=== PATIENT | male | born 1955 | race Two or more races ===

== ENCOUNTER → 2020-07-02 10:48 | Outpatient (BNVA) | payer MEDICARE, SELFPAY | PROVIDERS: PCP Internal Medicine; Referring Provider Internal Medicine; Visit Provider Internal Medicine | DX: E66.9 Obesity, unspecified (principal); G47.33 Obstructive sleep apnea (adult) (pediatric); J44.9 Chronic obstructive pulmonary disease, unspecified; J30.9 Allergic rhinitis, unspecified; F17.200 Nicotine dependence, unspecified, uncomplicated; Z99.89 Dependence on other enabling machines and devices | CPT/HCPCS: 99212 ==

== ENCOUNTER 2020-08-04 07:12 | Outpatient (REF) | payer MEDICARE, SELFPAY ==
[2020-08-04 07:36] LABS: MANUAL DIFF FLAG NO
[2020-08-04 07:42] LABS: Basophils Percent Auto 0.2 % (0-2); Eosinophils Absolute Auto 0.3 X10*3/uL (0.0-0.4); Eosinophils Percent Auto 3.3 % (0-4); Hematocrit 36.9 % (42-52); Hemoglobin 12.2 g/dl (14.0-18.0); Imm Gran Abs Auto 0.03 X10*3/uL (0.00-0.03); Imm Gran Pct Auto 0.3 % (0.0-0.4); Lymphocytes Absolute Auto 2.7 X10*3/uL (1.2-4.9); Lymphocytes Percent Auto 28.8 % (20-40); Mean Corpuscular HGB Conc 33.1 g/dl (31.0-36.0); Mean Corpuscular Hemoglobin 28.7 pg (27.0-33.0); Mean Corpuscular Volume 86.8 fL (80-98); Mean Platelet Volume 10.9 fL (9.4-12.4); Monocytes Absolute Auto 0.9 X10*3/uL (0.1-1.2); Monocytes Percent Auto 9.2 % (2-11); Neutrophils Absolute Auto 5.5 X10*3/uL (2.0-8.3); Neutrophils Percent Auto 58.2 % (45-73); Platelet Count 236 X10*3/uL (160-400); Red Blood Count 4.25 X10*6/uL (4.60-5.80); Red Cell Distribution Width 14.4 % (11.0-16.0); White Blood Count 9.5 X10*3/uL (4.8-10.8)
[2020-08-04 07:54] LABS: Estimated Average Glucose 114 mg/dL; Hemoglobin A1c % 5.6 %
[2020-08-04 08:23] LABS: Anion Gap 13 (12-20); Blood Urea Nitrogen 15 mg/dL (9-16); Calcium 8.9 mg/dL (8.4-10.2); Carbon Dioxide 25 mmol/L (22-29); Chloride 109 mmol/L (96-108); Cholesterol 157 mg/dL; Estimated Glomerular Filt Rate > 60; Glucose Fasting 128 mg/dL (60-99); HDL Cholesterol 28 mg/dL; LDL Cholesterol Calculated 105 mg/dl; Potassium 4.1 mmol/l (3.3-5.1); Sodium 143 mmol/L (135-145); Triglycerides 124 mg/dL
--- NOTE | 2020-10-20 14:40 | PFT_ITS ---
LUNG VOLUMES: Slow vital capacity 69% of predicted at 2.81 L. Expiratory reserve volume 21% of predicted at 0.23 L. The patient completed FVC maneuvers and then stated that he would not want to proceed further. Pulmonary test has been aborted. IMPRESSION: Aborted pulmonary function test. MD LU Carrington/MODL / [id number] MTDEmory
== END 2020-08-04 07:13 | disposition home or self-care (01) ==
LOC: HO.RESP 07:12
PROVIDERS: Absent Provider Internal Medicine; PCP Internal Medicine; Visit Provider Internal Medicine
DX: J44.9 Chronic obstructive pulmonary disease, unspecified (principal); I10 Essential (primary) hypertension; F17.210 Nicotine dependence, cigarettes, uncomplicated; Z71.6 Tobacco abuse counseling
CPT/HCPCS: 36415; 80048; 80061; 83036; 85025

== ENCOUNTER 2020-08-14 07:27 | Outpatient (REF) | payer MEDICARE, SELFPAY ==
--- NOTE | 2020-08-14 07:29 | CT_ITS ---
EXAMINATION: CT CHEST WITHOUT CONTRAST CLINICAL INFORMATION: Pulmonary nodule COMPARISON: 02/13/2019 TECHNIQUE: Multidetector volumetric CT imaging of the chest was done. Axial MIP volume rendering provided. Sagittal and coronal reformatted images were obtained. This CT examination was performed using dose optimization techniques as appropriate, variously including the following: *Automated exposure control *Adjustment of mA and/or kV according to patient size (this includes techniques or standardized protocols for targeted exams where dose is matched to indication/reason for exam; i.e. extremities or head) *Use of iterative reconstruction technique DLP: 244 mGy-cm FINDINGS: LUNGS: The central airways are patent with minimal secretions internally within the trachea. Mild bronchial wall thickening noted. Mild paraseptal and centrilobular emphysema. The previously seen right lower lobe pulmonary nodule is no longer visualized. There is a fissural lymph node along the right minor fissure. No suspicious pulmonary nodules. MEDIASTINUM: Normal heart size. No pericardial effusion. No mediastinal lymphadenopathy. Coronary artery calcifications are noted. PLEURA: There is no pleural effusion. No pleural mass or thickening. No pneumothorax. AXILLA: No lymphadenopathy. UPPER ABDOMEN: Unremarkable. OSSEOUS STRUCTURES: No acute or suspicious osseous abnormality. Degenerative changes are seen in the spine. CT/CT chest wo con IMPRESSION: Mild emphysema. Previously seen 0.3 cm right lower lobe nodule is no longer visualized. There are no suspicious pulmonary nodules.
== END 2020-08-14 07:28 | disposition home or self-care (01) ==
LOC: HO.CT 07:27
PROVIDERS: PCP Internal Medicine; Visit Provider Internal Medicine
DX: R91.1 Solitary pulmonary nodule (principal)
CPT/HCPCS: 71250

== ENCOUNTER 2020-12-25 08:50 | Outpatient (REF) | payer MEDICARE, SELFPAY ==
[2020-12-25 10:00] LABS: MANUAL DIFF FLAG NO
[2020-12-25 10:04] LABS: Basophils Percent Auto 0.2 % (0-2); Eosinophils Absolute Auto 0.2 X10*3/uL (0.0-0.4); Eosinophils Percent Auto 2.9 % (0-4); Hemoglobin 11.4 g/dl (14.0-18.0); Imm Gran Abs Auto 0.04 X10*3/uL (0.00-0.03); Imm Gran Pct Auto 0.5 % (0.0-0.4); Lymphocytes Absolute Auto 2.6 X10*3/uL (1.2-4.9); Lymphocytes Percent Auto 31.3 % (20-40); Mean Corpuscular HGB Conc 33.5 g/dl (31.0-36.0); Mean Corpuscular Hemoglobin 29.1 pg (27.0-33.0); Mean Corpuscular Volume 86.7 fL (80-98); Mean Platelet Volume 10.6 fL (9.4-12.4); Monocytes Absolute Auto 0.7 X10*3/uL (0.1-1.2); Monocytes Percent Auto 8.7 % (2-11); Neutrophils Absolute Auto 4.7 X10*3/uL (2.0-8.3); Neutrophils Percent Auto 56.4 % (45-73); Platelet Count 251 X10*3/uL (160-400); Red Blood Count 3.92 X10*6/uL (4.60-5.80); Red Cell Distribution Width 14.8 % (11.0-16.0); White Blood Count 8.3 X10*3/uL (4.8-10.8)
[2020-12-25 10:29] LABS: Alanine Aminotransferase 13 U/L (0-40); Albumin Level 3.3 g/dL (3.5-5.0); Alkaline Phosphatase 117 U/L (39-117); Anion Gap 11 (12-20); Aspartate Amino Transferase 11 U/L (5-37); Bilirubin Total < 0.2 mg/dL (0.0-1.0); Blood Urea Nitrogen 18 mg/dL (9-16); Calcium 8.6 mg/dL (8.4-10.2); Carbon Dioxide 23 mmol/L (22-29); Chloride 112 mmol/L (96-108); Estimated Glomerular Filt Rate 57; Magnesium 1.9 mg/dL (1.6-2.6); Phosphorus 2.5 mg/dL (2.7-4.5); Potassium 4.2 mmol/L (3.3-5.1); Sodium 142 mmol/L (135-145); Uric Acid 7.8 mg/dL (3.4-7.0)
[2020-12-25 10:42] LABS: Creatinine Urine 69.15 mg/dL; Total Protein Urine Random < 7 mg/dL (<12)
[2020-12-25 10:47] LABS: Vitamin D 25-OH Total 34.3 ng/mL (>30)
[2020-12-25 11:30] LABS: Renal w Reflex Lab Use Only Order verified
[2020-12-26 14:11] LABS: Calcium (PTHI) 8.8 mg/dL (8.6-10.3); PTHI 53 pg/mL (14-64)
== END 2020-12-25 08:51 | disposition home or self-care (01) ==
LOC: HO.LAB 08:50
PROVIDERS: PCP Internal Medicine; Visit Provider Internal Medicine Nephrology
DX: J44.9 Chronic obstructive pulmonary disease, unspecified (principal); J30.9 Allergic rhinitis, unspecified; G47.33 Obstructive sleep apnea (adult) (pediatric); E66.9 Obesity, unspecified; Z99.89 Dependence on other enabling machines and devices; Z71.6 Tobacco abuse counseling; F17.210 Nicotine dependence, cigarettes, uncomplicated
CPT/HCPCS: 36415; 80051; 82040; 82247; 82306; 82310; 82565; 83735; 83970; 84075; 84100; 84156; 84450; 84460; 84520; 84550; 85025; 99212

== ENCOUNTER 2021-03-14 07:20 | Emergency (ER) | payer MEDICARE, SELFPAY ==
[2021-03-14 07:26] VITALS: BP 132/54; PULSE 96; RESP 20; TEMP 36.5; O2SAT 99; BMI 44.6
--- NOTE | 2021-03-14 09:00 | ED.EXTPRO ---
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 He also had labs at that time and was told that there were no acute abnormalities. Patient states he has been able to ambulate without difficulty and denies any knee pain and has full range of motion of both the hip and the knee and denies any falls. In addition, he denies any back pain or urinary symptoms. Related Data Home Medications Medication Instructions Recorded Confirmed blood sugar diagnostic #10 ea 07/02/20 varenicline 1 mg tablet 1 mg PO BID 07/02/20 Previous Rx's Medication Instructions Recorded albuterol sulfate 2.5 mg INHALATION QID #75 ml 05/12/20 alendronate 70 mg tablet (Fosamax) 70 mg PO QWEEK #7 tab 05/12/20 alprazolam 1 mg tablet 1 mg PO BID #60 tab 05/12/20 buspirone 10 mg tablet 10 mg PO BID #60 tab 05/12/20 cholecalciferol (vitamin D3) 50 50 mcg PO DAILY #30 cap 05/12/20 mcg (2,000 unit) capsule docusate sodium 100 mg capsule 100 mg PO DAILY #30 cap 05/12/20 (Colace) fluticasone 500 mcg-salmeterol 50 1 inh INHALATION BID #60 ea 05/12/20 mcg/dose blistr powdr for inhalation (Advair Diskus) hydrochlorothiazide 12.5 mg tablet 12.5 mg PO DAILY #30 tab 05/12/20 hydrocortisone 2.5 % topical cream 1 applic [place] BID-QID PRN #30 g 05/12/20 with perineal applicator (Procto-Med HC) ipratropium 0.5 mg-albuterol 3 mg 3 ml INHALATION Q6H PRN #90 ml 05/12/20 (2.5 mg base)/3 mL nebulization soln loratadine 10 mg tablet (Claritin) 10 mg PO DAILY #30 tab 11/02/20 lorazepam 1 mg tablet (Ativan) 1 mg PO BID PRN #60 tab 05/12/20 metformin 500 mg tablet,extended 500 mg PO DAILY #30 tab 05/12/20 release 24 hr omeprazole magnesium 20 mg 20 mg PO DAILY #30 tab 05/12/20 tablet,delayed release (Prilosec OTC) oxymetazoline 0.05 % nasal spray 2 spray INTRANASAL Q12H PRN 3 Days 05/12/20 (Afrin (oxymetazoline)) #30 ml paroxetine HCl 20 mg tablet 20 mg PO DAILY #30 tab 05/12/20 quetiapine 300 mg tablet (Seroquel) 300 mg PO BEDTIME #30 tab 05/12/20 quetiapine 400 mg tablet 400 mg PO BID #30 tab 05/12/20 tamsulosin 0.4 mg capsule 0.4 mg PO BEDTIME #30 cap 05/12/20 verapamil 300 mg capsule 24hr 300 mg PO BEDTIME #30 cap 05/12/[address],ext.release (Verelan PM) albuterol sulfate 90 mcg/actuation 2 puff INHALATION Q4-6H PRN 30 12/15/20 aerosol inhaler (ProAir HFA) Days #8.5 g montelukast 10 mg tablet 10 mg PO BEDTIME #90 tab 12/17/20 Allergies Allergy/AdvReac Type Severity Reaction Status Date / Time No Known Allergies Allergy Verified 12/25/20 09:28 [No Known Allergies*] Review of Systems Review of Systems: Pertinent positives and negatives as stated in HPI 10 point review of systems is otherwise negative. [facility] Past Medical History Source: nursing notes reviewed Medical History Allergic rhinitis COPD (chronic obstructive pulmonary disease) Obesity (BMI 35.0-39.9 without comorbidity) NAM on CPAP Smoker Social History Social History Alcohol intake: unknown Patient Tobacco Use Status: Tobacco use Unknown Use of substances other than those prescribed or required for medical reasons: Unknown Advance Directives: Yes Advance Directives Information Provided: No Advance Directives on File: No Physical Exam Vital Signs: Vital Signs: Last Vital Signs Temp 97.7 F 03/14/21 07:26 Pulse 96 03/14/21 07:26 Resp 20 03/14/21 07:26 BP 132/54 L 03/14/21 07:26 Pulse Ox 99 09/04/21 07:26 Body Mass Index 44.6 VITAL SIGNS: Reviewed. GENERAL: Well developed, well nourished, in no acute distress. HEAD: Normocephalic/atraumatic EYES: PERRLA, EOMI OROPHARYNX: no oral lesions noted, posterior pharynx clear LUNGS: Normal breath sounds. No adventitious sounds or accessory muscle use. SpO2<99> CARDIOVASCULAR: Regular rate and rhythm without noted murmurs, no JVD or lower extremity edema. ABDOMEN: Soft, non-tender, non-distended with bowel sounds. LEFT LOWER EXTREMITY: No deformities, there is noted evidence of sun exposure to the left lower extremity, there is no erythema or swelling around the knee and the knee has full range of motion, hip area is without tenderness on palpation and no evidence of erythema or induration. He palpation along the left lateral extremity is without erythema or induration and no fluctuance is noted. SKIN: Inspection of the skin reveals no rashes NEUROLOGIC: Alert and oriented x 4. Strength and sensation to light touch were grossly intact x 4. Course Course Course Narrative: This is a 65-year-old male with history and clinical presentation most consistent with neuropathic pain. There is no evidence of trauma, infection, and patient has had recent lab work by his primary care provider. In addition patient has not experienced any falls to suggest gait instability. Patient is otherwise requesting to be discharged so that he can follow up with his primary care provider on Tuesday morning and he is hemodynamically stable for this discharge. Discharge Plan Discharge Clinical Impression: Left leg pain, Neuropathic pain Patient Disposition: Home, Self-Care Instructions: Diabetic Peripheral Neuropathy (ED) Additional Instructions: 1. Reanude todos los medicamentos caseros seg?n lo prescrito. 2. Sospecho que se trata de un dolor neurop?parmjit. 3. Reece un seguimiento con saenz proveedor de atenci?n primaria el por la ma?abhishek para ernst reevaluaci?n. Regrese a la kizzy de emergencias por un empeoramiento kuldeep de los s?ntomas. Prescriptions: No Action albuterol sulfate [ProAir HFA] 90 mcg/actuation HFA aerosol inhaler 2 puff inhalation Q4-6H PRN (Reason: shortness of breath or wheezing) 30 Days Qty: 8.5 RF: 1 montelukast 10 mg tablet 10 mg PO BEDTIME Qty: 90 RF: 0 Chantix 1 mg tablet 1 mg PO BID RF: 0 (DME) FreeStyle Lite Strips Strip See Rx Instructions strip Not Applicable DAILY Qty: 10 RF: 0 Referrals: Lake Allen MD [Primary Care Provider] - 2 days (Re-evaluation for suspected neuropathic pain in the left lower extremity.) Print Language: Latvian
== END 2021-03-14 09:22 | disposition home or self-care (01) ==
PROVIDERS: Emergency Provider Student in an Organized Health Care Education/Training Program; PCP Internal Medicine
DX: G62.9 Polyneuropathy, unspecified (principal); M79.662 Pain in left lower leg; F17.210 Nicotine dependence, cigarettes, uncomplicated
CPT/HCPCS: 99282; 99284

== ENCOUNTER → 2021-04-02 06:58 | Outpatient (REF) | payer MEDICARE, SELFPAY ==
--- NOTE | 2021-04-02 07:01 | CA_ITS ---
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 Consider ADELA Findings Atria There is no evidence of interatrial shunt by agitated saline. Prior Study Comparison No previous study in the last 5 years for comparison Recommendations, Care & Conclusions Consider a ADELA if clinically appropriate. Updated in Other Vendor System with Status of Final Stanley Urena MD electronically signed on 04/03/2021 8:58:56 AM with status of Final
== END ==
LOC: HO.CARD 06:58
PROVIDERS: Visit Provider Internal Medicine Cardiovascular Disease
DX: Q21.1 Atrial septal defect (principal)
CPT/HCPCS: 93308

== ENCOUNTER → 2021-05-12 09:02 | Outpatient (BNVA) | payer MEDICARE, SELFPAY | PROVIDERS: PCP Internal Medicine; Visit Provider Internal Medicine | DX: G47.33 Obstructive sleep apnea (adult) (pediatric) (principal); J30.9 Allergic rhinitis, unspecified; J44.9 Chronic obstructive pulmonary disease, unspecified; E66.2 Morbid (severe) obesity with alveolar hypoventilation; F17.200 Nicotine dependence, unspecified, uncomplicated; Z99.89 Dependence on other enabling machines and devices | CPT/HCPCS: 99212 ==

== ENCOUNTER → 2021-09-10 10:18 | Outpatient (BNVA) | payer MEDICARE, SELFPAY | PROVIDERS: PCP Internal Medicine; Visit Provider Internal Medicine | DX: J44.9 Chronic obstructive pulmonary disease, unspecified (principal); J30.9 Allergic rhinitis, unspecified; G47.33 Obstructive sleep apnea (adult) (pediatric); E66.2 Morbid (severe) obesity with alveolar hypoventilation; F17.200 Nicotine dependence, unspecified, uncomplicated; Z99.89 Dependence on other enabling machines and devices; Z68.42 Body mass index [BMI] 45.0-49.9, adult | CPT/HCPCS: 99212 ==

== ENCOUNTER → 2022-01-25 08:19 | Outpatient (BNVA) | payer MEDICARE, SELFPAY | PROVIDERS: PCP Internal Medicine; Visit Provider Internal Medicine | DX: G47.33 Obstructive sleep apnea (adult) (pediatric) (principal); E66.2 Morbid (severe) obesity with alveolar hypoventilation; J44.9 Chronic obstructive pulmonary disease, unspecified; J30.9 Allergic rhinitis, unspecified; F17.210 Nicotine dependence, cigarettes, uncomplicated; Z71.6 Tobacco abuse counseling; Z68.42 Body mass index [BMI] 45.0-49.9, adult; Z99.89 Dependence on other enabling machines and devices | CPT/HCPCS: 99212 ==

== ENCOUNTER 2022-03-24 12:21 | Outpatient (REF) | payer MEDICARE, SELFPAY ==
--- NOTE | ~2022-03-24 | CT_ITS ---
EXAMINATION: CT HEAD WITHOUT CONTRAST CLINICAL INFORMATION: Headache COMPARISON: None TECHNIQUE: Contiguous axial imaging was performed from the skull base to vertex without intravenous administration of contrast. This CT examination was performed using dose optimization techniques as appropriate, variously including the following: *Automated exposure control *Adjustment of mA and/or kV according to patient size (this includes techniques or standardized protocols for targeted exams where dose is matched to indication/reason for exam; i.e. extremities or head) *Use of iterative reconstruction technique DLP: 984 mGy-cm FINDINGS: There is no acute intra-axial, extra-axial bleed, masses or midline shift. Both lateral ventricles are symmetrical in size and configuration without enlargement. There is no acute infarction evolution. The lateral ventricles are symmetrical in size and configuration without enlargement. Bone windows reveal no calvarial abnormality. There is no scalp soft tissue abnormality. Bilateral paranasal sinuses and mastoid air cells are well-aerated. CT/CT head/brain wo IV con IMPRESSION: No acute intracranial process seen.
== END 2022-03-24 12:22 | disposition home or self-care (01) ==
LOC: HO.CT 12:21
PROVIDERS: PCP Internal Medicine; Visit Provider Emergency Medicine
DX: R51.9 Headache, unspecified (principal)
CPT/HCPCS: 70450

== ENCOUNTER 2022-06-27 09:15 | Emergency (ER) | payer MEDICARE, SELFPAY ==
--- NOTE | ~2022-06-27 | XR_ITS ---
EXAMINATION: XR LEFT RIBS AND CHEST CLINICAL INFORMATION: Pain after fall. Left rib injury. COMPARISON: 11/16/2019 TECHNIQUE: PA and lateral views of the chest and AP and both oblique views of the left ribs were obtained. FINDINGS: Lungs are clear. Chronic pleural thickening is again seen in the posterior aspects of the bases bilaterally. No consolidation, pneumothorax, or pleural effusion. The cardiomediastinal silhouette and pulmonary vasculature are normal. No acute fractures are identified. No left-sided rib fractures. Chronic deformity of the left proximal humerus, likely related to an old healed fracture. XR/XR chest 2V IMPRESSION: No acute cardiopulmonary findings. No acute rib fractures are identified.
--- NOTE | ~2022-06-27 | XR_ITS ---
EXAMINATION: XR LEFT RIBS AND CHEST CLINICAL INFORMATION: Pain after fall. Left rib injury. COMPARISON: 11/16/2019 TECHNIQUE: PA and lateral views of the chest and AP and both oblique views of the left ribs were obtained. FINDINGS: Lungs are clear. Chronic pleural thickening is again seen in the posterior aspects of the bases bilaterally. No consolidation, pneumothorax, or pleural effusion. The cardiomediastinal silhouette and pulmonary vasculature are normal. No acute fractures are identified. No left-sided rib fractures. Chronic deformity of the left proximal humerus, likely related to an old healed fracture. XR/XR ribs LT 2V IMPRESSION: No acute cardiopulmonary findings. No acute rib fractures are identified.
[2022-06-27 09:25] VITALS: BP 160/100; O2SAT 98; BMI 45.1
[2022-06-27 09:38] VITALS: BP 121/61; PULSE 78; TEMP 36.3; O2SAT 99
--- NOTE | 2022-06-27 09:48 | ED_ITS ---
HPI - Fall General Chief Complaint: Fall Stated Complaint: Side pain post fall(2 days ago), per EMS Time Seen by Provider: 06/27/22 09:46 Source: patient Mode of arrival: EMS Limitations: no limitations History of Present Illness HPI Narrative: patient was walking Tuesday and he fell outside his home. now with continued left chest pain MD complaint: fall Onset (ago): day(s) Fall from: standing Place fall occurred: home Loss of consciousness: none Context: tripped/slipped Location of injury: chest Quality: sharp Related Data Home Medications Medication Instructions Recorded Confirmed blood sugar diagnostic #10 ea 07/02/20 01/25/22 Previous Rx's Medication Instructions Recorded alprazolam 1 mg tablet 1 mg PO BID #60 tabs 05/12/20 buspirone 10 mg tablet 10 mg PO BID #60 tabs 05/12/20 cholecalciferol (vitamin D3) 50 50 mcg PO DAILY #30 caps 05/12/20 mcg (2,000 unit) capsule docusate sodium 100 mg capsule 100 mg PO DAILY #30 caps 05/12/20 (Colace) hydrochlorothiazide 12.5 mg tablet 12.5 mg PO DAILY #30 tabs 05/12/20 hydrocortisone 2.5 % topical cream 1 applic [place] BID-QID PRN 05/12/20 with perineal applicator hemorrhoids #30 grams (Procto-Med HC) loratadine 10 mg tablet (Claritin) 10 mg PO DAILY #30 tabs 05/12/20 lorazepam 1 mg tablet (Ativan) 1 mg PO BID PRN anxiety #60 tabs 05/12/20 metformin 500 mg tablet,extended 500 mg PO DAILY #30 tabs 05/12/20 release 24 hr omeprazole magnesium 20 mg 20 mg PO DAILY #30 tabs 05/12/20 tablet,delayed release (Prilosec OTC) paroxetine HCl 20 mg tablet 20 mg PO DAILY #30 tabs 05/12/20 quetiapine 300 mg tablet (Seroquel) 300 mg PO BEDTIME #30 tabs 05/12/20 quetiapine 400 mg tablet 400 mg PO BID #30 tabs 05/12/20 tamsulosin 0.4 mg capsule 0.4 mg PO BEDTIME #30 caps 05/12/20 verapamil 300 mg capsule 24hr 300 mg PO BEDTIME #30 caps 05/12/[address],ext.release (Verelan PM) albuterol sulfate 90 mcg/actuation 2 puff inhalation Q4-6H PRN 09/10/21 aerosol inhaler (ProAir HFA) shortness of breath or wheezing 30 days #8.5 grams fluticasone 500 mcg-salmeterol 50 1 inh inhalation BID copd #60 ea 09/10/21 mcg/dose blistr powdr for inhalation (Advair Diskus) fluticasone propionate 50 2 spray intranasal DAILY Allergic 09/10/21 mcg/actuation nasal Rhinitis 30 days #16 grams spray,suspension (Children's Flonase Allergy Relief) montelukast 10 mg tablet 10 mg PO BEDTIME #90 tabs 05/31/22 naproxen 500 mg tablet (Naprosyn) 500 mg PO BID #20 tabs 06/27/22 Allergies Allergy/AdvReac Type Severity Reaction Status Date / Time No Known Allergies Allergy Verified 01/25/22 08:52 [No Known Allergies*] Review of Systems Neurologic: Denies Sensory deficit (Neuro) COUNTS INCLUDE 234 BEDS AT THE [facility] Past Medical History Medical History Allergic rhinitis COPD (chronic obstructive pulmonary disease) Morbid (severe) obesity with alveolar hypoventilation Obesity (BMI 35.0-39.9 without comorbidity) NAM on CPAP Smoker Social History Social History Alcohol intake: unknown Patient Tobacco Use Status: Tobacco use Unknown Advance Directives: No Advance Directives Information Provided: No Physical Exam Vital Signs: Vital Signs: Last Vital Signs Temp 98.8 F 06/27/22 10:59 Pulse 67 06/27/22 10:59 Resp 18 06/27/22 10:59 BP 112/76 06/27/22 10:59 Pulse Ox 98 06/27/22 10:59 O2 Del Method 06/27/22 10:59 BMI result Body Mass Index 45.1 Const: Other: unkept Nutritional Appearance: obese Orientation/consciousness: oriented to person and patient oriented x3 Limitations: no limitations HEENT: Head: Yes normal to inspection Ears: external ears normal General nose exam: Normal external nose present Mouth: Normal oral and palatal mucosa present and oropharynx normal Throat: Yes posterior oropharynx normal Eyes: General: appearance normal, both eyes and all related structures Neck: Other: supple Neck: Yes normal visual inspection Chest: Other: left anterior rib tenderness Resp: Auscultation: clear to auscultation bilaterally Cardio: Jugular venous distension: no JVD Rate: regular rate Rhythm: regular rhythm Heart sounds: S1 normal heart sound present and S2 normal heart sound present GI: Inspection: Yes normal to inspection Palpation (GI): Soft to palpation, nontender and No hepatosplenomegaly present Auscultation: normal bowel sounds : General: Yes no CVA tenderness Back/Spine/Pelvis: Back: no CVA tenderness Skin: General skin exam: no rashes or lesions noted Neuro: General: oriented to person and patient oriented x3 Cranial nerves: Yes CN's II-XII intact bilaterally Motor exam (neuro): 5/5 motor strength present throughout Sensory Exam: No Sensory deficit (Neuro) Extrem: General: Yes normal to inspection Psych: Appearance: grossly normal Course Reevaluation(s) Reevaluation #1: Patient with rib contusion will dc on NSAIDS Time: 11:05 Medical Decision Making Radiology Impression Discussion of test interpretation with radiology: I have reviewed the radiologist's reading. Radiologist Impression: FINDINGS: Lungs are clear. Chronic pleural thickening is again seen in the posterior aspects of the bases bilaterally. No consolidation, pneumothorax, or pleural effusion. The cardiomediastinal silhouette and pulmonary vasculature are normal. No acute fractures are identified. No left-sided rib fractures. Chronic deformity of the left proximal humerus, likely related to an old healed fracture. XR/XR chest 2V IMPRESSION: No acute cardiopulmonary findings. No acute rib fractures are identified. Dictated By: n Signed By: <Electronically signed by n in OV> 06/27/22 1024 Discharge Plan Discharge Clinical Impression: Chest wall contusion Patient Disposition: Home, Self-Care Instructions: Contusion in Adults (ED), Rib Contusion (ED) Prescriptions: New naproxen [Naprosyn] 500 mg tablet 500 mg PO BID Qty: 20 0RF No Action lorazepam [Ativan] 1 mg tablet 1 mg PO BID PRN (Reason: anxiety) Qty: 60 0RF loratadine [Claritin] 10 mg tablet 10 mg PO DAILY Qty: 30 0RF buspirone 10 mg tablet 10 mg PO BID Qty: 60 0RF quetiapine 400 mg tablet 400 mg PO BID Qty: 30 0RF paroxetine HCl 20 mg tablet 20 mg PO DAILY Qty: 30 0RF alprazolam 1 mg tablet 1 mg PO BID Qty: 60 0RF tamsulosin 0.4 mg capsule 0.4 mg PO BEDTIME Qty: 30 0RF docusate sodium [Colace] 100 mg capsule 100 mg PO DAILY Qty: 30 0RF omeprazole magnesium [Prilosec OTC] 20 mg tablet,delayed release (DR/EC) 20 mg PO DAILY Qty: 30 0RF hydrocortisone [Procto-Med HC] 2.5 % cream with perineal applicator 1 applic NV BID-QID PRN (Reason: hemorrhoids) Qty: 30 0RF verapamil [Verelan PM] 300 mg capsule, [address] 300 mg PO BEDTIME Qty: 30 0RF hydrochlorothiazide 12.5 mg tablet 12.5 mg PO DAILY Qty: 30 0RF quetiapine [Seroquel] 300 mg tablet 300 mg PO BEDTIME Qty: 30 0RF metformin 500 mg tablet extended release 24 hr 500 mg PO DAILY Qty: 30 0RF cholecalciferol (vitamin D3) 50 mcg (2,000 unit) capsule 50 mcg PO DAILY Qty: 30 0RF montelukast 10 mg tablet 10 mg PO BEDTIME Qty: 90 0RF (DME) FreeStyle Lite Strips Strip See Rx Instructions Not Applicable DAILY Qty: 10 Rx Instructions: As directed fluticasone propion-salmeterol [Advair Diskus] 500-50 mcg/dose blister with device 1 inh inhalation BID Qty: 60 5RF albuterol sulfate [ProAir HFA] 90 mcg/actuation HFA aerosol inhaler 2 puff inhalation Q4-6H PRN (Reason: shortness of breath or wheezing) 30 Days Qty: 8.5 1RF fluticasone propionate [Children's Flonase Allergy Rlf] 50 mcg/actuation spray,suspension 2 spray intranasal DAILY 30 Days Qty: 16 5RF Rx Instructions: administer into each nostril
[2022-06-27 10:59] VITALS: BP 112/76; PULSE 67; RESP 18; TEMP 37.1; O2SAT 98
[2022-06-27] MEDS: Ketorolac Tromethamine 60 MG/2 ML VIAL IM (11:15)
== END 2022-06-27 11:31 | disposition home or self-care (01) ==
PROVIDERS: Emergency Provider Emergency Medicine; PCP Internal Medicine
DX: S20.213A Contusion of bilateral front wall of thorax, initial encounter (principal); W01.0XXA Fall on same level from slipping, tripping and stumbling without subsequent striking against object, initial encounter; Y93.9 Activity, unspecified; Y92.9 Unspecified place or not applicable; Y99.9 Unspecified external cause status; Z79.899 Other long term (current) drug therapy
CPT/HCPCS: 71046; 71100; 99283; J1885

== ENCOUNTER → 2022-08-12 08:25 | Outpatient (BNVA) | payer OTHER, SELFPAY | PROVIDERS: PCP Internal Medicine; Visit Provider Internal Medicine | DX: G47.33 Obstructive sleep apnea (adult) (pediatric) (principal); J44.9 Chronic obstructive pulmonary disease, unspecified; E66.2 Morbid (severe) obesity with alveolar hypoventilation; J30.9 Allergic rhinitis, unspecified; F17.200 Nicotine dependence, unspecified, uncomplicated; Z99.89 Dependence on other enabling machines and devices; Z68.42 Body mass index [BMI] 45.0-49.9, adult | CPT/HCPCS: 99212 ==

== ENCOUNTER 2022-10-01 13:30 | Outpatient (REF) | payer OTHER, SELFPAY ==
--- NOTE | ~2022-10-01 | CT_ITS ---
EXAMINATION: LUNG CANCER SCREENING CT CHEST WITHOUT CONTRAST CLINICAL INFORMATION: Current smoker with 55 pack year history COMPARISON: 08/14/2020 TECHNIQUE: Multidetector volumetric CT imaging of the chest was obtained noncontrast using low dose screening CT technique. Axial thin section 0.625 mm reformations in soft tissue and lung windows were obtained. Sagittal and coronal reformations were obtained. Axial MIP images were also created and reviewed. This CT examination was performed using dose optimization techniques as appropriate, variously including the following: *Automated exposure control *Adjustment of mA and/or kV according to patient size (this includes techniques or standardized protocols for targeted exams where dose is matched to indication/reason for exam; i.e. extremities or head) *Use of iterative reconstruction technique TOTAL EXAM DLP: 110 mGy-cm. FINDINGS: PULMONARY NODULES: No suspicious pulmonary nodules. There are couple punctate nodules in the right lower lobe. LUNGS / PLEURA: Mild emphysema. Diffuse mild bronchial wall thickening without bronchiectasis. No pleural effusion or pneumothorax. MEDIASTINUM / TRANG: Heart normal in size without pericardial effusion. Great vessels normal caliber. No lymphadenopathy. Coronary calcifications present. Imaged thyroid gland unremarkable. CHEST WALL / AXILLA: Unremarkable. UPPER ABDOMEN: Fatty atrophy of the pancreas. OSSEOUS STRUCTURES: No acute or suspicious osseous abnormalities. CT/CT lung screening IMPRESSION: * No evidence of pulmonary malignancy. * Mild emphysema. ASSESSMENT: Lung RADS category: 2. Benign appearance or behavior. Nodules with a very low likelihood of becoming a clinically active cancer due to size or lack of growth. Continue annual screening with low-dose CT in 12 months. Probability of malignancy less than 1%. INCIDENTAL FINDINGS (S CATEGORY): None. RECOMMENDATION: Follow up low dose CT chest in 1 year.
== END 2022-10-01 13:31 | disposition home or self-care (01) ==
LOC: HO.CT 13:30
PROVIDERS: PCP Internal Medicine; Visit Provider Physician Assistant Medical
DX: Z12.2 Encounter for screening for malignant neoplasm of respiratory organs (principal); F17.210 Nicotine dependence, cigarettes, uncomplicated
CPT/HCPCS: 71271; G0296

== ENCOUNTER → 2022-11-24 08:31 | Outpatient (BNVA) | payer OTHER, SELFPAY | PROVIDERS: PCP Internal Medicine; Visit Provider Internal Medicine | DX: G47.33 Obstructive sleep apnea (adult) (pediatric) (principal); J44.9 Chronic obstructive pulmonary disease, unspecified; E66.2 Morbid (severe) obesity with alveolar hypoventilation; J30.2 Other seasonal allergic rhinitis; F17.210 Nicotine dependence, cigarettes, uncomplicated; Z99.89 Dependence on other enabling machines and devices | CPT/HCPCS: 99212 ==

== ENCOUNTER 2022-12-11 15:11 | Emergency (ER) | payer OTHER, SELFPAY ==
--- NOTE | ~2022-12-11 | XR_ITS ---
EXAMINATION: XR KNEE, RIGHT CLINICAL INFORMATION: Pain post fall COMPARISON: 08/02/2016 plain films TECHNIQUE: 5 views of the right knee. FINDINGS: Partially visualized plate screw fixation through the medial aspect of the distal femur is again noted and not significant a changed the prior study. No evidence for periprosthetic fracture or hardware failure. Tiny osteochondroma from the lateral femoral metaphysis. There is a larger probable osteochondroma possibly arising from the lateral proximal tibia although there is also associated bony cortical irregularity along the proximal aspect of the fibula at this level with resulting widening of the interosseous space and in the proximal tibia and fibula however this is chronic appearing abnormality when compared to prior studies. I do not appreciate any acute fracture or dislocation. No bony destructive lesions otherwise. XR/XR knee RT 3V IMPRESSION: Chronic appearing and postoperative changes as described. I do not appreciate any acute superimposed fracture or dislocation. There is a large osteochondroma possibly arising from the lateral proximal tibia with associated cortical irregularity along the proximal fibula.
[2022-12-11 15:24] VITALS: BP 138/90; PULSE 85; O2SAT 99
[2022-12-11 15:31] VITALS: BP 148/74; PULSE 91; RESP 16; TEMP 36.8; O2SAT 100; BMI 45.2
--- NOTE | 2022-12-11 15:31 | ED.GENADULT ---
HPI - General Adult General Chief complaint: Fall Stated complaint: R KNEE SKIN TEAR S/P FALL,-LOC,-HEADSTRIKE PER EMS Time Seen by Provider: 12/11/22 16:29 Source: patient and EMS Mode of arrival: EMS Limitations: no limitations History of Present Illness HPI narrative: 67 yo male with history of obesity, COPD, diabetes, NAM on CPAP, anemia presents to the ER for evaluation of right knee pain status post mechanical fall this morning. Patient reports he tripped on the cement and fell onto his knees, right worse than left. He sustained a significant skin tear to the right knee. He is able to extend and flex both knees normally. No active bleeding on arrival. Patient denies hitting his head or losing consciousness. He denies being on any anticoagulation. No other injuries. MD complaint: Right knee pain status post fall Onset (ago): hour(s) Location: right and lower extremity Radiation: non-radiation Severity: severe Severity scale (1-10): 9 Quality: aching Pain Consistency: intermittent Relieving factors: immobilization Exacerbating factors: movement Associated symptoms: denies other symptoms Treatments prior to arrival: none Related Data Home Medications Medication Instructions Recorded Confirmed blood sugar diagnostic #10 ea 07/02/20 08/12/22 irbesartan 150 mg tablet 150 mg PO DAILY 08/12/22 08/12/22 tolterodine 4 mg capsule,extended 4 mg PO BEDTIME 08/12/22 08/12/22 release 24 hr Previous Rx's Medication Instructions Recorded alprazolam 1 mg tablet 1 mg PO BID #60 tabs 05/12/20 buspirone 10 mg tablet 10 mg PO BID #60 tabs 05/12/20 cholecalciferol (vitamin D3) 50 50 mcg PO DAILY #30 caps 05/12/20 mcg (2,000 unit) capsule docusate sodium 100 mg capsule 100 mg PO DAILY #30 caps 05/12/20 (Colace) hydrochlorothiazide 12.5 mg tablet 12.5 mg PO DAILY #30 tabs 05/12/20 hydrocortisone 2.5 % topical cream 1 applic [place] BID-QID PRN 05/12/20 with perineal applicator hemorrhoids #30 grams (Procto-Med HC) loratadine 10 mg tablet (Claritin) 10 mg PO DAILY #30 tabs 05/12/20 lorazepam 1 mg tablet (Ativan) 1 mg PO BID PRN anxiety #60 tabs 05/12/20 metformin 500 mg tablet,extended 500 mg PO DAILY #30 tabs 05/12/20 release 24 hr omeprazole magnesium 20 mg 20 mg PO DAILY #30 tabs 05/12/20 tablet,delayed release (Prilosec OTC) paroxetine HCl 20 mg tablet 20 mg PO DAILY #30 tabs 05/12/20 quetiapine 300 mg tablet (Seroquel) 300 mg PO BEDTIME #30 tabs 05/12/20 quetiapine 400 mg tablet 400 mg PO BID #30 tabs 05/12/20 tamsulosin 0.4 mg capsule 0.4 mg PO BEDTIME #30 caps 05/12/20 verapamil 300 mg capsule 24hr 300 mg PO BEDTIME #30 caps 05/12/[address],ext.release (Verelan PM) albuterol sulfate 90 mcg/actuation 2 puff inhalation Q4-6H PRN 09/10/21 aerosol inhaler (ProAir HFA) shortness of breath or wheezing 30 days #8.5 grams fluticasone 500 mcg-salmeterol 50 1 inh inhalation BID copd #60 ea 09/10/21 mcg/dose blistr powdr for inhalation (Advair Diskus) fluticasone propionate 50 2 spray intranasal DAILY Allergic 09/10/21 mcg/actuation nasal Rhinitis 30 days #16 grams spray,suspension (Children's Flonase Allergy Relief) naproxen 500 mg tablet (Naprosyn) 500 mg PO BID #20 tabs 06/27/22 nicotine 21 mg/24 hr daily 1 patch transdermal Q24H 08/12/22 transdermal patch COPD/SMOKING 28 days #28 ea montelukast 10 mg tablet 10 mg PO BEDTIME #90 tabs 11/15/22 amoxicillin 875 mg-potassium 1 tab PO BID #20 tabs 12/11/22 clavulanate 125 mg tablet Allergies Allergy/AdvReac Type Severity Reaction Status Date / Time No Known Allergies Allergy Verified 12/11/22 15:31 [No Known Allergies*] Review of Systems Review of Systems: Yes all other systems are reviewed and are negative PMFSH Past Medical History Medical History Allergic rhinitis Anemia, normocytic normochromic COPD (chronic obstructive pulmonary disease) History of pneumothorax Morbid (severe) obesity with alveolar hypoventilation Nicotine dependence, cigarettes, uncomplicated NAM on CPAP (~2008) Osteoporosis (~2013) Sickle cell trait Surgical History History of cardiac cath History of colonoscopy History of surgery on lower extremity Social History Social History Alcohol intake: unknown Patient Tobacco Use Status: Current everyday Tobacco user Tobacco use type: Cigarette Cigarettes Per Day: 10 Years Smoked: onset 13yo, x 54yrs, mainly 1ppd, now 1/2ppd, 50pyh Advance Directives: No Advance Directives Information Provided: No Physical Exam ED Vital Signs: Vital Signs - 24 hr 12/11/22 15:31 Temperature 98.2 F Pulse Rate 91 Respiratory Rate 16 Blood Pressure 148/74 H Pulse Oximetry 100 Oxygen Delivery Method Room Air BMI result Body Mass Index 45.2 Appearance: Alert. Oriented X3. No acute distress. Head: normocephalic, atraumatic. Eyes: Pupils equal, round and reactive to light. ENT: Pharynx normal. No tonsillar swelling or exudate. Neck: Normal inspection. Neck supple. CVS: Normal heart rate and rhythm. Pulses normal. Respiratory: No respiratory distress. Breath sounds normal. Abdomen: [place], obese, Soft and nontender. +BS x4 Skin: Skin warm and dry. Normal skin color. Normal skin turgor. No rashes. Extremities: left knee with a superficial abrasion over the patella. Normal flexion and extension of the knee. Right lower extremity with a large, approximately 10-12 cm laceration over the right tibial tuberosity, normal extension and flexion of he right knee. No patellar tenderness. no active bleeding on arrival. Right ankle with normal inspection, range of motion and palpation. Neuro/psych: Oriented X 3. No motor deficit. No sensory deficit. CN II-XII intact. Normal speech and cognition. Course Course Course Narrative: RME performed by Jennifer Haddad PA-C. Patient is a 67 year old assigned male at presenting to the emergency department with a right knee skin tear. Patient placed back in the waiting room pending room availability. Medications Administered Discontinued Medications Generic Name Dose Route Start Last Admin Trade Name Freq PRN Reason Stop Dose Admin Diphtheria/Tetanus/Acell Pertussis 0.5 ml 12/11/22 16:47 12/11/22 16:54 Diphth,Pertus(Acell),Tet Adult 0.5 Ml Syringe IM 12/11/22 16:48 0.5 ml .ONCE ONE Administration Lidocaine HCl 2 ml 12/11/22 16:47 12/11/22 16:54 Lidocaine Hcl 2 % Mpf 5 Ml Vial INFILTRATI 12/11/22 16:48 2 ml ONCE ONE Administration Lidocaine HCl 2 ml 12/11/22 16:47 12/11/22 16:54 Lidocaine Hcl 2 % Mpf 5 Ml Vial INFILTRATI 12/11/22 16:48 2 ml ONCE ONE Administration Lidocaine HCl 2 ml 12/11/22 16:47 12/11/22 16:55 Lidocaine Hcl 2 % Mpf 5 Ml Vial INFILTRATI 12/11/22 16:48 2 ml ONCE ONE Administration Oxycodone HCl 5 mg 12/11/22 16:47 12/11/22 16:54 Oxycodone Hcl Immed Release 5 Mg Tablet PO 12/11/22 16:48 5 mg ONCE ONE Administration Procedures Laceration Laceration 1: Site: lower extremity Side (If applicable): right Size (cm): 12 Description: flap and irregular Depth: involves muscle layer ( adipose tissue exposed) Local Anesthetic: lidocaine 1% Amount of anesthesia used (mL): 10 Pre-repair: wound explored, irrigated extensively and deep structures intact Skin layer closed with: nylon and other ( multiple Steri-Strips) Size (cm): 4-0 Number of sutures: 3 Technique: simple, interrupted Subcutaneous layer closed with: vicryl Size: 5-0 Number of sutures: 2 Technique: simple, interrupted Medical Decision Making Medical Decision Making MDM Narrative: 67-year-old diabetic, morbidly obese male presents the ER for evaluation of a complex wound to the right lower extremity. Wound is gaping and when probed, irrigated and explored it seems to be deeper than initially anticipated. Palpable bone. Area was extensively irrigated with saline. Nonabsorbable and absorbable sutures along with Steri-Strips were used to best approximate the wound. Wound was then dressed with Xeroform, nonstick dressing and a Kerlix wrap. X-rays were performed to rule out tibial plateau fracture although he does not have any significant point tenderness and has normal range of motion of the right knee. Case was discussed with orthopedics who is recommending wound follow-up. This was discussed at length with the patient. He was given a Tdap and started on Augmentin. It was encouraged for him to monitor and change his dressing once a day and follow-up with wound care early next week. Differential Diagnosis Differential Diagnoses: The differential diagnosis associated with the presentation includes open fracture of the tibial tuberosity, skin tear, contaminated wound, patellar fracture, simple skin tear Consult Healthcare Provider Management of the patient was discussed with: Outboard Motor Inspector sourav d/w sam [facility] ortho recommending wound care follow-up and ortho follow-up p.r.n.. Independent Historian Clinical information obtained from an independent historian. History obtained from or confirmed by: EMS External Record Review External record reviewed: Office record, Outpatient record, Prior outpatient labs and Prior outpatient radiology Prescription Management I considered prescription management with: Pain Medication and Antibiotic Chronic Conditions Patient?s care impacted by: Diabetes, Hypertension and Other ( Morbid obesity) Critical Care Time Critical Care Time Critical Care Time: No Discharge Plan Discharge Clinical Impression: Laceration of leg, right Patient Disposition: Home, Self-Care Instructions: Laceration (DC) Additional Instructions: You sustained a significant wound to the right lower leg. It is important that you monitor the wound daily, change the dressing daily and follow up with wound care next week. Call the Wound Center on Tuesday for an appointment. Name and number below. Take the prescribed antibiotic as directed. Complete the entire course and do not miss any doses. Your wound care regimen should include daily changing of xeroform (yellow gauze) over the open areas, followed by nonstick pad, followed by a wrap around the entire knee. Have your DRILLING FLUIDS SPECIALIST do this for you once per day. If you develop new or worsening symptoms call 911 or come back to the ER for further evaluation. Sufri? ernst herida importante en la parte inferior de la pierna derebrayan. Es importante que controle la herida todos los d?as, cambie el vendaje todos los d?as y ashlyn un seguimiento con el cuidado de la herida la pr?xima semana. Llame al [facility] el lunes para programar ernst guillermo. Nombre y n?zulema a continuaci?n. [place] el antibi?parmjit recetado seg?n las indicaciones. Complete todo el curso y no se pierda ninguna dosis. [place] r?gimen de cuidado de heridas debe incluir el cambio diario de xeroform (gasa amarilla) sobre las ?reas abiertas, seguido de ernst almohadilla antiadherente y ernst envoltura alrededor de toda la rodilla. P?tammi a gilmore DRILLING FLUIDS SPECIALIST que ashlyn esto por usted ernst vez al d?a. Si desarrolla s?ntomas nuevos o que empeoran, llame al 911 o regrese a la kizzy de emergencias para ernst evaluaci?n adicional. Prescriptions: New amoxicillin-pot clavulanate 875-125 mg tablet 1 tab PO BID Qty: 20 0RF No Action lorazepam [Ativan] 1 mg tablet 1 mg PO BID PRN (Reason: anxiety) Qty: 60 0RF loratadine [Claritin] 10 mg tablet 10 mg PO DAILY Qty: 30 0RF buspirone 10 mg tablet 10 mg PO BID Qty: 60 0RF quetiapine 400 mg tablet 400 mg PO BID Qty: 30 0RF paroxetine HCl 20 mg tablet 20 mg PO DAILY Qty: 30 0RF alprazolam 1 mg tablet 1 mg PO BID Qty: 60 0RF tamsulosin 0.4 mg capsule 0.4 mg PO BEDTIME Qty: 30 0RF docusate sodium [Colace] 100 mg capsule 100 mg PO DAILY Qty: 30 0RF omeprazole magnesium [Prilosec OTC] 20 mg tablet,delayed release (DR/EC) 20 mg PO DAILY Qty: 30 0RF hydrocortisone [Procto-Med HC] 2.5 % cream with perineal applicator 1 applic [place] BID-QID PRN (Reason: hemorrhoids) Qty: 30 0RF verapamil [Verelan PM] 300 mg capsule, [address] 300 mg PO BEDTIME Qty: 30 0RF hydrochlorothiazide 12.5 mg tablet 12.5 mg PO DAILY Qty: 30 0RF quetiapine [Seroquel] 300 mg tablet 300 mg PO BEDTIME Qty: 30 0RF metformin 500 mg tablet extended release 24 hr 500 mg PO DAILY Qty: 30 0RF cholecalciferol (vitamin D3) 50 mcg (2,000 unit) capsule 50 mcg PO DAILY Qty: 30 0RF montelukast 10 mg tablet 10 mg PO BEDTIME Qty: 90 0RF naproxen [Naprosyn] 500 mg tablet 500 mg PO BID Qty: 20 0RF (DME) FreeStyle Lite Strips Strip See Rx Instructions Not Applicable DAILY Qty: 10 Rx Instructions: As directed fluticasone propion-salmeterol [Advair Diskus] 500-50 mcg/dose blister with device 1 inh inhalation BID Qty: 60 5RF albuterol sulfate [ProAir HFA] 90 mcg/actuation HFA aerosol inhaler 2 puff inhalation Q4-6H PRN (Reason: shortness of breath or wheezing) 30 Days Qty: 8.5 1RF fluticasone propionate [Children's Flonase Allergy Rlf] 50 mcg/actuation spray,suspension 2 spray intranasal DAILY 30 Days Qty: 16 5RF Rx Instructions: administer into each nostril irbesartan 150 mg tablet 150 mg PO DAILY tolterodine 4 mg capsule,extended release 24hr 4 mg PO BEDTIME nicotine 21 mg/24 hr patch 24 hour 1 patch transdermal Q24H 28 Days Qty: 28 2RF Referrals: [facility] [place]] ( complex laceration of the right lower extremity requiring wound care follow-up) Print Language: Maltese
[2022-12-11] MEDS: Diphth,Pertus(ACell),Tet Adult 0.5 ML SYRINGE IM (16:54)
[2022-12-11] MEDS: Lidocaine HCl 2 % MPF 5 ML VIAL 2 ML INFILTRATI ×3 (16:54→16:55)
[2022-12-11] MEDS: oxyCODONE HCl Immed Release 5 MG TABLET PO (16:54)
--- NOTE | 2022-12-11 16:58 | PC.NURSE ---
pt medicated per SEP - tetanus updated awaiting provider
[2022-12-11] MEDS: Amoxicillin/Potassium Clav 875 MG TABLET PO (18:57)
== END 2022-12-11 19:16 | disposition home or self-care (01) ==
PROVIDERS: Emergency Provider Emergency Medicine; PCP Internal Medicine
DX: S81.811A Laceration without foreign body, right lower leg, initial encounter (principal); S80.811A Abrasion, right lower leg, initial encounter; M25.561 Pain in right knee; W01.0XXA Fall on same level from slipping, tripping and stumbling without subsequent striking against object, initial encounter; Y93.9 Activity, unspecified; Y92.9 Unspecified place or not applicable; Y99.9 Unspecified external cause status; Z23 Encounter for immunization; Z79.899 Other long term (current) drug therapy
CPT/HCPCS: 12034; 73562; 90471; 90715; 99283; 99284

== ENCOUNTER 2022-12-21 14:08 | Outpatient (RCR) | payer OTHER, SELFPAY | END 2023-02-04 09:50 | disposition home or self-care (01) | LOC: HO.WCC 14:08 | PROVIDERS: PCP Internal Medicine; Visit Provider Physician Assistant | DX: E11.622 Type 2 diabetes mellitus with other skin ulcer (principal); L97.812 Non-pressure chronic ulcer of other part of right lower leg with fat layer exposed; E11.40 Type 2 diabetes mellitus with diabetic neuropathy, unspecified; F17.210 Nicotine dependence, cigarettes, uncomplicated; J44.9 Chronic obstructive pulmonary disease, unspecified; I10 Essential (primary) hypertension | CPT/HCPCS: 11042; 97597; 99212; 99214 ==

== ENCOUNTER 2023-01-07 08:32 | Outpatient (REF) | payer OTHER, SELFPAY ==
--- NOTE | ~2023-01-07 | XR_ITS ---
EXAMINATION: XR lumbar spine 4V min, XR hip LT min 2V CLINICAL INFORMATION: Reason for Exam PAIN COMPARISON: Lumbar spine radiographs 12/02/2011 lumbar spine radiographs TECHNIQUE: 5 views of the lumbar spine. 2 views of the left hip. FINDINGS: 5 nonrib-bearing lumbar-type vertebral bodies. Schmorl's node in the inferior endplate of T11. Vertebral body heights are otherwise maintained. Alignment is maintained. No pars defects. Mild multilevel degenerative disc disease with borderline loss of disc space height at the thoracolumbar lumbar junction and lower lumbosacral facet arthropathy minimally progressed from prior. Atherosclerotic calcifications of the abdominal aorta. Mild degenerative changes of the left hip with marginal osteophytes. No hip fracture or dislocation. Calcified phleboliths in the pelvis. XR/XR hip LT min 2V IMPRESSION: 1. Mild degenerative changes of the lumbar spine, as above detailed, minimally progressed from prior. 2. Mild degenerative changes of the left hip, as above detailed.
--- NOTE | ~2023-01-07 | XR_ITS ---
EXAMINATION: XR lumbar spine 4V min, XR hip LT min 2V CLINICAL INFORMATION: Reason for Exam PAIN COMPARISON: Lumbar spine radiographs 12/02/2011 lumbar spine radiographs TECHNIQUE: 5 views of the lumbar spine. 2 views of the left hip. FINDINGS: 5 nonrib-bearing lumbar-type vertebral bodies. Schmorl's node in the inferior endplate of T11. Vertebral body heights are otherwise maintained. Alignment is maintained. No pars defects. Mild multilevel degenerative disc disease with borderline loss of disc space height at the thoracolumbar lumbar junction and lower lumbosacral facet arthropathy minimally progressed from prior. Atherosclerotic calcifications of the abdominal aorta. Mild degenerative changes of the left hip with marginal osteophytes. No hip fracture or dislocation. Calcified phleboliths in the pelvis. XR/XR lumbar spine 4V min IMPRESSION: 1. Mild degenerative changes of the lumbar spine, as above detailed, minimally progressed from prior. 2. Mild degenerative changes of the left hip, as above detailed.
== END 2023-01-07 08:33 | disposition home or self-care (01) ==
LOC: HO.HHCX 08:32
PROVIDERS: Visit Provider Internal Medicine
DX: M54.42 Lumbago with sciatica, left side (principal); G89.29 Other chronic pain
CPT/HCPCS: 72110; 73502

== ENCOUNTER 2023-03-08 10:35 | Outpatient (AMB) | payer OTHER, SELFPAY ==
--- NOTE | 2023-03-08 10:38 | A.OFFVIS_ITS ---
Intake Vital Signs 03/08/23 10:46 Height 5 ft 6 in Weight 280 lb BMI 45.2 Intake Visit Reasons: New pt - B/L knee pain Intake Note: Imer is a 67 year old male who presents today as a new patient for a evaluation for his bilateral knee pain, DOI 12/11/22. Hx of right knee surgery. Patient reports he tripped on cement and fell onto both of his knees. No hx of injections and would not like an injection. Hx of knee brace with relief. He states that his left knee is worse than the right. Patient states that his left knee is causing more pain on the lateral aspect of the knee. Allergies No Known Allergies [No Known Allergies*] Allergy (Verified 12/11/22 15:31) HPI New pt - B/L knee pain HPI Details 67-year-old male who presents in the office today for an evaluation of bilateral knee pain. The patient reports injuring his knees on 12/11/2022 status post tripping on cement, causing him to fall on his bilateral knees. He confirms the use of knee braces in the past with relief. He states the left knee is worse then the right knee. He claims his pain is on the lateral aspect of the knees. Patient has a history of right knee surgery. Patient has no history of cortisone injections, and is not interested in injections. [facility] Medical History Allergic rhinitis Anemia, normocytic normochromic COPD (chronic obstructive pulmonary disease) History of pneumothorax Morbid (severe) obesity with alveolar hypoventilation Nicotine dependence, cigarettes, uncomplicated NAM on CPAP (~2008) Osteoporosis (~2013) Sickle cell trait Surgical History History of cardiac cath History of colonoscopy History of surgery on lower extremity Social History Alcohol intake: unknown Patient Tobacco Use Status: Current everyday Tobacco user Tobacco use type: Cigarette Cigarettes Per Day: 10 Years Smoked: onset 13yo, x 54yrs, mainly 1ppd, now 1/2ppd, 50pyh Review of Systems Const All systems reviewed & are unremarkable except as noted in HPI and below Physical Exam Vital Signs: BMI result Body Mass Index 45.2 Const General: cooperative, healthy appearing and no acute distress Resp Effort & Inspection: normal respiratory effort and able to speak in complete sentences Cardio Rate: regular rate Peripheral pulses: Peripheral pulses 2+ throughout GI Palpation (GI): Soft to palpation Skin Lesions: no lesions Rashes: no rashes Extrem Other: Right knee: Prior surgical scar noted distal femur ORIF. Palpable hard mass on the lateral aspect just distal to the fibular head. Nontender to palpation. No ecchymosis, erythema, or joint effusion. No tenderness to palpation to the medial or lateral joint lines. Full knee extension and flexion. Negative Leslie's. Negative anterior draw. NVI. Assessment & Plan Assessment & Plan (1) Osteochondroma of right lower leg: Code(s): D16.21 - Benign neoplasm of long bones of right lower limb (2) Osteoarthritis of right knee: Code(s): M17.11 - Unilateral primary osteoarthritis, right knee (3) Retained orthopedic hardware: Comment: Right knee ORIF Code(s): Z96.9 - Presence of functional implant, unspecified Plan Mr. Parrish is a 67-year-old male who presents in the office today for an evaluation of bilateral knee pain. The patient reports injuring his knees on 12/11/2022 status post tripping on cement, causing him to fall on his bilateral knees. He confirms the use of knee braces in the past with relief. He states the left knee is worse then the right knee. He claims his pain is on the lateral aspect of the knees. Patient has a history of right knee surgery. Patient has no history of cortisone injections, and is not interested in injections. The patient will be referred for a CT scan to further evaluate the large osteochondroma. Follow up will be after the CT scan is obtained, or sooner if needed. X-rays of the right knee, obtained on 12/11/2022, revealed: Chronic appearing and postoperative changes as described. I do not appreciate any acute superimposed fracture or dislocation. There is a large osteochondroma possibly arising from the lateral proximal tibia with associated cortical irregularity along the proximal fibula. Orders: Orders CT knee RT wo IV con Today D16.21 - Benign neoplasm of long bones of right lower limb Patient Instructions: Scribed for Cheryl Regalado PA-C by yeni Newton scribe, on 03/08/2023 at 10:47 am, EST. Coding Level of Care Code New Pt Level 4 (22279) Diagnoses Osteochondroma of right lower leg D16.21 Osteoarthritis of right knee M17.11 Retained orthopedic hardware Z96.9
[2023-03-08 10:46] VITALS: BMI 45.2
== END 2023-03-08 11:08 | disposition home or self-care (01) ==
PROVIDERS: PCP Internal Medicine; Visit Provider Physician Assistant
DX: D16.21 Benign neoplasm of long bones of right lower limb (principal); M17.11 Unilateral primary osteoarthritis, right knee; Z96.9 Presence of functional implant, unspecified
CPT/HCPCS: 99203

== ENCOUNTER → 2023-03-08 10:35 | Outpatient (BNVA) | payer OTHER, SELFPAY | PROVIDERS: PCP Internal Medicine; Visit Provider Physician Assistant ==

== ENCOUNTER 2023-03-21 09:14 | Outpatient (AMB) | payer OTHER, SELFPAY ==
[2023-03-21 09:19] VITALS: BP 132/70; PULSE 77; O2SAT 99; BMI 45.2
--- NOTE | 2023-03-21 09:19 | MHC.OFFVIS ---
Intake Vital Signs 03/21/23 09:19 Height 5 ft 6 in Weight 280 lb BMI 45.2 BP 132/70 Blood Pressure Location Lt brachial Position Sitting Pulse 77 Pulse Source Pulse Oximeter Pulse Oximetry (%) 99 Oxygen Delivery Method Room Air Intake Visit Reasons: Obstructive sleep apnea Intake Note: pt is here for follow up of NAM but states he has a lot of phlegm that is all day long. 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: No Allergies No Known Allergies [No Known Allergies*] Allergy (Verified 03/21/23 09:34) Medication List - Last Reconciled 03/21/23 by Shweta Hussein MD albuterol sulfate 90 mcg/actuation (ProAir HFA) 2 puffs inhalation Q4-6H PRN 30 days alprazolam 1 mg PO BID blood sugar diagnostic As directed buspirone 10 mg PO BID cholecalciferol (vitamin D3) 50 mcg PO DAILY docusate sodium (Colace) 100 mg PO DAILY fluticasone propion-salmeterol 500-50 mcg/dose (Advair Diskus) 1 inh inhalation BID fluticasone propionate 50 mcg/actuation (Children's Flonase Allergy Relief) 2 sprays intranasal DAILY 30 days hydrochlorothiazide 12.5 mg PO DAILY hydrocortisone 2.5% (Procto-Med HC) 1 appl [place] BID-QID PRN irbesartan 150 mg PO DAILY loratadine (Claritin) 10 mg PO DAILY lorazepam (Ativan) 1 mg PO BID PRN metformin ER 500 mg PO DAILY montelukast 10 mg PO BEDTIME naproxen (Naprosyn) 500 mg PO BID omeprazole magnesium (Prilosec OTC) 20 mg PO DAILY paroxetine HCl 20 mg PO DAILY quetiapine 400 mg PO BID quetiapine (Seroquel) 300 mg PO BEDTIME tamsulosin 0.4 mg PO BEDTIME tolterodine ER 4 mg PO BEDTIME verapamil ER (Verelan PM) 300 mg PO BEDTIME Do you need a note to return to daycare/school/sports/work: No HPI Obstructive sleep apnea HPI Details This 67 years old gentleman who is morbidly obese and suffers from COPD as well as the obstructive sleep apnea, . Comes for follow-up after 6 months His condition has basically remained the same. He uses his CPAP very regularly every night and even during the daytime and sleeps well. He has no issues with his CPAP device are the mask. Breathing is stable except for the fact that he complains of frequent bouts of expectoration of phlegm. At the same time he admits that he is smoking during the whole day, up to 10 cigarettes a day. Is expectoration and cough is definitely related to his smoking. He does use his inhalers regularly. He has had no acute exacerbation in the last 6 months . [facility] Medical History Anemia, normocytic normochromic History of pneumothorax Sickle cell trait Nicotine dependence, cigarettes, uncomplicated Osteoporosis (~2013) Morbid (severe) obesity with alveolar hypoventilation Allergic rhinitis COPD (chronic obstructive pulmonary disease) NAM on CPAP (~2008) Surgical History History of colonoscopy History of surgery on lower extremity History of cardiac cath Social History Alcohol intake: unknown Patient Tobacco Use Status: Current everyday Tobacco user Tobacco use type: Cigarette Cigarettes Per Day: 10 Years Smoked: onset 13yo, x 54yrs, mainly 1ppd, now 1/2ppd, 50pyh Review of Systems Const All systems reviewed & are unremarkable except as noted in HPI and below Eyes Reports no additional complaints ENT Reports nasal congestion and Reports nasal discharge Card Denies chest pain, Denies irregular heart rhythm and Denies leg edema Resp Reports as per HPI GI Reports no additional complaints Reports urinary hesitancy (Controlled with med) Musc Reports back pain and Reports myalgias Skin/Breast Reports dry skin Neuro Reports no additional complaints Psych Reports no additional complaints Physical Exam Vital Signs: Last Vital Signs Pulse 77 03/21/23 09:19 BP 132/70 03/21/23 09:19 Pulse Ox 99 03/21/23 09:19 Oxygen Delivery Method Room Air 03/21/23 09:19 BMI result Body Mass Index 45.2 He is grossly obese with a round face Const General: comfortable, no acute distress, alert and awake Orientation/consciousness: patient oriented x3 HEENT Head: Yes normal to inspection General nose exam: No nasal polyps present, No nasal discharge present and Abnormal mucous membranes and turbinates present (Chronic nasal congestion and hypertrophy of the nasal turbinates) Face and sinus: Yes sinuses nontender Mouth: oropharynx normal Throat: Yes posterior oropharynx normal Eyes General: appearance normal, both eyes and all related structures Neck Neck: Yes normal visual inspection, Yes no lymphadenopathy, Yes trachea midline and Yes no JVD Thyroid: Thyroid normal Chest Chest palpation & inspection: normal inspection of the chest, normal palpation of entire chest wall and no tenderness Resp Other: Percussion note not perceptible because of his the thick chest wall. Breath sounds are distant with prolonged expiratory phase. No expiratory wheezes rhonchi or crepitations are heard. Cardio Palpation: normal PMI Rate: regular rate Rhythm: regular rhythm Heart sounds: no gallops and no murmurs GI Palpation (GI): Soft to palpation, Tenderness to palpation present (GI), No hepatosplenomegaly present, Palpable mass present and Other GI palpation findings present (Abdomen is markedly obese and protuberant) Auscultation: normal bowel sounds Back/Spine/Pelvis Thoracic/Lumbar Spine: thoracic and lumbar spine normal to inspection and thoraco-lumbar ROM limited Skin General skin exam: no rashes or lesions noted and dry skin Neuro General: patient oriented x3, No gait normal (Slightly impaired, needs to use cane) and no focal motor deficits Cranial nerves: Yes CN's II-XII intact bilaterally Extrem General: Yes normal to inspection, Yes no clubbing, cyanosis or edema and Yes no calf tenderness Psych Appearance: grossly normal Speech and movement: Normal speech and movement present Results Reviewed Results Reviewed: Reviewed his compliance report for the last 30 nights. He has used 30/30 nights, 100% His average use per night and day is 16 hours 50 minutes in 24 hours. He has no significant leak And his residual AHI is only 0.4 Assessment & Plan Assessment & Plan (1) COPD (chronic obstructive pulmonary disease): Comment: (moderately severe COPD, related to continued smoking) [place] Advair 500-50 1 inhalation b.i.d. ProAir 2 puffs q.4-6 hours p.r.n.. Code(s): J44.9 - Chronic obstructive pulmonary disease, unspecified (2) NAM on CPAP: Onset Date: ~2008 Comment: (100 % compliant with CPAP, good sleep. [Pressure=16 CMs] also using during daytime) Code(s): G47.33 - Obstructive sleep apnea (adult) (pediatric); Z99.89 - Dependence on other enabling machines and devices (3) Allergic rhinitis: Comment: Chronic allergic or vasomotor rhinitis. Continue Flonase 2 spray each nostril daily.script renewed . Singulair 10 mg daily and loratadine 10 mg once a day p.r.n. Code(s): J30.9 - Allergic rhinitis, unspecified (4) Morbid (severe) obesity with alveolar hypoventilation: Comment: (Chronic problem -DIETARY INSTRUCTIONS GIVEN - AGAIN STRESSED THAT HE HAS TO CONTAIN HIS WEIGHT) He is not good candidate for weight reduction, and is not going to be very careful about his diet anyway. Code(s): E66.2 - Morbid (severe) obesity with alveolar hypoventilation (5) Nicotine dependence, cigarettes, uncomplicated: Comment: (current smoker, onset 13yo, x 54yrs, mainly 1ppd, now 1/2ppd, 50pyh) Again counseled to try to quit completely, as much as possible CT scan of the chest in September 2022 benign class 2 Code(s): F17.210 - Nicotine dependence, cigarettes, uncomplicated Coding Level of Care Code Est Pt Level 4 (40604) Diagnoses COPD (chronic obstructive pulmonary disease) J44.9 NAM on CPAP G47.33; Z99.89 Allergic rhinitis J30.9 Morbid (severe) obesity with alveolar hypoventilation E66.2 Nicotine dependence, cigarettes, uncomplicated F17.210
== END 2023-03-21 09:34 | disposition home or self-care (01) ==
PROVIDERS: PCP Internal Medicine; Visit Provider Internal Medicine
DX: J44.9 Chronic obstructive pulmonary disease, unspecified (principal); G47.33 Obstructive sleep apnea (adult) (pediatric); Z99.89 Dependence on other enabling machines and devices; F17.210 Nicotine dependence, cigarettes, uncomplicated
CPT/HCPCS: 99214

== ENCOUNTER → 2023-03-21 09:14 | Outpatient (BNVA) | payer OTHER, SELFPAY | PROVIDERS: Visit Provider Internal Medicine | DX: J44.9 Chronic obstructive pulmonary disease, unspecified (principal); J30.9 Allergic rhinitis, unspecified; G47.33 Obstructive sleep apnea (adult) (pediatric); F17.210 Nicotine dependence, cigarettes, uncomplicated; Z99.89 Dependence on other enabling machines and devices | CPT/HCPCS: 99212 ==

== ENCOUNTER 2023-04-08 07:19 | Outpatient (REF) | payer OTHER, SELFPAY ==
--- NOTE | ~2023-04-08 | CT_ITS ---
EXAMINATION: CT KNEE WITHOUT CONTRAST, RIGHT CLINICAL INFORMATION: Right lower leg benign neoplasm. COMPARISON: Most recent right knee radiographs dated 12/11/2022. TECHNIQUE: Contiguous axial CT images of the right knee were obtained without contrast. Multiplanar reformats were provided and reviewed. This CT examination was performed using dose optimization techniques as appropriate, variously including the following: *Automated exposure control *Adjustment of mA and/or kV according to patient size (this includes techniques or standardized protocols for targeted exams where dose is matched to indication/reason for exam; i.e. extremities or head) *Use of iterative reconstruction technique DLP: 183 mGy-cm FINDINGS: Lateral stabilization plate with fixation screws in the distal femur. Associated cerclage wires. Findings are similar in alignment when compared to the prior radiographs. No new hardware fracture. No perihardware lucency to suggest loosening or infection. There appears to be a healed distal femoral fracture. No acute fracture or dislocation. Redemonstration of an expansile osseous lesion extending between the posterolateral aspect of the proximal tibia as well as the posteromedial aspect of the proximal fibula. This appears corticated with ground-glass density and mixed lytic/sclerotic components. This appears similar when compared to remote radiographs and likely represents an osteochondroma. No concerning lytic or blastic osseous lesion. Additional small probable osteochondroma at the anteromedial aspect of the tibial metaphysis measuring up to 1.0 cm, not significantly changed. Moderate medial compartment joint space narrowing with subchondral sclerosis. Tricompartmental marginal osteophytes. No evidence of avascular necrosis. No significant joint effusion. No abnormal soft tissue mass or fluid collection. Diffuse muscle atrophy. CT/CT knee RT wo IV con IMPRESSION: 1. Distal femoral ORIF without evidence of hardware complication. Healed distal femoral fracture. 2. Tricompartmental osteoarthritis, most prominent within the medial compartment. 3. Probable osteochondromas at the proximal tibia and fibula, similar when compared to remote radiographs. 4. Diffuse muscle atrophy.
== END 2023-04-08 07:20 | disposition home or self-care (01) ==
LOC: HO.CT 07:19
PROVIDERS: PCP Internal Medicine; Visit Provider Physician Assistant
DX: D16.21 Benign neoplasm of long bones of right lower limb (principal)
CPT/HCPCS: 73700

== ENCOUNTER 2023-05-11 08:08 | Outpatient (REF) | payer OTHER, SELFPAY ==
[2023-05-11 12:07] LABS: Alanine Aminotransferase 9 U/L (0-40); Albumin Level 3.2 g/dL (3.5-5.0); Alkaline Phosphatase 128 U/L (39-117); Anion Gap 9 (12-20); Aspartate Amino Transferase 15 U/L (5-37); Bilirubin Direct < 0.2 mg/dL (0.0-0.5); Bilirubin Total 0.2 mg/dL (0.0-1.0); Blood Urea Nitrogen 18 mg/dL (9-16); Calcium 9.2 mg/dL (8.4-10.2); Carbon Dioxide 25 mmol/L (22-29); Chloride 111 mmol/L (96-108); Estimated Glomerular Filt Rate 52; Glucose Random 137 mg/dL (60-115); Potassium 3.9 mmol/L (3.3-5.1); Sodium 141 mmol/L (135-145); Total Protein 7.2 g/dL (6.5-8.0)
[2023-05-11 12:09] LABS: Cholesterol 159 mg/dL (<200); HDL Cholesterol 28 mg/dL (>40); LDL Cholesterol Calculated 107 mg/dL (<100); Triglycerides 121 mg/dL (<150)
[2023-05-11 12:30] LABS: Reflex LDLD? No
== END 2023-05-11 08:09 | disposition home or self-care (01) ==
LOC: HO.HHCL 08:08
PROVIDERS: Visit Provider Internal Medicine
DX: I10 Essential (primary) hypertension (principal)
CPT/HCPCS: 36415; 80048; 80061; 80076

== ENCOUNTER 2023-07-10 11:59 | Emergency (ER) | payer OTHER, SELFPAY ==
--- NOTE | ~2023-07-10 | XR_ITS ---
EXAMINATION: XR KNEE, RIGHT CLINICAL INFORMATION: Fall, large laceration COMPARISON: X-ray 12/11/2022. CT 04/08/2023 TECHNIQUE: Four views of the right knee. FINDINGS: Lateral plate with fixation screws in the distal femur. Cerclage wires present. No new hardware fracture. No alis-hardware lucency to suggest loosening or infection. Healed distal femoral fracture. Anatomic alignment of the knee joint. No acute fracture or dislocation is seen. Redemonstrated is a stable small osteochondroma from the lateral femoral metaphysis. Redemonstrated is a small osteochondroma in the medial aspect proximal tibial metaphysis. Redemonstrated is a large, probable osteochondroma extending between the posterolateral aspect of the proximal tibia and the medial aspect of the proximal fibula, unchanged from previous. This has a nonaggressive appearance. No significant joint effusion. Lucency projected over the anterior soft tissues of the proximal tibia, could be related to the laceration, clinically correlate. On the frontal projection, this appears to be medially. No radiopaque foreign bodies identified. XR/XR knee RT 3V IMPRESSION: Postoperative changes and chronic appearing the findings as detailed above. No significant interval changes compared to prior. No radiographic evidence of acute fracture or dislocation. No significant joint effusion. Suspected soft tissue lucency correlating with clinical history of laceration along the anterior and probable the medial aspect of the proximal tibia. Clinically correlate. No soft tissue foreign body is identified.
--- NOTE | ~2023-07-10 | XR_ITS ---
EXAMINATION: XR ELBOW, LEFT CLINICAL INFORMATION: Fall, abrasion COMPARISON: None available. TECHNIQUE: AP, lateral, and oblique views of the left elbow. FINDINGS: Alignment is anatomic. No evidence of acute fracture or dislocation. Joint spaces are maintained. No significant joint effusion is appreciated. There appears be edema/soft tissue swelling along the medial aspect of the distal humerus/elbow. No radiopaque foreign bodies are identified. XR/XR elbow LT 2V IMPRESSION: No radiographic evidence of acute fracture or dislocation. Apparent medial soft tissue swelling and subcutaneous edema.
[2023-07-10 13:07] VITALS: BP 140/86; PULSE 82; RESP 18; TEMP 36.7; O2SAT 97; BMI 45.9
--- NOTE | 2023-07-10 13:07 | ED_ITS ---
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 Denies head trauma or LOC. Last tetanus December heart our system. Denies pain or injury to other area, numbness/tingling, weakness Related Data Home Medications Medication Instructions Recorded Confirmed blood sugar diagnostic #10 ea 07/02/20 08/12/22 irbesartan 150 mg tablet 150 mg PO DAILY 08/12/22 08/12/22 tolterodine 4 mg capsule,extended 4 mg PO BEDTIME 08/12/22 08/12/22 release 24 hr Previous Rx's Medication Instructions Recorded alprazolam 1 mg tablet 1 mg PO BID #60 tabs 05/12/20 buspirone 10 mg tablet 10 mg PO BID #60 tabs 05/12/20 cholecalciferol (vitamin D3) 50 50 mcg PO DAILY #30 caps 05/12/20 mcg (2,000 unit) capsule docusate sodium 100 mg capsule 100 mg PO DAILY #30 caps 05/12/20 (Colace) hydrochlorothiazide 12.5 mg tablet 12.5 mg PO DAILY #30 tabs 05/12/20 hydrocortisone 2.5 % topical cream 1 applic MD BID-QID PRN 05/12/20 with perineal applicator hemorrhoids #30 grams (Procto-Med HC) loratadine 10 mg tablet (Claritin) 10 mg PO DAILY #30 tabs 05/12/20 lorazepam 1 mg tablet (Ativan) 1 mg PO BID PRN anxiety #60 tabs 05/12/20 metformin 500 mg tablet,extended 500 mg PO DAILY #30 tabs 05/12/20 release 24 hr omeprazole magnesium 20 mg 20 mg PO DAILY #30 tabs 05/12/20 tablet,delayed release (Prilosec OTC) paroxetine HCl 20 mg tablet 20 mg PO DAILY #30 tabs 05/12/20 quetiapine 300 mg tablet (Seroquel) 300 mg PO BEDTIME #30 tabs 05/12/20 quetiapine 400 mg tablet 400 mg PO BID #30 tabs 05/12/20 tamsulosin 0.4 mg capsule 0.4 mg PO BEDTIME #30 caps 05/12/20 verapamil 300 mg capsule 24hr 300 mg PO BEDTIME #30 caps 05/12/[address],ext.release (Verelan PM) albuterol sulfate 90 mcg/actuation 2 puff inhalation Q4-6H PRN 09/10/21 aerosol inhaler (ProAir HFA) shortness of breath or wheezing 30 days #8.5 grams fluticasone 500 mcg-salmeterol 50 1 inh inhalation BID copd #60 ea 09/10/21 mcg/dose blistr powdr for inhalation (Advair Diskus) fluticasone propionate 50 2 spray intranasal DAILY Allergic 09/10/21 mcg/actuation nasal Rhinitis 30 days #16 grams spray,suspension (Children's Flonase Allergy Relief) naproxen 500 mg tablet (Naprosyn) 500 mg PO BID #20 tabs 06/27/22 montelukast 10 mg tablet 10 mg PO BEDTIME #90 tabs 05/02/23 bacitracin 500 unit/gram topical 1 appl topical BID #30 grams 07/10/23 ointment Allergies Allergy/AdvReac Type Severity Reaction Status Date / Time No Known Allergies Allergy Verified 07/10/23 13:06 [No Known Allergies*] Review of Systems Review of Systems: Constitutional: No Fever, No Chills ENT/Mouth: No Ear Pain, No Nasal Congestion, No Sinus Pain, No Hoarseness, No sore throat, No Rhinorrhea, No Swallowing Difficulty Cardiovascular: No Chest Pain, No SOB Respiratory: No Cough, No Sputum, No Wheezing Gastrointestinal: No Nausea, No Vomiting, No Diarrhea, No Constipation, No Abdominal pain Genitourinary: No Dysuria, No Urinary Frequency, No Hematuria, No Urinary Incontinence/retention, No Urgency, No Flank Pain Musculoskeletal: + joint pain, No Myalgias, +joint Swelling Skin: + Skin Lesions, No rash Neuro: No Weakness, No Numbness, No Paresthesias Yes all other systems are reviewed and are negative Constitutional: Constitutional: Reports as per [facility] Past Medical History Attestation statement: The following information was validated with the patient. Source: old records reviewed Medical History Anemia, normocytic normochromic History of pneumothorax Sickle cell trait Nicotine dependence, cigarettes, uncomplicated Osteoporosis (~2013) Morbid (severe) obesity with alveolar hypoventilation Allergic rhinitis COPD (chronic obstructive pulmonary disease) NAM on CPAP (~2008) Surgical History History of colonoscopy History of surgery on lower extremity History of cardiac cath Social History Social History Alcohol intake: unknown Patient Tobacco Use Status: Current everyday Tobacco user Tobacco use type: Cigarette Cigarettes Per Day: 10 Years Smoked: onset 13yo, x 54yrs, mainly 1ppd, now 1/2ppd, 50pyh Advance Directives: No Advance Directives Information Provided: Yes Physical Exam ED Vital Signs: Vital Signs - 24 hr 07/10/23 13:07 Temperature 98.0 F Pulse Rate 82 Respiratory Rate 18 Blood Pressure 140/86 H Pulse Oximetry 97 Oxygen Delivery Method Room Air BMI result Body Mass Index 45.9 Const General: cooperative, healthy appearing and no acute distress Orientation/consciousness: patient oriented x3 Limitations: no limitations HENMT Head: Yes normal to inspection and Yes atraumatic Ears: hearing grossly normal bilaterally General nose exam: Normal external nose present Face and sinus: Yes normal facial exam Eyes General: appearance normal, both eyes and all related structures EOM: EOMs intact bilaterally Neck Neck: Yes normal visual inspection and Yes no meningeal signs Resp Effort & Inspection: normal respiratory effort and no respiratory distress Cardio Rate: regular rate GI Inspection: Yes normal to inspection Palpation (GI): Soft to palpation, nontender, no guarding and not rigid Skin Other: + abrasion to left elbow with mild tenderness. Full active motion intact. Neurovascular intact distally large 8 cm linear laceration to right anterior knee. Subcutaneous tissue present, no active bleeding. Deeper structures appear intact. Mildly limited flexion secondary to pain. Neurovascular intact distally Rashes: no rashes Neuro General: patient oriented x3, tone normal and no meningeal signs Cranial nerves: Yes CN's II-XII intact bilaterally Gait exam (Neuro): Normal gait present Extrem General: Yes normal to inspection Course Course Course Narrative: This is a rapid medical exam: Additional HPI, ROS, PE not included below will be deferred to primary provider. Patient is a 68-year-old male with history of DM presenting to the ED with right knee injury. States he was walking outside and his knees gave out which is not abnormal for him as he has osteoarthritis, and he fell to the ground. Denies head strike or loss of consciousness. Not anticoagulated. Unknown last tetanus. Large laceration to right anterior knee with visible subcutaneous tissue, no active bleeding. Also abrasion to left elbow. Plan: Tdap, x-ray, will require sutures XR elbow LT 2V IMPRESSION: No radiographic evidence of acute fracture or dislocation. Apparent medial soft tissue swelling and subcutaneous edema. XR knee RT 3V IMPRESSION: Postoperative changes and chronic appearing the findings as detailed above. No significant interval changes compared to prior. No radiographic evidence of acute fracture or dislocation. No significant joint effusion. Suspected soft tissue lucency correlating with clinical history of laceration along the anterior and probable the medial aspect of the proximal tibia. Clinically correlate. No soft tissue foreign body is identified. Results discussed with patient including worrisome signs and symptoms and strict return precautions, and when to return to the emergency department. They v erbalized understanding and feel safe for discharge at this time. Medications Administered Discontinued Medications Generic Name Dose Route Start Last Admin Trade Name Donny PRN Reason Stop Dose Admin Bacitracin 1 appl 07/10/23 15:02 07/10/23 15:16 Bacitracin Oint 0.9 Gm Packet TOPICAL 07/10/23 15:03 1 appl ONCE ONE Administration Protocol Lidocaine/Epinephrine 20 ml 07/10/23 13:24 07/10/23 13:33 Lidocaine Hcl 1%/Epi 1:100,000 20 Ml Vial INFILTRATI 07/10/23 13:25 20 ml ONCE ONE Administration Procedures Laceration Laceration 1: Site: lower extremity Side (If applicable): right Size (cm): 8 Description: linear Depth: simple, single layer Local Anesthetic: lidocaine 1% and with epi Amount of anesthesia used (mL): 7 Pre-repair: wound explored, irrigated extensively and deep structures intact Skin layer closed with: nylon Size (cm): 3-0 Number of sutures: 11 Technique: simple, interrupted Medical Decision Making Medical Decision Making [facility] Narrative: 68-year-old male with a past medical history of anemia, morbid obesity, osteopo rosis, COPD, NAM on CPAP, presenting to the ED complaining of left elbow pain/abrasion and right knee 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 On exam vital signs stable, NAD, nontoxic appearing my physical exam as noted above. Concern for fracture vs laceration vs strain. Wound will need repair. Tetanus is up to date Plan: X-rays, suture repair Please refer to course for remaining clinical decision making, interpretation of labs/imaging results, and discussions with consultants and/or family members. Differential Diagnosis Differential Diagnoses: The differential diagnosis associated with the presentation includes As above Independent Interpretation I performed an independent interpretation of an: Plain X-Ray Radiology Impression Discussion of test interpretation with radiology: I have reviewed the radiologist's reading. External Record Review External record reviewed: Inpatient record, Office record, Outpatient record, Prior outpatient labs, Prior outpatient radiology, Primary care record and Outside ED record Tests considered The following testing was considered but not selected: As above Prescription Management I considered prescription management with: Pain Medication and Antibiotic Chronic Conditions Patient?s care impacted by: Other (ANM, obesity, osteoporosis) Discharge Plan Discharge Clinical Impression: Laceration Patient Disposition: Home, Self-Care Instructions: Laceration (DC) Additional Instructions: Your wounds were repaired today in the emergency department. Keep dry and clean. You need to return to any emergency department, urgent care, or your PCPs office in 10 days for suture removal Apply bacitracin and or Neosporin daily Once sutures are removed apply anti scar cream like Mederma If area begins look infected, is red, there is drainage, streaking, or you have fever please return to the emergency department Prescriptions: New bacitracin 500 unit/gram ointment 1 appl topical BID Qty: 30 0RF No Action lorazepam [Ativan] 1 mg tablet 1 mg PO BID PRN (Reason: anxiety) Qty: 60 0RF loratadine [Claritin] 10 mg tablet 10 mg PO DAILY Qty: 30 0RF buspirone 10 mg tablet 10 mg PO BID Qty: 60 0RF quetiapine 400 mg tablet 400 mg PO BID Qty: 30 0RF paroxetine HCl 20 mg tablet 20 mg PO DAILY Qty: 30 0RF alprazolam 1 mg tablet 1 mg PO BID Qty: 60 0RF tamsulosin 0.4 mg capsule 0.4 mg PO BEDTIME Qty: 30 0RF docusate sodium [Colace] 100 mg capsule 100 mg PO DAILY Qty: 30 0RF omeprazole magnesium [Prilosec OTC] 20 mg tablet,delayed release (DR/EC) 20 mg PO DAILY Qty: 30 0RF hydrocortisone [Procto-Med HC] 2.5 % cream with perineal applicator 1 applic MD BID-QID PRN (Reason: hemorrhoids) Qty: 30 0RF verapamil [Verelan PM] 300 mg capsule, [address] 300 mg PO BEDTIME Qty: 30 0RF hydrochlorothiazide 12.5 mg tablet 12.5 mg PO DAILY Qty: 30 0RF quetiapine [Seroquel] 300 mg tablet 300 mg PO BEDTIME Qty: 30 0RF metformin 500 mg tablet extended release 24 hr 500 mg PO DAILY Qty: 30 0RF cholecalciferol (vitamin D3) 50 mcg (2,000 unit) capsule 50 mcg PO DAILY Qty: 30 0RF montelukast 10 mg tablet 10 mg PO BEDTIME Qty: 90 0RF naproxen [Naprosyn] 500 mg tablet 500 mg PO BID Qty: 20 0RF (DME) FreeStyle Lite Strips Strip See Rx Instructions Not Applicable DAILY Qty: 10 Rx Instructions: As directed fluticasone propion-salmeterol [Advair Diskus] 500-50 mcg/dose blister with device 1 inh inhalation BID Qty: 60 5RF albuterol sulfate [ProAir HFA] 90 mcg/actuation HFA aerosol inhaler 2 puff inhalation Q4-6H PRN (Reason: shortness of breath or wheezing) 30 Days Qty: 8.5 1RF fluticasone propionate [Children's Flonase Allergy Rlf] 50 mcg/actuation spray,suspension 2 spray intranasal DAILY 30 Days Qty: 16 5RF Rx Instructions: administer into each nostril irbesartan 150 mg tablet 150 mg PO DAILY tolterodine 4 mg capsule,extended release 24hr 4 mg PO BEDTIME
[2023-07-10] MEDS: Lidocaine HCl 1%/Epi 1:100,000 20 ML VIAL INFILTRATI (13:33)
[2023-07-10] MEDS: Bacitracin Oint 0.9 GM PACKET 1 APPL TOPICAL (15:16)
== END 2023-07-10 15:28 | disposition home or self-care (01) ==
PROVIDERS: Emergency Provider Emergency Medicine; PCP Internal Medicine
DX: S81.011A Laceration without foreign body, right knee, initial encounter (principal); S50.312A Abrasion of left elbow, initial encounter; W01.0XXA Fall on same level from slipping, tripping and stumbling without subsequent striking against object, initial encounter; Y93.9 Activity, unspecified; Y92.9 Unspecified place or not applicable; Y99.9 Unspecified external cause status
CPT/HCPCS: 12004; 73070; 73562; 99283; 99284

== ENCOUNTER 2023-08-03 07:57 | Outpatient (RCR) | payer OTHER, SELFPAY | END 2023-09-01 17:00 | disposition home or self-care (01) | LOC: HO.WCC 07:57 | PROVIDERS: PCP Internal Medicine; Visit Provider Surgery | DX: E11.622 Type 2 diabetes mellitus with other skin ulcer (principal); L97.812 Non-pressure chronic ulcer of other part of right lower leg with fat layer exposed; E11.40 Type 2 diabetes mellitus with diabetic neuropathy, unspecified; E11.22 Type 2 diabetes mellitus with diabetic chronic kidney disease; I13.0 Hypertensive heart and chronic kidney disease with heart failure and stage 1 through stage 4 chronic kidney disease, or unspecified chronic kidney disease; N18.30 Chronic kidney disease, stage 3 unspecified; I50.30 Unspecified diastolic (congestive) heart failure; F17.210 Nicotine dependence, cigarettes, uncomplicated; Z79.84 Long term (current) use of oral hypoglycemic drugs | CPT/HCPCS: 11042 ==

== ENCOUNTER 2023-09-14 08:01 | Outpatient (REF) | payer OTHER, SELFPAY ==
[2023-09-14 12:14] LABS: Estimated Average Glucose 114 mg/dL; Hemoglobin A1c % 5.6 % (<6.0)
== END 2023-09-14 08:02 | disposition home or self-care (01) ==
LOC: HO.HHCL 08:01
PROVIDERS: Visit Provider Internal Medicine
DX: R73.02 Impaired glucose tolerance (oral) (principal)
CPT/HCPCS: 36415; 83036

== ENCOUNTER 2023-09-27 07:59 | Outpatient (REF) | payer OTHER, SELFPAY ==
--- NOTE | ~2023-09-27 | CT_ITS ---
EXAMINATION: CT CHEST SCREENING CLINICAL INFORMATION: Nicotine dependence. COMPARISON: CT lung screening 10/01/2022. TECHNIQUE: Multidetector volumetric CT imaging of the chest is performed without contrast using low dose technique. Additional 2D coronal and sagittal reformatted images and axial 3D maximum intensity projection (MIP) images are generated on the CT workstation. This CT examination was performed using dose optimization techniques as appropriate, variously including the following: *Automated exposure control *Adjustment of mA and/or kV according to patient size (this includes techniques or standardized protocols for targeted exams where dose is matched to indication/reason for exam; i.e. extremities or head) *Use of iterative reconstruction technique DLP: 102 mGy-cm FINDINGS: LUNGS: There is some tiny 2 to 3 mm subpleural nodules at the lung bases, unchanged (see cook images). The lungs are otherwise clear with no evidence of inflammation or new or concerning nodules. Mild emphysematous changes are seen. Mild bronchial wall thickening is present. MEDIASTINUM: The mediastinum is normal. CORONARY ARTERY CALCIFICATION: None visualized on this study. PLEURA: There is no pleural effusion. No pleural mass or thickening. AXILLA: No lymphadenopathy. UPPER ABDOMEN: There is fatty infiltration of the pancreas. OSSEOUS STRUCTURES: Unremarkable. CT/CT lung screening IMPRESSION: Benign unchanged tiny lung nodules with no findings suggestive of malignancy. Mild emphysematous changes. ASSESSMENT: Lung-RADS category 2: Benign RECOMMENDATION: Routine annual low-dose CT screening in 12 months.
== END 2023-09-27 08:00 | disposition home or self-care (01) ==
LOC: HO.CT 07:59
PROVIDERS: PCP Internal Medicine; Visit Provider Nurse Practitioner Family
DX: Z12.2 Encounter for screening for malignant neoplasm of respiratory organs (principal); F17.210 Nicotine dependence, cigarettes, uncomplicated
CPT/HCPCS: 71271

== ENCOUNTER 2023-10-17 08:09 | Outpatient (AMB) | payer OTHER, SELFPAY ==
[2023-10-17 08:53] VITALS: BP 140/60; PULSE 96; O2SAT 99; BMI 45.9
--- NOTE | 2023-10-17 08:53 | MHC.OFFVIS ---
Intake Vital Signs 10/17/23 08:53 Height 5 ft 6 in Weight 284 lb 6.341 oz BMI 45.9 BP 140/60 H Blood Pressure Location Lt brachial Position Sitting Pulse 96 Pulse Source Pulse Oximeter Pulse Oximetry (%) 99 Oxygen Delivery Method Room Air Intake Visit Reasons: Obstructive sleep apnea Intake Note: pt is here for f/u of NAM and also results of low dose ct scan, pt needs refills on Albuterol hfa Press Set Up Person Required: No Allergies No Known Allergies [No Known Allergies*] Allergy (Verified 10/17/23 09:15) Medication List - Last Reconciled 10/17/23 by Shweta Hussein MD albuterol sulfate 90 mcg/actuation (ProAir HFA) 2 puffs inhalation Q4-6H PRN 30 days alprazolam 1 mg PO BID bacitracin 1 appl topical BID blood sugar diagnostic As directed buspirone 10 mg PO BID cholecalciferol (vitamin D3) 50 mcg PO DAILY docusate sodium (Colace) 100 mg PO DAILY fluticasone propion-salmeterol 500-50 mcg/dose (Advair Diskus) 1 inh inhalation BID fluticasone propionate 50 mcg/actuation (Children's Flonase Allergy Relief) 2 sprays intranasal DAILY 30 days hydrochlorothiazide 12.5 mg PO DAILY hydrocortisone 2.5% (Procto-Med HC) 1 appl ND BID-QID PRN irbesartan 150 mg PO DAILY loratadine (Claritin) 10 mg PO DAILY lorazepam (Ativan) 1 mg PO BID PRN metformin ER 500 mg PO DAILY montelukast 10 mg PO BEDTIME naproxen (Naprosyn) 500 mg PO BID omeprazole magnesium (Prilosec OTC) 20 mg PO DAILY paroxetine HCl 20 mg PO DAILY quetiapine 400 mg PO BID quetiapine (Seroquel) 300 mg PO BEDTIME tamsulosin 0.4 mg PO BEDTIME tolterodine ER 4 mg PO BEDTIME verapamil ER (Verelan PM) 300 mg PO BEDTIME Do you need a note to return to daycare/school/sports/work: No HPI Obstructive sleep apnea HPI Details 68 years old very pleasant gentleman is here for 6 months follow-up. He is a case of morbid obesity with obstructive sleep apnea and also has chronic obstructive pulmonary disease due to his past smoking. Has been doing very well without any acute issues. He uses CPAP not only at night but during the daytime as well. Breathing moses remains stable and there has been no acute exacerbation. Weight remains unchanged. [facility], [facility] Medical History Anemia, normocytic normochromic History of pneumothorax Sickle cell trait Nicotine dependence, cigarettes, uncomplicated Osteoporosis (~2013) Morbid (severe) obesity with alveolar hypoventilation Allergic rhinitis COPD (chronic obstructive pulmonary disease) NAM on CPAP (~2008) Surgical History History of colonoscopy History of surgery on lower extremity History of cardiac cath Social History Alcohol intake: unknown Patient Tobacco Use Status: Current everyday Tobacco user Tobacco use type: Cigarette Cigarettes Per Day: 10 Years Smoked: onset 13yo, x 54yrs, mainly 1ppd, now 1/2ppd, 50pyh Review of Systems Const All systems reviewed & are unremarkable except as noted in HPI and below Eyes Reports no additional complaints ENT Reports nasal congestion and Reports nasal discharge Card Denies chest pain, Denies irregular heart rhythm and Denies leg edema Resp Reports as per HPI GI Reports no additional complaints Reports urinary hesitancy (Controlled with med) Musc Reports back pain and Reports myalgias Skin/Breast Reports dry skin Neuro Reports no additional complaints Psych Reports no additional complaints Physical Exam Vital Signs: Last Vital Signs Pulse 96 10/17/23 08:53 BP 140/60 H 10/17/23 08:53 Pulse Ox 99 10/17/23 08:53 Oxygen Delivery Method Room Air 10/17/23 08:53 BMI result Body Mass Index 45.9 He is grossly obese with a round face Const General: comfortable, no acute distress, alert and awake Orientation/consciousness: patient oriented x3 HEENT Head: Yes normal to inspection General nose exam: No nasal polyps present, No nasal discharge present and Abnormal mucous membranes and turbinates present (Chronic nasal congestion and hypertrophy of the nasal turbinates) Face and sinus: Yes sinuses nontender Mouth: oropharynx normal Throat: Yes posterior oropharynx normal Eyes General: appearance normal, both eyes and all related structures Neck Neck: Yes normal visual inspection, Yes no lymphadenopathy, Yes trachea midline and Yes no JVD Thyroid: Thyroid normal Chest Chest palpation & inspection: normal inspection of the chest, normal palpation of entire chest wall and no tenderness Resp Other: Percussion note not perceptible because of his the thick chest wall. Breath sounds are distant with prolonged expiratory phase. No expiratory wheezes rhonchi or crepitations are heard. Cardio Palpation: normal PMI Rate: regular rate Rhythm: regular rhythm Heart sounds: no gallops and no murmurs GI Palpation (GI): Soft to palpation, Tenderness to palpation present (GI), No hepatosplenomegaly present, Palpable mass present and Other GI palpation findings present (Abdomen is markedly obese and protuberant) Auscultation: normal bowel sounds Back/Spine/Pelvis Thoracic/Lumbar Spine: thoracic and lumbar spine normal to inspection and thoraco-lumbar ROM limited Skin General skin exam: no rashes or lesions noted and dry skin Neuro General: patient oriented x3, No gait normal (Slightly impaired, needs to use cane) and no focal motor deficits Cranial nerves: Yes CN's II-XII intact bilaterally Extrem General: Yes normal to inspection, Yes no clubbing, cyanosis or edema and Yes no calf tenderness Psych Appearance: grossly normal Speech and movement: Normal speech and movement present Results Reviewed Results Reviewed: Low-dose CT scan on 09/27/2023 2-3 mm sub pleural nodules at the lung bases, without any recent change. Benign category 2 COMPLIANCE: : EXCELLENT COMPLIANCE WITH AVERAGE USE PER NIGHT 15 HOURS 42 MINUTES, WHICH INCLUDES SOME USAGE DURING. THE DAYTIME WELL RESIDUAL AHI ONLY 0.4 Assessment & Plan Assessment & Plan (1) COPD (chronic obstructive pulmonary disease): Comment: (moderately severe COPD, related to continued smoking) , stable and well controlled. Code(s): J44.9 - Chronic obstructive pulmonary disease, unspecified Plan: TX continue: Advair 500-50 1 inhalation b.i.d. ProAir 2 puffs q.4-6 hours p.r.n.. (2) NAM on CPAP: Onset Date: ~2008 Comment: (100 % compliant with CPAP, good sleep. [Pressure=16 CMs] also using during daytime) Code(s): G47.33 - Obstructive sleep apnea (adult) (pediatric); Z99.89 - Dependence on other enabling machines and devices Plan: Commended for excellent compliance and advised to continue using it, regularly (3) Allergic rhinitis: Comment: Chronic allergic or vasomotor rhinitis. Controlled . Code(s): J30.9 - Allergic rhinitis, unspecified Plan: Continue Flonase 2 spray each nostril daily.script renewed . Singulair 10 mg daily and loratadine 10 mg once a day p.r.n. (4) Morbid (severe) obesity with alveolar hypoventilation: Comment: (Chronic problem , unchanged , with very little potential to change- Code(s): E66.2 - Morbid (severe) obesity with alveolar hypoventilation Plan: Repeated dietary instructions and encouraged to walk more and lose some weight (5) Nicotine dependence, cigarettes, uncomplicated: Comment: (current smoker, onset 13yo, x 54yrs, mainly 1ppd, now 1/2ppd, 50pyh) CT scan of the chest in September 2023 benign class 2, unchanged from before Code(s): F17.210 - Nicotine dependence, cigarettes, uncomplicated Plan: Again counseled to try to quit completely, as much as possible Coding Level of Care Code Est Pt Level 4 (98158) Diagnoses COPD (chronic obstructive pulmonary disease) J44.9 NAM on CPAP G47.33; Z99.89 Allergic rhinitis J30.9 Morbid (severe) obesity with alveolar hypoventilation E66.2 Nicotine dependence, cigarettes, uncomplicated F17.210
== END 2023-10-17 09:14 | disposition home or self-care (01) ==
PROVIDERS: PCP Internal Medicine; Visit Provider Internal Medicine
DX: G47.33 Obstructive sleep apnea (adult) (pediatric) (principal); Z99.89 Dependence on other enabling machines and devices; J44.9 Chronic obstructive pulmonary disease, unspecified; F17.210 Nicotine dependence, cigarettes, uncomplicated
CPT/HCPCS: 99214

== ENCOUNTER → 2023-10-17 08:09 | Outpatient (BNVA) | payer OTHER, SELFPAY | PROVIDERS: PCP Internal Medicine; Visit Provider Internal Medicine | DX: J44.9 Chronic obstructive pulmonary disease, unspecified (principal); J30.9 Allergic rhinitis, unspecified; E66.2 Morbid (severe) obesity with alveolar hypoventilation; F17.210 Nicotine dependence, cigarettes, uncomplicated; Z68.42 Body mass index [BMI] 45.0-49.9, adult; Z99.89 Dependence on other enabling machines and devices | CPT/HCPCS: 99212 ==

== ENCOUNTER 2023-12-01 08:19 | Outpatient (REF) | payer OTHER, SELFPAY ==
[2023-12-01 12:00] LABS: Anion Gap 10 (12-20); Blood Urea Nitrogen 24 mg/dL (9-16); Calcium 9.4 mg/dL (8.4-10.2); Carbon Dioxide 25 mmol/L (22-29); Chloride 111 mmol/L (96-108); Estimated Glomerular Filt Rate 51; Glucose Random 100 mg/dL (60-115); Potassium 4.7 mmol/L (3.3-5.1); Sodium 141 mmol/L (135-145)
[2023-12-01 13:43] LABS: Vitamin B12 246 pg/mL (200-900)
== END 2023-12-01 08:20 | disposition home or self-care (01) ==
LOC: HO.MANLDS 08:19
PROVIDERS: Visit Provider Nurse Practitioner Primary Care
DX: I10 Essential (primary) hypertension (principal); R73.02 Impaired glucose tolerance (oral)
CPT/HCPCS: 36415; 80048; 82607

== ENCOUNTER 2024-02-29 08:03 | Outpatient (REF) | payer OTHER, SELFPAY ==
[2024-02-29 12:55] LABS: Anion Gap 9 (12-20); Blood Urea Nitrogen 23 mg/dL (9-16); Calcium 9.5 mg/dL (8.4-10.2); Carbon Dioxide 27 mmol/L (22-29); Chloride 112 mmol/L (96-108); Estimated Glomerular Filt Rate 53; Glucose Random 110 mg/dL (60-115); Potassium 4.5 mmol/L (3.3-5.1); Sodium 143 mmol/L (135-145)
== END 2024-02-29 08:04 | disposition home or self-care (01) ==
LOC: HO.HHCL 08:03
PROVIDERS: Visit Provider Internal Medicine Cardiovascular Disease
DX: Z13.89 Encounter for screening for other disorder (principal)
CPT/HCPCS: 36415; 80048

== ENCOUNTER 2024-04-17 08:09 | Outpatient (AMB) | payer OTHER, SELFPAY ==
[2024-04-17 08:43] VITALS: BP 148/60; PULSE 81; O2SAT 99; BMI 46.3
--- NOTE | 2024-04-17 08:43 | MHC.OFFVIS ---
Vital Signs 04/17/24 08:43 Height 5 ft 6 in Weight 286 lb 9.615 oz BMI 46.3 BP 148/60 H Blood Pressure Location Lt brachial Position Sitting Pulse 81 Pulse Source Pulse Oximeter Pulse Oximetry (%) 99 Oxygen Delivery Method Room Air Intake Visit Reasons: Obstructive sleep apnea Intake Note: ptis here for follow up and states cpap is good, but he has a lot of phelgm for over a week, coughing,wheezing Mine Technician Required: No Allergies No Known Allergies [No Known Allergies*] Allergy (Verified 04/17/24 08:53) Medication List - Last Reconciled 04/17/24 by Shweta Hussein MD albuterol sulfate 90 mcg/actuation (ProAir HFA) 2 puffs inhalation Q4-6H PRN 30 days alprazolam 1 mg PO BID bacitracin 1 appl topical BID blood sugar diagnostic As directed buspirone 10 mg PO BID cholecalciferol (vitamin D3) 50 mcg PO DAILY docusate sodium (Colace) 100 mg PO DAILY fluticasone propion-salmeterol 500-50 mcg/dose (Advair Diskus) 1 inh inhalation BID fluticasone propionate 50 mcg/actuation (Children's Flonase Allergy Relief) 2 sprays intranasal DAILY 30 days hydrochlorothiazide 12.5 mg PO DAILY hydrocortisone 2.5% (Procto-Med HC) 1 appl SD BID-QID PRN irbesartan 150 mg PO DAILY loratadine (Claritin) 10 mg PO DAILY lorazepam (Ativan) 1 mg PO BID PRN metformin ER 500 mg PO DAILY montelukast 10 mg PO BEDTIME naproxen (Naprosyn) 500 mg PO BID omeprazole magnesium (Prilosec OTC) 20 mg PO DAILY paroxetine HCl 20 mg PO DAILY quetiapine 400 mg PO BID quetiapine (Seroquel) 300 mg PO BEDTIME tamsulosin 0.4 mg PO BEDTIME tolterodine ER 4 mg PO BEDTIME verapamil ER (Verelan PM) 300 mg PO BEDTIME HPI HPI Obstructive sleep apnea: Details: 68 years old gentleman, morbidly obese, with history of obstructive sleep apnea/hypoventilation syndrome being treated with CPAP, 16 cm, for the past many years and has been very stable. He has chronic obstructive pulmonary disease , moderately advanced, has remained very stable and controlled with Advair 500-50 b.i.d.. He is 100% compliant to using the CPAP. Almost 12-15 hours per day. Breathing has been stable except that he is complaining of increased congested feeling and cough. I think. That due to change in the weather Unfortunately continues to smoke 10 cigarettes a day, that contributes to his cough. He is quite heavy stays mostly in the house not much active, and has difficulty in losing weight. [facility] Medical History Anemia, normocytic normochromic History of pneumothorax Sickle cell trait Nicotine dependence, cigarettes, uncomplicated Osteoporosis (~2013) Morbid (severe) obesity with alveolar hypoventilation Allergic rhinitis COPD (chronic obstructive pulmonary disease) NAM on CPAP (~2008) Surgical History History of colonoscopy History of surgery on lower extremity History of cardiac cath Social History Alcohol intake: unknown Patient Tobacco Use Status: Current everyday Tobacco user Tobacco use type: Cigarette Cigarettes Per Day: 10 Years Smoked: onset 13yo, x 54yrs, mainly 1ppd, now 1/2ppd, 50pyh Review of Systems Const All systems reviewed & are unremarkable except as noted in HPI and below Eyes Reports no additional complaints ENT Reports nasal congestion and Reports nasal discharge Card Denies chest pain, Denies irregular heart rhythm and Denies leg edema Resp Reports as per HPI GI Reports no additional complaints Reports urinary hesitancy (Controlled with med) Musc Reports back pain and Reports myalgias Skin/Breast Reports dry skin Neuro Reports no additional complaints Psych Reports no additional complaints Physical Exam Vital Signs: Last Vital Signs Pulse 81 04/17/24 08:43 BP 148/60 H 04/17/24 08:43 Pulse Ox 99 04/17/24 08:43 Oxygen Delivery Method Room Air 04/17/24 08:43 BMI result Body Mass Index 46.3 He is grossly obese with a round face Const General: comfortable, no acute distress, alert and awake Orientation/consciousness: patient oriented x3 HEENT Head: Yes normal to inspection General nose exam: No nasal polyps present, No nasal discharge present and Abnormal mucous membranes and turbinates present (Chronic nasal congestion and hypertrophy of the nasal turbinates) Face and sinus: Yes sinuses nontender Mouth: oropharynx normal Throat: Yes posterior oropharynx normal Eyes General: appearance normal, both eyes and all related structures Neck Neck: Yes normal visual inspection, Yes no lymphadenopathy, Yes trachea midline and Yes no JVD Thyroid: Thyroid normal Chest Chest palpation & inspection: normal inspection of the chest, normal palpation of entire chest wall and no tenderness Resp Other: Percussion note not perceptible because of his the thick chest wall. Breath sounds are distant with prolonged expiratory phase. No expiratory wheezes rhonchi or crepitations are heard. Cardio Palpation: normal PMI Rate: regular rate Rhythm: regular rhythm Heart sounds: no gallops and no murmurs GI Palpation (GI): Soft to palpation, Tenderness to palpation present (GI), No hepatosplenomegaly present, Palpable mass present and Other GI palpation findings present (Abdomen is markedly obese and protuberant) Auscultation: normal bowel sounds Back/Spine/Pelvis Thoracic/Lumbar Spine: thoracic and lumbar spine normal to inspection and thoraco-lumbar ROM limited Skin General skin exam: no rashes or lesions noted and dry skin Neuro General: patient oriented x3, No gait normal (Slightly impaired, needs to use cane) and no focal motor deficits Cranial nerves: Yes CN's II-XII intact bilaterally Extrem General: Yes normal to inspection, Yes no clubbing, cyanosis or edema and Yes no calf tenderness Psych Appearance: grossly normal Speech and movement: Normal speech and movement present Results Reviewed Results Reviewed: COMPLIANCE REPORT FOR THE LAST 30 NIGHTS REVIEWED. USAGE IS 100% OF THE NIGHTS AND AVERAGE USE IT PER DAY IS 15 HOURS 15 MINUTES, HE DOES USE FOR SOME. DURING THE DAYTIME ALSO. THERE IS MODERATE AMOUNT OF AIR LEAK, IS DUE TO THE NEW MASK AND HE IS TRYING TO FIT IT BETTER. RESIDUAL AHI ONLY. 1.1 Assessment & Plan Assessment & Plan (1) Morbid (severe) obesity with alveolar hypoventilation: Comment: (Chronic problem , unchanged , with very little potential to change- Code(s): E66.2 - Morbid (severe) obesity with alveolar hypoventilation Category: Medical Plan: TALKED TO HIM ABOUT DIET AND DOING MORE WALKING DURING THE DAYTIME. HOWEVER I DO NOT THINK THIS GOING TO BE MUCH CHANGE IN HIS CONDITION (2) NAM on CPAP: Onset Date: ~2008 Comment: (100 % compliant with CPAP, good sleep. [Pressure=16 CMs] also using during daytime) Code(s): G47.33 - Obstructive sleep apnea (adult) (pediatric); Z99.89 - Dependence on other enabling machines and devices Category: Medical Plan: COMMENDED FOR GOOD COMPLIANCE AND ADVISED TO CONTINUE USING THE CPAP REGULARLY. TIGHTEN THE MASK, GET THE CPAP DEVICE CHECKED BY THE [facility] CPAP APPLICATION SUPPORT INTERN (3) COPD (chronic obstructive pulmonary disease): Comment: (moderately severe COPD, related to continued smoking) , stable and well controlled. Code(s): J44.9 - Chronic obstructive pulmonary disease, unspecified Category: Medical Plan: CONTINUE ADVAIR 500-51 INHALATION B.I.D. PROAIR 2 PUFFS Q 4-6 HOURS ONLY P.R.N. (4) Nicotine dependence, cigarettes, uncomplicated: Comment: (current smoker, onset 13yo, x 54yrs, mainly 1ppd, now 1/2ppd, 50pyh) CT scan of the chest in September 2023 benign class 2, unchanged from before Code(s): F17.210 - Nicotine dependence, cigarettes, uncomplicated Category: Medical Plan: HAD A LONG TALK WITH HIM. HE WOULD NOT STOP SMOKING. I HAVE TOLD HIM TO AT LEAST CUT DOWN THE NUMBER OF CIGARETTES TO 4 OR 5 PER DAY NO MORE THAN THAT. Coding Level of Care Code Est Pt Level 3 (26004) Diagnoses Morbid (severe) obesity with alveolar hypoventilation E66.2 NAM on CPAP G47.33; Z99.89 COPD (chronic obstructive pulmonary disease) J44.9 Nicotine dependence, cigarettes, uncomplicated F17.210
== END 2024-04-17 08:53 | disposition home or self-care (01) ==
PROVIDERS: PCP Internal Medicine; Visit Provider Internal Medicine
DX: E66.2 Morbid (severe) obesity with alveolar hypoventilation (principal); G47.33 Obstructive sleep apnea (adult) (pediatric); Z99.89 Dependence on other enabling machines and devices; J44.9 Chronic obstructive pulmonary disease, unspecified; F17.210 Nicotine dependence, cigarettes, uncomplicated
CPT/HCPCS: 99213

== ENCOUNTER → 2024-04-17 08:09 | Outpatient (BNVA) | payer OTHER, SELFPAY | PROVIDERS: PCP Internal Medicine; Visit Provider Internal Medicine | DX: G47.33 Obstructive sleep apnea (adult) (pediatric) (principal); E66.2 Morbid (severe) obesity with alveolar hypoventilation; J44.9 Chronic obstructive pulmonary disease, unspecified; F17.210 Nicotine dependence, cigarettes, uncomplicated; Z99.89 Dependence on other enabling machines and devices | CPT/HCPCS: 99212 ==

== ENCOUNTER 2024-05-09 08:03 | Outpatient (REF) | payer OTHER, SELFPAY ==
[2024-05-09 11:47] LABS: Eosinophils Absolute Auto 0.3 X10*3/uL (0.0-0.4); Mean Corpuscular Hemoglobin 28.7 pg (27.0-33.0); Monocytes Absolute Auto 0.9 X10*3/uL (0.1-1.2)
[2024-05-09 11:49] LABS: White Blood Count 9.5 X10*3/uL (4.8-10.8)
[2024-05-09 12:11] LABS: Alanine Aminotransferase 13 U/L (0-40); Albumin Level 3.3 g/dL (3.5-5.0); Alkaline Phosphatase 121 U/L (39-117); Anion Gap 11 (12-20); Aspartate Amino Transferase 22 U/L (5-37); Bilirubin Total 0.2 mg/dL (0.0-1.0); Blood Urea Nitrogen 28 mg/dL (9-16); Calcium 9.1 mg/dL (8.4-10.2); Carbon Dioxide 25 mmol/L (22-29); Chloride 110 mmol/L (96-108); Cholesterol 175 mg/dL (<200); Estimated Glomerular Filt Rate 37; Glucose Random 129 mg/dL (60-115); HDL Cholesterol 31 mg/dL (>40); LDL Cholesterol Calculated 119 mg/dL (<100); Potassium 4.4 mmol/L (3.3-5.1); Sodium 142 mmol/L (135-145); Triglycerides 127 mg/dL (<150)
[2024-05-09 12:25] LABS: Basophils Absolute Auto 0.1 X10*3/uL (0.0-0.2); Basophils Percent Auto 0.5 % (0-2); Eosinophils Percent Auto 3.4 % (0-4); Hematocrit 35.7 % (42.0-52.0); Hemoglobin 11.8 g/dl (14.0-18.0); Imm Gran Abs Auto 0.04 X10*3/uL (0.00-0.03); Imm Gran Pct Auto 0.4 % (0.0-0.4); Lymphocytes Absolute Auto 3.2 X10*3/uL (1.2-4.9); Lymphocytes Percent Auto 33.8 % (20-40); Mean Corpuscular HGB Conc 33.1 g/dl (31.0-36.0); Mean Corpuscular Volume 86.9 fL (80.0-98.0); Mean Platelet Volume 10.7 fL (9.4-12.4); Monocytes Percent Auto 8.9 % (2-11); Neutrophils Absolute Auto 5.1 x10*3/uL (2.0-8.3); Platelet Count 254 X10*3/uL (160-400); Red Blood Count 4.11 X10*6/uL (4.60-5.80); Red Cell Distribution Width 15.2 % (11.0-16.0)
[2024-05-09 12:28] LABS: MANUAL DIFF FLAG NO
[2024-05-10 08:39] LABS: HIV AB/AG Nonreactive (Nonreactive); HIV Num 1 0.05 S/CO (0.00-0.99)
[2024-05-10 08:45] LABS: Syphilis Screen Nonreactive (Nonreactive)
== END 2024-05-09 08:04 | disposition home or self-care (01) ==
LOC: HO.HHCL 08:03
PROVIDERS: Visit Provider Internal Medicine
DX: L98.491 Non-pressure chronic ulcer of skin of other sites limited to breakdown of skin (principal); I10 Essential (primary) hypertension
CPT/HCPCS: 36415; 80053; 80061; 85025; 86780; 87389

== ENCOUNTER 2024-05-17 08:05 | Outpatient (REF) | payer OTHER, SELFPAY ==
[2024-05-17 11:21] LABS: MANUAL DIFF FLAG NO
[2024-05-17 11:39] LABS: Basophils Percent Auto 0.4 % (0-2); Eosinophils Absolute Auto 0.3 X10*3/uL (0.0-0.4); Eosinophils Percent Auto 2.5 % (0-4); Hematocrit 32.1 % (42.0-52.0); Hemoglobin 10.8 g/dl (14.0-18.0); Imm Gran Abs Auto 0.07 X10*3/uL (0.00-0.03); Imm Gran Pct Auto 0.7 % (0.0-0.4); Lymphocytes Absolute Auto 3.6 X10*3/uL (1.2-4.9); Lymphocytes Percent Auto 35.2 % (20-40); Mean Corpuscular HGB Conc 33.6 g/dl (31.0-36.0); Mean Corpuscular Hemoglobin 28.9 pg (27.0-33.0); Mean Corpuscular Volume 85.8 fL (80.0-98.0); Mean Platelet Volume 11.9 fL (9.4-12.4); Monocytes Absolute Auto 0.8 X10*3/uL (0.1-1.2); Monocytes Percent Auto 7.8 % (2-11); Neutrophils Absolute Auto 5.4 x10*3/uL (2.0-8.3); Neutrophils Percent Auto 53.4 % (45-73); Platelet Count 200 X10*3/uL (160-400); Red Blood Count 3.74 X10*6/uL (4.60-5.80); Red Cell Distribution Width 15.2 % (11.0-16.0); White Blood Count 10.1 X10*3/uL (4.8-10.8)
[2024-05-17 12:09] LABS: TSH reflex Free T4 1.02 uIU/mL (0.32-4.0)
[2024-05-17 14:09] LABS: Alanine Aminotransferase 26 U/L (0-40); Albumin Level 3.1 g/dL (3.5-5.0); Alkaline Phosphatase 111 U/L (39-117); Anion Gap 12 (12-20); Aspartate Amino Transferase 30 U/L (5-37); Bilirubin Total 0.3 mg/dL (0.0-1.0); Blood Urea Nitrogen 25 mg/dL (9-16); Calcium 9.2 mg/dL (8.4-10.2); Carbon Dioxide 23 mmol/L (22-29); Chloride 110 mmol/L (96-108); Estimated Glomerular Filt Rate 41; Glucose Random 111 mg/dL (60-115); Potassium 4.3 mmol/L (3.3-5.1); Sodium 141 mmol/L (135-145); Total Protein 6.5 g/dL (6.5-8.0)
== END 2024-05-17 08:06 | disposition home or self-care (01) ==
LOC: HO.HHCL 08:05
PROVIDERS: Internal Medicine; Visit Provider Family Medicine
DX: N18.31 Chronic kidney disease, stage 3a (principal); R42 Dizziness and giddiness
CPT/HCPCS: 36415; 80053; 84443; 85025

== ENCOUNTER 2024-05-28 13:25 | Outpatient (AMB) | payer OTHER, SELFPAY ==
--- NOTE | 2024-05-28 13:28 | A.OFFVIS_ITS ---
Vital Signs 05/28/24 13:35 Height 5 ft 6 in Weight 290 lb BMI 46.8 Comment Weight stated by patient Intake Visit Reasons: Hemorrhoids Intake Note: This patient presents for Hemorrhoids. Pt c/o; reports pain/discomfort, reports rectal bleeding. Steel Floor Pan Placing Supervisor Required: Yes Steel Floor Pan Placing Supervisor Language: Vice President Of Finance Services: Steel Floor Pan Placing Supervisor Present Steel Floor Pan Placing Supervisor Name: Theresa Information Interpreted: non-clinical & clinical Accompanied by: Self / Same As Patient Allergies No Known Allergies [No Known Allergies*] Allergy (Verified 05/28/24 13:37) Medication List - Last Reconciled 05/28/24 by Tyrell Louis MD albuterol sulfate 90 mcg/actuation (ProAir HFA) 2 puffs inhalation Q4-6H PRN 30 days alprazolam 1 mg PO BID bacitracin 1 appl topical BID blood sugar diagnostic As directed buspirone 10 mg PO BID cholecalciferol (vitamin D3) 50 mcg PO DAILY docusate sodium (Colace) 100 mg PO DAILY fluticasone propion-salmeterol 500-50 mcg/dose (Advair Diskus) 1 inh inhalation BID fluticasone propionate 50 mcg/actuation (Children's Flonase Allergy Relief) 2 sprays intranasal DAILY 30 days hydrochlorothiazide 12.5 mg PO DAILY hydrocortisone 2.5% (Procto-Med HC) 1 appl GA BID-QID PRN irbesartan 150 mg PO DAILY loratadine (Claritin) 10 mg PO DAILY lorazepam (Ativan) 1 mg PO BID PRN metformin ER 500 mg PO DAILY montelukast 10 mg PO BEDTIME naproxen (Naprosyn) 500 mg PO BID omeprazole magnesium (Prilosec OTC) 20 mg PO DAILY paroxetine HCl 20 mg PO DAILY quetiapine 400 mg PO BID quetiapine (Seroquel) 300 mg PO BEDTIME tamsulosin 0.4 mg PO BEDTIME tolterodine ER 4 mg PO BEDTIME verapamil ER (Verelan PM) 300 mg PO BEDTIME HPI HPI Hemorrhoids: Details: 68-year-old male referred for hemorrhoid issues. He describes having swollen hemorrhoids over a week ago. He describes pain with that. He would notice some bleeding as well He has noted some improvement but he says he still feels this swollen hemorrhoid. He admits to having had constipation prior to that as well . [facility] Medical History (Updated 05/28/24 @ 14:19 by Tyrell Louis MD) Thrombosed external hemorrhoid Anemia, normocytic normochromic History of pneumothorax Sickle cell trait Nicotine dependence, cigarettes, uncomplicated Osteoporosis (~2013) Morbid (severe) obesity with alveolar hypoventilation Allergic rhinitis COPD (chronic obstructive pulmonary disease) NAM on CPAP (~2008) Surgical History History of colonoscopy History of surgery on lower extremity History of cardiac cath Social History Alcohol intake: unknown Patient Tobacco Use Status: Current everyday Tobacco user Tobacco use type: Cigarette Cigarettes Per Day: 10 Years Smoked: onset 13yo, x 54yrs, mainly 1ppd, now 1/2ppd, 50pyh Review of Systems Const Denies chills and Denies fever(s) Card Denies chest pain, Denies dyspnea and Reports dyspnea on exertion Resp Denies cough, Denies dyspnea and Reports dyspnea on exertion GI Reports hematochezia and Denies change in bowel habits Denies hematuria and Denies difficulty urinating Musc Reports abnormal gait, Reports back pain, Reports arthralgias and Reports limited range of motion Neuro Reports abnormal gait, Denies focal weakness and Denies convulsions Psych Denies depression and Denies mood swings Physical Exam Vital Signs: BMI result Body Mass Index 46.8 Const Other: Appears morbidly obese, using a cane to ambulate General: comfortable and no acute distress Resp Effort & Inspection: normal respiratory effort Cardio Rate: regular rate GI Other: Rectal exam shows a thrombosed external hemorrhoid about 1.5 cm on the right side that is now open and draining some clots, no significant inflammation, Palpation (GI): Soft to palpation Office Procedures Anoscopy He was in ryder-knife position. The anoscope was gently inserted. A full examination of the anal canal was done. He did have internal external hemorrhoids which were non bulky. However, there were no lesions, ulceration or any fissure. There was no induration on digital exam. He did have some tenderness on the thrombosed hemorrhoid in the right [id number] Assessment & Plan Assessment & Plan (1) Thrombosed external hemorrhoid: Code(s): K64.5 - Perianal venous thrombosis Category: Medical Plan: This is past the acute stage. I told him that he would not require surgical intervention at this time. I had advised him to do hot Sitz baths or warm soaks to the area as this will hasten resorption of the thrombus. I advised good perianal hygiene. I will send him a prescription for Colace for his constipation He can otherwise follow up on a p.r.n. basis Coding Level of Care Code New Pt Level 3 (31625) Diagnoses Thrombosed external hemorrhoid K64.5 CPT Codes Details - CPT: 36508-[id number] ([id number])
[2024-05-28 13:35] VITALS: BMI 46.8
== END 2024-05-28 13:55 | disposition home or self-care (01) ==
PROVIDERS: PCP Internal Medicine; Visit Provider Surgery
DX: K64.5 Perianal venous thrombosis (principal); K64.8 Other hemorrhoids
CPT/HCPCS: 46600; 99203

== ENCOUNTER → 2024-05-28 13:25 | Outpatient (BNVA) | payer OTHER, SELFPAY | PROVIDERS: PCP Internal Medicine; Visit Provider Surgery | DX: K64.5 Perianal venous thrombosis (principal) | CPT/HCPCS: 46600; 99202 ==

== ENCOUNTER 2024-06-02 12:02 | Emergency (ER) | payer OTHER, SELFPAY ==
--- NOTE | ~2024-06-02 | CT_ITS ---
EXAMINATION: CT HEAD WITHOUT CONTRAST CLINICAL INFORMATION: Dizziness COMPARISON: Head CT March 24, 2022 TECHNIQUE: Contiguous axial imaging was performed from the skull base to vertex without intravenous administration of contrast. This CT examination was performed using dose optimization techniques as appropriate, variously including the following: *Automated exposure control *Adjustment of mA and/or kV according to patient size (this includes techniques or standardized protocols for targeted exams where dose is matched to indication/reason for exam; i.e. extremities or head) *Use of iterative reconstruction technique DLP: 796 mGy-cm FINDINGS: There is no evidence of acute intracranial hemorrhage or territorial infarction. No abnormal mass effect or midline shift is appreciated. Carpenter-white differentiation is well preserved. No extra-axial fluid collections. The ventricular system and cortical sulci are prominent, consistent with age-appropriate volume loss. There are areas of low density in the periventricular and subcortical white matter, most consistent with sequelae of microvascular ischemic change. Soft tissues and osseous structures are unremarkable. There are calcifications of the cavernous internal carotid arteries. The visualized paranasal sinuses and mastoid air cells are well aerated. CT/CT head/brain wo IV con IMPRESSION: Chronic microvascular ischemic changes with no CT evidence of acute intracranial abnormality. Electronically signed by: Zach Orellana MD 06/02/2024 01:58 PM EST
--- NOTE | ~2024-06-02 | MR_ITS ---
EXAMINATION: MR BRAIN WITHOUT CONTRAST CLINICAL INFORMATION: Dizziness. Question stroke. COMPARISON: CT head dated June 02, 2024. TECHNIQUE: MRI of the brain was obtained using routine sequences without contrast. FINDINGS: There is no area of abnormal restricted diffusion to indicate an acute/subacute cerebral or cerebellar infarction. There is no acute intracranial hemorrhage. There is mild microvascular ischemic change. There is no midline shift or mass effect. No extra-axial fluid collection. The ventricles are normal in size. The flow voids at the base of the brain are intact. Midline structures are normal in appearance. The cerebellar tonsils are normally positioned. The orbits are symmetric and within normal limits. Paranasal sinuses are clear. Mastoid air cells are clear. MR/MR head/brain wo con IMPRESSION: No area of abnormal restricted diffusion to indicate an acute/subacute cerebral or cerebellar infarction. Mild vascular ischemic change. Electronically signed by: Bo Roland DO 06/02/2024 04:49 PM [facility]
--- NOTE | 2024-06-02 12:09 | ECG_ITS ---
Test Reason : DIZZINESS Blood Pressure : / mmHG Vent. Rate : 077 BPM Atrial Rate : 077 BPM P-R Int : 184 ms QRS Dur : 088 ms QT Int : 392 ms P-R-T Axes : 058 021 041 degrees QTc Int : 443 ms Normal sinus rhythm Normal ECG When compared with ECG of 16-NOV-2019 19:35, No significant change was found Referred By: Generic ED Physician Electronically Signed By:JAZMYN TAPIA MD
[2024-06-02 12:10] VITALS: BP 154/62; BP 158/88; PULSE 79; PULSE 92; RESP 14; TEMP 36.8; O2SAT 97; O2SAT 98; BMI 49.1
[2024-06-02 12:15] LABS: Glucose, Whole Blood 120 mg/dL (60-115)
--- NOTE | 2024-06-02 12:24 | ED_ITS ---
HPI - Dizziness General Chief Complaint: Dizziness Stated Complaint: DIZZINESS Time Seen by Provider: 06/02/24 12:16 Source: patient, EMS, old records reviewed and reproductive endocrinologist Mode of arrival: EMS Limitations: no limitations History of Present Illness ED Provider: DR. Morales HPI Narrative: 68-year-old gentleman dull morbidly obese, history of NAM /hypoventilation syndrome on CPAP, COPD, CKD, tobacco smoking. Presented by EMS for 1 isolated episode of dizziness / vertigo lasted for about 5 minutes then completely resolved, patient declined any speech problem, no headache, no weakness, no numbness , no nausea, no vomiting. Related Data Home Medications ?Medication ?Instructions ?Recorded ?Confirmed blood sugar diagnostic #10 ea 07/02/20 05/28/24 irbesartan 150 mg tablet 150 mg PO DAILY 08/12/22 05/28/24 tolterodine 4 mg capsule,extended 4 mg PO BEDTIME 08/12/22 05/28/24 release 24 hr Previous Rx's ?Medication ?Instructions ?Recorded alprazolam 1 mg tablet 1 mg PO BID #60 tabs 05/12/20 buspirone 10 mg tablet 10 mg PO BID #60 tabs 05/12/20 cholecalciferol (vitamin D3) 50 50 mcg PO DAILY #30 caps 05/12/20 mcg (2,000 unit) capsule docusate sodium 100 mg capsule 100 mg PO DAILY #30 caps 05/12/20 (Colace) hydrochlorothiazide 12.5 mg tablet 12.5 mg PO DAILY #30 tabs 05/12/20 hydrocortisone 2.5 % topical cream 1 applic NE BID-QID PRN 05/12/20 with perineal applicator hemorrhoids #30 grams (Procto-Med HC) loratadine 10 mg tablet (Claritin) 10 mg PO DAILY #30 tabs 05/12/20 lorazepam 1 mg tablet (Ativan) 1 mg PO BID PRN anxiety #60 tabs 05/12/20 metformin 500 mg tablet,extended 500 mg PO DAILY #30 tabs 05/12/20 release 24 hr omeprazole magnesium 20 mg 20 mg PO DAILY #30 tabs 05/12/20 tablet,delayed release (Prilosec OTC) paroxetine HCl 20 mg tablet 20 mg PO DAILY #30 tabs 05/12/20 quetiapine 300 mg tablet (Seroquel) 300 mg PO BEDTIME #30 tabs 05/12/20 quetiapine 400 mg tablet 400 mg PO BID #30 tabs 05/12/20 tamsulosin 0.4 mg capsule 0.4 mg PO BEDTIME #30 caps 05/12/20 verapamil 300 mg capsule 24hr 300 mg PO BEDTIME #30 caps 05/12/[address],ext.release (Verelan PM) fluticasone 500 mcg-salmeterol 50 1 inh inhalation BID copd #60 ea 09/10/21 mcg/dose blistr powdr for inhalation (Advair Diskus) fluticasone propionate 50 2 spray intranasal DAILY Allergic 09/10/21 mcg/actuation nasal Rhinitis 30 days #16 grams spray,suspension (Children's Flonase Allergy Relief) naproxen 500 mg tablet (Naprosyn) 500 mg PO BID #20 tabs 06/27/22 bacitracin 500 unit/gram topical 1 appl topical BID #30 grams 07/10/23 ointment albuterol sulfate 90 mcg/actuation 2 puff inhalation Q4-6H PRN 10/17/23 aerosol inhaler (ProAir HFA) shortness of breath or wheezing 30 days #8.5 grams montelukast 10 mg tablet 10 mg PO BEDTIME #90 tabs 04/02/24 docusate sodium 100 mg capsule 100 mg PO BID #60 caps 05/28/24 (Colace) Allergies Allergy/AdvReac Type Severity Reaction Status Date / Time No Known Allergies Allergy Verified 06/02/24 12:14 [No Known Allergies*] Review of Systems 2 Review of Systems: All other systems are reviewed and are negative Constitutional: Reports as per HPI and Reports no additional constitutional complaints Eyes: Reports as per HPI and Reports no additional eye complaints Reports system reviewed and no additional complaints, except as documented Cardiovascular: Reports as per HPI and Reports no additional cardiovascular complaints Respiratory: Reports as per HPI and Reports no additional respiratory complaints Gastrointestinal: Reports as per HPI and Reports no additional gastrointestinal complaints Genitourinary: Reports no additional female genitourinary complaints Musculoskeletal: Reports no additional musculoskeletal complaints Skin/Breast: Reports system reviewed and no additional complaints, except as docu Psychiatric: Reports no additional psychiatric complaints Endocrine: Reports no additional endocrine complaints Hematologic/Lymphatic: Reports no additional hematologic/lymphatic complaints Allergic/Immunologic: Reports no additional allergic/immunologic complaints Reports system reviewed and no additional complaints, except as documented and Reports Abnormal speech present [facility] Past Medical History Medical History Thrombosed external hemorrhoid Anemia, normocytic normochromic History of pneumothorax Sickle cell trait Nicotine dependence, cigarettes, uncomplicated Osteoporosis (~2013) Morbid (severe) obesity with alveolar hypoventilation Allergic rhinitis COPD (chronic obstructive pulmonary disease) NAM on CPAP (~2008) Surgical History History of colonoscopy History of surgery on lower extremity History of cardiac cath Social History Social History Alcohol intake: unknown Patient Tobacco Use Status: Current everyday Tobacco user Tobacco use type: Cigarette Cigarettes Per Day: 10 Years Smoked: onset 13yo, x 54yrs, mainly 1ppd, now 1/2ppd, 50pyh Smoked in Last 30 Days: Yes Use of substances other than those prescribed or required for medical reasons: No Advance Directives: No Advance Directives Information Provided: Yes Do you have a plan to hurt others: No Plan Physical Exam 2 Vital Signs: Vital Signs: Last Vital Signs Temp 98.2 F 06/02/24 12:10 Pulse 75 06/02/24 14:02 Resp 18 06/02/24 14:02 BP 150/67 H 06/02/24 14:02 Pulse Ox 98 06/02/24 14:02 O2 Del Method Room Air 06/02/24 14:02 BMI result Body Mass Index 49.1 Vital signs have been reviewed and appear to be correct. Blood pressure elevated. Heart rate normal. Respiratory rate normal. Temperature normal. Oxygen saturation normal. Appearance: Alert. Oriented X3. No acute distress. Head: Normal external exam. Normocephalic. Atraumatic. No Heart signs noted. No raccoon eyes noted Eyes: PERRLA. EOMI. Conjunctiva and sclera normal. Eyelids normal. ENT: TM's Normal. Pharynx normal. Uvula midline. Moist mucous membranes. No trismus noted. No drooling noted. No muffled voice noted. Neck: Normal inspection. Neck supple. FROM. No adenopathy. Thyroid Normal. No meningeal signs. No neck mass noted. CVS: Normal heart rate and rhythm. Heart sound normal. No murmurs noted. Pulses normal throughout. Respiratory: No respiratory distress. Painless inspiration. Breath sounds normal. No wheezes/rales/rhonchi noted. Chest nontender. No accessory muscle usage noted or decreased air movement noted. Abdomen: Soft and nontender. Bowel sounds normal in all 4 quadrants. No distention noted. No organomegaly noted. No visible injury noted. Back: No CVA tenderness. Full range of motion noted. Skin: Skin warm and dry. Normal skin color. Normal skin turgor. No rashes/lesions/lacerations noted. Extremities: No lower extremity edema. Extremities exhibit normal range of motion. Extremities nontender. Neuro: Mental status: Normal attention, orientation, memory, and affect. Cranial nerves: Pupils are equal, round and reactive to light, EOMI, visual mello are fall, face is symmetric, facial sensations are normal. Motor examination normal muscle tone, strength to 4 extremities. DTR are +2, planter's are flexor. Sensory exam; normal coordination, no ataxia, gait stable. Cerebellar exam: Shaxgk-ly-wyba and beqp-[id number]-alvb is normal. Extrapyramidal system: No tremors, no rigidity with normal facial expressions. Pronator drift not present. NIH Stroke Scale Time: 12:27 Level of Consciousness: Alert Level of Consciousness Questions: Answers both questions correctly Level of Consciousness Commands: Performs both tasks correctly Best Gaze: Normal Visual: No visual loss Facial Palsy: Normal Motor Arm (Right): No drift Motor Arm (Left): No drift Motor Leg (Right): No drift Motor Leg (Left): No drift Limb Ataxia: Absent Sensory: Normal Best Language: No aphasia Dysarthia: Normal Extinction and Inattention: No abnormality Score: 0 Course Reevaluation(s) Reevaluation #1: Patient has no symptoms now, normal neuro in particular cerebellar exam, head CT is unremarkable, MRI of the brain reading still pending patient is insisting to be discharged before the reading of the MRI and full evaluation of the patient, risk of sudden , neurological deficit was discussed with the patient if he leaves against medical advice patient is willing to take the risk and signed AMA, in hospital reproductive endocrinologist service was used to ensure full understanding of the patient. Time: 16:00 Medical Decision Making Differential Diagnosis Differential Diagnoses: The differential diagnosis associated with the presentation includes ( Certainly vertigo, CVA, peripheral vertigo, electrolyte derangement, severe anemia.) Admission/Observation Consideration of admission/observation: Escalation of care including admission/observation considered Lab Data MDM Lab Attestation statement: I reviewed the patient's lab results. 06/02/24 12:40 06/02/24 12:40 Labs: Lab Results 06/02/24 06/02/24 Range/Units 12:09 12:40 WBC 9.0 (4.8-10.8) X10*3/uL RBC 3.65 L (4.60-5.80) X10*6/uL Hgb 10.5 L (14.0-18.0) g/dl Hct 31.6 L (42.0-52.0) % MCV 86.6 (80.0-98.0) fL MCH 28.8 (27.0-33.0) pg MCHC 33.2 (31.0-36.0) g/dl RDW 15.0 (11.0-16.0) % Plt Count 238 (160-400) X10*3/uL MPV 11.1 (9.4-12.4) fL Immature Gran % (Auto) 0.7 H (0.0-0.4) % Neut % (Auto) 53.2 (45-73) % Lymph % (Auto) 32.9 (20-40) % Chester % (Auto) 10.0 (2-11) % Eos % (Auto) 2.8 (0-4) % Baso % (Auto) 0.4 (0-2) % Lymph # (Auto) 3.0 (1.2-4.9) X10*3/uL Chester # (Auto) 0.9 (0.1-1.2) X10*3/uL Eos # (Auto) 0.3 (0.0-0.4) X10*3/uL Baso # (Auto) 0.0 (0.0-0.2) X10*3/uL Abs Immat Gran (auto) 0.06 H (0.00-0.03) X10*3/uL Absolute Neuts (auto) 4.8 (2.0-8.3) x10*3/uL Absolute Nucleated RBC 0.000 (0.0-0.012) X10*3/uL Nucleated RBC % (auto) 0.0 (0.0-0.2) /100WBC Sodium 141 (135-145) mmol/L Potassium 4.2 (3.3-5.1) mmol/L Chloride 110 H (96-108) mmol/L Carbon Dioxide 25 (22-29) mmol/L Anion Gap 10 L (12-20) BUN 21 H (9-16) mg/dL Creatinine 1.73 H (0.5-1.4) mg/dL Estim Creat Clear Calc 50.8 Estimated GFR 39 POC Glucose 120 H (60-115) mg/dL Random Glucose 113 (60-115) mg/dL Calcium 9.3 (8.4-10.2) mg/dL Magnesium 2.2 (1.6-2.6) mg/dL Total Bilirubin 0.2 (0.0-1.0) mg/dL AST 26 (5-37) U/L ALT 24 (0-40) U/L Alkaline Phosphatase 128 H (39-117) U/L Troponin I High Sens < 2.7 (<3.5-35.0) ng/L Total Protein 6.7 (6.5-8.0) g/dL Albumin 3.3 L (3.5-5.0) g/dL Independent Interpretation I performed an independent interpretation of an: CT Scan ( head:Chronic microvascular ischemic changes with no CT evidence of acute intracranial abnormality. ) Radiology Impression Discussion of test interpretation with radiology: I have reviewed the radiologist's reading. Discharge Plan Discharge Clinical Impression: Dizziness Patient Disposition: Left Against Medical Advice Instructions: Vertigo (ED) Prescriptions: No Action lorazepam [Ativan] 1 mg tablet 1 mg PO BID PRN (Reason: anxiety) Qty: 60 0RF loratadine [Claritin] 10 mg tablet 10 mg PO DAILY Qty: 30 0RF buspirone 10 mg tablet 10 mg PO BID Qty: 60 0RF quetiapine 400 mg tablet 400 mg PO BID Qty: 30 0RF paroxetine HCl 20 mg tablet 20 mg PO DAILY Qty: 30 0RF alprazolam 1 mg tablet 1 mg PO BID Qty: 60 0RF tamsulosin 0.4 mg capsule 0.4 mg PO BEDTIME Qty: 30 0RF docusate sodium [Colace] 100 mg capsule 100 mg PO DAILY Qty: 30 0RF omeprazole magnesium [Prilosec OTC] 20 mg tablet,delayed release (DR/EC) 20 mg PO DAILY Qty: 30 0RF hydrocortisone [Procto-Med HC] 2.5 % cream with perineal applicator 1 applic NE BID-QID PRN (Reason: hemorrhoids) Qty: 30 0RF verapamil [Verelan PM] 300 mg capsule, [address] 300 mg PO BEDTIME Qty: 30 0RF hydrochlorothiazide 12.5 mg tablet 12.5 mg PO DAILY Qty: 30 0RF quetiapine [Seroquel] 300 mg tablet 300 mg PO BEDTIME Qty: 30 0RF metformin 500 mg tablet extended release 24 hr 500 mg PO DAILY Qty: 30 0RF cholecalciferol (vitamin D3) 50 mcg (2,000 unit) capsule 50 mcg PO DAILY Qty: 30 0RF montelukast 10 mg tablet 10 mg PO BEDTIME Qty: 90 0RF naproxen [Naprosyn] 500 mg tablet 500 mg PO BID Qty: 20 0RF bacitracin 500 unit/gram ointment 1 appl topical BID Qty: 30 0RF (DME) FreeStyle Lite Strips Strip See Rx Instructions Not Applicable DAILY Qty: 10 Rx Instructions: As directed fluticasone propion-salmeterol [Advair Diskus] 500-50 mcg/dose blister with device 1 inh inhalation BID Qty: 60 5RF fluticasone propionate [Children's Flonase Allergy Rlf] 50 mcg/actuation spray,suspension 2 spray intranasal DAILY 30 Days Qty: 16 5RF Rx Instructions: administer into each nostril irbesartan 150 mg tablet 150 mg PO DAILY tolterodine 4 mg capsule,extended release 24hr 4 mg PO BEDTIME albuterol sulfate [ProAir HFA] 90 mcg/actuation HFA aerosol inhaler 2 puff inhalation Q4-6H PRN (Reason: shortness of breath or wheezing) 30 Days Qty: 8.5 1RF docusate sodium [Colace] 100 mg capsule 100 mg PO BID Qty: 60 0RF Referrals: Lake Allen MD [Primary Care Provider] - Stand Alone Forms: Against Medical Advice Print Language: Bulgarian
[2024-06-02 12:43] LABS: MANUAL DIFF FLAG NO
[2024-06-02 12:53] LABS: Basophils Percent Auto 0.4 % (0-2); Eosinophils Absolute Auto 0.3 X10*3/uL (0.0-0.4); Eosinophils Percent Auto 2.8 % (0-4); Hematocrit 31.6 % (42.0-52.0); Hemoglobin 10.5 g/dl (14.0-18.0); Imm Gran Abs Auto 0.06 X10*3/uL (0.00-0.03); Imm Gran Pct Auto 0.7 % (0.0-0.4); Lymphocytes Percent Auto 32.9 % (20-40); Mean Corpuscular HGB Conc 33.2 g/dl (31.0-36.0); Mean Corpuscular Hemoglobin 28.8 pg (27.0-33.0); Mean Corpuscular Volume 86.6 fL (80.0-98.0); Mean Platelet Volume 11.1 fL (9.4-12.4); Monocytes Absolute Auto 0.9 X10*3/uL (0.1-1.2); Neutrophils Absolute Auto 4.8 x10*3/uL (2.0-8.3); Neutrophils Percent Auto 53.2 % (45-73); Platelet Count 238 X10*3/uL (160-400); Red Blood Count 3.65 X10*6/uL (4.60-5.80)
[2024-06-02 13:06] LABS: Alanine Aminotransferase 24 U/L (0-40); Albumin Level 3.3 g/dL (3.5-5.0); Alkaline Phosphatase 128 U/L (39-117); Anion Gap 10 (12-20); Aspartate Amino Transferase 26 U/L (5-37); Bilirubin Total 0.2 mg/dL (0.0-1.0); Blood Urea Nitrogen 21 mg/dL (9-16); Calcium 9.3 mg/dL (8.4-10.2); Carbon Dioxide 25 mmol/L (22-29); Chloride 110 mmol/L (96-108); Creatinine Clr Calc Pharmacy 50.8; Estimated Glomerular Filt Rate 39; Glucose Random 113 mg/dL (60-115); Magnesium 2.2 mg/dL (1.6-2.6); Potassium 4.2 mmol/L (3.3-5.1); Sodium 141 mmol/L (135-145); Total Protein 6.7 g/dL (6.5-8.0)
[2024-06-02 13:16] LABS: Troponin-I High Sensitivity < 2.7 ng/L (<3.5-35.0)
[2024-06-02 14:02] VITALS: BP 150/67; PULSE 75; RESP 18; O2SAT 98
--- NOTE | 2024-06-02 15:01 | PC.NURSE ---
pt off unit to MRI at this time
--- NOTE | 2024-06-02 15:41 | PC.NURSE ---
pt returned from MRI and reported that he wanted to leave. this RN explained to pt with automotive parts interpreter and MD Morales risk for leaving prior to results of testing being back and not completing his work-up for his dizziness. pt stated that he has been here long enough and he wants to leave.
[2024-06-02 16:03] VITALS: BP 150/67; PULSE 75; RESP 18; TEMP 36.8; O2SAT 98
== END 2024-06-02 16:04 | disposition left against medical advice (07) ==
PROVIDERS: Emergency Provider Emergency Medicine; PCP Internal Medicine
DX: R42 Dizziness and giddiness (principal); R29.700 NIHSS score 0; F17.210 Nicotine dependence, cigarettes, uncomplicated; Z53.29 Procedure and treatment not carried out because of patient's decision for other reasons
CPT/HCPCS: 36415; 70450; 70551; 80053; 82947; 83735; 84484; 85025; 93005; 99285

== ENCOUNTER → 2024-06-02 12:09 | Outpatient (BNV) | payer OTHER, SELFPAY | PROVIDERS: Emergency Provider Emergency Medicine; PCP Internal Medicine; Visit Provider Internal Medicine Cardiovascular Disease | DX: R42 Dizziness and giddiness (principal) | CPT/HCPCS: 93010 ==

== ENCOUNTER 2024-10-01 07:48 | Outpatient (REF) | payer OTHER, SELFPAY | END 2024-10-01 07:49 | disposition home or self-care (01) | LOC: HO.CT 07:48 | PROVIDERS: PCP Internal Medicine; Visit Provider Physician Assistant Medical | DX: Z12.2 Encounter for screening for malignant neoplasm of respiratory organs (principal); F17.210 Nicotine dependence, cigarettes, uncomplicated | CPT/HCPCS: 71271 ==

== ENCOUNTER → 2024-10-01 07:50 | Outpatient (BNV) | payer OTHER, SELFPAY | PROVIDERS: PCP Internal Medicine; Visit Provider Radiology Diagnostic Radiology | DX: Z12.2 Encounter for screening for malignant neoplasm of respiratory organs (principal); F17.210 Nicotine dependence, cigarettes, uncomplicated | CPT/HCPCS: 71271 ==

== ENCOUNTER 2024-10-18 08:05 | Outpatient (AMB) | payer OTHER, SELFPAY ==
--- OUTSIDE RECORDS SUMMARY | 2024-10-18 08:10 | XMS_ITS | Clinical Summary ---
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 RN Severe pain 09/17/2024 Telephone [facility] [address] [facility] [place] [address] Lake Sullivan MD Med Refill 08/28/2024 Refill [facility] [address] [facility] [place] [address] Lake Sullivan MD [facility] 08/20/2024 Refill [facility] [address] [facility] [place] [address] Lake Sullivan MD Severe pain 07/23/2024 Refill [facility] [address] [facility] [place] [address] Lake Sullivan MD Severe pain from Last 3 Months Immunizations Name Administration Dates Next Due Influenza High-dose Quadriva lent Preservative Free 02/26/2022,04/08/2021 Influenza injectable quadriv alent IIV4 with preservative 04/24/2019,04/05/2018,06/09/2017,06/17,04/03/2015 Influenza, High Dose Seasona l, Preservative Free 04/02/2024,04/15/2015 Influenza, IIV3, injectable 04/10/2019, 4 Influenza, Split (incl. jefry fied surface antigen) 03/23/2013,03/20/2012 Pneumococcal Conjugate PCV 13 04/08/2021 Pneumococcal Polysaccharide PPSV23 04/10/2019,,09/07/2002 RSV Adjuvant 04/13/2023 TD (adult), 2 Lf tetanus tox oid, preservative free, adsorbed 07/11/2001 Td (adult), 5 Lf tetanus tox oid, preservative free, adsorbed 03/23/2013 Tdap 12/11/2022,08/10/2013 Zoster, Recombinant 04/28/2022,02/26/2022 Zoster, live 08/10/2013 Social History Tobacco Use Types Packs/Day Years Used Date Smoking Tobacco: Every Day Cigarettes 0.5 0.5 Passive Smoke Exposure: Current Smokeless Tobacco: Former Tobacco Cessation:Ready to Q uit: Not Asked; Counseling Given: Not Answered Alcohol Use Standard Drinks/Week Comments Never 0 (1 standard drink = 0.6 oz pur e alcohol) Alcohol Answer Date Recorded Frequency of Alcohol Consumption Not on file 05/08/2024 Average Number of Drinks Not on file 024 Frequency of Binge Drinking Not on file 04/11 Score 0 05/08/2024 Depression Answer Date Recorded Patient Health Questionnaire-9 Score 3 08/18/2023 Patient Health Questionnaire-9 Score 3 08/18/2023 Last PHQ-9: Questionnaire Data Not on file 0 08/18/2023 Housing Stability Answer Date Recorded What is your housing situation today? I have reddy antonio 08/18/[address] you li ve. Do you have problems with any of the following? None of the above 08/18/2023 Food Insecurity Answer Date Recorded Within the past 12 months, y ou worried that your food would run out before you got money to buy more: Never True 08/18/2023 Within the past 12 months,th e food you bought just didn't last and you didn't have enough money to get more: Never True 02/2024 Transportation Answer Date Recorded In the past 12 months, has l ack of transportation kept you from medical appts, meetings, work or from getting things needed for daily living? No 08/18/2023 Utilities Answer Date Recorded In the past 12 months, has t he electric, gas, oil or water company threatened to shut off services in your home? No 08/18/2023 Depression Answer Date Recorded Patient Health Questionnaire-2 Score 0 08/18/2023 Sex and Gender Information Value Date Recorded Sex Assigned at Male 05/10/2022 10:15 AM EDT Legal Sex Male 10:15 AM EDT Gender Identity Male 05/10/2022 10:15 AM EDT Sexual Orientation Straight 05/10/2022 10 :15 AM EDT Last Filed Vital Signs Vital Sign Reading Time Taken Comments Blood Pressure 137/74 05/16/2024 9:06 AM EST Pulse 79 05/16/2024 9:06 AM EST Temperature 36.7 ??C (98.1 ??F) 05/16/2024 9:06 AM ES T Respiratory Rate 18 05/16/2024 9:06 AM EST Oxygen Saturation 95% 05/16/2024 9:06 AM EST Inhaled Oxygen Concentration - - Weight 127 kg (280 lb) 05/16/2024 9:06 AM EST Height 167.6 cm (5' 6 ) 05/08/2024 9:00 AM EDT Body Mass Index 45.19 05/08/2024 9:00 AM EDT Plan of Treatment Upcoming Encounters Date Type Department Care Team (Late st Contact Info) Description 11/13/2024 9:00 AM EDT Office Visit [facility] [address] [place] [address] Lake Sullivan MD [address] [place] [address] 11/16/2024 9:00 AM EDT Office Visit [facility] [address] [place] [address] David Baird MD [address] [place] [address] 12/17/2024 9:30 AM EDT Telemedicine [facility] 505 [place] [address] 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, RN 505 [place] [address] Health Maintenance Due Date Last Done Comments CT Colonography 1955 Dental Prophylaxis 1955 Dental X-Ray: Bitewings 1955 FIT DNA/Cologuard 1955 FIT 1955 FOBT 1955 Sigmoidoscopy 1955 Dental Oral Exam 02/01/2023 08/03/2022 Colonoscopy 12/26/2023 12/25/2018 Colorectal Cancer Screening 12/26/2023 Depression Screening 08/18/2024 08/18/2023, 08/18/19 SDOH Screening 08/18/2024 08/18/2023 Diabetes: Hemoglobin A1C 11/28/2024 024, 09/14/2023, 11/18/2021, Additional history exists Alcohol/Substance Use Screening 05/08/2025 05/08/2024 Tobacco Screening 05/16/2025 05/16/2024 Dental X-Ray: Full Mouth 08/04/2025 08/03/2022 Lipid Panel 05/09/2029 05/09/2024, 1107/2022, 08/02/2022, Additional history exists DTaP/Tdap/Td Vaccines (3 - Td or Tdap) 12/11/2032 12/11/2022, 08/10/2013, 03/23/2013, Additional history exists Pneumococcal Vaccine: 50+ Years Completed 04/08/2021, 04/10/2019, 03/28/2014, Additional history exists Zoster Vaccines Completed 04/28/2022, 02/08, 08/10/2013 Hepatitis C Screening Completed 10/11/2022, 022 RSV Patients and Patients Aged 60 years or older Completed 04/13/2023 COVID-19 Vaccine Completed 04/02/2024, 10/2022, 11/09/2021, Additional history exists Influenza Vaccine Completed 04/02/2024, , 04/08/2021, Additional history exists HIB Vaccines Aged Out No longer eligi ble based on patient's age to complete this topic HPV Vaccines Aged Out No longer eligi ble based on patient's age to complete this topic Hepatitis A Vaccines Aged Out No long er eligible based on patient's age to complete this topic Hepatitis B Vaccines Aged Out No long er eligible based on patient's age to complete this topic IPV Vaccines Aged Out No longer eligi ble based on patient's age to complete this topic Meningococcal Vaccine Aged Out No frank hao eligible based on patient's age to complete this topic RSV under 20 months Aged Out No longe r eligible based on patient's age to complete this topic Rotavirus Vaccines Aged Out No longer eligible based on patient's age to complete this topic Procedures Procedure Name Priority Date/Time Associated Diagnosis Comments LDCT LUNG SCREENING Routine 10/05/2024 1 1:12 AM EDT POCT KALPESH-14 URINE DRUG SCREEN Routine 09/27/2024 9:10 AM EDT Long-term current use of opiate analgesic Long-term current use of benzodiazepine Chronic midline low back pain with left-sided sciatica LIPID PANEL, STANDARD Routine 05/09/2024 8:05 AM EDT Essential hypertension POCT GLYCATED HEMOGLOBIN, TOTAL Routine 11/29/2023 2:57 PM EDT Impaired glucose tolerance HEPATITIS C AB W/REFL TO HCV RNA, QN, PCR Routine 10/11/2022 8:03 AM EDT Essential hypertension PANORAMIC RADIOGRAPHIC IMAGE Routine 08/03/2022 8:00 AM EST COMPREHENSIVE ORAL EVALUATION - NEW OR ESTABLISHED PATIENT Routine 08/03/2022 8:00 AM EST HM COLONOSCOPY Routine 12/25/2018 from Last 3 Months or Most Recently Relevant to Health Maintenance Results * CT Lung Screening Low dose (10/05/2024 11:12 AM EDT) Anatomical Region Laterality Modality Lung Computed Tomogra phy 10/05/2024 11:1 2 AM EDT Narrative 10/05/2024 11:13 AM EDT ? [facility] ?[address] ?[place] [address] ? CT Scan Report ? Signed ? Patient: Francois,Imer ?MR#: [id number] ?? [id number] ? : 1955 ?Acct:[id number] ? Age/Sex: 69 / M ?ADM Date: 03/24/25 ? Loc: HO.CT ? Attending Dr: Ashlyn Davis PA-C ? Ordering Physician: Ashlyn Davis PA-C ?? Date of Service: 10/01/24 ?? Procedure(s): CT lung screening ?? Accession Number(s): [id number] ? cc: Lake Allen MD; Ashlyn Davis PA-C ? Report Number: ?? [id number]: Total DLP = ?? 89.00 mGy-cm ? CLINICAL HISTORY: F17.210 - Nicotine dependence, cigarettes, uncomplicated ? CT lung cancer screening (LDCT) ? Comparison: CT/MT/SR - CT LUNG SCREENING - 09/27/23 08:22 EDT ? Technique: ?? Axial CT images of the chest using low-dose technique. ?? Effective radiation dose total: DLP 76.8 mGycm, CTDIvol 2.4 mGy. ? Findings: ?? No suspicious pulmonary nodules. Pulmonary nodule seen on prior study are ?? either unchanged or less conspicuous on the current exam. ?? No focal areas of consolidation. ?? No pleural effusion or pneumothorax. ?? Trace pericardial effusion. ?? Small hiatal hernia. ?? Extensive fatty replacement of the pancreas within the upper abdomen. ?? No acute bony lesions. Multilevel degenerative change throughout the ?? thoracic spine. ? Impression: ?? No suspicious pulmonary nodules. ? Category 2: Benign appearance or behavior. Continued annual lung cancer ?? screening chest CT suggested. ? Category 1: Normal; continue annual screening ?? Category 2: Benign appearance or behavior, continue annual screening ?? Category 3: Probably benign, [address] recommended ?? Category 4A: Suspicious, [address] recommended; may consider PET/CT ?? Category 4B: Suspicious, Additional diagnostics and/or tissue sampling ?? recommended ?? Category 4X: Suspicious, Additional diagnostics and/or tissue sampling ?? recommended ?? Category 0: Recalls (incomplete screen due to Incomplete coverage, Noise, ?? Respiratory motion, Expiration, Obscured by acute abnormality) ? This document has been electronically signed by: Stewart Murrell MD on ?? 10/05/2024 11:12:00 ? Dictated By: ?Stewart Murrell MD ? Signed By: ?<Electronically signed by Stewart Murrell MD in OV> ? 10/05/24 1112 ? DD/ 111 ? TD/TT: 10/05/24 111 ? Screen Printing Press Operator: ? Procedure Note Donotuseinterpreter, Image - 10/05/[address] [address] [address] Scan Report Signed Patient: Rayshawn Parrish#: [id number] : 3Acct:[id number] Age/Sex: 69 / MADM Date: 10/01/24 Loc: HO.CT Attending Dr: Ashlyn Davis PA-C Ordering Physician: Ashlyn Davis PA-C Date of Service: 10/01/24 Procedure(s): CT lung screening Accession Number(s): [id number] cc: Lake Allen MD; Ashlyn Davis PA-C Report Number: [id number]: Total DLP = 89.00 mGy-cm CLINICAL HISTORY: F17.210 - Nicotine dependence, cigarettes, uncomplicated CT lung cancer screening (LDCT) Comparison: CT/MT/SR - CT LUNG SCREENING - 09/27/23 08:22 EDT Technique: Axial CT images of the chest using low-dose technique. Effective radiation dose total: DLP 76.8 mGycm, CTDIvol 2.4 mGy. Findings: No suspicious pulmonary nodules. Pulmonary nodule seen on prior study are either unchanged or less conspicuous on the current exam. No focal areas of consolidation. No pleural effusion or pneumothorax. Trace pericardial effusion. Small hiatal hernia. Extensive fatty replacement of the pancreas within the upper abdomen. No acute bony lesions. Multilevel degenerative change throughout the thoracic spine. Impression: No suspicious pulmonary nodules. Category 2: Benign appearance or behavior. Continued annual lung cancer screening chest CT suggested. Category 1: Normal; continue annual screening Category 2: Benign appearance or behavior, continue annual screening Category 3: Probably benign, [address] recommended Category 4A: Suspicious, [address] recommended; may consider PET/CT Category 4B: Suspicious, Additional diagnostics and/or tissue sampling recommended Category 4X: Suspicious, Additional diagnostics and/or tissue sampling recommended Category 0: Recalls (incomplete screen due to Incomplete coverage, Noise, Respiratory motion, Expiration, Obscured by acute abnormality) This document has been electronically signed by: Stewart Murrell MD on 10/05/2024 11:12:00 Dictated By: Stewart Murrell MD Signed By: <Electronically signed by Stewart Murrell MD in OV> 10/05/24 1112 DD/ 1112 TD/TT: 10/05/24 111 Screen Printing Press Operator: [facility] External Provider IMG CT PROCEDURES Final Result * POCT KALPESH-14 Urine Drug Screen (09/27/2024 9:10 AM EDT) Opiate Screen, Urine Positive Oxycodone Screen, Urine Positive Urine Urine specimen obtained by clean catch procedure / Unknown 09/27/2024 9:10 AM EDT Narrative 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 RN - 09/27/2024 9:10 AM EDT Lot# [id number] Exp: 02-27-26 Lake Bennett MD POINT OF CARE TEST EN TER/EDIT ORDERABLES Final Result * (ABNORMAL) Lipid Panel, Standard (05/09/2024 8:05 AM EDT) Triglycerides 127 <150 mg/dL [facility] Comment:Desirable Triglyceri de: less than 150 mg/dLBorderline High Triglyceride 150-199 mg/dLHigh Triglyceride: 200-499 mg/dLVery High Triglyceride: greater than or equal to 5OO mg/dL Cholesterol 175 <200 mg/dL [facility] Comment:Desirable Cholestero l: less than 200 mg/dLBorderline High Cholesterol: 200-239 mg/dLHigh Cholesterol: greater than 239 mg/dL LDL Cholesterol Calculated 119(H) <100 mg/dL [facility] Comment:Desirable LDL: less than 100 mg/dLNear Optimal/Above Optimal LDL: 110- 129 mg/dLBorderline High LDL: 130-159 mg/dLHigh LDL: 160-189 mg/dLVery High LDL: greater than or equal to 190 mg/dL HDL Cholesterol 31(L) >40 mg/dL [facility] Comment:Desirable HDL: great er than 40 mg/dL Note: This HDL assay may give artificially low results in patients with liver disease. Blood Venous blood specimen / Unknown 05/09/2024 8:05 AM EDT 05/09/2024 11:23 AM EDT Lake Bennett MD LAB BLOOD ORDERABLES Final Result [facility] [address] [place] [address] [phone] * POCT A1C (11/29/2023 2:57 PM EDT) Hemoglobin A1C 6.0 4.0 - 6.0 % QC Media Lot # [id number] Lot# Expiration Date Blood 11/29/2023 2:57 PM EDT Janet PRATT POINT OF CARE TEST ENTER/EDIT OR DERABLES Final Result * Hepatitis C Antibody with Reflex to HCV, RNA, Quantitative, Real-Time PCR (10/11/2022 8:03 AM EDT) Hepatitis C Antibody NON-REACT PIPPA NON-REACT PIPPA [facility] Index 0.02 <1.00 [facility] Comment: HCV antibody was non-reactive. There is no laboratory evidence of HCV infection. In most cases, no further action is required. However, if recent HCV exposure is suspected, a test for HCV RNA (test code 47515) is suggested. For additional information please refer to http://education.Mazoom/faq/BMB33h0 (This link is being provided for informational/ educational purposes only.) Blood Venous blood specimen / Unknown 10/11/2022 8:03 AM EDT 10/11/2022 8:04 AM EDT Chilango HANKS - 10/11/2022 9:54 PM EDT FASTING:UNKNOWN FASTING: UNKNOWN us Lake Bennett MD LAB BLOOD ORDERABLES Final Result [facility] [address], [place] [address] [facility] [address] [place] [address] * Hm Colonoscopy (12/25/2018) Colonoscopy Normal Normal 12/25/2018 Laurie Villa - 12/25/2018 2:08 PM EDT Recommended 5 year follow up us Historical Provider HEALTH MAINTENANCE Edited Result - Final from Last 3 Months or Most Recently Relevant to Health Maintenance Insurance [facility] * Guarantor: Imer Parrish Account Type Relation to Patient Date of Phone Billing Address Personal/Family Self [address] MIKEY Juarez Care Teams Program Schedule Clerk Relationship Specialty Start Date End Date Lake Sullivan MD [address] [place] [phone] PCP - General Internal Medicine 02/12/14
--- OUTSIDE RECORDS SUMMARY | 2024-10-18 08:10 | XMS_ITS | Encounter Summary ---
Author Organization [employer] Address [address] [place] [address] Care Team Providers Care Process Control Manager Name Role Phone Lake Sullivan MD Primary Care Provide r Encounter Details Date Type Department Care Team ([facility] st Contact Info) Description 12/23/2023 Telephone [facility] MED[facility] [address] [place], [place] [phone] Lake Sullivan MD [address] [place], [place] [phone] Social History Tobacco Use Types Packs/Day Years Used Date Smoking Tobacco: Every Day Cigarettes 0.5 0.5 Passive Smoke Exposure: Current Smokeless Tobacco: Former Alcohol Use Standard Drinks/Week Comments Never 0 (1 standard drink = 0.6 oz pur e alcohol) Depression Answer Date Recorded Patient Health Questionnaire-9 [...] Orientation Straight 05/10/2022 10 :15 AM EDT documented as of this encounter Plan of Treatment Upcoming Encounters Date Type Department Care Team (Late st Contact Info) Description 11/13/2024 9:00 AM EDT Office Visit [facility] [address] [place] [phone] Lake Sullivan MD [address] [place] [address] 11/16/2024 9:00 AM EDT Office Visit [facility] [address] [place] [phone] David Baird MD [address] [place] [phone] 12/17/2024 9:30 AM EDT Telemedicine [facility] [address] [place] [address] 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, LUCI [address] [place] [address] documented as of this encounter Visit Diagnoses Not on filedocumented in this encounter Additional Health Concerns Assessment Noted Time PHQ-9 Depression Total Score: 3 08/18/19 24 10:01 AM EST documented as of this encounter Care Teams Process Control Manager Relationship Specialty Start Date End Date Lake Sullivan MD [address] [place] [phone] PCP - General Internal Medicine 02/12/14 documented as of this encounter
--- OUTSIDE RECORDS SUMMARY | 2024-10-18 08:10 | XMS_ITS | Clinical Summary ---
Author Organization [facility] Address [address] [place] [address] Phone Care Team Providers Care Robotic Technician Name Role Phone Clarissa Vick MD Primary Care Provider + [phone] Allergies No known active allergies Medications montelukast (SINGULAIR) 10 mg tablet Take 1 tablet (10 mg total) by mouth. at bedtime. Active metFORMIN XR (GLUCOPHAGE-XR) 500 mg 24 hr tablet Take 1 tablet (500 mg total) by mouth 1 (one) time each day with dinner. Active loratadine (CLARITIN) 10 mg tablet TAKE 1 TABLET(10 MG) BY MOUTH EVERY DAY FOR ALLERGIES 025 Active FreeStyle Lancets 28 gauge lancets 2 (two) times a day. use to test blood sugar 025 Active hydrocortisone- pramoxine (PRAMOSONE) 2.5-1 % lotion See administration instructions. Active hydrocortisone (ANUSOL-HC) 2.5 % rectal cream INSERT RECTALLY TO THE AFFECTED AREA TWICE DAILY Active docusate sodium (COLACE) 100 mg capsule TAKE 1 CAPSULE TWICE DAILY NEEDED FOR CONSTIPATION Active doxycycline hyclate (VIBRA-TABS) 100 mg tablet 024 Active diclofenac (VOLTAREN) 50 mg EC tablet Take 1 tablet (50 mg total) by mouth 2 (two) times a day. Active cholecalciferol (VITAMIN D-3) 50 mcg (2,000 unit) capsule Take 1 capsule (2,000 Units total) by mouth 1 (one) time each day. Active FreeStyle Lite Meter monitoring kit See administration instructions. Active blood sugar diagnostic (FreeStyle Lite Strips) test strip USE TO TEST BLOOD SUGAR EVERY DAY UP TO THREE TIMES DAILY Active amLODIPine (NORVASC) 5 mg tablet Take 1 tablet (5 mg total) by mouth 1 (one) time each day. Active albuterol HFA (PROAIR HFA ; PROVENTIL HFA ; VENTOLIN HFA) 90 mcg/actuation inhaler INHALE 2 PUFFS BY MOUTH EVERY 4 TO 6 HOURS NEEDED FOR SHORTNESS OF BREATH OR WHEEZING Active Alcohol Prep Pads pads, medicated 2 (two) times a day. as directed Active allopurinoL (ZYLOPRIM) 100 mg tablet Take 1 tablet (100 mg total) by mouth 1 (one) time each day. Active ALPRAZolam (XANAX) 1 mg tablet TAKE 1 TABLET BY MOUTH TWICE DAILY NEEDED. MAY TAKE 1/2 TABLET DAILY NEEDED --THIS IS 30 DAY SUPPLY Active bisacodyL (Dulcolax, bisacodyl,) 5 mg EC tablet Take 1 tablet (5 mg total) by mouth 1 (one) time each day. Active busPIRone (BUSPAR) 15 mg tablet Take 1 tablet (15 mg total) by mouth 1 (one) time each day. Active clotrimazole-be tamethasone (LOTRISONE) 1-0.05 % cream APPLY TOPICALLY TO THE AFFECTED AREA EVERY 12 HOURS NEEDED Active irbesartan (AVAPRO) 300 mg tablet Take 1 tablet (300 mg total) by mouth 1 (one) time each day. Active Myrbetriq 50 mg tablet extended release 24 hr 24 hr tablet Take 1 tablet (50 mg total) by mouth 1 (one) time each day. Active diphenhydrAMINE (BENADRYL) 25 mg capsule Take 1 capsule (25 mg total) by mouth 1 (one) time each day. Active QUEtiapine (SEROquel) 400 mg tablet Take 1 tablet (400 mg total) by mouth. at bedtime. Active linaCLOtide (Linzess) 72 mcg capsuleIndicati ons:Chronic idiopathic constipation Take 1 capsule (72 mcg total) by mouth 1 (one) time each day before breakfast. 30 each 11 025 2025 Active polyethylene glycol (Golytely) 236-22.74-6.74 -5.86 gram solution Take 4L by mouth once for one dose. May substitue any PEG. Starting at 6PM the night before your procedure drink 1 8oz glasses at your own pace until you complete half of the gallon. Finish 2nd half of the gallon 5 hours before your procedure. 4000 mL 025 Active polyethylene glycol (Golytely) 236-22.74-6.74 -5.86 gram solutionIndicat ions:Chronic idiopathic constipation,Pe rsonal history of colon polyps, unspecified Take 4,000 mL by mouth 1 (one) time for 1 dose. 4000 mL 025 2024 polyethylene glycol (MIRALAX) 17 gram packet Empty 8 ounces of Miralax into 128 ounces (1 gallon) of Gatorade, mix well. Starting at 4pm the night before procedure drink as tolerated until half of the total amount is completed. Give 4 hours break, then finish the remainder 227 g 025 2024 Discontinued polyethylene glycol (Miralax) 17 gram/dose oral powderIndicatio ns:Colon cancer screening Take 238 g by mouth 1 (one) time for 1 dose. 238 g 025 2024 Active Problems Problem Noted Date Diagnosed Date Colon polyps 09/25/2024 Anxiety 09/25/2024 Depression 09/25/2024 Asthma 09/25/2024 Tobacco dependence 09/25/2024 Gout 09/25/2024 T2DM (type 2 diabetes mellitus) (CMS/HCC V24, CM S/HCC V28) 09/25/2024 Chronic idiopathic constipation 01/19/2018 Assessment & Plan (09/25/2024 11:54 AM EDT): Failing over the counter options. Recommend switch to Linzess 72mcg PO daily. Reviewed dosing option, can increase pending response. Orders: linaCLOtide (Linzess) 72 mcg capsule; Take 1 capsule (72 mcg total) by mouth 1 (one) time each day before breakfast. HTN (hypertension) 05/20/2015 Chronic obstructive pulmonar y disease ([facility] V24, [facility] V28) 12/23/2011 Overview (09/25/2024): Last Assessment & Plan: Patient here for a follow up Unfortunately he is still smoking , not interested in quitting He is currently on a regimen of Wixella And ProAir I He follows with [facility] Dr Hussein, last note on record 01/25/2022 Encounters Date Type Department Care Team Description 10/11/2024 Telephone Gastroenterology - [address] [facility] [address] [place] [phone] Toño Hannah MD 10/11/2024 Telephone Gastroenterology - [address] [place] [phone] Tika Bustos MA Colonoscopy 09/25/2024 8:40 AM EDT Office Visit Gastroenterology - [address] [place] [phone] Heidi Covarrubias PA Chronic idiopathic constipation (Primary Dx); Colon cancer screening 08/27/2024 Telephone Gastroenterology - [address] [phone] Toño Hannah MD from Last 3 Months Surgical History Surgery Date Site/Laterality Comments COLONOSCOPY 12/25/2018 adequate prep, TAx1 3-yr recall Medical History Medical History Date Comments HTN (hypertension) 03/15/2012 DX:HTN (hyper tension) Tobacco abuse 03/15/2012 DX:Tobacco abuse Observed sleep apnea 03/15/2012 DX:Observed sleep apnea Diastolic CHF, chronic (CMS/ HCC V24, CMS/HCC V28) 03/15/2012 DX:Diastolic CHF, chronic (H CC) Asthma 03/15/2012 DX:Asthma COPD (chronic obstructive pu lmonary disease) ([facility] V24, [facility] V28) 03/15/2012 DX:COPD (chronic o bstructive pulmonary disease) (HCC) Colon polyp Family History Medical History Relation Name Comments Other: hole in heart Mother Colon cancer Neg Hx Colon polyps Neg Hx Relation Name Status Comments Mother Social History Tobacco Use Types Packs/Day Years Used Date Smoking Tobacco: Every Day Cigarettes 0.5 48.3 Started: 1978 Tobacco Cessation:Ready to Q uit: Not Asked; Counseling Given: Not Answered Alcohol Use Standard Drinks/Week Comments Never 0 (1 standard drink = 0.6 oz pur e alcohol) Sex and Gender Information Value Date Recorded Sex Assigned at Male 10/10/2024 10:25 AM EDT Legal Sex Male 5:36 AM EST Gender Identity Male 10/10/2024 10:25 AM EDT Sexual Orientation Straight 10/10/2024 10 :25 AM EDT Obstetrics History Last Filed Vital Signs Vital Sign Reading Time Taken Comments Blood Pressure - - Pulse - - Temperature - - Respiratory Rate - - Oxygen Saturation - - Inhaled Oxygen Concentration - - Weight 131 kg (289 lb) 09/25/2024 8:21 AM EDT Height 165.1 cm (5' 5 ) 09/25/2024 8:21 AM EDT Body Mass Index 48.09 09/25/2024 8:21 AM EDT Plan of Treatment Upcoming Encounters Date Type Department Care Team (Late st Contact Info) Description 12/11/2024 9:30 AM EDT Appointment [facility] Endoscopy [address] [place] [phone] Toño Hannah MD [address] [facility] [address] [place] [phone] Health Maintenance Due Date Last Done Comments Diabetes: Annual GFR (Glomerular Filtration Rate) 1953 Diabetes: Annual Foot Exam 1963 Diabetes: Annual Retina Eye Exam 1965 Abdominal Aortic Aneurysm (AAA) Screen 04/25/2024 Falls Risk Assessment 04/25/2024 Lung Cancer Screening (Low Dose CT) 04/25/2024 Social Influencers of Health Screening 04/25/2024 Depression Screening 08/18/2024 08/18/2023 Hypertension/CHF/CAD Annual BMP Blood Test 09/21/2024 Diabetes: Annual Urine Albumin-Creatinine Ratio (uACR) 09/25/2024 Diabetes: Blood Sugar Control Test (HGBA1C) 09/25/2024 11/29/2023 Colorectal Cancer Screening: Colonoscopy 12/25/2028 12/25/2018 Cholesterol Screening (Lipid Panel) 05/09/2029 05/09/2024 DTaP,Tdap,and Td Vaccines (5 - Td or Tdap) 12/11/2032 12/11/2022, 08/10/2013, 03/23/2013, Additional history exists Pneumococcal Vaccine: 50+ Years Completed 04/08/2021, 04/10/2019, 03/28/2014, Additional history exists Zoster Vaccines Completed 04/28/2022, 02/08, 08/10/2013 Hepatitis C Screening Completed 10/11/2022 RSV Immunization Adult Patients Completed 04/13/2023 COVID-19 Vaccine Completed 04/02/2024, 10/2022, [...] on patient's age to complete this topic MMR Vaccines Aged Out No longer eligi ble based on patient's age to complete this topic Meningococcal ACWY Vaccine Aged Out N o longer eligible based on patient's age to complete this topic Meningococcal B Vaccine Aged Out No l onger eligible based on patient's age to complete this topic RSV Immunization Patients Under 20 months Aged Out No longer eligible based on patient's age to complete this topic Varicella Vaccines Aged Out No longer eligible based on patient's age to complete this topic Procedures Procedure Name Priority Date/Time Associated Diagnosis Comments EXTERNAL COLONOSCOPY REPORT Routine 12/25/2018 10:57 AM EDT from Last 3 Months or Most Recently Relevant to Health Maintenance Results * External Colonoscopy Report (12/25/2018 10:57 AM EDT) Anatomical Region Laterality Modality Endoscopy us Historical Provider GI~PROCEDURE ORDERABLES F inal Result from Last 3 Months or Most Recently Relevant to Health Maintenance Insurance [facility] MEDICAID [place] [id number] Care Teams Robotic Technician Relationship Specialty Start Date End Date Clarissa Vick MD [address] [place] [phone] PCP - General 06/08/13
--- OUTSIDE RECORDS SUMMARY | 2024-10-18 08:10 | XMS_ITS | Encounter Summary ---
Author Organization [employer] Address [address] [facility] 7t [place] [address] Care Team Providers Care Animal Trainer Supervisor Name Role Phone Lake Sullivan MD Primary Care Provide r Encounter Details Date Type Department Care Team (Late Contact Info) Description 11/15/2022 Orders Only [facility]S [address] [place] [address] Peggy Carey LPN Social History Tobacco Use Types Packs/Day Years Used Date Smoking Tobacco: Every Day Cigarettes 0.5 0.5 Passive Smoke Exposure: Past Smokeless Tobacco: Former Alcohol Use Standard Drinks/Week Comments Never 0 (1 standard drink = 0.6 oz pur e alcohol) Sex and Gender Information Value Date Recorded Sex Assigned at Male 05/10/2022 10:15 AM EDT Legal Sex Male 10:15 AM EDT Gender Identity Male 05/10/2022 10:15 AM EDT Sexual Orientation Straight 05/10/2022 10 :15 AM EDT COVID-19 Exposure Response Date Recorded In the last 10 days, have yo u been in contact with someone who was confirmed or suspected to have Coronavirus/COVID-19? No / Unsure 10/19/2022 8:31 AM EDT documented as of this encounter Plan of Treatment Upcoming Encounters Date Type Department Care Team (Late Contact Info) Description 11/13/2024 9:00 AM EDT Office Visit [facility] MEDICINE [address] [place], [place] [phone] Lake Sullivan MD [address] [place], [place] [phone] 11/16/2024 9:00 AM EDT Office Visit [facility] [address] [place] [address] David Baird MD [address] [place] [address] 12/17/2024 9:30 AM EDT Telemedicine [facility] [address] [place] [address] 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, LUCI [address] [place] [address] documented as of this encounter Visit Diagnoses Not on filedocumented in this encounter Care Teams Animal Trainer Supervisor Relationship Specialty Start Date End Date Lake Sullivan MD [address] [place] [phone] PCP - General Internal Medicine 02/12/14 documented as of this encounter
--- OUTSIDE RECORDS SUMMARY | 2024-10-18 08:10 | XMS_ITS | Encounter Summary ---
Author Organization [employer] Address [address] [facility] 7t [place] [address] Care Team Providers Care Stock Preparation Supervisor Name Role Phone Lake Sullivan MD Primary Care Provide r Reason for Visit * Reason Onset Date Comments Call Back Request 06/15/2023 Encounter Details Date Type Department Care Team ([facility] st Contact Info) Description 06/15/2023 Telephone [facility] [address] [place], [place] [phone] Lake Sullivan MD [address] [place], [place] [phone] Call Back Request Social History Tobacco Use Types Packs/Day Years [...] AM EDT documented as of this encounter Miscellaneous Notes * Telephone Encounter - Elder Bennett - 06/15/2023 3:03 PM EST Tc from patient requesting a call back in regards to the medication oxyCODONE- acetaminophen (Percocet) 5-325 MG tablet. documented in this encounter Plan of Treatment Upcoming Encounters Date Type Department Care Team (Late st Contact Info) Description 11/13/2024 9:00 AM EDT Office Visit [facility] [address] [place] [address] Lake Sullivan MD [address] [place] 11/16/2024 9:00 AM EDT Office Visit [facility] [address] [place] [address] David Baird MD [address] [place] [address] 12/17/2024 9:30 AM EDT Telemedicine [facility] [address] [place], [place] [phone] 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, RN [address] [place], [place] [phone] documented as of this encounter Visit Diagnoses Not on filedocumented in this encounter Care Teams Stock Preparation Supervisor Relationship Specialty Start Date End Date Lake Sullivan MD [address] [place] [address] PCP - General Internal Medicine 02/12/14 documented as of this encounter
--- OUTSIDE RECORDS SUMMARY | 2024-10-18 08:10 | XMS_ITS | Encounter Summary ---
Author Organization [employer] Address [address] [facility] 7t [place] [address] Care Team Providers Care Boilermaker Pipe Fitter Name Role Phone Lake Sullivan MD Primary Care Provide r Reason for Visit * Reason Onset Date Comments Med Refill 01/13/2024 Encounter Details Date Type Department Care Team ([facility] st Contact Info) Description 01/13/2024 Telephone [facility] [address] [place], [place] [phone] Lake Sullivan MD [address] [place], [place] [phone] Med Refill Social History Tobacco Use Types Packs/Day Years [...] encounter Miscellaneous Notes * Telephone Encounter - Drew Sexton - 01/13/2024 4:05 PM EDT TC from pt requesting medication refill. Medications needing refill: oxyCODONE-acetaminophen (Percocet) 5-325 MG tablet To be sent to: [id number] AT [facility] documented in this encounter Plan of Treatment Upcoming Encounters Date Type Department Care Team ([facility] Contact Info) Description 11/13/2024 9:00 AM EDT Office Visit [facility] [address] [place] [phone] Lake Sullivan MD [address] [place] [address] 11/16/2024 9:00 AM EDT Office Visit [facility] [address] [place] [address] [phone] David Baird MD [address] [place] [phone] 12/17/2024 9:30 AM EDT Telemedicine [facility] [address] [place] [phone] 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, LUCI [address] [place] [address] documented as of this encounter Visit Diagnoses Not on filedocumented in this encounter Additional Health Concerns Assessment Noted Time PHQ-9 Depression Total Score: 3 08/18/19 24 10:01 AM EST documented as of this encounter Care Teams Boilermaker Pipe Fitter Relationship Specialty Start Date End Date Lake Sullivan MD [address] [place] [address] PCP - General Internal Medicine 02/12/14 documented as of this encounter
--- OUTSIDE RECORDS SUMMARY | 2024-10-18 08:10 | XMS_ITS | Encounter Summary ---
Author Organization [employer] Address [address] [facility] 7t [place] [address] Care Team Providers Care Automotive Sales Professional Name Role Phone Lake Sullivan MD Primary Care Provide r Reason for Visit * Reason Comments Med Refill Encounter Details Date Type Department Care Team (Late Contact Info) Description 06/28/2023 Refill [facility] [address] [place] [address] [phone] Name, MD Cm [address] [place] [address] [phone] Dermatitis Social History Tobacco Use Types Packs/Day Years [...] Description 11/13/2024 9:00 AM EDT Office Visit [facility] [address] [place] [address] [phone] Lake Sullivan MD [address] [place] [address] [phone] 11/16/2024 9:00 AM EDT Office Visit [facility] MED[facility] [address] [place] [address] David Baird MD [address] [place] [address] 12/17/2024 9:30 AM EDT Telemedicine [facility] [address] [place], [place] [phone] 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, LUCI [address] [place] [address] documented as of this encounter Visit Diagnoses Diagnosis Dermatitis Contact dermatitis and other eczema, due to unspecified cause documented in this encounter Care Teams Automotive Sales Professional Relationship Specialty Start Date End Date Lake Sullivan MD [address] [place] [address] PCP - General Internal Medicine 02/12/14 documented as of this encounter
--- OUTSIDE RECORDS SUMMARY | 2024-10-18 08:10 | XMS_ITS | Encounter Summary ---
Author Organization [employer] Address [address] [facility] 7t [place] [address] Care Team Providers Care Industrial Waste Inspector Name Role Phone Lake Sullivan MD Primary Care Provide r Reason for Visit * Reason Comments Med Refill Encounter Details Date Type Department Care Team (Late st Contact Info) Description 07/16/[address] [facility] [address] [place], [place] [phone] Lake Sullivan MD [address] [place] [address] [phone] Chronic constipation Social History Tobacco Use Types Packs/Day Years [...] Description 11/13/2024 9:00 AM EDT Office Visit [facility] MED[facility] [address] [place], [place] [phone] Lake Sullivan MD [address] [place] [address] [phone] 11/16/2024 9:00 AM EDT Office Visit [facility] MED[facility] [address] [place] [address] David Baird MD [address] [place] [address] 12/17/2024 9:[address] [facility] [address] [place] [address] 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 RN [address] [place] [address] documented as of this encounter Visit Diagnoses Diagnosis Chronic constipation Unspecified constipation documented in this encounter Care Teams Industrial Waste Inspector Relationship Specialty Start Date End Date Lake Sullivan MD [address] [place] [address] PCP - General Internal Medicine 02/12/14 documented as of this encounter
--- OUTSIDE RECORDS SUMMARY | 2024-10-18 08:10 | XMS_ITS | Encounter Summary ---
Author Organization [employer] Address [address] [facility] 7t [place] [address] Care Team Providers Care Machinery Mechanic Name Role Phone Lake Sullivan MD Primary Care Provide r Reason for Visit * Reason Onset Date Comments Call Back Request 09/30/2023 Encounter Details Date Type Department Care Team ([facility] st Contact Info) Description 09/30/2023 Telephone [facility] MED[facility]INE [address] [place], [place] [phone] Lake Sullivan MD [address] [place], [place] [phone] Call Back Request Social History Tobacco Use [...] * Telephone Encounter - Elder Bennett - 09/30/2023 8:37 AM EDT Tc from patient calling to request a call back in regards to the medication oxyCODONE-acetaminophen(Percocet) 5-325 MG tablet and morphine CR (MS Contin) 15 MG 12 hr tablet states is due and would like clarification documented in this encounter Plan of Treatment Upcoming Encounters Date Type Department Care Team ([facility] st Contact Info) Description 11/13/2024 9:00 AM EDT Office Visit [facility] MED[facility]INE [address] [place] [phone] Lake Sullivan MD [address] [place] [address] 11/16/2024 9:00 AM EDT Office Visit [facility] MED[facility] [address] [place] [phone] David Baird MD [address] [place] [address] 12/17/2024 9:30 AM EDT Telemedicine [facility] PEDS [address] [place] [address] 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, RN [address] [place] [address] documented as of this encounter Visit Diagnoses Not on filedocumented in this encounter Additional Health Concerns Assessment Noted Time PHQ-9 Depression Total Score: 3 08/18/19 24 10:01 AM EST documented as of this encounter Care Teams Machinery Mechanic Relationship Specialty Start Date End Date Lake Sullivan MD [address] [place] [phone] PCP - General Internal Medicine 02/12/14 documented as of this encounter
--- OUTSIDE RECORDS SUMMARY | 2024-10-18 08:10 | XMS_ITS | Encounter Summary ---
Author Organization [employer] Address [address] [facility] 7t [place] [address] Care Team Providers Care Specimen Collector Name Role Phone Lake Sullivan MD Primary Care Provide r Reason for Visit * Reason Onset Date Comments Appointment Request 07/20/2023 Encounter Details Date Type Department Care Team (Late st Contact Info) Description 07/20/2023 Telephone [facility] MED[facility]INE [address] [place], [place] [phone] Lake Sullivan MD [address] [place], [place] [phone] Appointment Request Social History Tobacco Use Types Packs/Day [...] encounter Miscellaneous Notes * Telephone Encounter - Salena Campbell - 07/20/2023 12:54 PM EST Tc from pt requesting appt for stiches removal (11) pt was advise to contact PCP documented in this encounter Plan of Treatment Upcoming Encounters Date Type Department Care Team (Late st Contact Info) Description 11/13/2024 9:00 AM EDT Office Visit [facility] MED[facility]INE [address] [place] [address] Lake Sullivan MD [address] [place] [address] 11/16/2024 9:00 AM EDT Office Visit [facility] MED[facility] [address] [place] [address] David Baird MD [address] [place] [address] 12/17/2024 9:30 AM EDT Telemedicine [facility] PEDS [address] [place], [place] [phone] 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, RN [address] [place] [address] documented as of this encounter Visit Diagnoses Not on filedocumented in this encounter Care Teams Specimen Collector Relationship Specialty Start Date End Date Lake Sullivan MD [address] [place] [phone] PCP - General Internal Medicine 02/12/14 documented as of this encounter
--- OUTSIDE RECORDS SUMMARY | 2024-10-18 08:10 | XMS_ITS | Encounter Summary ---
Author Organization [employer] Address 75 [facility] 7t [place] [address] Care Team Providers Care Linseed Cake Trimmer Name Role Phone Lake Sullivan MD Primary Care Provide r Reason for Visit * Reason Onset Date Comments Med Refill 03/05/2024 Encounter Details Date Type Department Care Team ([facility] st Contact Info) Description 03/05/2024 Telephone [facility] MEDICINE 230 [place], [place] [phone] Lake Sullivan MD 230 [place], [place] [phone] Med Refill Social History Tobacco Use Types [...] encounter Miscellaneous Notes * Telephone Encounter - Shonda Ramsay - 03/05/2024 8:37 AM EDT TC from pt requesting medication refill. Medications needing refill : oxyCODONE-acetaminophen (Percocet) 5-325 MG tablet morphine CR (MS Contin) 15 MG 12 hr tablet To be sent to: [facility] #[id number] - [address] AT [facility] documented in this encounter Plan of Treatment Upcoming Encounters Date Type Department Care Team ([facility] st Contact Info) Description 11/13/2024 9:00 AM EDT Office Visit [facility] MEDICINE [address] [place] [address] Lake Sullivan MD [address] [place] [address] 11/16/2024 9:00 AM EDT Office Visit [facility] MEDICINE [address] [place] [address] [phone] David Baird MD [address] [place] [address] 12/17/2024 9:30 AM EDT Telemedicine [facility] MED & PEDS 505 [place] [address] 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, RN 505 [place] [address] documented as of this encounter Visit Diagnoses Not on filedocumented in this encounter Additional Health Concerns Assessment Noted Time PHQ-9 Depression Total Score: 3 08/18/19 24 10:01 AM EST documented as of this encounter Care Teams Linseed Cake Trimmer Relationship Specialty Start Date End Date Lake Sullivan MD 230 [place] [address] PCP - General Internal Medicine 02/12/14 documented as of this encounter
--- OUTSIDE RECORDS SUMMARY | 2024-10-18 08:10 | XMS_ITS | Encounter Summary ---
Author Organization [employer] Address 75 [facility] 7t [place] [address] Care Team Providers Care Executive Cyber Leader Name Role Phone Lake Sullivan MD Primary Care Provide r Encounter Details Date Type Department Care Team (Late st Contact Info) Description 12/14/2022 Orders Only [facility] MED & PEDS [address] [place] [address] Peggy Carey LPN Social History Tobacco Use [...] as of this encounter Miscellaneous Notes * Result Encounter Note - Tammy Guzmán MD - 12/14/2022 1:51 PM EDT Please call patient re Xrays L-spine on 01/07/23 showed DJD changes , known by patient, no fracturesor major changes from previous. Patient already seen by PCP f on 01/04, please continue same POC * Result Encounter Note - Tammy Guzmán MD - 12/14/2022 1:51 PM EDT Xrays hip on 01/07 with no new changes form previous, see POC by PCP on 12/31 if patient calls documented in this encounter Plan of Treatment Upcoming Encounters Date Type Department Care Team (Late st Contact Info) Description 11/13/2024 9:00 AM EDT Office Visit [facility] MEDICINE 230 [place] [address] Lake Sullivan MD [address] [place] [address] 11/16/2024 9:00 AM EDT Office Visit [facility] MEDICINE 230 [place] [address] David Baird MD [address] [place], [place] [phone] 12/17/2024 9:30 AM EDT Telemedicine [facility] MED & PEDS 505 [place], [place] [phone] 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, RN 505 [place], [place] [phone] documented as of this encounter Procedures Procedure Name Priority Date/Time Associated Diagnosis Comments XR HIP 2 OR 3 VIEWS LEFT Routine 01/07/2023 9:05 AM EDT XR LUMBAR SPINE COMPLETE 4+ VIEWS Routine 01/07/2023 9:05 AM EDT documented in this encounter Results * XR Lumbar Spine Complete 4+ Views (01/07/2023 9:05 AM EDT) Anatomical Region Laterality Modality Spine, L-spine Radiographic Mahnaz ging 01/07/2023 9:05 AM EDT Narrative 01/21/2023 3:07 PM EDT ?[facility] [facility] ?[address] ?[place] [address] ?XRay Report ? Signed ? Patient: Parrish,Imer ?MR#: [id number] ?? [id number] ? : 1955 ?Acct:[id number] ? Age/Sex: 67 / M ?ADM Date: 01/07/23 ? Loc: HO.HHCX ? Attending Dr: Lake Allen MD ? Ordering Physician: Lake Allen MD ?? Date of Service: 01/07/23 ?? Procedure(s): XR lumbar spine 4V min ?? Accession Number(s): [id number] ? cc: Lake Allen MD ? EXAMINATION: ?? XR lumbar spine 4V min, XR hip LT min 2V ? CLINICAL INFORMATION: ?? Reason for Exam PAIN ? COMPARISON: ?? Lumbar spine radiographs ??12/02/2011 lumbar spine radiographs ? TECHNIQUE: ?? 5 views of the lumbar spine. 2 views of the left hip. ? FINDINGS: ? 5 nonrib-bearing lumbar-type vertebral bodies. ? Schmorl's node in the inferior endplate of T11. Vertebral body heights ?? are otherwise maintained. Alignment is maintained. No pars defects. ? Mild multilevel degenerative disc disease with borderline loss of disc ?? space height at the thoracolumbar lumbar junction and lower lumbosacral ?? facet arthropathy minimally progressed from prior. ? Atherosclerotic calcifications of the abdominal aorta. ? Mild degenerative changes of the left hip with marginal osteophytes. No ?? hip fracture or dislocation. Calcified phleboliths in the pelvis. ? XR/XR lumbar spine 4V min ?? IMPRESSION: ?? 1. ??Mild degenerative changes of the lumbar spine, as above detailed, ?? minimally progressed from prior. ?? 2. ??Mild degenerative changes of the left hip, as above detailed. ? Dictated By: ?Ann Davison MD ? Signed By: ?<Electronically signed by Ann Davison MD in OV> ?01/21/23 1504 ? DD/ 09 ? TD/TT: ? Cataloging Assistant: ? Procedure Note Librado, Abena - 01/21/2023 [facility] [address] [place] [address] XRay Report Signed Patient: Imer ParrishMR#: [id number] : 3Acct:[id number] Age/Sex: 67 / MADM Date: 01/07/23 Loc: HO.HHCX Attending Dr: Lake Allen MD Ordering Physician: Lake Allen MD Date of Service: 01/07/23 Procedure(s): XR lumbar spine 4V min Accession Number(s): [id number] cc: Lake Allen MD EXAMINATION: XR lumbar spine 4V min, XR hip LT min 2V CLINICAL INFORMATION: Reason for Exam PAIN COMPARISON: Lumbar spine radiographs 12/02/2011 lumbar spine radiographs TECHNIQUE: 5 views of the lumbar spine. 2 views of the left hip. FINDINGS: 5 nonrib-bearing lumbar-type vertebral bodies. Schmorl's node in the inferior endplate of T11. Vertebral body heights are otherwise maintained. Alignment is maintained. No pars defects. Mild multilevel degenerative disc disease with borderline loss of disc space height at the thoracolumbar lumbar junction and lower lumbosacral facet arthropathy minimally progressed from prior. Atherosclerotic calcifications of the abdominal aorta. Mild degenerative changes of the left hip with marginal osteophytes. No hip fracture or dislocation. Calcified phleboliths in the pelvis. XR/XR lumbar spine 4V min IMPRESSION: 1. Mild degenerative changes of the lumbar spine, as above detailed, minimally progressed from prior. 2. Mild degenerative changes of the left hip, as above detailed. Dictated By: Ann Davison MD Signed By: <Electronically signed by Ann Davison MD in OV> 01/21/23 1504 DD/ 0905 TD/TT: Cataloging Assistant: [facility] External Provider IMG XR PROCEDURES Final Result * XR Hip 2 or 3 Views Left (01/07/2023 9:05 AM EDT) Anatomical Region Laterality Modality Lower Extremities, Hip Left Radiograp hic Imaging 01/07/2023 9:05 AM EDT Narrative 01/21/2023 3:07 PM EDT ?[facility] ?[address] ?[place] [address] ?XRay Report ? Signed ? Patient: Parrish,Imer ?MR#: [id number] ?? [id number] ? : 1955 ?Acct:[id number] ? Age/Sex: 67 / M ?ADM Date: 01/07/23 ? Loc: HO.HHCX ? Attending Dr: Lake Allen MD ? Ordering Physician: Lake Allen MD ?? Date of Service: 01/07/23 ?? Procedure(s): XR hip LT min 2V ?? Accession Number(s): [id number] ? cc: Lake Allen MD ? EXAMINATION: ?? XR lumbar spine 4V min, XR hip LT min 2V ? CLINICAL INFORMATION: ?? Reason for Exam PAIN ? COMPARISON: ?? Lumbar spine radiographs ??12/02/2011 lumbar spine radiographs ? TECHNIQUE: ?? 5 views of the lumbar spine. 2 views of the left hip. ? FINDINGS: ? 5 nonrib-bearing lumbar-type vertebral bodies. ? Schmorl's node in the inferior endplate of T11. Vertebral body heights ?? are otherwise maintained. Alignment is maintained. No pars defects. ? Mild multilevel degenerative disc disease with borderline loss of disc ?? space height at the thoracolumbar lumbar junction and lower lumbosacral ?? facet arthropathy minimally progressed from prior. ? Atherosclerotic calcifications of the abdominal aorta. ? Mild degenerative changes of the left hip with marginal osteophytes. No ?? hip fracture or dislocation. Calcified phleboliths in the pelvis. ? XR/XR hip LT min 2V ?? IMPRESSION: ?? 1. ??Mild degenerative changes of the lumbar spine, as above detailed, ?? minimally progressed from prior. ?? 2. ??Mild degenerative changes of the left hip, as above detailed. ? Dictated By: ?Ann Davison MD ? Signed By: ?<Electronically signed by Ann Davison MD in OV> ?07/14/23 1504 ? DD/DT: 01/07/ 0905 ? TD/TT: ? Cataloging Assistant: ? Procedure Note Donotuseinterpreter, Image - 01/21/2023 [facility] [address] [place] [address] XRay Report Signed Patient: Imer ParrishMR#: [id number] : 3Acct:[id number] Age/Sex: 67 / MADM Date: 01/07/23 Loc: HO.HHCX Attending Dr: Lake Allen MD Ordering Physician: Lake Allen MD Date of Service: 01/07/23 Procedure(s): XR hip LT min 2V Accession Number(s): [id number] cc: Lake Allen MD EXAMINATION: XR lumbar spine 4V min, XR hip LT min 2V CLINICAL INFORMATION: Reason for Exam PAIN COMPARISON: Lumbar spine radiographs 12/02/2011 lumbar spine radiographs TECHNIQUE: 5 views of the lumbar spine. 2 views of the left hip. FINDINGS: 5 nonrib-bearing lumbar-type vertebral bodies. Schmorl's node in the inferior endplate of T11. Vertebral body heights are otherwise maintained. Alignment is maintained. No pars defects. Mild multilevel degenerative disc disease with borderline loss of disc space height at the thoracolumbar lumbar junction and lower lumbosacral facet arthropathy minimally progressed from prior. Atherosclerotic calcifications of the abdominal aorta. Mild degenerative changes of the left hip with marginal osteophytes. No hip fracture or dislocation. Calcified phleboliths in the pelvis. XR/XR hip LT min 2V IMPRESSION: 1. Mild degenerative changes of the lumbar spine, as above detailed, minimally progressed from prior. 2. Mild degenerative changes of the left hip, as above detailed. Dictated By: Ann Davison MD Signed By: <Electronically signed by Ann Davison MD in OV> 01/21/23 1504 DD/ 0905 TD/TT: Cataloging Assistant: [facility] External Provider IMG XR PROCEDURES Final Result documented in this encounter Visit Diagnoses Not on filedocumented in this encounter Care Teams Executive Cyber Leader Relationship Specialty Start Date End Date Lake Sullivan MD [address] [place] [address] PCP - General Internal Medicine 02/12/14 documented as of this encounter
--- OUTSIDE RECORDS SUMMARY | 2024-10-18 08:10 | XMS_ITS | Encounter Summary ---
Author Organization [employer] Address 75 [facility] 7t [place] [address] Care Team Providers Care Apartment Leasing Specialist Name Role Phone Lake Sullivan MD Primary Care Provide r Encounter Details Date Type Department Care Team (Late st Contact Info) Description 11/17/2022 Abstract [facility] MEDICINE [address] [place], [place] [phone] Lake Sullivan MD 230 [place], [place] [phone] Social History Tobacco Use Types Packs/Day Years [...] 11/13/2024 9:00 AM EDT Office Visit [facility] MEDICINE 230 [place], [place] [phone] Lake Sullivan MD 230 [place], [place] [phone] 11/16/2024 9:00 AM EDT Office Visit [facility] MEDICINE 230 [facility] [place], [place] [phone] David Baird MD 230 [place], [place] [phone] 12/17/2024 9:30 AM EDT Telemedicine [facility] CHC MED & PEDS 505 [place], [place] [phone] 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, LUCI 505 [place], [place] [phone] documented as of this encounter Procedures Procedure Name Priority Date/Time Associated Diagnosis Comments COLONOSCOPY Routine 12/25/2018 documented in this encounter Results * Colonoscopy (12/25/2018) Colonoscopy Normal Normal 12/25/2018 Narrative Laurie Chacko - 12/25/2018 2:08 PM EDT Recommended 5 year follow up us Historical Provider [facility] Result - Final documented in this encounter Visit Diagnoses Not on filedocumented in this encounter Care Teams Apartment Leasing Specialist Relationship Specialty Start Date End Date Lake Sullivan MD 230 [place], [place] [phone] PCP - General Internal Medicine 02/12/14 documented as of this encounter
--- OUTSIDE RECORDS SUMMARY | 2024-10-18 08:10 | XMS_ITS | Encounter Summary ---
Author Organization [employer] Address 75 [facility] 7t [place] [address] Care Team Providers Care Senior Strategy Analyst Name Role Phone Lake Sullivan MD Primary Care Provide r Reason for Visit * Reason Onset Date Comments Med Refill 02/09/2024 Encounter Details Date Type Department Care Team ([facility] st Contact Info) Description 02/09/[address] [facility] MEDICINE 230 [place], [place] [phone] Lake Sullivan MD 230 [place], [place] [phone] Med Refill Social History Tobacco Use Types [...] * Telephone Encounter - Salena Campbell - 02/09/2024 8:32 AM EDT TC from pt requesting medication refill. Medications needing refill : morphine CR (MS Contin) 15 MG 12 hr tablet oxyCODONE-acetaminophen (Percocet) 5-325 MG tablet To be sent to: [facility] #[id number] - [address] AT [facility] documented in this encounter Plan of Treatment Upcoming Encounters Date Type Department Care Team ([facility] st Contact Info) Description 11/13/2024 9:00 AM EDT Office Visit [facility] MEDICINE [address] [place] [phone] Lake Sullivan MD [address] [place] [address] 11/16/2024 9:00 AM EDT Office Visit [facility] MEDICINE [address] [place] [address] [phone] David Baird MD [address] [place] [address] 12/17/2024 9:30 AM EDT Telemedicine [facility]C MED & PEDS 505 [place] [address] 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, RN 505 [place] [address] documented as of this encounter Visit Diagnoses Not on filedocumented in this encounter Additional Health Concerns Assessment Noted Time PHQ-9 Depression Total Score: 3 08/18/19 24 10:01 AM EST documented as of this encounter Care Teams Senior Strategy Analyst Relationship Specialty Start Date End Date Lake Sullivan MD [address] [place] [address] PCP - General Internal Medicine 02/12/14 documented as of this encounter
--- OUTSIDE RECORDS SUMMARY | 2024-10-18 08:10 | XMS_ITS | Encounter Summary ---
Author Organization [employer] Address 75 [facility] 7t [place] [address] Care Team Providers Care Oven Builder Name Role Phone Lake Sullivan MD Primary Care Provide r Reason for Visit * Reason Onset Date Comments Durable Medical Equipment 06/23/2023 Encounter Details Date Type Department Care Team ([facility] st Contact Info) Description 06/23/2023 Telephone [facility] MEDICINE 230 [place], [place] [phone] Lake Sullivan MD 230 [place], [place] [phone] Durable Medical Equipment Social History Tobacco Use Types Packs/Day Years [...] encounter Miscellaneous Notes * Telephone Encounter - Glendy Hinojosa - 06/23/2023 2:46 PM EST Good afternoon. Please see message below and advise if agree with DME. Thank you * Telephone Encounter - Zehra Mclean - 06/23/2023 2:32 PM EST Tc from [facility] requesting a script for bed pads (8x day) with 12 refills to be faxed to [phone] documented in this encounter Plan of Treatment Upcoming Encounters Date Type Department Care Team (Late st Contact Info) Description 11/13/2024 9:00 AM EDT Office Visit [facility] MEDICINE [address] [place] [address] Lake Sullivan MD 230 [place] [address] 11/16/2024 9:00 AM EDT Office Visit [facility] MEDICINE [address] [place] [address] David Baird MD 230 [place] [address] 12/17/2024 9:30 AM EDT Telemedicine [facility] MED & PEDS 505 [place] [address] 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, LUCI 505 [place] [address] documented as of this encounter Visit Diagnoses Not on filedocumented in this encounter Care Teams Oven Builder Relationship Specialty Start Date End Date Lake Sullivan MD [address] [place] [address] PCP - General Internal Medicine 02/12/14 documented as of this encounter
--- OUTSIDE RECORDS SUMMARY | 2024-10-18 08:11 | XMS_ITS | Encounter Summary ---
Author Organization [employer] Address 75 [facility] 7t [place] [address] Care Team Providers Care Optomechanical Engineer Name Role Phone Lake Sullivan MD Primary Care Provide r Reason for Visit * Reason Comments Med Refill Encounter Details Date Type Department Care Team ([facility] st Contact Info) Description 10/16/2024 Refill [facility] MEDICINE 230 [place], [place] [phone] Lake Sullivan MD [address] [place], [place] [phone] Chronic constipation Social History Tobacco Use Types [...] 11/13/2024 9:00 AM EDT Office Visit [facility] MEDICINE [address] [place] [address] Lake Sullivan MD 230 [place] [address] 11/16/2024 9:00 AM EDT Office Visit [facility] MEDICINE [address] [place] [address] David Baird MD 230 [place] [address] 12/17/2024 9:30 AM EDT Telemedicine [facility] CHC MED & PEDS 505 [place] [address] 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, LUCI 505 [place] [address] documented as of this encounter Visit Diagnoses Diagnosis Chronic constipation Unspecified constipation documented in this encounter Additional Health Concerns Assessment Noted Time PHQ-9 Depression Total Score: 3 08/18/19 24 10:01 AM EST documented as of this encounter Care Teams Optomechanical Engineer Relationship Specialty Start Date End Date Lake Sullivan MD [address] [place] [address] PCP - General Internal Medicine 02/12/14 documented as of this encounter
--- OUTSIDE RECORDS SUMMARY | 2024-10-18 08:11 | XMS_ITS | Encounter Summary ---
Author Organization [employer] Address 75 [facility] 7t [place] [address] Care Team Providers Care Tank Processor Name Role Phone Lake Sullivan MD Primary Care Provide r Encounter Details Date Type Department Care Team ([facility] st Contact Info) Description 07/20/2022 Telephone [facility] MEDICINE 230 [place], [place] [phone] Lake Sullivan MD 230 [place], [place] [phone] Social History Tobacco Use Types Packs/Day Years Used Date Smoking Tobacco: Never Assessed Sex and Gender Information Value Date Recorded [...] suspected to have Coronavirus/COVID-19? No / Unsure 07/01/2022 10:34 AM EST documented as of this encounter Miscellaneous Notes * Telephone Encounter - Otilia Lara - 07/21/2022 2:37 PM EST Called patient and told him he doesn't qualify for ensure any longer it was only till his gums healed after dental extractions patient understood * Telephone Encounter - Reva Mckeon - 07/20/2022 1:34 PM EST Tc from patient requesting an order for ensures. 2 boxes of strawberry and 12 bottles of vanilla please call to clarify . documented in this encounter Plan of Treatment Upcoming Encounters Date Type Department Care Team (Late st Contact Info) Description 11/13/2024 9:00 AM EDT Office Visit [facility] MEDICINE [address] [place] [address] Lake Sullivan MD 230 [place] [address] 11/16/2024 9:00 AM EDT Office Visit [facility] MEDICINE [address] [place] [phone] David Baird MD 230 [place] [address] 12/17/2024 9:30 AM EDT Telemedicine [facility] MED & PEDS 505 [place], [place] [phone] 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, RN 505 [place], [place] [phone] documented as of this encounter Visit Diagnoses Not on filedocumented in this encounter Care Teams Tank Processor Relationship Specialty Start Date End Date Lake Sullivan MD [address] [place] [phone] PCP - General Internal Medicine 02/12/14 documented as of this encounter
--- OUTSIDE RECORDS SUMMARY | 2024-10-18 08:11 | XMS_ITS | Encounter Summary ---
Author Organization [employer] Address 75 [facility] 7t [place] [address] Care Team Providers Care Monogram Machine Operator Name Role Phone Lake Sullivan MD Primary Care Provide r Reason for Visit * Reason Onset Date Comments Med Refill 2024 Encounter Details Date Type Department Care Team (Late st Contact Info) Description 2024 Refill [facility] MEDICINE 230 [place], [place] [phone] Lake Sullivan MD 230 [place], [place] [phone] Severe pain Social History Tobacco Use Types Packs/Day Years [...] the past 12 months, has t he [employer], gas, oil or water company threatened to [...] encounter Miscellaneous Notes * Telephone Encounter - John Coyne - 2024 1:01 PM EST TC from pt requesting medication refill. Medications needing refill : oxyCODONE-acetaminophen (Percocet) 5-325 MG tablet To be sent to: [facility][id number] documented in this encounter Plan of Treatment Upcoming Encounters Date Type Department Care Team (Late st Contact Info) Description 11/13/2024 9:00 AM EDT Office Visit [facility] MEDICINE [address] [place] [address] Lake Sullivan MD [address] [place] [address] 11/16/2024 9:00 AM EDT Office Visit [facility] MEDICINE [address] [place] [address] David Baird MD [address] [place] [address] 12/17/2024 9:30 AM EDT Telemedicine [facility] CHC MED & PEDS 505 [place] [address] 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, RN 505 [place] [address] documented as of this encounter Visit Diagnoses Diagnosis Severe pain documented in this encounter Additional Health Concerns Assessment Noted Time PHQ-9 Depression Total Score: 3 08/18/19 24 10:01 AM EST documented as of this encounter Care Teams Monogram Machine Operator Relationship Specialty Start Date End Date Lake Sullivan MD 230 [place] [address] PCP - General Internal Medicine 02/12/14 documented as of this encounter
--- OUTSIDE RECORDS SUMMARY | 2024-10-18 08:11 | XMS_ITS | Encounter Summary ---
Author Organization [employer] Address 75 [facility] 7t [place] [address] Care Team Providers Care Manpower Development Specialist Manager Name Role Phone Lake Sullivan MD Primary Care Provide r Reason for Visit * Reason Onset Date Comments Durable Medical Equipment 05/02/2024 Encounter Details Date Type Department Care Team ([facility] st Contact Info) Description 05/02/2024 Telephone [facility] 230 [place], [place] [phone] Lake Sullivan MD 230 [place], [place] [phone] Durable Medical Equipment Social History Tobacco Use [...] encounter Miscellaneous Notes * Telephone Encounter - rDew Darshan - 05/02/2024 2:46 PM EDT Tc from pt requesting DME: Bed pads Wipes Cream for foot Pt is requesting a year supply for DME. If any questions you can contact pt at [phone]. (Syrian Speaker) documented in this encounter Plan of Treatment Upcoming Encounters Date Type Department Care Team ([facility] st Contact Info) Description 11/13/2024 9:00 AM EDT Office Visit [facility] [address] [place] [phone] Lake Sullivan MD 230 [place] [address] 11/16/2024 9:00 AM EDT Office Visit [facility] [address] [place] [address] David Baird MD 230 [place] [address] 12/17/2024 9:30 AM EDT Telemedicine [facility] P[facility]S 505 [place], [place] [phone] 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, LUCI 505 [place] [address] documented as of this encounter Visit Diagnoses Not on filedocumented in this encounter Additional Health Concerns Assessment Noted Time PHQ-9 Depression Total Score: 3 08/18/19 24 10:01 AM EST documented as of this encounter Care Teams Manpower Development Specialist Manager Relationship Specialty Start Date End Date Lake Sullivan MD 230 [place] [address] PCP - General Internal Medicine 02/12/14 documented as of this encounter
--- OUTSIDE RECORDS SUMMARY | 2024-10-18 08:11 | XMS_ITS | Clinical Summary ---
Author Organization [facility] Address [address] [place] [address] Care Team Providers Care Pinmaker Name Role Phone Unavailable Primary Care Provider Unavailabl e Social History Tobacco Use Types Packs/Day Years Used Date Smoking Tobacco: Never Assessed Sex and Gender Information Value Date Recorded Sex Assigned at Not on file Gender Identity Not on file Sexual Orientation Not on file Plan of Treatment Not on file
--- OUTSIDE RECORDS SUMMARY | 2024-10-18 08:11 | XMS_ITS | Encounter Summary ---
Author Organization [employer] Address 75 [facility] 7t [place] [address] Care Team Providers Care Bonding Equipment Operator Name Role Phone Lake Sullivan MD Primary Care Provide r Reason for Visit * Reason Comments Med Refill Encounter Details Date Type Department Care Team ([facility] st Contact Info) Description 09/18/2024 Refill [facility] MED[facility]INE 230 [place], [place] [phone] Lake Sullivan MD 230 [place], [place] [phone] Social History Tobacco Use Types Packs/Day Years [...] Description 11/13/2024 9:00 AM EDT Office Visit [facility] MEDICINE [address] [place] [phone] Lake Sullivan MD 230 [place] [address] 11/16/2024 9:00 AM EDT Office Visit [facility] MEDICINE [address] [place] [phone] David Baird MD 230 [place] [address] 12/17/2024 9:30 AM EDT Telemedicine [facility] MED & PEDS 505 [place] [address] 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 RN 505 [place] [address] documented as of this encounter Visit Diagnoses Not on filedocumented in this encounter Additional Health Concerns Assessment Noted Time PHQ-9 Depression Total Score: 3 08/18/19 24 10:01 AM EST documented as of this encounter Care Teams Bonding Equipment Operator Relationship Specialty Start Date End Date Lake Sullivan MD 230 [place] [address] PCP - General Internal Medicine 02/12/14 documented as of this encounter
--- OUTSIDE RECORDS SUMMARY | 2024-10-18 08:11 | XMS_ITS | Encounter Summary ---
Author Organization [employer] Address 75 [facility] 7t [place] [address] Care Team Providers Care Grab Operator Name Role Phone Lake Sullivan MD Primary Care Provide r Reason for Visit * Reason Onset Date Comments Med Refill 05/01/2024 Encounter Details Date Type Department Care Team ([facility] st Contact Info) Description 05/01/2024 Telephone [facility]INE [address] [employer], [place] [phone] Lake Sullivan MD 230 [place], [place] [phone] Med Refill Social History Tobacco Use Types [...] Description 11/13/2024 9:00 AM EDT Office Visit [facility] [address] [place] [address] Lake Sullivan MD 230 [place] [address] 11/16/2024 9:00 AM EDT Office Visit [facility] [address] [place] [phone] David Baird MD 230 [place] [address] 12/17/2024 9:30 AM EDT Telemedicine [facility] MED [facility] PEDS 505 [place] [address] 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, LUCI 505 [place] [address] documented as of this encounter Visit Diagnoses Not on filedocumented in this encounter Additional Health Concerns Assessment Noted Time PHQ-9 Depression Total Score: 3 08/18/19 24 10:01 AM EST documented as of this encounter Care Teams Grab Operator Relationship Specialty Start Date End Date Lake Sullivan MD [address] [place] [address] PCP - General Internal Medicine 02/12/14 documented as of this encounter
--- OUTSIDE RECORDS SUMMARY | 2024-10-18 08:11 | XMS_ITS | Encounter Summary ---
Author Organization [employer] Address 75 [facility] 7t [place] [address] Care Team Providers Care Market Research Worker Name Role Phone Lake Sullivan MD Primary Care Provide r Reason for Visit * Reason Onset Date Comments Med Refill 09/17/2024 Encounter Details Date Type Department Care Team ([facility] st Contact Info) Description 09/17/2024 Telephone [facility] MEDICINE 230 [place], [place] [phone] Lake Sullivan MD 230 [place], [place] [phone] Med Refill Social History Tobacco Use Types [...] the past 12 months, has t he [employer], gas, oil or water company threatened to [...] encounter Miscellaneous Notes * Telephone Encounter - Marsha Cruz - 09/17/2024 8:52 AM EDT TC from pt requesting medication refill. Medications needing refill : morphine CR (MS Contin) 15 MG 12 hr tablet oxyCODONE-acetaminophen (Percocet) 5-325 MG tablet To be sent to: [id number] - [address] [facility] documented in this encounter Plan of Treatment Upcoming Encounters Date Type Department Care Team ([facility] st Contact Info) Description 11/13/2024 9:00 AM EDT Office Visit [facility] MED[facility]INE [address] [place] [address] [phone] Lake Sullivan MD 230 [place] [address] 11/16/2024 9:00 AM EDT Office Visit [facility] MED[facility]INE [address] [place] [address] [phone] David Baird MD 230 [place] [address] 12/17/2024 9:30 AM EDT Telemedicine [facility] MED & PEDS 505 [place] [address] 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, LUCI 505 [place] [address] documented as of this encounter Visit Diagnoses Not on filedocumented in this encounter Additional Health Concerns Assessment Noted Time PHQ-9 Depression Total Score: 3 08/18/19 24 10:01 AM EST documented as of this encounter Care Teams Market Research Worker Relationship Specialty Start Date End Date Lake Sullivan MD [address] [place] [address] PCP - General Internal Medicine 02/12/14 documented as of this encounter
--- OUTSIDE RECORDS SUMMARY | 2024-10-18 08:11 | XMS_ITS | Encounter Summary ---
Author Organization [email or web address] Address 75 [facility] 7t [place] [address] Care Team Providers Care Entry Manager Name Role Phone Lake Sullivan MD Primary Care Provide r Reason for Visit * Reason Onset Date Comments Call Back Request 12/20/2023 Encounter Details Date Type Department Care Team ([facility] st Contact Info) Description 12/20/2023 Telephone [facility] MED[facility]INE 230 [place], [place] [phone] Lake Sullivan MD 230 [place], [place] [phone] Call Back Request Social History Tobacco Use [...] * Telephone Encounter - Salena Campbell - 12/20/2023 11:34 AM EDT Tc from pt requesting a call back in order to r/s [facility] appt to before 12/26 due to traveling. documented in this encounter Plan of Treatment Upcoming Encounters Date Type Department Care Team (Late st Contact Info) Description 11/13/2024 9:00 AM EDT Office Visit [facility] MEDICINE [address] [place] [phone] Lake Sullivan MD 230 [place] [address] 11/16/2024 9:00 AM EDT Office Visit [facility] MEDICINE 230 [place] [address] David Baird MD 230 [place] [address] 12/17/2024 9:30 AM EDT Telemedicine [facility] MED & PEDS 505 [place] [address] 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, RN 505 [place] [address] documented as of this encounter Visit Diagnoses Not on filedocumented in this encounter Additional Health Concerns Assessment Noted Time PHQ-9 Depression Total Score: 3 08/18/19 24 10:01 AM EST documented as of this encounter Care Teams Entry Manager Relationship Specialty Start Date End Date Lake Sullivan MD 230 [place] [address] PCP - General Internal Medicine 02/12/14 documented as of this encounter
--- OUTSIDE RECORDS SUMMARY | 2024-10-18 08:11 | XMS_ITS | Encounter Summary ---
Author Organization [employer] Address 75 [facility] 7t [place] [address] Care Team Providers Care Psychologist Counseling Name Role Phone Lake Sullivan MD Primary Care Provide r Reason for Visit * Reason Onset Date Comments Med Refill 04/20/2023 Encounter Details Date Type Department Care Team ([facility] st Contact Info) Description 04/20/2023 Telephone [facility] MEDICINE 230 [place], [place] [phone] Lake Sullivan MD 230 [place], [place] [phone] Med Refill Social History Tobacco Use Types Packs/Day Years Used Date Smoking Tobacco: Former Cigarettes 0.5 0.5 Passive Smoke Exposure: Past [...] encounter Miscellaneous Notes * Telephone Encounter - Mamta Witt - 04/20/2023 8:45 AM EDT Tc from patient requesting a med refill for medication oxyCODONE-acetaminophen (Percocet) 5-325 MG tablet and morphine CR (MS Contin) 15 MG 12 hr tablet. Please send to [facility][id number] - [place] - [address] AT [facility] PCP Dr. Ramsey documented in this encounter Plan of Treatment Upcoming Encounters Date Type Department Care Team (Late st Contact Info) Description 11/13/2024 9:00 AM EDT Office Visit [facility] [address] [place] [phone] Lake Sullivan MD 230 [place] [address] 11/16/2024 9:00 AM EDT Office Visit [facility] [address] [place] [phone] David Baird MD 230 [place] [address] 12/17/2024 9:30 AM EDT Telemedicine [facility] 505 [place], [place] [phone] 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, RN 505 [place] [address] documented as of this encounter Visit Diagnoses Not on filedocumented in this encounter Care Teams Psychologist Counseling Relationship Specialty Start Date End Date Lake Sullivan MD [address] [place] [address] PCP - General Internal Medicine 02/12/14 documented as of this encounter
--- OUTSIDE RECORDS SUMMARY | 2024-10-18 08:11 | XMS_ITS | Encounter Summary ---
Author Organization [employer] Address 75 [facility] 7t [place] [address] Care Team Providers Care Semiconductor Processing Technician Name Role Phone Lake Sullivan MD Primary Care Provide r Reason for Visit * Reason Comments Med Refill Encounter Details Date Type Department Care Team (Late st Contact Info) Description 04/06/2023 Refill [facility] MEDICINE [address] [place] [address] [phone] Delaney Zavala MD 230 [place], [place] [phone] Dermatitis Social History Tobacco Use Types Packs/Day [...] Description 11/13/2024 9:00 AM EDT Office Visit [facility] MEDICINE [address] [place] [address] [phone] Lake Sullivan MD [address] [place] [address] [phone] 11/16/2024 9:00 AM EDT Office Visit [facility] MEDICINE 230 [place] [address] David Baird MD 230 [place] [address] 12/17/2024 9:30 AM EDT Telemedicine [facility]EDS 505 [place], [place] [phone] 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, LUCI 505 [place] [address] documented as of this encounter Visit Diagnoses Diagnosis Dermatitis Contact dermatitis and other eczema, due to unspecified cause documented in this encounter Care Teams Semiconductor Processing Technician Relationship Specialty Start Date End Date Lake Sullivan MD 230 [place] [address] PCP - General Internal Medicine 02/12/14 documented as of this encounter
--- OUTSIDE RECORDS SUMMARY | 2024-10-18 08:11 | XMS_ITS | Encounter Summary ---
Author Organization [employer] Address 75 [facility] 7t [place] [address] Care Team Providers Care Coverstitch Elastic Attacher Name Role Phone Lake Sullivan MD Primary Care Provide r Encounter Details Date Type Department Care Team (Late st Contact Info) Description 03/09/2023 Orders Only [facility] MED & PEDS [address] [place], [place] [phone] Peggy Carey LPN Social History Tobacco Use [...] Description 11/13/2024 9:00 AM EDT Office Visit [facility] MEDICINE [address] [place] [address] Lake Sullivan MD 230 [place] [address] 11/16/2024 9:00 AM EDT Office Visit [facility] MEDICINE [address] [place] [address] [phone] David Baird MD 230 [place] [address] 12/17/2024 9:30 AM EDT Telemedicine [facility] MED [facility] PEDS 505 [place] [address] 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, RN 505 [facility] [place] [address] documented as of this encounter Procedures Procedure Name Priority Date/Time Associated Diagnosis Comments MR KNEE WO CONTRAST RIGHT Routine 04/08/2023 8:14 AM EDT documented in this encounter Results * MR Knee w/o Contrast Right (04/08/2023 8:14 AM EDT) Anatomical Region Laterality Modality Magnetic Resonan ce 04/08/2023 8:14 AM EDT Narrative 04/08/2023 2:41 PM EDT ? [facility] ?[address] ?[place] [address] ? CT Scan Report ? Signed ? Patient: Imer Parrish ?MR#: [id number] ?? [id number] ? : 1955 ?Acct:[id number] ? Age/Sex: 67 / M ?ADM Date: 04/08/23 ? Loc: HO.CT ? Attending Dr: Cheryl Regalado PA-C ? Ordering Physician: Cheryl Regalado PA-C ?? Date of Service: 04/08/23 ?? Procedure(s): CT knee RT wo IV con ?? Accession Number(s): [id number] ? cc: Lake Allen MD; Cheryl Regalado PA-C ? EXAMINATION: ?? CT KNEE WITHOUT CONTRAST, RIGHT ? CLINICAL INFORMATION: ?? Right lower leg benign neoplasm. ? COMPARISON: ?? Most recent right knee radiographs dated 12/11/2022. ? TECHNIQUE: ?? Contiguous axial CT images of the right knee were obtained without ?? contrast. Multiplanar reformats were provided and reviewed. ? This CT examination was performed using dose optimization techniques as ?? appropriate, variously including the following: ?? *Automated exposure control ?? *Adjustment of mA and/or kV according to patient size (this includes ?? techniques or standardized protocols for targeted exams where dose is ?? matched to indication/reason for exam; i.e. extremities or head) ?? *Use of iterative reconstruction technique ? DLP: ?? 183 mGy-cm ? FINDINGS: ?? Lateral stabilization plate with fixation screws in the distal femur. ?? Associated cerclage wires. Findings are similar in alignment when ?? compared to the prior radiographs. No new hardware fracture. No ?? perihardware lucency to suggest loosening or infection. There appears ?? to be a healed distal femoral fracture. No acute fracture or ?? dislocation. ? Redemonstration of an expansile osseous lesion extending between the ?? posterolateral aspect of the proximal tibia as well as the ?? posteromedial aspect of the proximal fibula. This appears corticated ?? with ground-glass density and mixed lytic/sclerotic components. This ?? appears similar when compared to remote radiographs and likely ?? represents an osteochondroma. No concerning lytic or blastic osseous ?? lesion. Additional small probable osteochondroma at the anteromedial ?? aspect of the tibial metaphysis measuring up to 1.0 cm, not ?? significantly changed. ? Moderate medial compartment joint space narrowing with subchondral ?? sclerosis. Tricompartmental marginal osteophytes. No evidence of ?? avascular necrosis. ? No significant joint effusion. No abnormal soft tissue mass or fluid ?? collection. Diffuse muscle atrophy. ? CT/CT knee RT wo IV con ?? IMPRESSION: ?? 1. Distal femoral ORIF without evidence of hardware complication. ?? Healed distal femoral fracture. ? 2. 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 ? 3. Probable osteochondromas at the proximal tibia and fibula, similar ?? when compared to remote radiographs. ? 4. Diffuse muscle atrophy. ? Dictated By: ?Peter Ureña MD ? Signed By: ?<Electronically signed by Peter Ureña MD in OV> ?04/08/231436 ? DD/ 3 ? TD/TT: ? Manager Enterprise: SR ? Procedure Note Librado, Abena - 04/08/[address] [address] [address] Scan Report Signed Patient: Rayshawn Parrish#: [id number] : 1955cct:[id number] Age/Sex: 67 / MADM Date: 04/08/23 Loc: HO.CT Attending Dr: Cheryl Regalado PA-C Ordering Physician: Cheryl Regalado PA-C Date of Service: 04/08/23 Procedure(s): CT knee RT wo IV con Accession Number(s): [id number] cc: Lake Allen MD; Cheryl Regalado PA-C EXAMINATION: CT KNEE WITHOUT CONTRAST, RIGHT CLINICAL INFORMATION: Right lower leg benign neoplasm. COMPARISON: Most recent right knee radiographs dated 12/11/2022. TECHNIQUE: Contiguous axial CT images of the right knee were obtained without contrast. Multiplanar reformats were provided and reviewed. This CT examination was performed using dose optimization techniques as appropriate, variously including the following: *Automated exposure control *Adjustment of mA and/or kV according to patient size (this includes techniques or standardized protocols for targeted exams where dose is matched to indication/reason for exam; i.e. extremities or head) *Use of iterative reconstruction technique DLP: 183 mGy-cm FINDINGS: Lateral stabilization plate with fixation screws in the distal femur. Associated cerclage wires. Findings are similar in alignment when compared to the prior radiographs. No new hardware fracture. No perihardware lucency to suggest loosening or infection. There appears to be a healed distal femoral fracture. No acute fracture or dislocation. Redemonstration of an expansile osseous lesion extending between the posterolateral aspect of the proximal tibia as well as the posteromedial aspect of the proximal fibula. This appears corticated with ground-glass density and mixed lytic/sclerotic components. This appears similar when compared to remote radiographs and likely represents an osteochondroma. No concerning lytic or blastic osseous lesion. Additional small probable osteochondroma at the anteromedial aspect of the tibial metaphysis measuring up to 1.0 cm, not significantly changed. Moderate medial compartment joint space narrowing with subchondral sclerosis. Tricompartmental marginal osteophytes. No evidence of avascular necrosis. No significant joint effusion. No abnormal soft tissue mass or fluid collection. Diffuse muscle atrophy. CT/CT knee RT wo IV con IMPRESSION: 1. Distal femoral ORIF without evidence of hardware complication. Healed distal femoral fracture. 2. Tricompartmental osteoarthritis, most prominent within the medial compartment. 3. Probable osteochondromas at the proximal tibia and fibula, similar when compared to remote radiographs. 4. Diffuse muscle atrophy. Dictated By: Peter Ureña MD Signed By: <Electronically signed by Peter Ureña MD in OV> 04/08/23 1437 DD/ 0814 TD/TT: Manager Enterprise: [facility] External Provider IMG MRI PROCEDURES Final Result documented in this encounter Visit Diagnoses Not on filedocumented in this encounter Care Teams Coverstitch Elastic Attacher Relationship Specialty Start Date End Date Lake Sullivan MD [address] [place] [address] PCP - General Internal Medicine 02/12/14 documented as of this encounter
--- OUTSIDE RECORDS SUMMARY | 2024-10-18 08:11 | XMS_ITS | Data Portability ---
Author Organization [facility] [employer] in - [facility] Address [address] [place] [phone] Care Team Providers Care Machine Rough Rounder Name Role Phone [facility] Referring Provider [phone] Assessment No assessment recorded. Plan of Treatment Reminders Order Date Submit Date Provider Last Modified By Organization Details Last Modified Time Details Appointments None recorded. Lab rapid SARS CoV 2 Ag, QL IA, respiratory specimen [address], [phone] 4 18:24:42 rapid flu (A+B) [address], [phone] 4 18:24:43 Referral None recorded. Procedures None recorded. Surgeries None recorded. Imaging None recorded. Medication Orders None recorded. Patient TargetsNo targets recorded. Patient InstructionsNo instructions recorded. Reason for Referral None Reported. Results Created Date Observation Date Name Description Value Unit Range Abnormal Flag Note LastModifiedBy Organization Detail LastModifiedTime 08/27/19 24 08/27/2023 rapid flu (A+B) Flu negati ve Not Available [facility] [address] [place] [address], [id number] 08/27/2023 18:24:19 08/27/19 24 08/27/2023 rapid SARS CoV 2 Ag, QL IA, respi rator y speci men rapid SARS CoV 2 Ag, QL IA, respiratory specimen negati ve Not Available [facility] [address] [place] [address], [phone] 08/27/2023 18:24:15 Result Notes None recorded. Medical Equipment None Reported. Medications Name Sig Start Date Stop Date Status Note LastModified by Organization Details LastModified Time ipratropium 0.5 mg-albuterol 3 mg (2.5 mg base)/3 mL nebulization soln USE 3 ML VIA NEBULIZER EVERY 6 HOURS NEEDED FOR WHEEZING active Not Available Not Available No t Available alprazolam 1 mg tablet TAKE 1 TABLET BY MOUTH TWICE DAILY NEEDED. MAY TAKE 1/2 TABLET EVERY DAY NEEDED --THIS IS 30 DAY SUPPLY active Not Available Not Available No t Available tolterodine ER 4 mg capsule,exte nded release 24 hr TAKE 1 CAPSULE BY MOUTH AT BEDTIME active Not Available Not Available No t Available senna 8.6 mg tablet TAKE 1 TO 2 TABLETS BY MOUTH EVERY 12 HOURS NEEDED FOR CONSTIPATIO N active Not Available Not Available No t Available FreeStyle Lancets 28 gauge USE DIRECTED TO TEST BLOOD GLUCOSE ONCE DAILY active Not Available Not Available N ot Available bacitracin zinc 500 unit/gram topical ointment APPLY TOPICALLY 2 TIMES DAILY active Not Available Not Available Not Available quetiapine 100 mg tablet TAKE 1 TABLET BY MOUTH AT BEDTIME active Not Available Not Available No t Available cefadroxil 500 mg capsule active Not Available Not Available Not Available oxycodone-ac etaminophen 5 mg-325 mg tablet TAKE 1 TABLET BY MOUTH EVERY 8 HOURS NEEDED FOR SEVERE PAIN active Not Available Not Available Not Available cephalexin 500 mg capsule TAKE 1 CAPSULE BY MOUTH FOUR TIMES DAILY FOR 7 DAYS active Not Available Not Available N ot Available paroxetine 20 mg tablet TAKE 1 TABLET BY MOUTH EVERY DAY active Not Available Not Available No t Available verapamil ER (PM) 200 mg capsule 24hr pellet CT,ext.relea se TAKE 1 CAPSULE BY MOUTH EVERY DAY AT BEDTIME active Not Available Not Available No t Available clotrimazole -betamethaso ne 1 %-0.05 % topical cream APPLY TOPICALLY TO THE AFFECTED AREA EVERY 12 HOURS NEEDED active Not Available Not Available No t Available montelukast 10 mg tablet TAKE 1 TABLET BY MOUTH AT BEDTIME active Not Available Not Available No t Available morphine ER 15 mg tablet,exten ded release active Not Available Not Available Not Available irbesartan 150 mg tablet TAKE 1 TABLET BY MOUTH EVERY DAY active Not Available Not Available No t Available metformin ER 500 mg tablet,exten ded release 24 hr TAKE 1 TABLET BY MOUTH EVERY DAY WITH THE EVENING MEAL active Not Available Not Available No t Available loratadine 10 mg tablet active Not Available Not Available Not Available amoxicillin 875 mg-potassium clavulanate 125 mg tablet TAKE 1 TABLET BY MOUTH TWICE DAILY active Not Available Not Available No t Available quetiapine 400 mg tablet TAKE 1 TABLET BY MOUTH AT BEDTIME active Not Available Not Available No t Available cholecalcife rol (vitamin D3) 50 mcg (2,000 unit) capsule TAKE 1 CAPSULE BY MOUTH DAILY active Not Available Not Available Not Available blood pressure kit-extra large cuff USE TO CHECK BLOOD PRESSURE ONCE A WEEK DIRECTED active Not Available Not Available Not Available OneTouch Verio test strips CHECK BLOOD SUGAR TWICE DAILY DIRECTED active Not Available Not Available No t Available Myrbetriq 50 mg tablet,exten ded release TAKE 1 TABLET BY MOUTH EVERY DAY active Not Available Not Available No t Available naloxone 4 mg/actuation nasal spray FOLLOW PACKAGE DIRECTIONS active Not Available Not Available N ot Available OneTouch Delica Plus Lancet 33 gauge USE TO TEST BLOOD GLUCOSE TWICE DAILY active Not Available Not Available Not Available OneTouch Verio Reflect Meter TEST TWICE A DAY active Not Available Not Available No t Available Vitals Date Recorded Body weight Oxygen saturation Oxygen saturation in Arterial blood by Pulse oximetry Body temperature Respiratory rate Heart rate Body height Systolic blood pressure Diastolic blood pressure Provider Name and Address Organization Details Last Updated DateTime 4 868872. 536 g 97 % 97 % 100.9 [degF] 16 /min 87 /min 167.64 cm 173 mm[Hg] 93 mm[Hg] Not Available [facility] - production 4 18:06:07 Social History None recorded. Functional Status None recorded. Mental Status None recorded. Family History Nothing Reported. Medical History No medical history recorded. Past Encounters Encounter ID Performer Location Encounter Start Date Encounter Closed Date Diagnosis/Indication Diagnosis SNOMED-CT Code Diagnosis ICD10 Code Diagnosis Note [id number] Sarah Weir MD Main - [facility] [address] [place] [phone] 08/27/2023 18:01:50 08/28/2023 13:42:23 Urinary symptoms 949025531 R39.9 Evaluation in the field was performed by my field trainer colleague, as noted above, I provided real-time direction and supervisio n for this visit. 68yo M endorsing 2 days of urinary frequency and L flank pain. No hx UTIs. On VS T 100.9F no tachycardi a or hypotensio n. Exam notable for irritable pt w/ L low back pain not totally c/w CVA TTP. Unable to urinate as voided prior to field trainer arrival and not amenable to drinking fluids or having field trainer wait for sample, reports he prefers to go to ED. Reviewed our c/f possible pyelonephr itis given urinary sx and fever, pt acknowledg es but declined ED eval tonight. Pt educated on option of calling for repeat [facility] visit in AM if he changes his mind, he declines. We discussed the diagnostic uncertaint y of home visits and the risk associated with this. In this case, the patient and I felt this to be an acceptable and reasonable amount of risk given the benefit of avoiding an ED visit. We discussed the need to seek care urgently/e mergently in the setting of any new or worsening serious symptoms, shortness of breath, cough, chest pain, fever. Cough [id number] R05.9 Pt endorsing mild cough, VS notable for T 100.9. 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 COVID and flu negative. Suspect URI, symptomtic mgmt. Health Concerns Section Related Observation LastModified by Organization Detai ls LastModified Time None Recorded Concern Status LastModified by Organization Details LastModified Time None Recorded Advance Directives Directive None Recorded Payers Encounter Date Sequence Insurance Name Policy Number Policy Jordan Covered Member ID Jordan Member ID Guarantor Name 08/27/2023 1 [facility] - DOS ON OR AFTER 2022 - DUAL ELIGIBLE - JAIL OPTIONS AND ONE CARE (MEDICARE REPLACEMENT/ADV ANTAGE - HMO) Imer Perez [id number] Imer Perez Notes Date Note Type Note Provider Name and Address Organization Details Recorded Time 08/27/2023 text/html CRC Nurse Triage Notes (Don Soto): Chief Complaints: Fever/Chills, Pain Allergies: No Known Comments: Dressing Machine Operator verified the member's name//address and phone number Pt Venezuelan speaking primarily- space officer# [id number] used for triage assessment. Member c/o chills & headache since last night. Also c/o increased urination and lower back pain for the last two days. Denies medication allergies or taking blood thinners. Denies fevers. Education provided on the response time and the member was advised to monitor reported s/s and seek emergency treatment if needed -Pablo Soto RN ................. ................. ................. ................. ................. ................. ................. ................. ..... Inspector [employer] Note From Jens Law: Pt reports two days of left lower back pain, urinary frequency, CAO, sinus congestion and cough producing brown sputum. Pt denies dysuria, ABD pain, hematuria, f/n/v/d. Pt sts he took 1 g Tylenol 2 hr prior to my arrival. Pt is alert, NAD. Mildly hypertensive, VS otherwise stable. Temp 100.9. Non focal neuro exam. Normal gait. Lungs CTA. Benign ABD exam. No CVA tenderness. No LE edema. Rapid covid, flu and strep negative. Pt unable and unwilling to produce urine sample, sts ? I? m going to the hospital tomorrow morning anyway.? Pt advised that we cannot treat with out UA. Pt instructed to seek emergent medical care for new or worsening sx, which are reviewed with him. ................. ................. ................. ................. ................. ................. ................. ................. ..... Disposition: Fulfilled Sarah Weir MD [address] [facility],[address], [place], [phone], MIKEY - PAOLA VELEZ 08/27/2023 19:32:42
--- OUTSIDE RECORDS SUMMARY | 2024-10-18 08:11 | XMS_ITS | Encounter Summary ---
Author Organization [employer] Address [address] [facility] 7t [place] [address] Care Team Providers Care Air Compressor Mechanic Name Role Phone Lake [place] MD Primary Care Provide r Reason for Visit * Reason Onset Date Comments Med Refill 12/19/2023 Encounter Details Date Type Department Care Team ([facility] st Contact Info) Description 12/19/2023 Telephone [facility] [address] [place], [place] [phone] Lake [place] MD [address] [place], [place] [phone] Med Refill Social History Tobacco Use Types [...] encounter Miscellaneous Notes * Telephone Encounter - Zehra Mclean - 12/19/2023 8:37 AM EDT TC from pt requesting medication refill. Medications needing refill : morphine CR (MS Contin) 15 MG 12 hr tablet oxyCODONE-acetaminophen (Percocet) 5-325 MG tablet To be sent to: [facility][id number] - [address] AT [facility] documented in this encounter Plan of Treatment Upcoming Encounters Date Type Department Care Team ([facility] st Contact Info) Description 11/13/2024 9:00 AM EDT Office Visit [facility] [address] [place] [phone] Lake Sullivan MD [address] [place] [phone] 11/16/2024 9:00 AM EDT Office Visit [facility] [address] [place] [address] [phone] David Baird MD [address] [place] [phone] 12/17/2024 9:30 AM EDT [facility] [address] [place] [address] 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, RN [address] [place] [address] documented as of this encounter Visit Diagnoses Not on filedocumented in this encounter Additional Health Concerns Assessment Noted Time PHQ-9 Depression Total Score: 3 08/18/19 24 10:01 AM EST documented as of this encounter Care Teams Air Compressor Mechanic Relationship Specialty Start Date End Date Lake [place] MD [address] [place] [phone] PCP - General Internal Medicine 02/12/14 documented as of this encounter
--- OUTSIDE RECORDS SUMMARY | 2024-10-18 08:12 | XMS_ITS | Encounter Summary ---
Author Organization [employer] Address [address] [facility] 7t [place] [address] Care Team Providers Care Back End Architect Name Role Phone Lake [place] MD Primary Care Provide r Reason for Visit * Reason Onset Date Comments Med Refill 05/28/2024 Encounter Details Date Type Department Care Team ([facility] st Contact Info) Description 05/28/2024 Telephone [facility] [address] [place], [place] [phone] Lake [place] MD [address] [place], [place] [phone] Med Refill Social History Tobacco Use Types [...] the past 12 months, has t he [employer], gas, oil or water company threatened to [...] encounter Miscellaneous Notes * Telephone Encounter - Darrick Fitzgerald - 05/29/2024 2:17 PM EST TC from pt requesting medication refill. Medications needing refill : oxyCODONE-acetaminophen (Percocet) 5-325 MG tablet morphine CR (MS Contin) 15 MG 12 hr tablet To be sent to: [facility] #[id number] - [employer] AT [facility] Pt states has no medications * Telephone Encounter - Conor Ross - 05/28/2024 9:24 AM EST TC from pt requesting medication refill. Medications needing refill : oxyCODONE-acetaminophen (Percocet) 5-325 MG tablet morphine CR (MS Contin) 15 MG 12 hr tablet To be sent to: [facility] #[id number] - [facility] AT [facility] documented in this encounter Plan of Treatment Upcoming Encounters Date Type Department Care Team (Late st Contact Info) Description 11/13/2024 9:00 AM EDT Office Visit [facility] [address] [place] [address] Lake [place] MD [address] [place] [address] 11/16/2024 9:00 AM EDT Office Visit [facility] [address] [place] [address] David Baird MD [address] [place], [place] [phone] 12/17/2024 9:30 AM EDT Telemedicine [facility] [address] [place], [place] [phone] 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, RN [address] [place], [place] [phone] documented as of this encounter Visit Diagnoses Not on filedocumented in this encounter Additional Health Concerns Assessment Noted Time PHQ-9 Depression Total Score: 3 08/18/19 24 10:01 AM EST documented as of this encounter Care Teams Back End Architect Relationship Specialty Start Date End Date Lake [place] MD [address] [place] [address] PCP - General Internal Medicine 02/12/14 documented as of this encounter
--- OUTSIDE RECORDS SUMMARY | 2024-10-18 08:12 | XMS_ITS | Encounter Summary ---
Author Organization [employer] Address [address] [facility] 7t [place] [address] Care Team Providers Care Pilot Safety Inspector Name Role Phone Lake [place] MD Primary Care Provide r Reason for Visit * Reason Onset Date Comments Med Refill 02/25/2023 Encounter Details Date Type Department Care Team ([facility] st Contact Info) Description 02/25/2023 Telephone [facility] [address] [place], [place] [phone] Lake [place] MD [address] [place], [place] [phone] Med Refill Social History Tobacco Use Types [...] * Telephone Encounter - Zehra Mclean - 02/25/2023 9:44 AM EDT Tc from pt requesting medication refill on morphine CR (MS Contin) 15 MG 12 hr tablet and oxyCODONE-acetaminophen (Percocet) 5-325 MG tablet documented in this encounter Plan of Treatment Upcoming Encounters Date Type Department Care Team (Late st Contact Info) Description 11/13/2024 9:00 AM EDT Office Visit [facility] [address] [place] [address] Lake [place] MD [address] [place] [address] 11/16/2024 9:00 AM EDT Office Visit [facility] [address] [place] [address] David Baird MD [address] [place] [address] 12/17/2024 9:30 AM EDT Telemedicine [facility] [address] [place], [place] [phone] 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, LUCI [address] [place], [place] [phone] documented as of this encounter Visit Diagnoses Not on filedocumented in this encounter Care Teams Pilot Safety Inspector Relationship Specialty Start Date End Date Lake [place] MD [address] [place] [address] [phone] PCP - General Internal Medicine 02/12/14 documented as of this encounter
--- OUTSIDE RECORDS SUMMARY | 2024-10-18 08:12 | XMS_ITS | Encounter Summary ---
Author Organization [employer] Address [address] [facility] 7t [place] [address] Care Team Providers Care Edge Brusher Name Role Phone Lake [place] MD Primary Care Provide r Reason for Visit * Reason Onset Date Comments Med Refill 02/01/2023 Encounter Details Date Type Department Care Team ([facility] st Contact Info) Description 02/01/2023 Telephone [facility] [address] [place], [place] [phone] Lake [place] MD [address] [place], [place] [phone] Med Refill Social History Tobacco Use Types [...] suspected to have Coronavirus/COVID-19? No / Unsure 01/04/2023 8:57 AM EDT documented as of this encounter Miscellaneous Notes * Telephone Encounter - Linh Gould RN - 02/01/2023 12:25 PM EDT Duplicate. Refill request already sent to PCP * Telephone Encounter - Reva Rosa - 02/01/2023 12:16 PM EDT Tc from patient requesting a med refill for medication oxycodone 5 mg and morphine CR 15 mg. Pleasesend to [id number] [place], [place] - [address] [facility]. documented in this encounter Plan of Treatment Upcoming Encounters Date Type Department Care Team (Late st Contact Info) Description 11/13/2024 9:00 AM EDT Office Visit [facility] MED[facility] [address] [place] [phone] Lake Sullivan MD [address] [place] [address] 11/16/2024 9:00 AM EDT Office Visit [facility] [address] [place] [address] David Baird MD [address] [place] [address] 12/17/2024 9:30 AM EDT Telemedicine [facility] [address] [place] [address] 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, LUCI [address] [place] [address] documented as of this encounter Visit Diagnoses Not on filedocumented in this encounter Care Teams Edge Brusher Relationship Specialty Start Date End Date Lake [place] MD [address] [place] [phone] PCP - General Internal Medicine 02/12/14 documented as of this encounter
--- OUTSIDE RECORDS SUMMARY | 2024-10-18 08:12 | XMS_ITS | Encounter Summary ---
Author Organization [employer] Address [address] [facility] 7t [place] [address] Care Team Providers Care Director Of Parks And Recreation Name Role Phone Lake [place] MD Primary Care Provide r Encounter Details Date Type Department Care Team (Late Contact Info) Description 01/13/2023 Orders Only [facility] [address] [place] [address] Peggy Carey LPN Social History Tobacco Use [...] Description 11/13/2024 9:00 AM EDT Office Visit [facility] MEDICINE [address] [place], [place] [phone] Lake [place] MD [address] [place], [place] [phone] 11/16/2024 9:00 AM EDT Office Visit [facility] MEDICINE [address] [place] [address] David Baird MD [address] [place] [address] 12/17/2024 9:30 AM EDT Telemedicine [facility] [address] [place] [address] 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, LUCI [address] [place] [address] documented as of this encounter Visit Diagnoses Not on filedocumented in this encounter Care Teams Director Of Parks And Recreation Relationship Specialty Start Date End Date Lake [place] MD [address] [place] [phone] PCP - General Internal Medicine 02/12/14 documented as of this encounter
--- OUTSIDE RECORDS SUMMARY | 2024-10-18 08:12 | XMS_ITS | Encounter Summary ---
Author Organization [employer] Address [address] [facility] 7t [place] [address] Care Team Providers Care Railway Switch Operator Name Role Phone Lake [place] MD Primary Care Provide r Reason for Visit * Reason Onset Date Comments Appointment 08/27/2022 Patient left malu t today but did not stop in front because his ride was waiting for him. He states that he is supposed to come back next week and wants an visitor services associate appt with Dr. Fisher. I informed patient that I would not be able to schedule but would relay information to dental and he would get a call for scheduling He did say he wanted an visitor services associate. I informed I would relay that as well but I would not be able to guarantee and office would be in touch for scheduling DR Encounter Details Date Type Department Care Team (Late st Contact Info) Description 08/27/2022 Telephone [facility] ADULT DENTAL [address] [place] [address] Phil Fisher DDS [address] [place] [address] Appointment (Patient left appt today but did not stop in front because his ride was waiting for him. He states that he is supposed to come back next week and wants an visitor services associate appt with Dr. Fisher. I informed patient that I would not be able to schedule but would relay information to dental and he would get a call for scheduling He did say he wanted an visitor services associate. I informed I would relay that as well but I would not be able to guarantee and office would be in touch for scheduling DR ) Social History Tobacco Use Types Packs/Day Years [...] suspected to have Coronavirus/COVID-19? No / Unsure 08/27/2022 10:07 AM EST documented as of this encounter Miscellaneous Notes * Telephone Encounter - Estrellita Butch - 08/27/2022 11:09 AM EST Patient left appt today but did not stop in front because his ride was waiting for him. He states that he is supposed to come back next week and wants an visitor services associate appt with Dr. Fisher. I informed patient that I would not be able to schedule but would relay information to dental and he would get a call for scheduling He did say he wanted an visitor services associate. I informed I would relay that as wellbut I would not be able to guarantee and office would be in touch for scheduling DR documented in this encounter Plan of Treatment Upcoming Encounters Date Type Department Care Team (Late st Contact Info) Description 11/13/2024 9:00 AM EDT Office Visit [facility] MEDICINE [address] [place] [phone] Lake Sulil[place] MD [address] [place] [phone] 11/16/2024 9:00 AM EDT Office Visit [facility] MEDICINE [address] [place] [phone] David Baird MD [address] [place] [address] 12/17/2024 9:30 AM EDT Telemedicine [facility] 505 [place] [address] 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, RN [address] [place] [address] documented as of this encounter Visit Diagnoses Not on filedocumented in this encounter Care Teams Railway Switch Operator Relationship Specialty Start Date End Date Lake [place] MD [address] [place] [phone] PCP - General Internal Medicine 02/12/14 documented as of this encounter
--- OUTSIDE RECORDS SUMMARY | 2024-10-18 08:12 | XMS_ITS | Encounter Summary ---
Author Organization [email or web address] Address [address] [facility] 7t [place] [address] Care Team Providers Care Director Of Search Engine Optimization Name Role Phone Lake Sullivan MD Primary Care Provide r Reason for Visit * Reason Onset Date Comments Med Refill 01/27/2023 Encounter Details Date Type Department Care Team ([facility] st Contact Info) Description 01/27/2023 Telephone [facility] [address] [place], [place] [phone] Lake Sullivan MD [address] [place], [place] [phone] Med Refill Social History Tobacco Use Types [...] encounter Miscellaneous Notes * Telephone Encounter - Alina Murdock - 01/31/2023 9:24 AM EDT Tc from pt requesting status on med , * Telephone Encounter - Linh oGuld RN - 01/27/2023 1:45 PM EDT Perc and morphine filled 01/05 for 28d. Due 02/01 * Telephone Encounter - Mamta Witt - 01/27/2023 12:36 PM EDT Tc from patient requesting a med refill for medication oxycodone 5 mg and morphine CR 15 mg. Pleasesend to [id number] - [place], [place] - [address] [place] [address] AT [facility]. PCP Dr. Ramsey documented in this encounter Plan of Treatment Upcoming Encounters Date Type Department Care Team (Late st Contact Info) Description 11/13/2024 9:00 AM EDT Office Visit [facility] [address] [place] [phone] Lake Sullivan MD [address] [place] [address] 11/16/2024 9:00 AM EDT Office Visit [facility] [address] [place] [phone] David Baird MD [address] [place] [address] 12/17/2024 9:30 AM EDT Telemedicine [facility] [address] [place] [address] 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, LUCI [address] [place] [address] documented as of this encounter Visit Diagnoses Not on filedocumented in this encounter Care Teams Director Of Search Engine Optimization Relationship Specialty Start Date End Date Lake Sullivan MD [address] [place] [address] PCP - General Internal Medicine 02/12/14 documented as of this encounter
--- NOTE | 2024-10-18 08:54 | MHC.OFFVIS ---
Vital Signs 10/18/24 08:55 Height 5 ft 5 in Weight 287 lb 11.252 oz BMI 47.9 BP 130/70 Blood Pressure Location Lt brachial Position Sitting Pulse 93 Pulse Source Pulse Oximeter Pulse Oximetry (%) 99 Oxygen Delivery Method Room Air Intake Visit Reasons: Obstructive sleep apnea Intake Note: pt is here for follow up and states he has a lot of phelgm, cpap is going well, and needs refill on inhalers (wixela and for nebulizer) Rough And Truing Machine Operator Required: No Allergies No Known Allergies [No Known Allergies*] Allergy (Verified 10/18/24 09:06) Medication List - Last Reconciled 10/18/24 by Shweta Hussein MD albuterol sulfate 90 mcg/actuation (ProAir HFA) 2 puffs inhalation Q4-6H PRN 30 days alprazolam 1 mg PO BID bacitracin 1 appl topical BID blood sugar diagnostic As directed buspirone 10 mg PO BID cholecalciferol (vitamin D3) 50 mcg PO DAILY docusate sodium (Colace) 100 mg PO DAILY docusate sodium (Colace) 100 mg PO BID fluticasone propion-salmeterol 500-50 mcg/dose (Advair Diskus) 1 inh inhalation BID fluticasone propionate 50 mcg/actuation (Children's Flonase Allergy Relief) 2 sprays intranasal DAILY 30 days hydrochlorothiazide 12.5 mg PO DAILY hydrocortisone 2.5% (Procto-Med HC) 1 appl OR BID-QID PRN ipratropium-albuterol 0.5 mg-3 mg(2.5 mg base)/3 mL mL inhalation irbesartan 150 mg PO DAILY loratadine (Claritin) 10 mg PO DAILY lorazepam (Ativan) 1 mg PO BID PRN metformin ER 500 mg PO DAILY montelukast 10 mg PO BEDTIME morphine ER 15 mg PO BID naproxen (Naprosyn) 500 mg PO BID omeprazole magnesium (Prilosec OTC) 20 mg PO DAILY paroxetine HCl 20 mg PO DAILY quetiapine 400 mg PO BID quetiapine (Seroquel) 300 mg PO BEDTIME tamsulosin 0.4 mg PO BEDTIME tolterodine ER 4 mg PO BEDTIME verapamil ER (Verelan PM) 300 mg PO BEDTIME Do you need a note to return to daycare/school/sports/work: No HPI HPI Obstructive sleep apnea: Details: This 69 years old gentleman with morbid obesity, obstructive sleep apnea/chronic hypoventilation syndrome, smoking and advanced COPD, comes for routine follow-up after 6 months. Overall he is doing well but complains of cough and excessive mucus. Still smoking about 8-10 cigarettes a day. Luckily he has had no chest infection. He uses his CPAP very regularly every night and even during the daytime with total of 13-14 hours daily. He sleeps well but does use alprazolam 1 mg b.i.d. [facility] Medical History Thrombosed external hemorrhoid Anemia, normocytic normochromic History of pneumothorax Sickle cell trait Nicotine dependence, cigarettes, uncomplicated Osteoporosis (~2013) Morbid (severe) obesity with alveolar hypoventilation Allergic rhinitis COPD (chronic obstructive pulmonary disease) NAM on CPAP (~2008) Surgical History History of colonoscopy History of surgery on lower extremity History of cardiac cath Social History Alcohol intake: unknown Patient Tobacco Use Status: Current everyday Tobacco user Tobacco use type: Cigarette Cigarettes Per Day: 10 Years Smoked: onset 13yo, x 54yrs, mainly 1ppd, now 1/2ppd, 50pyh Review of Systems Const All systems reviewed & are unremarkable except as noted in HPI and below Eyes Reports no additional complaints ENT Reports nasal congestion and Reports nasal discharge Card Denies chest pain, Denies irregular heart rhythm and Denies leg edema Resp Reports as per HPI GI Reports no additional complaints Reports urinary hesitancy (Controlled with med) Musc Reports back pain and Reports myalgias Skin/Breast Reports dry skin Neuro Reports no additional complaints Psych Reports no additional complaints Physical Exam Vital Signs: Last Vital Signs Pulse 93 10/18/24 08:55 BP 130/70 10/18/24 08:55 Pulse Ox 99 10/18/24 08:55 Oxygen Delivery Method Room Air 10/18/24 08:55 BMI result Body Mass Index 47.9 He is grossly obese with a round face Const General: comfortable, no acute distress, alert and awake Orientation/consciousness: patient oriented x3 HEENT Head: Yes normal to inspection General nose exam: No nasal polyps present, No nasal discharge present and Abnormal mucous membranes and turbinates present (Chronic nasal congestion and hypertrophy of the nasal turbinates) Face and sinus: Yes sinuses nontender Mouth: oropharynx normal Throat: Yes posterior oropharynx normal Eyes General: appearance normal, both eyes and all related structures Neck Neck: Yes normal visual inspection, Yes no lymphadenopathy, Yes trachea midline and Yes no JVD Thyroid: Thyroid normal Chest Chest palpation & inspection: normal inspection of the chest, normal palpation of entire chest wall and no tenderness Resp Other: Percussion note not perceptible because of his the thick chest wall. Breath sounds are distant with prolonged expiratory phase. No expiratory wheezes rhonchi or crepitations are heard. Cardio Palpation: normal PMI Rate: regular rate Rhythm: regular rhythm Heart sounds: no gallops and no murmurs GI Palpation (GI): Soft to palpation, Tenderness to palpation present (GI), No hepatosplenomegaly present, Palpable mass present and Other GI palpation findings present (Abdomen is markedly obese and protuberant) Auscultation: normal bowel sounds Back/Spine/Pelvis Thoracic/Lumbar Spine: thoracic and lumbar spine normal to inspection and thoraco-lumbar ROM limited Skin General skin exam: no rashes or lesions noted and dry skin Neuro General: patient oriented x3, No gait normal (Slightly impaired, needs to use cane) and no focal motor deficits Cranial nerves: Yes CN's II-XII intact bilaterally Extrem General: Yes normal to inspection, Yes no clubbing, cyanosis or edema and Yes no calf tenderness Psych Appearance: grossly normal Speech and movement: Normal speech and movement present Results Reviewed Results Reviewed: Compliance report is reviewed. His usage is 100% of the nights with average use it per night for 13 hours 9 minutes. He is on CPAP of 16 cm. There is significant air leak but asymptomatic. And residual AHI 0.8 Assessment & Plan Assessment & Plan (1) Morbid (severe) obesity with alveolar hypoventilation: Comment: (Chronic problem , unchanged , with very little potential to change- Code(s): E66.2 - Morbid (severe) obesity with alveolar hypoventilation Category: Medical Plan: Did discuss with him about weight reduction but the potential is very low. (2) COPD (chronic obstructive pulmonary disease): Comment: (moderately severe COPD, related to continued smoking) , stable and well controlled. Clinically he is doing well, complains of increased amount of cough and mucus production. This seems to be due to his ongoing smoking. Code(s): J44.9 - Chronic obstructive pulmonary disease, unspecified Category: Medical Plan: Continue using Advair 500-51 inhalation b.i.d. Ipratropium-albuterol solution in the nebulizer Q 6 hours while awake Albuterol HFA 2 puffs Q 6 hours p.r.n. when outdoors May use Mucinex 400 mg b.i.d. p.r.n. for thick mucus. (3) Nicotine dependence, cigarettes, uncomplicated: Comment: (current smoker, onset 13yo, x 54yrs, mainly 1ppd, now 1/2ppd, 50pyh) CT scan of the chest in September 2023 benign class 2, unchanged from before Code(s): F17.210 - Nicotine dependence, cigarettes, uncomplicated Category: Medical Plan: Counseled to stop smoking or at least cut down the number of cigarettes. He does not show any further motivation. Advised to continue annual lung screening (4) NAM on CPAP: Onset Date: ~2008 Comment: (100 % compliant with CPAP, good sleep. [Pressure=16 CMs] also using during daytime) Code(s): G47.33 - Obstructive sleep apnea (adult) (pediatric); Z99.89 - Dependence on other enabling machines and devices Category: Medical Plan: Commended for good compliance and advised to continue using the CPAP regularly. Medications: New ipratropium-albuterol 0.5 mg-3 mg(2.5 mg base)/3 mL 3 mL inhalation QID 30 days 320 mL 4RF copd Coding Level of Care Code Est Pt Level 4 (45863) Diagnoses Morbid (severe) obesity with alveolar hypoventilation E66.2 COPD (chronic obstructive pulmonary disease) J44.9 Nicotine dependence, cigarettes, uncomplicated F17.210 NAM on CPAP G47.33; Z99.89
[2024-10-18 08:55] VITALS: BP 130/70; PULSE 93; O2SAT 99; BMI 47.9
== END 2024-10-18 09:14 | disposition home or self-care (01) ==
LOC: HO.HPS 08:06
PROVIDERS: PCP Internal Medicine; Visit Provider Internal Medicine
DX: E66.2 Morbid (severe) obesity with alveolar hypoventilation (principal); J44.9 Chronic obstructive pulmonary disease, unspecified; F17.210 Nicotine dependence, cigarettes, uncomplicated; G47.33 Obstructive sleep apnea (adult) (pediatric); Z99.89 Dependence on other enabling machines and devices
CPT/HCPCS: 99214

== ENCOUNTER → 2024-10-18 08:05 | Outpatient (BNVA) | payer OTHER, SELFPAY | PROVIDERS: PCP Internal Medicine; Visit Provider Internal Medicine | DX: G47.33 Obstructive sleep apnea (adult) (pediatric) (principal); J44.9 Chronic obstructive pulmonary disease, unspecified; E66.2 Morbid (severe) obesity with alveolar hypoventilation; F17.210 Nicotine dependence, cigarettes, uncomplicated; Z99.89 Dependence on other enabling machines and devices; Z68.42 Body mass index [BMI] 45.0-49.9, adult | CPT/HCPCS: 99212 ==

== ENCOUNTER 2024-11-13 09:32 | Outpatient (REF) | payer OTHER, SELFPAY ==
--- OUTSIDE RECORDS SUMMARY | 2024-11-13 10:29 | XMS_ITS | Encounter Summary ---
Author Organization [employer] Address [address] [facility] [address] [place] [address] Care Team Providers Care Supply Controller Name Role Phone Lake Sullivan MD Primary Care Provide r Reason for Visit * Reason Onset Date Comments Appointment Request 07/20/2023 Encounter Details Date Type Department Care Team (Late Contact Info) Description 07/20/2023 Telephone [facility] [address] [place], [place] [phone] Lake Sullivan MD [address] [place], [place] [phone] Appointment Request Social History Tobacco Use Types [...] Department Care Team (Late Contact Info) Description 11/16/2024 9:00 AM EDT Office Visit [facility] [address] [place] [address] David Baird MD [address] [place] [address] 12/17/2024 9:30 AM EDT Telemedicine [facility] [address] [place] [address] 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, LUCI [address] [place] [address] 02/05/2025 9:15 AM EDT Office Visit [facility] [address] [place] [address] Lake Sullivan MD [address] [place] [phone] documented as of this encounter Visit Diagnoses Not on filedocumented in this encounter Care Teams Supply Controller Relationship Specialty Start Date End Date Lake Sullivan MD [address] [place] [address] [phone] PCP - General Internal Medicine 02/12/14 documented as of this encounter
--- OUTSIDE RECORDS SUMMARY | 2024-11-13 10:29 | XMS_ITS | Encounter Summary ---
Author Organization [employer] Address [address] [facility] [address] [place] [address] Care Team Providers Care Faculty Research Physician Name Role Phone Lake Sullivan MD Primary Care Provide r Reason for Visit * Reason Onset Date Comments Med Refill 11/08/2024 Encounter Details Date Type Department Care Team ([facility] st Contact Info) Description 11/08/2024 Refill [facility] [address] [place] [address] 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, RN [address] [place] [address] Severe pain Social History Tobacco Use Types [...] Care Team (Late st Contact Info) Description 11/16/2024 9:00 AM EDT Office Visit [facility] [address] [place] [phone] David Baird MD [address] [place] [address] 12/17/2024 9:30 AM EDT Telemedicine [facility] [address] [place] [address] 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 RN [address] [place] [address] 02/05/2025 9:15 AM EDT Office Visit [facility] [address] [place] [phone] Lake Sullivan MD [address] [place] [phone] documented as of this encounter Visit Diagnoses Diagnosis Severe pain documented in this encounter Additional Health Concerns Assessment Noted Time PHQ-9 Depression Total Score: 3 08/18/19 24 10:01 AM EST documented as of this encounter Care Teams Faculty Research Physician Relationship Specialty Start Date End Date Lake Sullivan MD [address] [place] [address] PCP - General Internal Medicine 02/12/14 documented as of this encounter
--- OUTSIDE RECORDS SUMMARY | 2024-11-13 10:29 | XMS_ITS | Encounter Summary ---
Author Organization [employer] Address [address] [place] [address] Care Team Providers Care Data Control Clerk Supervisor Name Role Phone Lake Sullivan MD Primary Care Provide r Reason for Visit * Reason Comments Hypertension Encounter Details Date Type Department Care Team (Late st Contact Info) Description 11/13/2024 9:00 AM EDT Office Visit [facility] [address] [place], [place] [phone] Lake Sullivan MD [address] [place], [place] [phone] Body mass index (BMI) 45.0-49.9, adult (CMS/HCC) (Primary Dx); Ulcer of upper extremity, limited to breakdown of skin (CMS/HCC); Chronic diastolic heart failure (CMS/HCC); Pulmonary emphysema, unspecified emphysema type (CMS/HCC); Stage 3a chronic kidney disease (CMS/HCC); Essential hypertension; Dietary counseling; Exercise counseling; Dermatitis Social History Tobacco Use Types Packs/Day [...] Answer Date Recorded Patient Health Questionnaire-9 Score 0 11/13/2024 Patient Health Questionnaire-9 Score 0 11/13/2024 Last PHQ-9: Questionnaire Data Not on file 0 11/13/2024 Housing Stability Answer Date Recorded What is your housing situation today? I have reddy antonio 11/13/[address] you li ve. Do you have problems with any of the following? None of the above 11/13/2024 Food Insecurity Answer Date Recorded Within the past 12 months, y ou worried that your food would run out before you got money to buy more: Never True 11/13/2024 Within the past 12 months,th e food you bought just didn't last and you didn't have enough money to get more: Never True 12/2024 Transportation Answer Date Recorded In the past 12 months, has l ack of transportation kept you from medical appts, meetings, work or from getting things needed for daily living? No 11/13/2024 Utilities Answer Date Recorded In the past 12 months, has t he electric, gas, oil or water company threatened to shut off services in your home? No 11/13/2024 Depression Answer Date Recorded Patient Health Questionnaire-2 Score 0 11/13/2024 Internet Access Answer Date Recorded Internet Access Q1 No 11/13/2024 Internet Access Q2 I do not want or need it 12/2024 Sex and Gender Information Value Date Recorded Sex Assigned at Male 05/10/2022 10:15 AM EDT Legal Sex Male 10:15 AM EDT Gender Identity Male 05/10/2022 10:15 AM EDT Sexual Orientation Straight 05/10/2022 10 :15 AM EDT documented as of this encounter Last Filed Vital Signs Vital Sign Reading Time Taken Comments Blood Pressure 140/82 11/13/2024 9:19 AM EDT Pulse 70 11/13/2024 8:53 AM EDT Temperature 36.1 ??C (96.9 ??F) 11/13/2024 8:53 AM ED T Respiratory Rate 20 11/13/2024 8:53 AM EDT Oxygen Saturation 99% 11/13/2024 8:53 AM EDT Inhaled Oxygen Concentration - - Weight 130 kg (286 lb) 11/13/2024 8:53 AM EDT Height 167.6 cm (5' 6 ) 11/13/2024 8:53 AM EDT Body Mass Index 46.16 11/13/2024 8:53 AM EDT documented in this encounter Progress Notes * Lake Ramsey Donald, MD - 11/13/2024 9:00 AM EDT SUBJECTIVE Imer Parrish is a 69 y.o. male who presents for Hypertension. Hypertension This is a chronic problem. Pertinent negatives include no chest pain, headaches or shortness of breath. Review of Systems Constitutional: Negative for fever. HENT: Negative for sore throat. Respiratory: Negative for cough and shortness of breath. Cardiovascular: Negative for chest pain. Gastrointestinal: Negative for abdominal pain. Neurological: Negative for headaches. No Known Allergies OBJECTIVE Vitals: 11/13/24 0853 11/13/24 0919 BP: (!) 162/81 (!) 140/82 BP Location: Left arm Patient Position: Sitting BP Cuff Size: Large adult Pulse: 70 Resp: 20 Temp: 96.9 ??F (36.1 ??C) TempSrc: Temporal SpO2: 99% Weight: 286 lb (130 kg) Height: 5' 6 (1.676 m) Physical Exam Vitals reviewed. Constitutional: Appearance: Normal appearance. HENT: Head: Normocephalic and atraumatic. Right Ear: External ear normal. Left Ear: External ear normal. Nose: Nose normal. Mouth/Throat: Mouth: Mucous membranes are moist. Eyes: Conjunctiva/sclera: Conjunctivae normal. Cardiovascular: Rate and Rhythm: Normal rate and regular rhythm. Pulmonary: Effort: Pulmonary effort is normal. Breath sounds: Normal breath sounds. Skin: General: Skin is warm. Neurological: Mental Status: He is alert. Mental status is at baseline. Assessment/Plan Problem List Items Addressed This Visit Body mass index (BMI) 45.0-49.9, adult ([facility]) - Primary Patient has been counseled and educated about diet and exercise. Personal goal of weight loss discussedPatient has comorbidity of: HTN Pt unable to loose weight with diet and exercise Patient interested in GLP1 Discussed riskss associated, denies any Fam Hx of Thyroid Cancer or MEN, No Hx of pancreatitis Plan: Pt is NOT a candidate for Phentermine Will prescribe Zepbound Relevant Medications Tirzepatide-Weight Management (Zepbound) 2.5 MG/0.5ML solution auto-injector Ulcer of upper extremity, limited to breakdown of skin ([facility]) resolved Diastolic heart failure ([facility]) Pt here for a f/u Under the care of Dr Dow last note on record from 08/23/2024 Last ECHO 01/30/2020 Chronic obstructive lung disease ([facility]) Patient is here for a follow up He is still smoking , not interested in quitting, discussed again Under the care of Pulmonology Dr Hussein seen 10/18/2024 Stage 3a chronic kidney disease ([facility]) Under the care of Nephrology Lab Results Component Value Date NA 141 05/17/2024 NA 142 05/09/2024 K 4.3 05/17/2024 K 4.4 05/09/2024 CL 110 (H) 05/17/2024 CL 110 (H) 05/09/2024 BUN 25 (H) 05/17/2024 BUN 28 (H) 05/09/2024 CREATININE 1.67 (H) 05/17/2024 CREATININE 1.81 (H) 05/09/2024 Essential hypertension Here for a follow up BP controlled He is currently on a regimen of: Hydralazine (cardiology )Verelan PM 200 mg po q am and [id number] mg po daily Most recent electrolytes, Bun and Creatinine done on: Lab Results Component Value Date NA 141 05/17/2024 NA 142 05/09/2024 K 4.3 05/17/2024 K 4.4 05/09/2024 CL 110 (H) 05/17/2024 CL 110 (H) 05/09/2024 BUN 25 (H) 05/17/2024 BUN 28 (H) 05/09/2024 CREATININE 1.67 (H) 05/17/2024 CREATININE 1.81 (H) 05/09/2024 Plan: continue current regimen f/u 4 months patient advised to adhere to a low sodium diet, encouraged about medication compliance, counseled about weight loss Relevant Orders Comprehensive Metabolic Panel Lipid Panel, Standard TSH with Reflex to Free T4 PSA, Screen Other Visit Diagnoses Dietary counseling Exercise counseling Dermatitis Relevant Medications clotrimazole-betamethasone (Lotrisone) cream documented in this encounter Miscellaneous Notes * Assessment & Plan Note - Lake Bennett MD - 11/13/2024 9:14 AM EDT Associated Problem(s): Essential hypertension Here for a follow up BP controlled He is currently on a regimen of: Hydralazine (cardiology )Verelan PM 200 mg po q am and [id number] mg po daily Most recent electrolytes, Bun and Creatinine done on: Lab Results Component Value Date NA 141 05/17/2024 NA 142 05/09/2024 K 4.3 05/17/2024 K 4.4 05/09/2024 CL 110 (H) 05/17/2024 CL 110 (H) 05/09/2024 BUN 25 (H) 05/17/2024 BUN 28 (H) 05/09/2024 CREATININE 1.67 (H) 05/17/2024 CREATININE 1.81 (H) 05/09/2024 Plan: continue current regimen f/u 4 months patient advised to adhere to a low sodium diet, encouraged about medication compliance, counseled about weight loss * Assessment & Plan Note - Lake Bennett MD - 11/13/2024 9:13 AM EDT Associated Problem(s): Body mass index (BMI) 45.0-49.9, adult (CMS/HCC) Patient has been counseled and educated about diet and exercise. Personal goal of weight loss discussedPatient has comorbidity of: HTN Pt unable to loose weight with diet and exercise Patient interested in GLP1 Discussed riskss associated, denies any Fam Hx of Thyroid Cancer or MEN, No Hx of pancreatitis Plan: Pt is NOT a candidate for Phentermine Will prescribe Zepbound * Assessment & Plan Note - Lake Bennett MD - 11/13/2024 9:13 AM EDT Associated Problem(s): Ulcer of upper extremity, limited to breakdown of skin (CMS/HCC) resolved * Assessment & Plan Note - Lake Bennett MD - 11/13/2024 9:12 AM EDT Associated Problem(s): Stage 3a chronic kidney disease (CMS/HCC) Under the care of Nephrology Lab Results Component Value Date NA 141 05/17/2024 NA 142 05/09/2024 K 4.3 05/17/2024 K 4.4 05/09/2024 CL 110 (H) 05/17/2024 CL 110 (H) 05/09/2024 BUN 25 (H) 05/17/2024 BUN 28 (H) 05/09/2024 CREATININE 1.67 (H) 05/17/2024 CREATININE 1.81 (H) 05/09/2024 * Assessment & Plan Note - Lake Bennett MD - 11/13/2024 9:12 AM EDT Associated Problem(s): Diastolic heart failure (CMS/HCC) Pt here for a f/u Under the care of Dr Dow last note on record from 08/23/2024 Last ECHO 01/30/2020 * Assessment & Plan Note - Lake Bennett MD - 11/13/2024 9:10 AM EDT Associated Problem(s): Chronic obstructive lung disease (CMS/HCC) Patient is here for a follow up He is still smoking , not interested in quitting, discussed again Under the care of Pulmonology Dr Hussein seen 10/18/2024 documented in this encounter Plan of Treatment Upcoming Encounters Date Type Department Care Team (Late st Contact Info) Description 11/16/2024 9:00 AM EDT Office Visit [facility] [address] [facility] [place] [phone] David Baird MD [address] [facility] [place] [address] 12/17/2024 9:30 AM EDT Telemedicine [facility] [address] [place] [address] 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, LUCI [address] [place], [place] 02/05/2025 9:15 AM EDT Office Visit [facility] [address] [facility] [place] [address] Lake Sullivan MD [address] [facility] [place] [address] Scheduled Orders Name Type Priority Associated Diagnoses Orde r Schedule Comprehensive Metabolic Panel Lab Routine Essential hypertension Ordered: 11/13/2024 Lipid Panel, Standard Lab Routine Essential hypertension Ordered: 11/13/2024 TSH with Reflex to Free T4 Lab Routine Essential hypertension Ordered: 11/13/2024 PSA, Screen Lab Routine Essential hypertension Ordered: 11/13/2024 documented as of this encounter Visit Diagnoses Diagnosis Body mass index (BMI) 45.0-49.9, adult ([facility])- Primary Ulcer of upper extremity, limited to breakdown of skin ([facility]) Chronic diastolic heart failure ([facility]) Chronic diastolic heart failure Pulmonary emphysema, unspecified emphysema type ([facility]) Stage 3a chronic kidney disease ([facility]) Essential hypertension Unspecified essential hypertension Dietary counseling Dietary surveillance and counseling Exercise counseling Dermatitis Contact dermatitis and other eczema, due to unspecified cause documented in this encounter Additional Health Concerns Assessment Noted Time PHQ-9 Depression Total Score: 0 11/14/19 25 9:01 AM EDT documented as of this encounter Care Teams Data Control Clerk Supervisor Relationship Specialty Start Date End Date Lake Sullivan [place] [address] PCP - General Internal Medicine 02/12/14 documented as of this encounter
--- OUTSIDE RECORDS SUMMARY | 2024-11-13 10:29 | XMS_ITS | Clinical Summary ---
Author Organization [employer] Address [address] [facility] 7t [place] [address] Care Team Providers Care Fire Marshal Name Role Phone Lake Sullivan MD Primary [...] test blood sugar every day 1 kit Active OneTouch Delica Lancets 33G misc USE [...] NOT CRUSH OR CHEW 30 tablet 11 Active loratadine (Claritin) 10 MG tablet TAKE 1 TABLET(10 MG) BY MOUTH EVERY DAY FOR ALLERGIES 90 tablet 1 025 Active irbesartan (Avapro) 150 MG tablet TAKE 1 TABLET BY MOUTH EVERY DAY 90 tablet 1 025 Active senna (Senokot) 8.6 MG tabletIndicatio ns:Chronic constipation TAKE 1 TO 2 TABLETS BY MOUTH EVERY 12 HOURS NEEDED FOR CONSTIPATION 120 tablet 5 025 Active oxyCODONE-aceta minophen (Percocet) 5-325 MG tabletIndicatio ns:Severe pain Take 1 tablet by mouth every 8 (eight) hours if needed for severe pain for up to 28 days. Do not start before November 10, 2024. 84 tablet 025 2024 Active morphine CR (MS Contin) 15 MG 12 hr tabletIndicatio ns:Severe pain Take 1 tablet (15 mg) by mouth every 12 (twelve) hours for 28 days. Do not start before November 10, 2024. 56 tablet 025 2024 Active clotrimazole (Lotrimin) 1 % cream Apply 1 Application. topically 2 times daily. Active clotrimazole-be tamethasone (Lotrisone) creamIndication s:Dermatitis APPLY TOPICALLY TO THE AFFECTED AREA EVERY 12 HOURS NEEDED 60 g 6 Active Tirzepatide-Joselito ght Management (Zepbound) 2.5 MG/0.5ML solution auto-injectorIn dications:Body mass index (BMI) 45.0-49.9, adult ([facility]) Inject 0.5 mL (2.5 mg) under the skin 1 (one) time per week. 0.5 mL 3 Active senna (Senokot) 8.6 MG tabletIndicatio ns:Chronic constipation TAKE 1 TO 2 TABLETS BY MOUTH EVERY 12 HOURS NEEDED FOR CONSTIPATION 120 tablet 5 2024 Discontinued clotrimazole-be tamethasone (Lotrisone) creamIndication s:Dermatitis APPLY TOPICALLY TO THE AFFECTED AREA EVERY 12 HOURS NEEDED 60 g 025 2024 Discontinued(R eorder (will not trigger notification to Pharmacy)) oxyCODONE-aceta minophen (Percocet) 5-325 MG tabletIndicatio ns:Severe pain Take 1 tablet by mouth every 8 (eight) hours if needed for severe pain for up to 28 days. Do not start before October 15, 2024. 84 tablet 025 2024 Discontinued(R eorder (will not trigger notification to Pharmacy)) morphine CR (MS Contin) 15 MG 12 hr tabletIndicatio ns:Severe pain Take 1 tablet (15 mg) by mouth every 12 (twelve) hours for 28 days. Do not start before October 15, 2024. 56 tablet 025 2024 Discontinued(R eorder (will not trigger notification to Pharmacy)) Active Problems Problem Noted Date Diagnosed Date Body mass index (BMI) 45.0-49.9, adult Assessment & Plan (11/13/2024 9:21 AM EDT): Patient has been counseled and educated about diet and exercise. Personal goal of weight loss discussedPatient has comorbidity of: HTN Pt unable to loose weight with diet and exercise Patient interested in GLP1 Discussed riskss associated, denies any Fam Hx of Thyroid Cancer or MEN, No Hx of pancreatitis Plan: Pt is NOT a candidate for Phentermine Will prescribe Zepbound Long-term current use of opiate analgesic 2024 Other hemorrhoids 05/16/2024 Assessment & Plan (05/16/2024 11:25 AM EST): More fiber and water on diet Miralax + colace Hydrocortisone locally Stat surgery referral Ulcer of upper extremity, limited to breakdown o f skin 05/08/2024 Assessment & Plan (11/13/2024 9:13 AM EDT): resolved Assessment & Plan (05/08/2024 9:47 AM EDT): [...] w sutures removal otherwise to come to [facility] -gave today written prescription for knee brace [...] recent X-rays done st the office of [facility] during his last visit 11/12/2013 of his [...] should be considered. 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 At some point he was seen by Dr Diego at [facility] who stated that unless he was to loose some weight he would not recommend to pursue with any kind of surgical intervention, He had also recommended to use a brace given to him by [facility]. Of note pt was also seen by Dr Elda Saini who belongs to an orthopedic oncology group. He was seen on 05/01/[address] Saini recommended he f/u with [facility]. I have been prescribing Narcotics for pt for pain control. Unfortunately pt lacks the motivation to loose weight . Pt has a narcotic contract with us. [facility] recommended he have an AFO fabricated and [...] to go to a Orthopedic Oncologist in [place], We explained to him that the closest was [facility] but they do not take his insurance [...] were wnl. Pt was evaluated by a media center specialist. He was seen by media center specialist Dr Alan on 11/07/2012 his work was unrevealing so she has recommended observation. Preventative health care 07/01/2022 Assessment & Plan (05/08/2024 [...] chronic kidney disease 01/07/2021 Assessment & Plan (11/13/2024 9:12 AM EDT): Under the care of Nephrology Lab Results Component Value Date NA 141 05/17/2024 NA 142 05/09/2024 K 4.3 05/17/2024 K 4.4 05/09/2024 CL 110 (H) 05/17/2024 CL 110 (H) 05/09/2024 BUN 25 (H) 05/17/2024 BUN 28 (H) 05/09/2024 CREATININE 1.67 (H) 05/17/2024 CREATININE 1.81 (H) 05/09/2024 Assessment & Plan (08/18/2023 10:04 AM EST): [...] 12/30/2015 Essential hypertension 05/20/2015 Assessment & Plan (11/13/2024 9:14 AM EDT): Here for a follow up [...] counseled about weight loss Assessment & Plan (05/08/2024 9:23 AM EDT): [...] Diastolic heart failure 09/25/2012 Assessment & Plan (11/13/2024 9:12 AM EDT): Pt here for a f/u Under the care of Dr Dow last note on record from 08/23/2024 Last ECHO 01/30/2020 Assessment & Plan (08/18/2023 10:04 AM EST): [...] to go to a Orthopedic Oncologist in [place], We explained to him that the closest was [facility] but they do not take his insurance [...] obstructive lung disease 12/23/2011 Assessment & Plan (11/13/2024 9:10 AM EDT): Patient is here for a follow up He is still smoking , not interested in quitting, discussed again Under the care of Pulmonology Dr Hussein seen 10/18/2024 Assessment & Plan (05/08/2024 9:21 AM EDT): [...] Wixella And ProAir MDI He follows with Stock Associate Dr Hussein, last note on record 01/25/2022 Assessment & Plan (07/01/2022 11:08 AM EST): Unfortunately he is still smoking 1 ppd, not interested in quitting He is currently on a regimen of Advair Diskus 250/50 1 puff BID, [id number] MDI 1 to 2 puffs qid, and Spiriva once daily. He follows with Stock Associate Dr Hussein, last seen 01/25/2022 Gynecomastia 12/23/2011 Hypogonadism in male 12/23/2011 Assessment & Plan (07/01/2022 4:20 PM EST): Pt with Primary hypogonadism, used to be under the care of credit specialist (Dr Celeste). Last note from Dr [...] (07/01/2022 11:20 AM EST): Pt seen at [facility] 06/27/2022 s/p fall Work up included plain films that were negative for fracture. Conservative and supportive treatment Encounters Date Type Department Care Team Description 11/13/2024 9:00 AM EDT Office Visit [facility] [address] [place] [address] Lake Sullivan MD Body mass index (BMI) 45.0-49.9, adult ([facility]) (Primary Dx); Ulcer of upper extremity, limited to breakdown of skin ([facility]); Chronic diastolic heart failure ([facility]); Pulmonary emphysema, unspecified emphysema type ([facility]); Stage 3a chronic kidney disease ([facility]); Essential hypertension; Dietary counseling; Exercise counseling; Dermatitis 11/13/2024 Travel 11/08/2024 Telephone [facility] [address] [place] [address] Lake Sullivan MD Chart Prep 11/08/2024 Refill [facility] [address] [place] [address] Lake Sullivan MD Dermatitis 11/08/2024 Refill [facility] [address] [facility] [place] [address] 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 RN Severe pain 11/08/2024 Telephone [facility] [address] [place] [address] Lake Sullivan MD Med Refill 10/31/2024 Patient Outreach [facility] [address] [facility] [place] [address] Lake Sullivan MD Pre-visit Planning (SDOH will need to be completed In office. ) 10/16/2024 Refill [facility] [address] [place] [address] Lake Sullivan MD Chronic constipation 10/12/2024 Refill [facility] [address] [place] [address] Lake Sullivan MD Severe pain 10/09/2024 Refill [facility] [address] [place] [address] Lake Sullivan MD Dermatitis 10/01/2024 Orders Only [facility] External Provider, [facility] 09/27/2024 9:00 AM EDT Clinical Support [facility] [address] [place] [address] 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, cable dispatcher midline low back pain with left-sided sciatica (Primary Dx); Long-term current use of opiate analgesic; Long-term current use of benzodiazepine 09/27/2024 Telephone [facility] [address] [place] [address] 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, LUCI 09/27/2024 Travel 09/18/2024 Refill [facility] [address] [place] [address] Lake Sullivan MD 09/18/2024 Refill [facility] [address] [place] [address] Lake Sullivan MD 09/17/2024 Refill [facility] [address] [place] [address] 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, LUCI Severe pain 09/17/2024 Telephone [facility] [address] [place] [address] Lake Sullivan MD Med Refill 08/28/2024 Refill [facility] [address] [place] [address] Lake Sullivan MD Dermatitis 08/20/2024 Refill [facility] [address] [place] [address] Lake Sullivan MD Severe pain from Last [...] Mass Index 46.16 11/13/2024 8:53 AM EDT Plan of Treatment Upcoming Encounters Date Type Department Care Team (Late st Contact Info) Description 11/16/2024 9:00 AM EDT Office Visit [facility] [address] [place] [address] David Baird MD [address] [place] [address] 12/17/2024 9:30 AM EDT Telemedicine [facility] [address] [place] [address] 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, RN [address] [place] [address] 02/05/2025 9:15 AM EDT Office Visit [facility] [address] [place] [address] Lake Sullivan MD [address] [place] [address] Health Maintenance Due Date Last Done Comments CT Colonography 1955 Dental Prophylaxis 1955 Dental X-Ray: Bitewings 1955 FIT DNA/Cologuard 1955 FIT 1955 FOBT 1955 Sigmoidoscopy 1955 Dental Oral Exam 02/01/2023 08/03/2022 Colonoscopy 12/26/2023 12/25/2018 Colorectal Cancer Screening 12/26/2023 Diabetes: Hemoglobin A1C 11/28/2024 024, 09/14/2023, 11/18/2021, Additional history exists Alcohol/Substance Use Screening 05/08/2025 05/08/2024 Dental X-Ray: Full Mouth 08/04/2025 08/03/2022 Depression Screening 11/13/2025 11/13/2024, 11/14/19 25 SDOH Screening 11/13/2025 11/13/2024 Tobacco Screening 11/13/2025 11/13/2024 Lipid Panel 05/09/2029 05/09/2024, 11/0 07/2022, 08/02/2022, Additional history exists DTaP/Tdap/Td Vaccines (3 [...] EDT Narrative 10/05/2024 11:13 AM EDT ? [facility] ?[address] ?[place] [address] ? CT Scan Report ? Signed ? Patient: Parrish,Imer ?MR#: [id number] ?? [id number] ? : 1955 ?Acct:[id number] ? Age/Sex: 69 / M ?ADM Date: 10/01/24 ? Loc: HO.CT ? Attending Dr: Ashlyn Davis PA-C ? Ordering Physician: Ashlyn Davis PA-C ?? Date of Service: 10/01/24 ?? Procedure(s): CT lung screening ?? Accession Number(s): [id number] ? cc: Lake Allen MD; Ashlyn Davis PA-C ? Report Number: ?? [id number]: Total DLP = ?? 89.00 mGy-cm ? CLINICAL HISTORY: F17.210 - Nicotine dependence, cigarettes, uncomplicated ? CT lung cancer screening (LDCT) ? Comparison: CT/UT/SR - CT LUNG SCREENING - 09/27/23 08:22 [...] in OV> ? 10/05/24 1112 ? DD/ 1112 ? TD/TT: 10/05/24 1112 ? Return Checker: ? Procedure Note [facility], Image - 10/05/[address] [place] [address] [address] Scan Report Signed Patient: Rayshawn Parrish#: [id number] : 1955cct:[id number] Age/Sex: 69 / MADM Date: 10/01/24 Loc: HO.CT Attending Dr: Ashlyn Davis PA-C Ordering Physician: Ashlyn Davis PA-C Date of Service: 10/01/24 Procedure(s): CT lung screening Accession Number(s): [id number] cc: Lake Allen MD; Ashlyn Davis PA-C Report Number: [id number]: Total DLP = 89.00 mGy-cm CLINICAL HISTORY: F17.210 - Nicotine dependence, cigarettes, uncomplicated CT lung cancer screening (LDCT) Comparison: CT/UT/SR - CT LUNG SCREENING - 09/27/23 08:22 [...] OV> 10/05/24 1112 DD/ 1112 TD/TT: 10/05/24 1112 Return Checker: [facility] External Provider IMG CT PROCEDURES Final Result * POCT KALPESH-14 Urine Drug Screen (09/27/2024 9:10 AM EDT) Pathologist [facility] Opiate Screen, Urine Positive Oxycodone Screen, Urine Positive Urine Urine specimen obtained by clean catch procedure / Unknown 09/27/2024 9:10 AM EDT Narrative 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 RN - 09/27/2024 9:10 AM EDT Lot# [id number] Exp: 02-27-26 Lake Bennett MD POINT OF CARE TEST EN TER/EDIT ORDERABLES Final Result * (ABNORMAL) Lipid Panel, Standard (05/09/2024 8:05 AM EDT) Pathologist [facility] Triglycerides 127 <150 mg/dL [facility] Comment:Desirable Triglyceri de: less than 150 mg/dLBorderline High Triglyceride 150-199 mg/dLHigh Triglyceride: 200-499 mg/dLVery High Triglyceride: greater than or equal to 5OO mg/dL Cholesterol 175 <200 mg/dL [facility] Comment:Desirable Cholestero l: less than 200 mg/dLBorderline High Cholesterol: 200-239 mg/dLHigh Cholesterol: greater than 239 mg/dL LDL Cholesterol Calculated 119(H) <100 mg/dL [facility] Comment:Desirable LDL: less than 100 mg/dLNear Optimal/Above Optimal LDL: 110- 129 mg/dLBorderline High LDL: 130-159 mg/dLHigh LDL: 160-189 mg/dLVery High LDL: greater than or equal to 190 mg/dL HDL Cholesterol 31(L) >40 mg/dL [facility] Comment:Desirable HDL: great er than 40 mg/dL Note: This HDL assay may give artificially low results in patients with liver disease. Blood Venous blood specimen / Unknown 05/09/2024 8:05 AM EDT 05/09/2024 11:23 AM EDT Lake Bennett MD LAB BLOOD ORDERABLES Final Result [facility] [address] [place] [phone] * POCT A1C (11/29/2023 2:57 PM EDT) Hemoglobin A1C 6.0 4.0 - 6.0 % QC Media Lot # [id number] Lot# Expiration Date Blood 11/29/2023 2:57 PM EDT us Janet PRATT POINT OF CARE TEST ENTER/EDIT OR DERABLES Final Result * Hepatitis C Antibody with Reflex to HCV, RNA, Quantitative, Real-Time PCR (10/11/2022 8:03 AM EDT) Hepatitis C Antibody NON-REACT PIPPA NON-REACT PIPPA [facility] Index 0.02 <1.00 [facility] Comment: HCV antibody was non-reactive. There is no laboratory evidence of HCV infection. In most cases, no further action is required. However, if recent HCV exposure is suspected, a test for HCV RNA (test code 77260) is suggested. For additional information please refer to http://education.[employer]/faq/WOM92n1 (This link is being provided for informational/ educational purposes only.) Blood Venous blood specimen / Unknown 10/11/2022 8:03 AM EDT 10/11/2022 8:04 AM EDT Narrative [facility] - 10/11/2022 9:54 PM EDT FASTING:UNKNOWN FASTING: UNKNOWN Lake Bennett MD LAB BLOOD ORDERABLES Final Result [facility] [address], [place] [address] [employer] [address] [place] [phone] * Colonoscopy (12/25/2018) Colonoscopy Normal Normal 12/25/2018 Laurie Villa - 12/25/2018 2:08 PM EDT Recommended 5 year follow up Historical Provider HEALTH MAINTENANCE Edited Result - Final from Last 3 Months or Most Recently Relevant to Health Maintenance Insurance [facility] [employer] OPTIONS (HMO D-SNP) DENTAL - [facility] Care Teams Fire Marshal Relationship Specialty Start Date End Date Lake Sullivan MD [address] [place] [id number] PCP - General Internal Medicine 02/12/14
--- OUTSIDE RECORDS SUMMARY | 2024-11-13 10:29 | XMS_ITS | Encounter Summary ---
Author Organization [employer] Address [address] [facility] 7t [place] [address] Care Team Providers Care Chief Power Dispatcher Name Role Phone Lake Slulivan MD Primary Care Provide r Reason for Visit * Reason Onset Date Comments Call Back Request 06/15/2023 Encounter Details Date Type Department Care Team ([facility] Contact Info) Description 06/15/2023 Telephone [facility] [address] [place], [place] [phone] Lake Sullivan MD [address] [place], [place] [phone] Call Back Request Social History Tobacco Use [...] Upcoming Encounters Date Type Department Care Team ([facility] st Contact Info) Description 11/16/2024 9:00 AM EDT Office Visit [facility] [address] [place] [address] David Baird MD [address] [place] [address] 12/17/2024 9:30 AM EDT Telemedicine [facility] [address] [place] [address] 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, LUCI [address] [place] [address] 02/05/2025 9:15 AM EDT Office Visit [facility] [address] [place] [address] Lake Sullivan MD [address] [place] [address] documented as of this encounter Visit Diagnoses Not on filedocumented in this encounter Care Teams Chief Power Dispatcher Relationship Specialty Start Date End Date Lake Sullivan MD [address] [place], [place] [phone] PCP - General Internal Medicine 02/12/14 documented as of this encounter
--- OUTSIDE RECORDS SUMMARY | 2024-11-13 10:29 | XMS_ITS | Encounter Summary ---
Author Organization [employer] Address [address] [facility] 7t [place] [address] Care Team Providers Care Fuel Handler Name Role Phone Lake Sullivan MD Primary Care Provide r Reason for Visit * Reason Onset Date Comments Med Refill 11/08/2024 Encounter Details Date Type Department Care Team ([facility] st Contact Info) Description 11/08/2024 Telephone [facility] [address] [place], [place] [phone] Lake Sullivan MD [address] [place], [place] [phone] Med Refill Social History Tobacco Use Types [...] * Telephone Encounter - Marsha Cruz - 11/08/2024 8:58 AM EDT TC from pt requesting medication refill. Medications needing refill : oxyCODONE-acetaminophen (Percocet) 5-325 MG tablet morphine CR (MS Contin) 15 MG 12 hr tablet [facility] be [facility] to: [id number] [facility] documented in this encounter Plan of Treatment Upcoming Encounters Date Type Department Care Team ([facility] Contact Info) Description 11/16/2024 9:00 AM EDT Office Visit [facility] [address] [place], [place] [phone] David Baird MD [address] [place], [place] [phone] 12/17/2024 9:30 AM EDT Telemedicine [facility] [address] [place], [place] [phone] 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, RN [address] [place] [address] 02/05/2025 9:15 AM EDT Office Visit [facility] [address] [place] [address] Lake Sullivan MD [address] [place] [address] documented as of this encounter Visit Diagnoses Not on filedocumented in this encounter Additional Health Concerns Assessment Noted Time PHQ-9 Depression Total Score: 3 08/18/19 24 10:01 AM EST documented as of this encounter Care Teams Fuel Handler Relationship Specialty Start Date End Date Lake Sullivan MD [address] [place] [phone] PCP - General Internal Medicine 02/12/14 documented as of this encounter
--- OUTSIDE RECORDS SUMMARY | 2024-11-13 10:29 | XMS_ITS | Encounter Summary ---
Author Organization [employer] Address [address] [facility] 7t [place] [address] Care Team Providers Care Electroplating Laborer Name Role Phone Lake Sullivan MD Primary Care Provide r Reason for Visit * Reason Comments Med Refill Encounter Details Date Type Department Care Team ([facility] st Contact Info) Description 11/08/2024 Refill [facility] [address] [place], [place] [phone] Lake Sullivan MD [address] [place], [place] [phone] Dermatitis Social History Tobacco Use Types Packs/Day [...] Upcoming Encounters Date Type Department Care Team ([facility] st Contact Info) Description 11/16/2024 9:00 AM EDT Office Visit [facility] [address] [place] [address] David Baird MD [address] [place] [address] 12/17/2024 9:30 AM EDT Telemedicine [facility] [address] [place] [address] 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 RN [address] [place] [address] 02/05/2025 9:15 AM EDT Office Visit [facility] [address] [place] [address] Lake Sullivan MD [address] [place] [address] documented as of this encounter Visit Diagnoses Diagnosis Dermatitis Contact dermatitis and other eczema, due to unspecified cause documented in this encounter Additional Health Concerns Assessment Noted Time PHQ-9 Depression Total Score: 3 08/18/19 24 10:01 AM EST documented as of this encounter Care Teams Electroplating Laborer Relationship Specialty Start Date End Date Lake Sullivan MD [address] [place] [address] PCP - General Internal Medicine 02/12/14 documented as of this encounter
--- OUTSIDE RECORDS SUMMARY | 2024-11-13 10:29 | XMS_ITS | Encounter Summary ---
Author Organization [employer] Address [address] [facility] [address] [place] [address] Care Team Providers Care Manufacturing Applications Engineer Name Role Phone Lake Sullivan MD Primary Care Provide r Encounter Details Date Type Department Care Team (Latest Contact Info) Description 11/13/2024 Travel Social History Tobacco Use Types Packs/Day Years [...] Description 11/16/2024 9:00 AM EDT Office Visit [facility] [address] [place] [address] David Baird MD [address] [place] [address] 12/17/2024 9:30 AM EDT Telemedicine [facility] [address] [place] [address] 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, LUCI [address] [place] [address] 02/05/2025 9:15 AM EDT Office Visit [facility] [address] [place] [address] Lake Sullivan MD [address] [place] [address] documented as of this encounter Visit Diagnoses Not on filedocumented in this encounter Additional Health Concerns Assessment Noted Time PHQ-9 Depression Total Score: 0 11/14/19 25 9:01 AM EDT documented as of this encounter Care Teams Manufacturing Applications Engineer Relationship Specialty Start Date End Date Lake Sullivan MD [address] [place] [phone] PCP - General Internal Medicine 02/12/14 documented as of this encounter
--- OUTSIDE RECORDS SUMMARY | 2024-11-13 10:29 | XMS_ITS | Encounter Summary ---
Author Organization [employer] Address 75 [facility] 7t [place] [address] Care Team Providers Care Medical Data Entry Clerk Name Role Phone Lake Sullivan MD Primary Care Provide r Reason for Visit * Reason Comments Med Refill Encounter Details Date Type Department Care Team (Late st Contact Info) Description 07/16/2023 Refill [facility] MEDICINE [address] [place] [address] [phone] Lake Sullivan MD [address] [place], [place] [phone] Chronic constipation Social History Tobacco Use Types [...] Description 11/16/2024 9:00 AM EDT Office Visit [facility] MEDICINE 230 [place], [place] [phone] David Baird MD 230 [place] [address] 12/17/2024 9:30 AM EDT Telemedicine [facility] 505 [place] [address] 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, RN 505 [place] [address] 02/05/2025 9:15 AM EDT Office Visit [facility] MEDICINE [address] [place] [address] Lake Sullivan MD [address] [place] [phone] documented as of this encounter Visit Diagnoses Diagnosis Chronic constipation Unspecified constipation documented in this encounter Care Teams Medical Data Entry Clerk Relationship Specialty Start Date End Date Lake Sullivan MD [address] [place] [phone] PCP - General Internal Medicine 02/12/14 documented as of this encounter
--- OUTSIDE RECORDS SUMMARY | 2024-11-13 10:29 | XMS_ITS | Encounter Summary ---
Author Organization [employer] Address [address] [facility] 7t [place] [address] Care Team Providers Care Power Equipment Mechanics Instructor Name Role Phone Lake Sullivan MD Primary Care Provide r Reason for Visit * Reason Onset Date Comments Chart Prep 11/08/2024 Encounter Details Date Type Department Care Team ([facility] st Contact Info) Description 11/08/2024 Telephone [facility] MEDICINE [address] [place], [place] [phone] Lake Sullivan MD 230 [place], [place] [phone] Chart Prep Social History Tobacco Use Types Packs/Day Years [...] encounter Miscellaneous Notes * Telephone Encounter - Isabela Montaño [place] - 11/08/2024 2:12 PM EDT Chart Prep Labs: done Images: not applicable Vaccines due: Updated Referrals: General Surgery Completed Screenings: Colonoscopy Overdue care gaps: SDOH, PQ9, GAD7, and Disability Chart prep for upcoming appt with Dr.Esparza mehta. LB documented in this encounter Plan of Treatment Upcoming Encounters Date Type Department Care Team (Late st Contact Info) Description 11/16/2024 9:00 AM EDT Office Visit [facility] MEDICINE [address] [place] [address] David Baird MD [address] [place] [address] 12/17/2024 9:30 AM EDT Telemedicine [facility] CHC MED & PEDS 505 [place] [address] 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, LUCI 505 [place] [address] 02/05/2025 9:15 AM EDT Office Visit [facility] MEDICINE 230 [place] [address] Lake Sullivan MD [address] [place] [address] documented as of this encounter Visit Diagnoses Not on filedocumented in this encounter Additional Health Concerns Assessment Noted Time PHQ-9 Depression Total Score: 3 08/18/19 24 10:01 AM EST documented as of this encounter Care Teams Power Equipment Mechanics Instructor Relationship Specialty Start Date End Date Lake Sullivan MD [address] [place] [address] PCP - General Internal Medicine 02/12/14 documented as of this encounter
--- OUTSIDE RECORDS SUMMARY | 2024-11-13 10:29 | XMS_ITS | Clinical Summary ---
Author Organization [facility] Address [address] [phone] Phone Care Team Providers Care Asic Verification Engineer Name Role Phone Lake Ramsey MD Primary Care Provider Unav ailable Allergies No known active allergies Medications Hydrocortisone Juancarlos-Pramoxine 2.5-1 % lotion as directed Act tamy allopurinol (ZYLOPRIM) 100 MG tablet Take 1 tablet by mouth 1 (one) time each day Active bisacodyl (Dulcolax) 5 MG EC tablet Take 1 tablet by mouth 1 (one) time each day Active busPIRone (BUSPAR) 15 MG tablet Take 1 tablet by mouth 1 (one) time each day Active calcium carbonate-vitam in D 600-400 MG-UNIT per tablet Take 1 tablet by mouth 2 (two) times a day Active cefadroxil (DURICEF) 500 MG capsule Take 2 capsules by mouth 2 (two) times a day Active cholecalciferol (VITAMIN D-3 SUPER STRENGTH) 50 MCG (2000 UT) tablet Take 1 tablet by mouth 1 (one) time each day Active clobetasol (TEMOVATE) 0.05 % cream as directed Active clonazePAM (KlonoPIN) 1 MG tablet Take 1 tablet by mouth 2 (two) times a day Active diclofenac (VOLTAREN) 50 MG EC tablet Take 1 tablet by mouth 2 (two) times a day Active diphenhydrAMINE (Benadryl Allergy) 25 MG capsule Take 1 capsule by mouth 1 (one) time each day Active docusate sodium (Colace) 100 MG capsule Take 1 capsule by mouth at bed time Active fluticasone-philip meterol (Advair Diskus) 500-50 MCG/DOSE diskus inhaler 1 puff by Other route 2 (two) times a day Active ipratropium-alb uterol (DUO-NEB) 0.5-2.5 mg/3 mL nebulizer solution as directed Active irbesartan (AVAPRO) 150 MG tablet Take 2 tablets by mouth every morning 9 Active lactulose (CHRONULAC) 10 GM/15ML solution Take 15 mL by mouth 2 (two) times a day Active loratadine (CLARITIN) 10 MG tablet Take 1 tablet by mouth 1 (one) time each day Active montelukast (SINGULAIR) 10 MG tablet Take 1 tablet by mouth every night Active morphine (MS Contin) 15 MG 12 hr tablet Take 1 tablet by mouth 2 (two) times a day Active oxybutynin XL (Ditropan XL) 10 MG 24 hr tablet Take 2 tablets by mouth 1 (one) time each day Active oxyCODONE-aceta minophen (Percocet) 5-325 MG per tablet Take 1 tablet by mouth Active PARoxetine (PAXIL) 40 MG tablet Take 1 tablet by mouth 1 (one) time each day Active PARoxetine (PAXIL) 10 MG tablet Take 1 tablet by mouth 1 (one) time each day Active polyethylene glycol (GLYCOLAX) 17 GM/SCOOP powder 17 g by Other route 1 (one) time each day Active predniSONE (DELTASONE) 20 MG tablet as directed Active QUEtiapine (SEROquel) 400 MG tablet Take 1 tablet by mouth at bed time Active senna (Senna-Time) 8.6 MG tablet Take by mouth 2 (two) times a day Active sertraline (ZOLOFT) 50 MG tablet Take 1 tablet by mouth 1 (one) time each day Active tiotropium (Spiriva HandiHaler) 18 MCG per inhalation capsule Take 2 puffs by mouth Active verapamil ER (VERELAN PM) 300 MG 24 hr capsule Take 1 capsule by mouth at bed time Active albuterol HFA (PROVENTIL HFA;VENTOLIN HFA) 108 (90 Base) MCG/ACT inhaler INHALE 2 PUFFS BY MOUTH EVERY 4 TO 6 HOURS NEEDED FOR SHORTNESS OF BREATH OR WHEEZING 1 Active ALPRAZolam (XANAX) 1 MG tablet TAKE 1 TABLET BY MOUTH TWICE DAILY MAY TAKE 1/2 TABLET NEEDED 1 Active hydrALAZINE 25 MG tablet 1 Active Myrbetriq 50 MG tablet sustained-relea se 24 hour Take 1 tablet by mouth 1 Active metFORMIN XR (GLUCOPHAGE-XR) 500 MG 24 hr tablet TAKE 1 TABLET BY MOUTH EVERY DAY WITH THE EVENING MEAL 1 Active Narcan 4 MG/0.1ML liquid SPRAY IN 1 NOSTRIL MAY REPEAT DOSE EVERY 2 TO 3 MINUTES NEEDED ALTERNATING NOSTRILS WITH EACH DOSE 1 Active tamsulosin (FLOMAX) 0.4 MG 24 hr capsule TAKE 1 CAPSULE BY MOUTH EVERY NIGHT AT BEDTIME 1 Active Chantix 1 MG tablet TAKE 1 TABLET BY MOUTH TWICE DAILY AFTER MEALS WITH GLASS OF WATER 1 Active Active Problems Problem Noted Date Diagnosed Date Gout, not otherwise specified 05/21/2023 Stage 3a chronic kidney disease 01/07/2021 Hypertension 01/07/2021 Hypertensive nephrosclerosis 01/07/2021 Localized edema 01/07/2021 Acute nontraumatic kidney injury 01/07/2021 Cyst of kidney 01/07/2021 Overweight 01/07/2021 Tobacco dependence syndrome 01/07/2021 Obstructive sleep apnea syndrome 01/07/2021 Dyslipidemia 01/07/2021 Benign prostatic hyperplasia 04/03/201505/2023 Overview (05/21/2023): Last Assessment & Plan: Followed by urology. No longer on Myrbetric [...] and Overactive bladder Diastolic heart failure 09/25/2012 05/21/20 23 Overview (05/21/2023): Last Assessment & Plan: Pt doing well in this regard. Under the care of Dr Dow last note on record from 05/14/2020 Last ECHO 01/30/2020 Chronic low back pain 03/20/2012 05/21/2023 Overview (05/21/2023): Last Assessment & Plan: Here for a f/u c/o good days and bad days He has chronic right sided low back pain, currently on a narcotic regimen, Plan: continue current regimen Discussed with him again the need to loose weight, pt lacks the motivation Chronic obstructive pulmonary disease 12/23/2011 05/21/2023 Overview (05/21/2023): Last Assessment & Plan: Patient here for a follow up Unfortunately he is still smoking , not interested in quitting He is currently on a regimen of Wixella And ProAir MDI He follows with Chiropractic Practice Manager Dr Hussein, last note on record 01/25/2022 Immunizations Immunization Administration Dates Next Due Influenza Split High Dose Preservative Free IM 1 Influenza TIV (IM) 04/10/2019 Pneumococcal Polysaccharide 04/10/2019 Family History Medical History Relation Comments Heart disease Father Heart disease Mother Heart disease Sibling Relation Status Comments Father Mother Sibling Social History Tobacco Use Types Packs/Day Years Used Date Smoking Tobacco: Every Day Cigarettes Smokeless Tobacco: Never Alcohol Use Standard Drinks/Week Comments No 0 (1 standard drink = 0.6 oz pur e alcohol) Sex and Gender Information Value Date Recorded Sex Assigned at Not on file Legal Sex Male 5:25 PM EST Gender Identity Not on file Sexual Orientation Not on file Last Filed Vital Signs Vital Sign Reading Time Taken Comments Blood Pressure 107/87 05/24/2024 11:44 AM EST Pulse 90 05/24/2024 11:44 AM EST Temperature - - Respiratory Rate - - Oxygen Saturation 98% 05/24/2024 11:44 AM EST Inhaled Oxygen Concentration - - Weight 133 kg (294 lb) 05/24/2024 11:44 AM EST Height 165.1 cm (5' 5 ) 05/24/2024 11:44 AM EST Body Mass Index 48.92 05/24/2024 11:44 AM EST Plan of Treatment Upcoming Encounters Date Type Department Care Team (Late st Contact Info) Description 05/23/2025 8:00 AM EST Office Visit [facility] [address] [facility] [address] [place] [address] Bossman Starks MD [address] [facility] [address] [place] [phone] Health Maintenance Due Date Last Done Comments Colorectal Cancer Screening: Annual FOBT 2002 Colorectal Cancer Screening: Colonoscopy 2002 Colorectal Cancer Screening: Sigmoidoscopy 2002 Pneumococcal Vaccine: 50+ Years Completed 04/08/2021, 04/10/2019, 03/28/2014, Additional history exists Pneumococcal Vaccine: Peds (0 to 5 Years) and At-Risk Patients (6 to 49 Years) Discontinued 04/08/2021, 04/10/2019, 03/28/2014, Additional history exists Influenza Vaccine Completed 04/02/2024, , 04/10/2019, Additional history exists Hepatitis B Vaccine Aged Out No longe r eligible based on patient's age to complete this topic Insurance [facility] ([id number]) [facility] MCR ([id number]) [place] MCCART[place] [id number] Care Teams Asic Verification Engineer Relationship Specialty Start Date End Date Lake Ramsey MD [address] [place] [id number] PCP - General 07/21/20
--- OUTSIDE RECORDS SUMMARY | 2024-11-13 10:30 | XMS_ITS | Encounter Summary ---
Author Organization [employer] Address 75 [facility] 7t [place] [address] Care Team Providers Care Hybrid Technologist Name Role Phone Lake Sullivan MD Primary Care Provide r Reason for Visit * Reason Onset Date Comments Med Refill 2024 Encounter Details Date Type Department Care Team ([facility] st Contact Info) Description [address] [facility] MEDICINE 230 [place], [place] [phone] Lake Sullivan MD [address] [place], [place] [phone] Severe pain Social History Tobacco Use Types [...] 5-325 MG tablet To be sent to: [facility][id number] documented in this encounter Plan of Treatment Upcoming Encounters Date Type Department Care Team (Late st Contact Info) Description 11/16/2024 9:00 AM EDT Office Visit [facility] MEDICINE [address] [place] [address] David Baird MD 230 [place] [address] 12/17/2024 9:30 AM EDT Telemedicine [facility] CHC MED & PEDS 505 [place] [address] 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, LUCI 505 [place] [address] 02/05/2025 9:15 AM EDT Office Visit [facility] MEDICINE 230 [place] [address] Lake Sullivan MD 230 [place] [address] documented as of this encounter Visit Diagnoses Diagnosis Severe pain documented in this encounter Additional Health Concerns Assessment Noted Time PHQ-9 Depression Total Score: 3 08/18/19 24 10:01 AM EST documented as of this encounter Care Teams Hybrid Technologist Relationship Specialty Start Date End Date Lake Sullivan MD 230 [place] [address] PCP - General Internal Medicine 02/12/14 documented as of this encounter
--- OUTSIDE RECORDS SUMMARY | 2024-11-13 10:30 | XMS_ITS | Encounter Summary ---
Author Organization [employer] Address [address] [facility] 7t [place] [address] Care Team Providers Care Hasher Machine Operator Name Role Phone Lake Sullivan MD Primary Care Provide r Reason for Visit * Reason Comments Med Refill Encounter Details Date Type Department Care Team (Late st Contact Info) Description 06/28/2023 Refill [facility] MEDICINE [address] [place] [address] [phone] Name, MD Cm [address] [place] [address] [phone] Dermatitis Social History Tobacco Use Types Packs/Day [...] Description 11/16/2024 9:00 AM EDT Office Visit [facility] MEDICINE [address] [place] [address] [phone] David Baird MD [address] [place] [address] [phone] 12/17/2024 9:30 AM EDT Telemedicine [facility] [address] [facility] [place] [address] 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, RN 505 [place] [address] 02/05/2025 9:15 AM EDT Office Visit [facility] MEDICINE 230 [place] [address] Lake Sullivan MD 230 [place] [address] documented as of this encounter Visit Diagnoses Diagnosis Dermatitis Contact dermatitis and other eczema, due to unspecified cause documented in this encounter Care Teams Hasher Machine Operator Relationship Specialty Start Date End Date Lake Sullivan MD [address] [place] [address] PCP - General Internal Medicine 02/12/14 documented as of this encounter
--- OUTSIDE RECORDS SUMMARY | 2024-11-13 10:30 | XMS_ITS | Encounter Summary ---
Author Organization [employer] Address [address] [facility] 7t [place] [address] Care Team Providers Care Linux Unix Administrator Name Role Phone Lake Sullivan MD Primary Care Provide r Reason for Visit * Reason Onset Date Comments Call Back Request 12/20/2023 Encounter Details Date Type Department Care Team ([facility] st Contact Info) Description 12/20/2023 Telephone [facility] MEDICINE 230 [place], [place] [phone] Lake Sullivan MD 230 [place], [place] [phone] Call Back Request Social History Tobacco Use [...] a call back in order to r/s ENTERPRISE MANAGER appt to before 12/26 due to traveling. documented in this encounter Plan of Treatment Upcoming Encounters Date Type Department Care Team (Late st Contact Info) Description 11/16/2024 9:00 AM EDT Office Visit [facility] MEDICINE [address] [place] [phone] David Baird MD 230 [place] [address] 12/17/2024 9:30 AM EDT Telemedicine [facility] CHC MED & PEDS 505 [place] [address] 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, LUCI 505 [place] [address] 02/05/2025 9:15 AM EDT Office Visit [facility] MEDICINE [address] [place] [address] Lake Sullivan MD 230 [place] [address] documented as of this encounter Visit Diagnoses Not on filedocumented in this encounter Additional Health Concerns Assessment Noted Time PHQ-9 Depression Total Score: 3 08/18/19 24 10:01 AM EST documented as of this encounter Care Teams Linux Unix Administrator Relationship Specialty Start Date End Date Lake Sullivan MD 230 [place] [address] PCP - General Internal Medicine 02/12/14 documented as of this encounter
--- OUTSIDE RECORDS SUMMARY | 2024-11-13 10:30 | XMS_ITS | Encounter Summary ---
Author Organization [employer] Address 75 [facility] 7t [place] [address] Care Team Providers Care Manager Gyn Name Role Phone Lake Sullivan MD Primary Care Provide r Reason for Visit * Reason Onset Date Comments Appointment 08/27/2022 Patient left malu t today but did not stop in front because his ride was waiting for him. He states that he is supposed to come back next week and wants an marketing technologist appt with Dr. Fisher. I informed patient that I would not be able to schedule but would relay information to dental and he would get a call for scheduling He did say he wanted an marketing technologist. I informed I would relay that as well but I would not be able to guarantee and office would be in touch for scheduling DR Encounter Details Date Type Department Care Team (Late st Contact Info) Description 08/27/2022 Telephone [facility] ADULT DENTAL 230 [place], [place] [phone] Phil Fisher DDS 230 [place], [place] [phone] Appointment (Patient left appt today but did not stop in front because his ride was waiting for him. He states that he is supposed to come back next week and wants an marketing technologist appt with Dr. Fisher. I informed patient that I would not be able to schedule but would relay information to dental and he would get a call for scheduling He did say he wanted an marketing technologist. I informed I would relay that as [...] Miscellaneous Notes * Telephone Encounter - Estrellita Rae - 08/27/2022 11:09 AM EST Patient left appt today but did not stop in front because his ride was waiting for him. He states that he is supposed to come back next week and wants an marketing technologist appt with Dr. Fisher. I informed patient that I would not be able to schedule but would relay information to dental and he would get a call for scheduling He did say he wanted an marketing technologist. I informed I would relay that as wellbut I would not be able to guarantee and office would be in touch for scheduling DR documented in this encounter Plan of Treatment Upcoming Encounters Date Type Department Care Team (Late st Contact Info) Description 11/16/2024 9:00 AM EDT Office Visit [facility] MEDICINE [address] [place] [address] David Baird MD 230 [place] [address] 12/17/2024 9:30 AM EDT Telemedicine [facility] CHC MED & PEDS 505 [place] [address] 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, RN 505 [place] [address] 02/05/2025 9:15 AM EDT Office Visit [facility] MEDICINE 230 [place] [address] Lake Sullivan MD 230 [place], [place] [phone] documented as of this encounter Visit Diagnoses Not on filedocumented in this encounter Care Teams Manager Gyn Relationship Specialty Start Date End Date Lake Sullivan MD 230 [place], [place] [phone] PCP - General Internal Medicine 02/12/14 documented as of this encounter
--- OUTSIDE RECORDS SUMMARY | 2024-11-13 10:30 | XMS_ITS | Encounter Summary ---
Author Organization [employer] Address 75 [facility] 7t [place] [address] Care Team Providers Care Academic Registrar Name Role Phone Lake Sullivan MD Primary Care Provide r Reason for Visit * Reason Onset Date Comments Med Refill 05/28/2024 Encounter Details Date Type Department Care Team ([facility] st Contact Info) Description 05/28/2024 Telephone [facility] MEDICINE 230 [place], [place] [phone] Lake Sullivan MD 230 [place], [place] [phone] Med Refill Social History Tobacco Use Types [...] 12 hr tablet To be sent to: [facility] #[id number] [facility] Pt states has no medications * Telephone Encounter - Conor Ross - 05/28/2024 9:24 AM EST TC from pt requesting medication refill. Medications needing refill : oxyCODONE-acetaminophen (Percocet) 5-325 MG tablet morphine CR (MS Contin) 15 MG 12 hr tablet To be sent to: [facility] #[id number] - [id number] [facility] documented in this encounter Plan of Treatment Upcoming Encounters Date Type Department Care Team (Late st Contact Info) Description 11/16/2024 9:00 AM EDT Office Visit [facility] MEDICINE 230 [place] [address] David Baird MD 230 [place] [address] 12/17/2024 9:30 AM EDT Telemedicine [facility] CHC MED & PEDS 505 [place] [address] 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, LUCI 505 [place] [address] 02/05/2025 9:15 AM EDT Office Visit [facility] MEDICINE [address] [place] [address] Lake Sullivan MD 230 [place] [address] documented as of this encounter Visit Diagnoses Not on filedocumented in this encounter Additional Health Concerns Assessment Noted Time PHQ-9 Depression Total Score: 3 08/18/19 24 10:01 AM EST documented as of this encounter Care Teams Academic Registrar Relationship Specialty Start Date End Date Lake Sullivan MD [address] [place] [id number] PCP - General Internal Medicine 02/12/14 documented as of this encounter
--- OUTSIDE RECORDS SUMMARY | 2024-11-13 10:30 | XMS_ITS | Encounter Summary ---
Author Organization [employer] Address [address] [facility] [address] 7t [place] [address] Care Team Providers Care Entertainment Director Name Role Phone Lake Sullivan MD Primary Care Provide r Encounter Details Date Type Department Care Team (Late st Contact Info) Description 01/13/2023 Orders Only [facility] CH[facility] MED & PEDS [address] [place] [address] Peggy Carey LPN Social History Tobacco Use [...] Description 11/16/2024 9:00 AM EDT Office Visit [facility] MEDICINE 230 [place], [place] [phone] David Baird MD 230 [place], [place] [phone] 12/17/2024 9:30 AM EDT Telemedicine [facility] MED [facility] PEDS 505 [place] [address] 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, RN 505 [place] [address] 02/05/2025 9:15 AM EDT Office Visit [facility] MEDICINE 230 [place] [address] Lake Sullivan MD [address] [place] [address] documented as of this encounter Visit Diagnoses Not on filedocumented in this encounter Care Teams Entertainment Director Relationship Specialty Start Date End Date Lake Sullivan MD [address] [place] [address] PCP - General Internal Medicine 02/12/14 documented as of this encounter
--- OUTSIDE RECORDS SUMMARY | 2024-11-13 10:30 | XMS_ITS | Encounter Summary ---
Author Organization [employer] Address [address] [facility] 7t [place] [address] Care Team Providers Care Pump Servicer Supervisor Name Role Phone Lake Sullivan MD Primary Care Provide r Reason for Visit * Reason Comments Med Refill Encounter Details Date Type Department Care Team (Late st Contact Info) Description 04/06/2023 Refill [facility] MEDICINE 230 [place], [place] [phone] Delaney Zavala MD 230 [place], [place] [phone] Dermatitis Social History Tobacco Use Types Packs/Day [...] Office Visit [facility] MEDICINE 230 [place], [place] [phone] David Baird MD 230 [place], [place] [phone] 12/17/2024 9:30 AM EDT Telemedicine [facility] MED & PEDS 505 [place] [address] 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, RN 505 [place] [address] 02/05/2025 9:15 AM EDT Office Visit [facility] MEDICINE 230 [place] [address] Lake Sullivan MD 230 [place] [address] documented as of this encounter Visit Diagnoses Diagnosis Dermatitis Contact dermatitis and other eczema, due to unspecified cause documented in this encounter Care Teams Pump Servicer Supervisor Relationship Specialty Start Date End Date Lake Sullivan MD [address] [place] [address] PCP - General Internal Medicine 02/12/14 documented as of this encounter
--- OUTSIDE RECORDS SUMMARY | 2024-11-13 10:30 | XMS_ITS | Encounter Summary ---
Author Organization [employer] Address [address] [facility] 7t [place] [address] Care Team Providers Care Shot Hole Shooter Name Role Phone Lake Sullivan MD Primary Care Provide r Reason for Visit * Reason Onset Date Comments Med Refill 09/17/2024 Encounter Details Date Type Department Care Team ([facility] st Contact Info) Description 09/17/2024 Telephone [facility] MEDICINE 230 [place], [place] [phone] Lake Sullivan MD 230 [place], [place] [phone] Med Refill Social History Tobacco Use Types [...] 5-325 MG tablet [id number] [facility] documented in this encounter Plan of Treatment Upcoming Encounters Date Type Department Care Team ([facility] Contact Info) Description 11/16/2024 9:00 AM EDT Office Visit [facility] MEDICINE 230 [place], [place] [phone] David Baird MD 230 [place], [place] [phone] 12/17/2024 9:30 AM EDT Telemedicine [facility] MED & PEDS 505 [place], [place] [phone] 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, RN 505 [place] [address] 02/05/2025 9:15 AM EDT Office Visit [facility] MEDICINE 230 [place] [address] Lake Sullivan MD 230 [place] [address] documented as of this encounter Visit Diagnoses Not on filedocumented in this encounter Additional Health Concerns Assessment Noted Time PHQ-9 Depression Total Score: 3 08/18/19 24 10:01 AM EST documented as of this encounter Care Teams Shot Hole Shooter Relationship Specialty Start Date End Date Lake Sullivan MD [address] [place] [address] PCP - General Internal Medicine 02/12/14 documented as of this encounter
--- OUTSIDE RECORDS SUMMARY | 2024-11-13 10:30 | XMS_ITS | Encounter Summary ---
Author Organization [employer] Address [address] [facility] [address] 7t [place] [address] Care Team Providers Care Ethyl Blender Name Role Phone Lake Sullivan MD Primary Care Provide r Encounter Details Date Type Department Care Team (Late st Contact Info) Description 11/15/2022 Orders Only [facility] CHC MED & PEDS [address] [place] [address] ePggy Carey LPN Social History Tobacco Use Types [...] Description 11/16/2024 9:00 AM EDT Office Visit [facility] MEDICINE 230 [place], [place] [phone] David Baird MD 230 [place], [place] [phone] 12/17/2024 9:30 AM EDT Telemedicine [facility] CHC MED & PEDS 505 [place] [address] 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, RN 505 [place] [address] 02/05/2025 9:15 AM EDT Office Visit [facility] MEDICINE 230 [place] [address] Lake Sullivan MD 230 [place] [address] documented as of this encounter Visit Diagnoses Not on filedocumented in this encounter Care Teams Ethyl Blender Relationship Specialty Start Date End Date Lake Sullivan MD [address] [place] [address] PCP - General Internal Medicine 02/12/14 documented as of this encounter
--- OUTSIDE RECORDS SUMMARY | 2024-11-13 10:30 | XMS_ITS | Encounter Summary ---
Author Organization [employer] Address [address] [facility] [address] 7t [place] [address] Care Team Providers Care Health Data Administrator Name Role Phone Lake Sullivan MD Primary Care Provide r Encounter Details Date Type Department Care Team ([facility] st Contact Info) Description 07/20/2022 Telephone [facility] MEDICINE 230 [place], [place] [phone] Lake Sullivan MD 230 [place], [place] [phone] Social History Tobacco Use Types Packs/Day Years [...] Description 11/16/2024 9:00 AM EDT Office Visit [facility] MEDICINE [address] [place] [address] David Baird MD 230 [place] [address] 12/17/2024 9:30 AM EDT Telemedicine [facility] CHC MED & PEDS 505 [place], [place] [phone] 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, RN 505 [place] [address] 02/05/2025 9:15 AM EDT Office Visit [facility] MEDICINE 230 [place] [address] Lake Sullivan MD [address] [place] [address] documented as of this encounter Visit Diagnoses Not on filedocumented in this encounter Care Teams Health Data Administrator Relationship Specialty Start Date End Date Lake Sullivan MD [address] [place] [phone] PCP - General Internal Medicine 02/12/14 documented as of this encounter
--- OUTSIDE RECORDS SUMMARY | 2024-11-13 10:30 | XMS_ITS | Encounter Summary ---
Author Organization [employer] Address [address] [address] 7t [place] [address] Care Team Providers Care Magnetic Doctor Name Role Phone Lake Sullivan MD Primary Care Provide r Encounter Details Date Type Department Care Team (Late st Contact Info) Description 11/17/2022 Abstract [facility] MEDICINE 230 [place], [place] [phone] Lake Sullivan MD 230 [place], [place] [phone] Social History Tobacco Use Types Packs/Day Years [...] Description 11/16/2024 9:00 AM EDT Office Visit [facility] 230 [place], [place] [phone] David Baird MD 230 [place] [address] 12/17/2024 9:30 AM EDT Telemedicine [facility] CHC MED & PEDS 505 [place], [place] [phone] 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, RN 505 [facility] [place] 02/05/2025 9:15 AM EDT Office Visit [facility] 230 [facility] [place] [address] Lake Sullivan MD [address] [place], [place] [phone] documented as of this encounter Procedures Procedure Name Priority Date/Time Associated Diagnosis Comments COLONOSCOPY Routine 12/25/2018 documented in this encounter Results * Colonoscopy (12/25/2018) Colonoscopy Normal Normal 12/25/2018 Narrative Laurie Chacko - 12/25/2018 2:08 PM EDT Recommended 5 year follow up us Historical Provider [facility] Result - Final documented in this encounter Visit Diagnoses Not on filedocumented in this encounter Care Teams Magnetic Doctor Relationship Specialty Start Date End Date Lake Sullivan MD [address] [place], [place] [phone] PCP - General Internal Medicine 02/12/14 documented as of this encounter
--- OUTSIDE RECORDS SUMMARY | 2024-11-13 10:30 | XMS_ITS | Encounter Summary ---
Author Organization [employer] Address 75 [facility] 7t [place] [address] Care Team Providers Care Underwriting Support Specialist Name Role Phone Lake Sullivan MD Primary Care Provide r Reason for Visit * Reason Onset Date Comments Med Refill 03/05/2024 Encounter Details Date Type Department Care Team ([facility] st Contact Info) Description 03/05/2024 Telephone [facility] MEDICINE 230 [place], [place] [phone] Lake Sullivan MD 230 [place], [place] [phone] Med Refill Social History Tobacco Use Types [...] 12 hr tablet To be sent to: [facility] #[id number] [facility] documented in this encounter Plan of Treatment Upcoming Encounters Date Type Department Care Team ([facility] Contact Info) Description 11/16/2024 9:00 AM EDT Office Visit [facility] MEDICINE [address] [place] [address] David Baird MD 230 [place] [address] 12/17/2024 9:30 AM EDT Telemedicine [facility] CHC MED & PEDS 505 [place] [address] 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, RN 505 [place] [address] 02/05/2025 9:15 AM EDT Office Visit [facility] MEDICINE [address] [place], [place] [address], [place] [address] Lake Sullivan MD 230 [place] [address] documented as of this encounter Visit Diagnoses Not on filedocumented in this encounter Additional Health Concerns Assessment Noted Time PHQ-9 Depression Total Score: 3 08/18/19 24 10:01 AM EST documented as of this encounter Care Teams Underwriting Support Specialist Relationship Specialty Start Date End Date Lake Sullivan MD [address] [facility] [place] [address] PCP - General Internal Medicine 02/12/14 documented as of this encounter
--- OUTSIDE RECORDS SUMMARY | 2024-11-13 10:30 | XMS_ITS | Data Portability ---
Author Organization [facility] [employer] [place] in - [facility] Address [address] [place] [phone] Care Team Providers Care Cook Soup Name Role Phone [facility] Referring Provider Assessment No assessment recorded. Plan of Treatment Reminders Order Date Submit Date Provider Last Modified By Organization Details Last Modified Time Details Appointments None recorded. Lab rapid SARS CoV 2 Ag, QL IA, respiratory specimen [address], [id number] 4 18:24:42 rapid flu (A+B) [address], [phone] 4 18:24:43 Referral None recorded. Procedures None recorded. Surgeries None recorded. Imaging None recorded. Medication Orders None recorded. Patient TargetsNo targets recorded. Patient InstructionsNo instructions recorded. Reason for Referral None Reported. Results Created Date Observation Date Name Description Value Unit Range Abnormal Flag Note LastModifiedBy Organization Detail LastModifiedTime 08/27/19 24 08/27/2023 rapid flu (A+B) Flu negati ve Not Available [facility] ed [address] [place] [address], [phone] 08/27/2023 18:24:19 08/27/19 24 08/27/2023 rapid SARS CoV 2 Ag, QL IA, respi rator y speci men rapid SARS CoV 2 Ag, QL IA, respiratory specimen negati ve Not Available [facility] ed [address] [place] [address], [phone] 08/27/2023 18:24:15 Result Notes None recorded. Medical [...] Address Organization Details Last Updated DateTime 4 951229. 536 g 97 % 97 % 100.9 [...] SNOMED-CT Code Diagnosis ICD10 Code Diagnosis Note 09011 Sarah Weir MD Main - [facility] [address] [place] [phone] 08/27/2023 18:01:50 08/28/2023 13:42:23 Urinary symptoms [id number] R39.9 Evaluation in the field was performed by my acute care nurse practitioner colleague, as noted above, I provided real-time direction and supervisio n for this visit. 68yo M endorsing 2 days of urinary frequency and L flank pain. No hx UTIs. On VS T 100.9F no tachycardi a or hypotensio n. Exam notable for irritable pt w/ L low back pain not totally c/w CVA TTP. Unable to urinate as voided prior to acute care nurse practitioner arrival and not amenable to drinking fluids or having acute care nurse practitioner wait for sample, reports he prefers to [...] of breath, cough, chest pain, fever. Cough [id number] R05.9 Pt endorsing mild cough, VS notable for T 100.9. Tumor Registrar exam w/ clear lungs. COVID and flu negative. Suspect URI, symptomtic mgmt. Health Concerns Section Related Observation LastModified by Organization Detai ls LastModified Time None Recorded Concern Status LastModified by Organization Details LastModified Time None Recorded Advance Directives Directive None Recorded Payers Encounter Date Sequence Insurance Name Policy Number Policy Jordan Covered Member ID Jordan Member ID Guarantor Name 08/27/[address] [facility] - DOS ON OR AFTER 2022 - DUAL ELIGIBLE - HALFWAY OPTIONS AND ONE CARE (MEDICARE REPLACEMENT/ADV ANTAGE - HMO) Imer Perez [id number] Imer Perez Notes Date Note Type Note Provider Name and Address Organization Details Recorded Time 08/27/2023 text/html CRC Nurse Triage Notes (Don Soto): Chief Complaints: Fever/Chills, Pain Allergies: No Known Comments: Aquatic Scientist verified the member's name//address and phone number Pt Hungarian speaking primarily- cutter gas# [id number] used for triage assessment. Member c/o chills [...] ................. ................. ................. ................. ................. ................. ..... Tumor Registrar Note From Jens Law: Pt reports two [...] unwilling to produce urine sample, sts ? I ? m going to the hospital tomorrow morning anyway.? Pt advised that we cannot treat with out UA. Pt instructed to seek emergent medical care for new or worsening sx, which are reviewed with him. ................. ................. ................. ................. ................. ................. ................. ................. ..... Disposition: Fulfilled Sarah Weir MD [address] [facility],[address], [place], [phone], [place] 08/27/2023 19:32:42
--- OUTSIDE RECORDS SUMMARY | 2024-11-13 10:30 | XMS_ITS | Encounter Summary ---
Author Organization [employer] Address [address] [facility] 7t [place] [address] Care Team Providers Care Magazine Repairer Name Role Phone Lake Sullivan MD Primary Care Provide r Reason for Visit * Reason Onset Date Comments Med Refill 02/09/2024 Encounter Details Date Type Department Care Team ([facility] st Contact Info) Description 02/09/2024 Telephone [facility] MEDICINE 230 [place], [place] [phone] Lake Sullivan MD 230 [place], [place] [phone] Med Refill Social History Tobacco Use Types [...] 5-325 MG tablet To be sent to: [facility] #[id number] [facility] documented in this encounter Plan of Treatment Upcoming Encounters Date Type Department Care Team ([facility] Contact Info) Description 11/16/2024 9:00 AM EDT Office Visit [facility] MEDICINE [address] [place] [phone] David Baird MD 230 [place] [address] 12/17/2024 9:30 AM EDT Telemedicine [facility] CHC MED & PEDS 505 [place] [address] 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, LUCI 505 [place] [address] 02/05/2025 9:15 AM EDT Office Visit [facility] MEDICINE [address] [place] [address] [phone] Lake Sullivan MD 230 [place], [place] [phone] documented as of this encounter Visit Diagnoses Not on filedocumented in this encounter Additional Health Concerns Assessment Noted Time PHQ-9 Depression Total Score: 3 08/18/19 24 10:01 AM EST documented as of this encounter Care Teams Magazine Repairer Relationship Specialty Start Date End Date Lake Sullivan MD 230 [place] [address] PCP - General Internal Medicine 02/12/14 documented as of this encounter
--- OUTSIDE RECORDS SUMMARY | 2024-11-13 10:30 | XMS_ITS | Encounter Summary ---
Author Organization [employer] Address [address] [facility] 7t [place] [address] Care Team Providers Care Automotive Starter Repairer Name Role Phone Lake Sullivan MD Primary Care Provide r Reason for Visit * Reason Comments Med Refill Encounter Details Date Type Department Care Team ([facility] st Contact Info) Description 09/18/2024 Refill [facility] MEDICINE 230 [place], [place] [phone] Lake Sullivan MD 230 [place], [place] [phone] Social History Tobacco Use Types Packs/Day Years [...] Description 11/16/2024 9:00 AM EDT Office Visit [facility] MEDICINE [address] [place] [address] David Baird MD [address] [place] [address] 12/17/2024 9:30 AM EDT Telemedicine [facility] CHC MED & PEDS 505 [place] [address] 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 RN 505 [place] [address] 02/05/2025 9:15 AM EDT Office Visit [facility] MEDICINE [address] [place] [address] Lake Sullivan MD [address] [place] [address] documented as of this encounter Visit Diagnoses Not on filedocumented in this encounter Additional Health Concerns Assessment Noted Time PHQ-9 Depression Total Score: 3 08/18/19 24 10:01 AM EST documented as of this encounter Care Teams Automotive Starter Repairer Relationship Specialty Start Date End Date Lake Sullivan MD 230 [place] [address] PCP - General Internal Medicine 02/12/14 documented as of this encounter
--- OUTSIDE RECORDS SUMMARY | 2024-11-13 10:30 | XMS_ITS | Clinical Summary ---
Author Organization [facility] Address [address] [place] [address] Care Team Providers Care Pinking Sewing Machine Operator Name Role Phone Unavailable Primary Care Provider Unavailabl e Social History Tobacco Use Types Packs/Day Years Used Date Smoking Tobacco: Never Assessed Sex and Gender Information Value Date Recorded Sex Assigned at Not on file Gender Identity Not on file Sexual Orientation Not on file Plan of Treatment Not on file
--- OUTSIDE RECORDS SUMMARY | 2024-11-13 10:30 | XMS_ITS | Encounter Summary ---
Author Organization [employer] Address [address] [facility] 7t [place] [address] Care Team Providers Care 411 Directory Assistance Operator Name Role Phone Lake Sullivan MD Primary Care Provide r Reason for Visit * Reason Onset Date Comments Med Refill 01/27/2023 Encounter Details Date Type Department Care Team ([facility] st Contact Info) Description 01/27/2023 Telephone [facility] MEDICINE 230 [place], [place] [phone] Lake Sullivan MD 230 [place], [place] [phone] Med Refill Social History Tobacco Use Types [...] med , * Telephone Encounter - Linh Gould RN - 01/27/2023 1:45 PM EDT Perc and morphine filled 01/05 for 28d. Due 02/01 * Telephone Encounter - Mamta Witt - 01/27/2023 12:36 PM EDT Tc from patient requesting a med refill for medication oxycodone 5 mg and morphine CR 15 mg. Pleasesend to [facility] [id number] [address] [place] [address] AT [facility]. PCP Dr. Ramsey documented in this encounter Plan of Treatment Upcoming Encounters Date Type Department Care Team (Late st Contact Info) Description 11/16/2024 9:00 AM EDT Office Visit [facility] MEDICINE [address] [place] [phone] David Baird MD 230 [place] [address] 12/17/2024 9:30 AM EDT Telemedicine [facility] CHC MED & PEDS 505 [place] [address] 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 RN 505 [place] [address] 02/05/2025 9:15 AM EDT Office Visit [facility] MEDICINE [address] [place] [phone] Lake Sullivan MD 230 [place] [address] documented as of this encounter Visit Diagnoses Not on filedocumented in this encounter Care Teams 411 Directory Assistance Operator Relationship Specialty Start Date End Date Lake Sullivan MD 230 [place] [address] PCP - General Internal Medicine 02/12/14 documented as of this encounter
--- OUTSIDE RECORDS SUMMARY | 2024-11-13 10:30 | XMS_ITS | Clinical Summary ---
Author Organization [facility] Address [address] [place] [address] Phone Care Team Providers Care Education Department Chair Name Role Phone Clarissa Vick MD Primary Care Provider + [phone] Allergies No known active allergies Medications montelukast (SINGULAIR) 10 mg tablet Take 1 tablet (10 mg total) by mouth. at bedtime. Active metFORMIN XR (GLUCOPHAGE-XR) 500 mg 24 hr tablet Take 1 tablet (500 mg total) by mouth 1 (one) time each day with dinner. Active loratadine (CLARITIN) 10 mg tablet TAKE 1 TABLET(10 MG) BY MOUTH EVERY DAY FOR ALLERGIES 09/19/19 25 Active FreeStyle Lancets 28 gauge lancets 2 (two) times a day. use to test blood sugar 09/22/19 25 Active hydrocortisone-p ramoxine (PRAMOSONE) 2.5-1 % lotion See administration instructions. Active hydrocortisone (ANUSOL-HC) 2.5 % rectal cream INSERT RECTALLY TO THE AFFECTED AREA TWICE DAILY Active docusate sodium (COLACE) 100 mg capsule TAKE 1 CAPSULE TWICE DAILY NEEDED FOR CONSTIPATION Active doxycycline hyclate (VIBRA-TABS) 100 mg tablet 05/08/20 24 Active diclofenac (VOLTAREN) 50 mg EC tablet Take 1 tablet (50 mg total) by mouth 2 (two) times a day. Active cholecalciferol (VITAMIN D-3) 50 mcg (2,000 unit) capsule Take 1 capsule (2,000 Units total) by mouth 1 (one) time each day. Active FreeStyle Lite Meter monitoring kit See administration instructions. 05/03/20 24 Active blood sugar diagnostic (FreeStyle Lite Strips) test strip USE TO TEST BLOOD SUGAR EVERY DAY UP TO THREE TIMES DAILY 09/22/19 25 Active amLODIPine (NORVASC) 5 mg tablet Take 1 tablet (5 mg total) by mouth 1 (one) time each day. 03/15/20 24 Active albuterol HFA (PROAIR HFA ; PROVENTIL HFA ; VENTOLIN HFA) 90 mcg/actuation inhaler INHALE 2 PUFFS BY MOUTH EVERY 4 TO 6 HOURS NEEDED FOR SHORTNESS OF BREATH OR WHEEZING 10/17/19 24 Active Alcohol Prep Pads pads, medicated 2 (two) times a day. as directed 05/01/20 24 Active allopurinoL (ZYLOPRIM) 100 mg tablet Take 1 tablet (100 mg total) by mouth 1 (one) time each day. Active ALPRAZolam (XANAX) 1 mg tablet TAKE 1 TABLET BY MOUTH TWICE DAILY NEEDED. MAY TAKE 1/2 TABLET DAILY NEEDED --THIS IS 30 DAY SUPPLY 09/20/19 25 Active bisacodyL (Dulcolax, bisacodyl,) 5 mg EC tablet Take 1 tablet (5 mg total) by mouth 1 (one) time each day. Active busPIRone (BUSPAR) 15 mg tablet Take 1 tablet (15 mg total) by mouth 1 (one) time each day. Active clotrimazole-bet amethasone (LOTRISONE) 1-0.05 % cream APPLY TOPICALLY TO THE AFFECTED AREA EVERY 12 HOURS NEEDED 08/28/19 25 Active irbesartan (AVAPRO) 300 mg tablet Take 1 tablet (300 mg total) by mouth 1 (one) time each day. 08/28/19 25 Active Myrbetriq 50 mg tablet extended release 24 hr 24 hr tablet Take 1 tablet (50 mg total) by mouth 1 (one) time each day. 09/22/19 25 Active diphenhydrAMINE (BENADRYL) 25 mg capsule Take 1 capsule (25 mg total) by mouth 1 (one) time each day. Active QUEtiapine (SEROquel) 400 mg tablet Take 1 tablet (400 mg total) by mouth. at bedtime. Active linaCLOtide (Linzess) 72 mcg capsuleIndicatio ns:Chronic idiopathic constipation Take 1 capsule (72 mcg total) by mouth 1 (one) time each day before breakfast. 30 each 11 09/26/19 25 026 Active polyethylene glycol (Golytely) 236-22.74-6.74 -5.86 gram solution Take 4L by mouth once for one dose. May substitue any PEG. Starting at 6PM the night before your procedure drink 1 8oz glasses at your own pace until you complete half of the gallon. Finish 2nd half of the gallon 5 hours before your procedure. 4000 mL 09/28/19 25 Active Active Problems Problem Noted Date Diagnosed Date Colon polyps 09/25/2024 Anxiety 09/25/2024 Depression 09/25/2024 Asthma 09/25/2024 Tobacco dependence 09/25/2024 Gout 09/25/2024 T2DM (type 2 diabetes mellitus) ([facility] V24, [facility] V28) 09/25/2024 Chronic idiopathic constipation 01/19/2018 Assessment & Plan (09/25/2024 11:54 AM EDT): Failing over the counter options. Recommend switch to Linzess 72mcg PO daily. Reviewed dosing option, can increase pending response. Orders: linaCLOtide (Linzess) 72 mcg capsule; Take 1 capsule (72 mcg total) by mouth 1 (one) time each day before breakfast. HTN (hypertension) 05/20/2015 Chronic obstructive pulmonar y disease ([facility] V24, [facility] V28) 12/23/2011 Overview (09/25/2024): Last Assessment & Plan: Patient here for a follow up Unfortunately he is still smoking , not interested in quitting He is currently on a regimen of Wixella And ProAir MDEva He follows with [employer] Dr Hussein, last note on record 01/25/2022 Encounters Date Type Department Care Team Description 10/11/2024 Telephone Gastroenterology - [address] [phone] Toño Hannah MD 10/11/2024 Telephone Gastroenterology - [address] [phone] Tika Bustos [place] Colonoscopy 09/25/2024 8:40 AM EDT Office Visit Gastroenterology - [address] [facility] [address] [place] [phone] Heidi Covarrubias PA Chronic idiopathic constipation (Primary Dx); Colon cancer screening 08/27/2024 Telephone Gastroenterology - [address] [email or web address] [address] [place] [address] Toño Hannah MD from Last 3 Months Surgical History Surgery Date Site/Laterality Comments COLONOSCOPY 12/25/2018 adequate prep, TAx1 3-yr recall Medical History Medical History Date Comments HTN (hypertension) 03/15/2012 DX:HTN (hyper tension) Tobacco abuse 03/15/2012 DX:Tobacco abuse Observed sleep apnea 03/15/2012 DX:Observed sleep apnea Diastolic CHF, chronic ([facility]/ [facility] V24, [facility] V28) 03/15/2012 DX:Diastolic CHF, chronic (H CC) Asthma 03/15/2012 DX:Asthma COPD (chronic obstructive pu lmonary disease) ([facility] V24, [facility] V28) 03/15/2012 DX:COPD (chronic o bstructive pulmonary disease) ([facility]) Colon polyp Family History Medical History Relation [...] Info) Description 12/11/2024 9:30 AM EDT Appointment [facility] Endoscopy [address] [place] [phone] Toño Hannah MD [address] [facility] [address] [place] [address] Health Maintenance Due Date Last Done Comments [...] Blood Sugar Control Test (HGBA1C) 09/25/2024 11/29/2023 COVID-19 Vaccine ( season) 2024 04/02/2024, 04/13/2023, 11/09/2021, Additional history exists Colorectal Cancer Screening: Colonoscopy 12/25/2028 12/25/2018 Cholesterol Screening (Lipid Panel) 05/09/2029 05/09/2024 DTaP,Tdap,and Td Vaccines (5 - Td or Tdap) 12/11/2032 12/11/2022, 08/10/2013, 03/23/2013, Additional history exists Pneumococcal Vaccine: 50+ Years Completed 04/08/2021, 04/10/2019, 03/28/2014, Additional history exists Zoster Vaccines Completed 04/28/2022, 02/08, 08/10/2013 Hepatitis C Screening Completed 10/11/2022 RSV Immunization Adult Patients Completed 04/13/2023 Influenza Vaccine Completed 04/02/2024, , 04/08/2021, Additional [...] Most Recently Relevant to Health Maintenance Insurance [facility] MEDICAID ILAN MCCARTY [id number] Care Teams Education Department Chair Relationship Specialty Start Date End Date OClarissa Uribe MD [address] [place] [phone] PCP - General 06/08/13
--- OUTSIDE RECORDS SUMMARY | 2024-11-13 10:30 | XMS_ITS | Encounter Summary ---
Author Organization [employer] Address [address] [facility] 7t [place] [address] Care Team Providers Care Director Trade Name Role Phone Lake Sullivan MD Primary Care Provide r Reason for Visit * Reason Onset Date Comments Call Back Request 09/30/2023 Encounter Details Date Type Department Care Team ([facility] st Contact Info) Description 09/30/2023 Telephone [facility] MED[facility] [address] [place], [place] [phone] Lake Sullivan MD [address] [place], [place] [phone] Call Back Request Social History Tobacco Use [...] EDT Office Visit [facility] [address] [place] [address] David Baird MD 230 [place] [address] 12/17/2024 9:30 AM EDT Telemedicine [facility] PEDS [address] [place] [address] 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 RN [address] [place] [address] 02/05/2025 9:15 AM EDT Office Visit [facility] [address] [place] [address] Lake Sullivan MD [address] [place] [address] documented as of this encounter Visit Diagnoses Not on filedocumented in this encounter Additional Health Concerns Assessment Noted Time PHQ-9 Depression Total Score: 3 08/18/19 24 10:01 AM EST documented as of this encounter Care Teams Director Trade Relationship Specialty Start Date End Date Lake Sullivan MD 230 [place] [address] PCP - General Internal Medicine 02/12/14 documented as of this encounter
--- OUTSIDE RECORDS SUMMARY | 2024-11-13 10:30 | XMS_ITS | Encounter Summary ---
Author Organization [employer] Address [address] [facility] 7t [place] [address] Care Team Providers Care Agriculture Laborer Name Role Phone Lake Sullivan MD Primary Care Provide r Reason for Visit * Reason Onset Date Comments Med Refill 02/25/2023 Encounter Details Date Type Department Care Team ([facility] st Contact Info) Description 02/25/2023 Telephone [facility] MEDICINE [address] [place], [place] [phone] Lake Sullivan MD 230 [place], [place] [phone] Med Refill Social History Tobacco Use Types [...] Description 11/16/2024 9:00 AM EDT Office Visit [facility] MEDICINE [address] [place] [address] David Baird MD [address] [place] 12/17/2024 9:30 AM EDT Telemedicine [facility] CH[facility] MED & PEDS [address] [place], [place] [phone] 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, LUCI 505 [place] [address] 02/05/2025 9:15 AM EDT Office Visit [facility] MEDICINE [address] [place] [address] Lake Sullivan MD [address] [place] [address] documented as of this encounter Visit Diagnoses Not on filedocumented in this encounter Care Teams Agriculture Laborer Relationship Specialty Start Date End Date Lake Sullivan MD [address] [place] [address] [phone] PCP - General Internal Medicine 02/12/14 documented as of this encounter
--- OUTSIDE RECORDS SUMMARY | 2024-11-13 10:30 | XMS_ITS | Encounter Summary ---
Author Organization [employer] Address [address] [facility] 7t [place] [address] Care Team Providers Care Director Of Ancillary Services Name Role Phone Lake Sullivan MD Primary Care Provide r Reason for Visit * Reason Onset Date Comments Durable Medical Equipment 06/23/2023 Encounter Details Date Type Department Care Team ([facility] st Contact Info) Description 06/23/2023 Telephone [facility] MEDICINE 230 [place], [place] [phone] Lake Sullivan MD 230 [place] [address] Durable Medical Equipment Social History Tobacco Use [...] - 06/23/2023 2:32 PM EST Tc from seb with [facility] requesting a script for bed pads (8x day) with 12 refills to be faxed to [phone] documented in this encounter Plan of Treatment Upcoming Encounters Date Type Department Care Team (Late st Contact Info) Description 11/16/2024 9:00 AM EDT Office Visit [facility] MEDICINE 230 [place] [address] David Baird MD [address] [place] [address] 12/17/2024 9:30 AM EDT Telemedicine [facility] CHC MED & PEDS 505 [place] [address] 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, LUCI [address] [place] [address] 02/05/2025 9:15 AM EDT Office Visit [facility] MEDICINE 230 [place] [address] Lake Sullivan MD 230 [place] [address] documented as of this encounter Visit Diagnoses Not on filedocumented in this encounter Care Teams Director Of Ancillary Services Relationship Specialty Start Date End Date Lake Sullivan MD [address] [place] [phone] PCP - General Internal Medicine 02/12/14 documented as of this encounter
--- OUTSIDE RECORDS SUMMARY | 2024-11-13 10:30 | XMS_ITS | Encounter Summary ---
Author Organization [employer] Address 75 [facility] 7t [place] [address] Care Team Providers Care Cushion Spring Assembler Name Role Phone Lake Sullivan MD Primary Care Provide r Reason for Visit * Reason Onset Date Comments Med Refill 04/20/2023 Encounter Details Date Type Department Care Team ([facility] st Contact Info) Description 04/20/2023 Telephone [facility] [address] [place], [place] [phone] Lake Sullivan MD 230 [place], [place] [phone] Med Refill Social History Tobacco Use Types [...] MG 12 hr tablet. Please send to [id number] - [place] - [address] [facility] PCP Dr. Ramsey documented in this encounter Plan of Treatment Upcoming Encounters Date Type Department Care Team (Late st Contact Info) Description 11/16/2024 9:00 AM EDT Office Visit [facility] [address] [place] [phone] David Baird MD 230 [place] [address] 12/17/2024 9:30 AM EDT Telemedicine [facility] MED [facility] PEDS 505 [place] [address] 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, LUCI 505 [place] [address] 02/05/2025 9:15 AM EDT Office Visit [facility] [address] [place] [address] Lake Sullivan MD [address] [place] [address] documented as of this encounter Visit Diagnoses Not on filedocumented in this encounter Care Teams Cushion Spring Assembler Relationship Specialty Start Date End Date Lake Sullivan MD [address] [place] [address] PCP - General Internal Medicine 02/12/14 documented as of this encounter
--- OUTSIDE RECORDS SUMMARY | 2024-11-13 10:30 | XMS_ITS | Encounter Summary ---
Author Organization [employer] Address [address] [facility] 7t [place] [address] Care Team Providers Care Snack Foods Mixer Operator Name Role Phone Lake Sullivan MD Primary Care Provide r Encounter Details Date Type Department Care Team (Late Contact Info) Description 03/09/2023 Orders Only [facility] CHC MED & PEDS [address] [place] [address] Peggy Carey LPN Social History Tobacco Use [...] 11/16/2024 9:00 AM EDT Office Visit [facility] MEDICINE 230 [place] [address] David Baird MD 230 [place] [address] 12/17/2024 9:30 AM EDT Telemedicine [facility] CHC MED & PEDS 505 [place] [address] 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, LUCI 505 [place] [address] 02/05/2025 9:15 AM EDT Office Visit [facility] MEDICINE [address] [place] [address] aLke Sullivan MD [address] [place] [address] documented as of this encounter Procedures Procedure Name Priority Date/Time Associated Diagnosis Comments MR KNEE WO CONTRAST RIGHT Routine 04/08/2023 8:14 AM EDT documented in this encounter Results * MR Knee w/o Contrast Right (04/08/2023 8:14 AM EDT) Anatomical Region Laterality Modality Magnetic Resonan ce 04/08/2023 8:14 AM EDT Narrative 04/08/2023 2:41 PM EDT ? [facility] ?[address] ?[place] [address] ? CT Scan Report ? Signed ? Patient: Imer Parrish ?MR#: [id number] ?? [id number] ? : 1955 ?Acct:[id number] ? Age/Sex: 67 / M ?ADM Date: 04/08/23 ? Loc: HO.CT ? Attending Dr: Cheryl Regalado PA-C ? Ordering Physician: Cheryl Regalado PA-C ?? Date of Service: 04/08/23 ?? Procedure(s): CT knee RT wo IV con ?? Accession Number(s): [id number] ? cc: Lake Allen MD; Cheryl Regalado [...] ?04/08/231436 ? DD/ 3 ? TD/TT: ? University Librarian: SR ? Procedure Note Librado, Ab[place] - 04/08/[address] [address] [address] Scan Report Signed Patient: Imer ParrishMR#: [id number] : 1955cct:[id number] Age/Sex: 67 / MADM Date: 04/08/23 Loc: HO.CT Attending Dr: Cheryl Regalado PA-C Ordering Physician: Cheryl Regalado PA-C Date of Service: 04/08/23 Procedure(s): CT knee RT wo IV con Accession Number(s): [id number] cc: Lake Allen MD; Cheryl Regalado PA-C [...] in OV> 04/08/23 1437 DD/ 0814 TD/TT: University Librarian: [facility] External Provider IMG MRI PROCEDURES Final Result documented in this encounter Visit Diagnoses Not on filedocumented in this encounter Care Teams Snack Foods Mixer Operator Relationship Specialty Start Date End Date Lake Sullivan MD [address] [place] [address] PCP - General Internal Medicine 02/12/14 documented as of this encounter
--- OUTSIDE RECORDS SUMMARY | 2024-11-13 10:30 | XMS_ITS | Encounter Summary ---
Author Organization [employer] Address [address] [facility] 7t [place] [address] Care Team Providers Care Business Functional Analyst Name Role Phone Lake Sullivan MD Primary Care Provide r Reason for Visit * Reason Onset Date Comments Med Refill 12/19/2023 Encounter Details Date Type Department Care Team ([facility] st Contact Info) Description 12/19/2023 Telephone [facility] MEDICINE 230 [place], [place] [phone] Lake Sullivan MD 230 [place], [place] [phone] Med Refill Social History Tobacco Use Types [...] 5-325 MG tablet To be sent to: [id number] AT [facility] documented in this encounter Plan of Treatment Upcoming Encounters Date Type Department Care Team ([facility] Contact Info) Description 11/16/2024 9:00 AM EDT Office Visit [facility] MEDICINE [address] [place] [phone] David Baird MD 230 [place] [address] 12/17/2024 9:30 AM EDT Telemedicine [facility] CHC MED & PEDS 505 [place] [address] 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, LUCI 505 [place] [address] 02/05/2025 9:15 AM EDT Office Visit [facility] MEDICINE [address] [place] [address] [phone] Lake Sullivan MD 230 [place], [place] [phone] documented as of this encounter Visit Diagnoses Not on filedocumented in this encounter Additional Health Concerns Assessment Noted Time PHQ-9 Depression Total Score: 3 08/18/19 24 10:01 AM EST documented as of this encounter Care Teams Business Functional Analyst Relationship Specialty Start Date End Date Lake Sullivan MD 230 [place] [address] PCP - General Internal Medicine 02/12/14 documented as of this encounter
--- OUTSIDE RECORDS SUMMARY | 2024-11-13 10:30 | XMS_ITS | Encounter Summary ---
Author Organization [employer] Address [address] [facility] [address] 7t [place] [address] Care Team Providers Care Marine Structural Designer Name Role Phone Lake Sullivan MD Primary Care Provide r Encounter Details Date Type Department Care Team ([facility] st Contact Info) Description 12/23/2023 Telephone [facility] MEDICINE 230 [place], [place] [phone] Lake Sullivan MD 230 [place], [place] [phone] Social History Tobacco Use Types Packs/Day Years [...] Description 11/16/2024 9:00 AM EDT Office Visit [facility] MEDICINE [address] [place] [phone] David Baird MD [address] [place] [address] 12/17/2024 9:30 AM EDT Telemedicine [facility] MED & PEDS 505 [place] [address] 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, LUCI 505 [place] [address] 02/05/2025 9:15 AM EDT Office Visit [facility] MEDICINE [address] [place] [address] Lake Sullivan MD [address] [place] [address] documented as of this encounter Visit Diagnoses Not on filedocumented in this encounter Additional Health Concerns Assessment Noted Time PHQ-9 Depression Total Score: 3 08/18/19 24 10:01 AM EST documented as of this encounter Care Teams Marine Structural Designer Relationship Specialty Start Date End Date Lake Sullivan MD [address] [place] [address] PCP - General Internal Medicine 02/12/14 documented as of this encounter
--- OUTSIDE RECORDS SUMMARY | 2024-11-13 10:30 | XMS_ITS | Encounter Summary ---
Author Organization [employer] Address [address] [facility] 7t [place] [address] Care Team Providers Care Wire Rope Sling Maker Name Role Phone Lake Sullivan MD Primary Care Provide r Reason for Visit * Reason Onset Date Comments Med Refill 05/01/2024 Encounter Details Date Type Department Care Team ([facility] st Contact Info) Description 05/01/2024 Telephone [facility] MEDICINE 230 [place], [place] [phone] Lake Sullivan MD 230 [place], [place] [phone] Med Refill Social History Tobacco Use Types [...] 9:00 AM EDT Office Visit [facility] MEDICINE [address] [place] [address] aDvid Baird MD [address] [place] [address] 12/17/2024 9:30 AM EDT Telemedicine [facility] CHC MED & PEDS 505 [place] [address] 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, LUCI 505 [place] [address] 02/05/2025 9:15 AM EDT Office Visit [facility] MEDICINE [address] [place] [address] Lake Sullivan MD [address] [place] [address] documented as of this encounter Visit Diagnoses Not on filedocumented in this encounter Additional Health Concerns Assessment Noted Time PHQ-9 Depression Total Score: 3 08/18/19 24 10:01 AM EST documented as of this encounter Care Teams Wire Rope Sling Maker Relationship Specialty Start Date End Date Lake Sullivan MD [address] [place] [address] PCP - General Internal Medicine 02/12/14 documented as of this encounter
--- OUTSIDE RECORDS SUMMARY | 2024-11-13 10:30 | XMS_ITS | Encounter Summary ---
Author Organization [employer] Address [address] 7t [place] [address] Care Team Providers Care Filament Welder Name Role Phone Lake Sullivan MD Primary Care Provide r Encounter Details Date Type Department Care Team (Late st Contact Info) Description 12/14/2022 Orders Only [facility] MED & PEDS [address] [place] [address] Peggy Carey LPN Social History Tobacco Use [...] Description 11/16/2024 9:00 AM EDT Office Visit [facility] MEDICINE [address] [place] [phone] David Baird MD [address] [place] [address] 12/17/2024 9:30 AM EDT Telemedicine [facility] MED & PEDS [address] [place], [place] [phone] 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, RN [address] [place] [address] 02/05/2025 9:15 AM EDT Office Visit [facility] MEDICINE [address] [place] [address] Lake Sullivan MD [address] [place] [address] documented as of this encounter Procedures Procedure [...] AM EDT Narrative 01/21/2023 3:07 PM EDT ?[place] [facility] ?[address] ?[place] [address] ?XRay Report ? Signed ? Patient: Parrish,Imer ?MR#: [id number] ?? [id number] ? : 1955 ?Acct:[id number] ? Age/Sex: 67 / M ?ADM Date: 01/07/23 ? Loc: HO.HHCX ? Attending Dr: Lake Allen MD ? Ordering Physician: Lake Allen MD ?? Date of Service: 01/07/23 ?? Procedure(s): XR lumbar spine 4V min ?? Accession Number(s): [id number] ? cc: Lake Allen MD ? EXAMINATION: [...] MD in OV> ?01/21/23 1504 ? DD/ ? TD/TT: ? Cat Sitter: ? Procedure Note Librado, Abena - 01/21/2023 [facility] [address] [facility] [place] [address] XRay Report Signed Patient: Imer ParrishMR#: [id number] : 1955cct:[id number] Age/Sex: 67 / MADM Date: 01/07/23 Loc: HO.HHCX Attending Dr: Lake Allen MD Ordering Physician: Lake Allen MD Date of Service: 01/07/23 Procedure(s): XR lumbar spine 4V min Accession Number(s): [id number] cc: Lake Allen MD EXAMINATION: XR lumbar [...] in OV> 01/21/23 1504 DD/ 0905 TD/TT: Cat Sitter: [facility] External Provider IMG XR PROCEDURES Final Result * XR Hip 2 or 3 Views Left (01/07/2023 9:05 AM EDT) Anatomical Region Laterality Modality Lower Extremities, Hip Left Radiograp hic Imaging 01/07/2023 9:05 AM EDT Narrative 01/21/2023 3:07 PM EDT ?[place] [facility] ?[address] ?[place] [address] ?XRay Report ? Signed ? Patient: Parrish,Imer ?MR#: [id number] ?? [id number] ? : 1955 ?Acct:[id number] ? Age/Sex: 67 / M ?ADM Date: 01/07/23 ? Loc: HO.HHCX ? Attending Dr: Lkae Allen MD ? Ordering Physician: Lake Allen MD ?? Date of Service: 01/07/23 ?? Procedure(s): XR hip LT min 2V ?? Accession Number(s): [id number] ? cc: Lake Allen MD ? EXAMINATION: [...] ? DD/DT: 01/07/ 0905 ? TD/TT: ? Cat Sitter: ? Procedure Note Librado, Image - 01/21/2023 [facility] [address] [place] [address] XRay Report Signed Patient: Imer ParrishMR#: [id number] : 3Acct:[id number] Age/Sex: 67 / MADM Date: 01/07/23 Loc: HO.HHCX Attending Dr: Lake Allen MD Ordering Physician: Lake Allen MD Date of Service: 01/07/23 Procedure(s): XR hip LT min 2V Accession Number(s): [id number] cc: Lake Allen MD EXAMINATION: XR lumbar [...] in OV> 01/21/23 1504 DD/ 0905 TD/TT: Cat Sitter: [facility] External Provider IMG XR PROCEDURES Final Result documented in this encounter Visit Diagnoses Not on filedocumented in this encounter Care Teams Filament Welder Relationship Specialty Start Date End Date Lake Sullivan MD [address] [place] [address] PCP - General Internal Medicine 02/12/14 documented as of this encounter
--- OUTSIDE RECORDS SUMMARY | 2024-11-13 10:30 | XMS_ITS | Encounter Summary ---
Author Organization [employer] Address [address] [facility] 7t [place] [address] Care Team Providers Care Information Engineer Name Role Phone Lake Sullivan MD Primary Care Provide r Reason for Visit * Reason Onset Date Comments Med Refill 01/13/2024 Encounter Details Date Type Department Care Team ([facility] st Contact Info) Description 01/13/2024 Telephone [facility] MEDICINE [address] [place], [place] [phone] Lake Sullivan MD [address] [place], [place] [phone] Med Refill Social History Tobacco Use Types [...] 5-325 MG tablet To be sent to: [id number] AT [facility] documented in this encounter Plan of Treatment Upcoming Encounters Date Type Department Care Team ([facility] st Contact Info) Description 11/16/2024 9:00 AM EDT Office Visit [facility] MEDICINE [address] [place] [phone] David Baird MD [address] [place] [address] 12/17/2024 9:30 AM EDT Telemedicine [facility] CHC MED & PEDS [address] [place] [address] 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, LUCI [address] [place] [address] 02/05/2025 9:15 AM EDT Office Visit [facility] MEDICINE [address] [place] [address] Lake Sullivan MD 230 [place] [address] documented as of this encounter Visit Diagnoses Not on filedocumented in this encounter Additional Health Concerns Assessment Noted Time PHQ-9 Depression Total Score: 3 08/18/19 24 10:01 AM EST documented as of this encounter Care Teams Information Engineer Relationship Specialty Start Date End Date Lake Sullivan MD [address] [place] [address] PCP - General Internal Medicine 02/12/14 documented as of this encounter
--- OUTSIDE RECORDS SUMMARY | 2024-11-13 10:30 | XMS_ITS | Encounter Summary ---
Author Organization [employer] Address [address] [facility] 7t [place] [address] Care Team Providers Care Cleaner Industrial Name Role Phone Lake Sullivan MD Primary Care Provide r Reason for Visit * Reason Onset Date Comments Med Refill 02/01/2023 Encounter Details Date Type Department Care Team ([facility] st Contact Info) Description 02/01/2023 Telephone [facility] MEDICINE [address] [place], [place] [phone] Lake Sullivan MD [address] [place], [place] [phone] Med Refill Social History Tobacco Use Types [...] to PCP * Telephone Encounter - Reva Mckeon - 02/01/2023 12:16 PM EDT Tc from patient requesting a med refill for medication oxycodone 5 mg and morphine CR 15 mg. Pleasesend to [facility][id number] [place], [place] - [address] [place] [address] AT [facility]. documented in this encounter Plan of Treatment Upcoming Encounters Date Type Department Care Team (Late st Contact Info) Description 11/16/2024 9:00 AM EDT Office Visit [facility] MEDICINE [address] [place] [phone] David Baird MD [address] [place] [address] 12/17/2024 9:30 AM EDT Telemedicine [facility] CHC MED & PEDS 505 [place] [address] 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, LUCI [address] [place] [address] 02/05/2025 9:15 AM EDT Office Visit [facility] MEDICINE [address] [place] [address] Lake Sullivan MD [address] [place] [address] documented as of this encounter Visit Diagnoses Not on filedocumented in this encounter Care Teams Cleaner Industrial Relationship Specialty Start Date End Date Lake Sullivan MD [address] [place] [address] PCP - General Internal Medicine 02/12/14 documented as of this encounter
--- OUTSIDE RECORDS SUMMARY | 2024-11-13 10:30 | XMS_ITS | Encounter Summary ---
Author Organization [employer] Address [address] [facility] 7t [place] [address] Care Team Providers Care Flute Grinder Name Role Phone Lake Sullivan MD Primary Care Provide r Reason for Visit * Reason Onset Date Comments Durable Medical Equipment 05/02/2024 Encounter Details Date Type Department Care Team ([facility] st Contact Info) Description 05/02/2024 Telephone [facility] MEDICINE [address] [place], [place] [phone] Lake Sullivan MD [address] [place], [place] [phone] Durable Medical Equipment Social History Tobacco Use [...] encounter Miscellaneous Notes * Telephone Encounter - Drewkaren Sexton - 05/02/2024 2:46 PM EDT Tc from pt requesting DME: Bed pads Wipes Cream for foot Pt is requesting a year supply for DME. If any questions you can contact pt at [phone]. (Sinhala Speaker) documented in this encounter Plan of Treatment Upcoming Encounters Date Type Department Care Team (Late st Contact Info) Description 11/16/2024 9:00 AM EDT Office Visit [facility] MEDICINE [address] [place] [phone] David Baird MD [address] [place] [address] 12/17/2024 9:30 AM EDT Telemedicine [facility] CHC MED & PEDS [address] [place] [address] 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 RN 505 [place] [address] 02/05/2025 9:15 AM EDT Office Visit [facility] MEDICINE [address] [place] [address] Lake Sullivan MD [address] [place] [address] documented as of this encounter Visit Diagnoses Not on filedocumented in this encounter Additional Health Concerns Assessment Noted Time PHQ-9 Depression Total Score: 3 08/18/19 24 10:01 AM EST documented as of this encounter Care Teams Flute Grinder Relationship Specialty Start Date End Date Lake Sullivan MD [address] [place] [address] PCP - General Internal Medicine 02/12/14 documented as of this encounter
[2024-11-13 12:17] LABS: Prostate Specific Antigen Scr 0.44 ng/mL (<0.05-4.0)
[2024-11-13 14:16] LABS: Alanine Aminotransferase 11 U/L (0-40); Albumin Level 3.5 g/dL (3.5-5.0); Anion Gap 12 (12-20); Aspartate Amino Transferase 20 U/L (5-37); Bilirubin Total 0.2 mg/dL (0.0-1.0); Blood Urea Nitrogen 34 mg/dL (9-16); Carbon Dioxide 23 mmol/L (22-29); Chloride 111 mmol/L (96-108); Cholesterol 160 mg/dL (<200); Estimated Glomerular Filt Rate 43; Glucose Random 80 mg/dL (60-115); HDL Cholesterol 36 mg/dL (>40); LDL Cholesterol Calculated 100 mg/dL (<100); Potassium 4.8 mmol/L (3.3-5.1); Sodium 141 mmol/L (135-145); Total Protein 7.1 g/dL (6.5-8.0); Triglycerides 122 mg/dL (<150)
[2024-11-13 14:27] LABS: TSH reflex Free T4 1.33 uIU/mL (0.32-4.0)
[2024-11-13 18:20] LABS: Alkaline Phosphatase 151 U/L (39-117)
== END 2024-11-13 09:33 | disposition home or self-care (01) ==
LOC: HO.HHCL 09:32
PROVIDERS: Visit Provider Internal Medicine
DX: Z12.5 Encounter for screening for malignant neoplasm of prostate (principal); I10 Essential (primary) hypertension
CPT/HCPCS: 36415; 80053; 80061; 84153; 84443

== ENCOUNTER 2025-02-22 09:29 | Outpatient (REF) | payer OTHER, SELFPAY ==
--- NOTE | ~2025-02-22 | XR_ITS ---
EXAMINATION: XR HIP 2 OR MORE VIEWS LEFT HISTORY: pain COMPARISON: Comparison is made with the prior examination dated 01/07/2023. FINDINGS: Two views of the left hip are submitted. The examination is limited by patient body habitus. Osseous mineralization is normal. There is no fracture or dislocation. There is moderate joint space narrowing. The soft tissues are unremarkable. XR/XR hip LT min 2V IMPRESSION: Moderate joint space narrowing. Electronically signed by: Bernard Walker MD 02/22/2025 11:59 AM EDT
--- OUTSIDE RECORDS SUMMARY | 2025-02-22 09:41 | XMS_ITS | Clinical Summary ---
Author Organization [facility] Address [address] [phone] Phone Care Team Providers Care Team Cdl Driver Name Role Phone Lake Ramsey MD Primary [...] [employer] MDI He follows with Employment Service Specialist Dr Hussein, last note on record [...] Office Visit [facility] [address] [facility] [address] [place] [address] Bossman Starks MD [address] [facility] [address] [place] [address] Health Maintenance Due Date Last Done Comments Colorectal Cancer Screening: Annual FOBT 2002 Colorectal Cancer Screening: Colonoscopy 2002 Colorectal Cancer Screening: Sigmoidoscopy 2002 Diabetes: Hemoglobin A1C 11/15/2024 11/29/2023, 07/12 Diabetes: Ophthalmology Exam 11/15/2024 Diabetes: Pedal Pulse Checked 11/15/2024 Diabetes: Sensory Foot Exam 11/15/2024 Diabetes: Visual Foot Exam 11/15/2024 Influenza Vaccine (#1) 2025 4, 04/24/2019, 04/10/2019, Additional history exists Pneumococcal Vaccine: 50+ Years Completed 04/08/2021, 04/10/2019, 03/28/2014, Additional history exists Pneumococcal Vaccine: Peds (0 to 5 Years) and At-Risk Patients (6 to 49 Years) Discontinued 04/08/2021, 04/10/2019, 03/28/2014, Additional history exists Hepatitis B Vaccine Aged Out No longe r eligible based on patient's age to complete this topic Procedures Procedure Name Priority Date/Time Associated Diagnosis Comments EXT RESULT ENTRY Routine 08/04/2020 from Last 3 Months or Most Recently Relevant to Health Maintenance Results * (ABNORMAL) EXT RESULT ENTRY (08/04/2020) WBC 9.5 3.3 - 10.0 10*3/ML Red Blood Cell Count 4.25 Hemoglobin 12.2(A) 13.5 - 17.5 Hematocrit 36.9(A) 41.0 - 53.0 Platelets 236 150 - 399 10*3/UL MCV 86.8 82.0 - 108.0 Sodium 143 137 - 147 Potassium 4.1 3.4 - 5.5 Chloride 109(A) 99 - 108 Bicarbonate (CO2) 25 22 - 30 mmol/L Anion Gap 13 <=30 MMOL/L Glucose 114 60 - 200 BUN 15 4 - 21 mg/dL Creatinine 1.20 0.60 - 1.30 mg/dL Calcium 8.9 8.7 - 10.7 mg/dL eGFR Non-Afr Eritrean >60 Hemoglobin A1C 5.6 4.0 - 6.0 Triglycerides 124 40 - 160 Cholesterol 157 0 - 200 HDL 28(A) 35 - 70 MG/DL 08/04/2020 Historical Provider LAB BLOOD ORDERABLES Paula l Result from Last 3 Months or Most Recently Relevant to Health Maintenance Insurance [facility] ([id number]) [facility] ([id number]) Care Teams Team Cdl Driver Relationship Specialty Start Date End Date Lake Ramsey MD [address] [place] [address] PCP - General 07/21/20
--- OUTSIDE RECORDS SUMMARY | 2025-02-22 09:41 | XMS_ITS | Encounter Summary ---
Author Organization [employer] Address [address] [place] [address] 7t [place] [address] Care Team Providers Care Corporate Training Manager Name Role Phone Lake Sullivan MD Primary Care Provide r Bossman Starks Unavailable [phone] Reason for Visit * Reason Comments Med Refill Encounter Details Date Type Department Care Team (Late st Contact Info) Description 11/08/2024 Refill [facility] MEDICINE 230 [place], [place] [phone] Lake Sullivan MD [address] [place], [place] [phone] Dermatitis Social History Tobacco Use Types Packs/Day [...] Care Team (Late st Contact Info) Description 02/26/2025 11:15 AM EDT Office Visit [facility] MEDICINE [address] [place] [address] Janet Perez ANP [address] [place] [address] 04/03/2025 9:00 AM EDT Clinical Support [facility] CHC MED & PEDS [address] [place] [address] 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, LUCI [address] [place] [address] 05/07/2025 9:15 AM EDT Office Visit [facility] MEDICINE [address] [place] [address] Lake Sullivan MD [address] [place] [address] documented as of this encounter Visit Diagnoses Diagnosis Dermatitis Contact dermatitis and other eczema, due to unspecified cause documented in this encounter Additional Health Concerns Assessment Noted Time PHQ-9 Depression Total Score: 3 08/18/19 24 10:01 AM EST documented as of this encounter Care Teams Corporate Training Manager Relationship Specialty Start Date End Date Lake Sullivan MD [address] [place] [address] PCP - General Internal Medicine 02/12/14 Bossman Starks [address] [facility] [address] [address] Nephrology 11/14/24 documented as of this encounter
--- OUTSIDE RECORDS SUMMARY | 2025-02-22 09:41 | XMS_ITS | Clinical Summary ---
Author Organization [facility] Address [address] [place] [address] Care Team Providers Care Manager Production Name Role Phone Unavailable Primary Care Provider Unavailabl e Social History Tobacco Use Types Packs/Day Years Used Date Smoking Tobacco: Never Assessed Sex and Gender Information Value Date Recorded Sex Assigned at Not on file Gender Identity Not on file Sexual Orientation Not on file Plan of Treatment Not on file
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
== END 2025-02-22 09:30 | disposition home or self-care (01) ==
LOC: HO.HHCX 09:29
PROVIDERS: Visit Provider Internal Medicine
DX: M25.552 Pain in left hip (principal)
CPT/HCPCS: 73502

== ENCOUNTER → 2025-02-22 09:30 | Outpatient (BNV) | payer OTHER, SELFPAY | PROVIDERS: Visit Provider Radiology Diagnostic Radiology | DX: M16.12 Unilateral primary osteoarthritis, left hip (principal) | CPT/HCPCS: 73502 ==

== ENCOUNTER 2025-02-27 08:17 | Outpatient (AMB) | payer OTHER, SELFPAY ==
--- NOTE | 2025-02-27 08:48 | A.OFFVIS_ITS ---
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: No Allergies No Known Allergies (No Known Allergies*) Allergy (Verified 02/27/25 09:07) Medication List - Last Reconciled 02/27/25 by Shweta Hussein MD albuterol sulfate 90 mcg/actuation (ProAir HFA) 2 puffs inhalation Q4-6H PRN 30 days alprazolam 1 mg PO BID bacitracin 1 appl topical BID blood sugar diagnostic As directed buspirone 10 mg PO BID cholecalciferol (vitamin D3) 50 mcg PO DAILY docusate sodium (Colace) 100 mg PO DAILY docusate sodium (Colace) 100 mg PO BID fluticasone propion-salmeterol 500-50 mcg/dose (Advair Diskus) 1 inh inhalation BID fluticasone propionate 50 mcg/actuation (Children's Flonase Allergy Relief) 2 sprays intranasal DAILY 30 days hydrochlorothiazide 12.5 mg PO DAILY hydrocortisone 2.5% (Procto-Med HC) 1 appl ND BID-QID PRN ipratropium-albuterol 0.5 mg-3 mg(2.5 mg base)/3 mL mL inhalation ipratropium-albuterol 0.5 mg-3 mg(2.5 mg base)/3 mL 3 mL inhalation QID 30 days irbesartan 150 mg PO DAILY loratadine (Claritin) 10 mg PO DAILY lorazepam (Ativan) 1 mg PO BID PRN metformin ER 500 mg PO DAILY montelukast 10 mg PO BEDTIME morphine ER 15 mg PO BID naproxen (Naprosyn) 500 mg PO BID omeprazole magnesium (Prilosec OTC) 20 mg PO DAILY paroxetine HCl 20 mg PO DAILY quetiapine 400 mg PO BID quetiapine (Seroquel) 300 mg PO BEDTIME tamsulosin 0.4 mg PO BEDTIME tolterodine ER 4 mg PO BEDTIME verapamil ER (Verelan PM) 300 mg PO BEDTIME Do you need a note to return to daycare/school/sports/work: No HPI HPI gio: Details: 69 years old Mr. Parrish , is here for 6 months follow-up. He is a case of long-time smoking, COPD, chronic hypoventilation syndrome/GIO , chronic anxiety syndrome , and long-term use of opioids. He states that he has been stable, using CPAP every night, sleeping well, smokes half pack a day, main complaint is cough with some mucus especially in the morning hours. Denies any wheezing attacks, has mild shortness of breath but he does not walk around too much. Uses his CPAP very regularly up to 2 were 13 hours a day. [facility] Medical History (Updated 02/27/25 @ 09:27 by Shweta Hussein MD) Restrictive lung disease Thrombosed external hemorrhoid Anemia, normocytic normochromic History of pneumothorax Sickle cell trait Nicotine dependence, cigarettes, uncomplicated Osteoporosis (~2013) Morbid (severe) obesity with alveolar hypoventilation Allergic rhinitis COPD (chronic obstructive pulmonary disease) GIO on CPAP (~2008) Surgical History History of colonoscopy History of surgery on lower extremity History of cardiac cath Social History Alcohol intake: unknown Patient Tobacco Use Status: Current everyday Tobacco user Tobacco use type: Cigarette Cigarettes Per Day: 10 Years Smoked: onset 13yo, x 54yrs, mainly 1ppd, now 1/2ppd, 50pyh Review of Systems Const All systems reviewed & are unremarkable except as noted in HPI and below Eyes Reports no additional complaints ENT Reports nasal congestion and Reports nasal discharge Card Denies chest pain, Denies irregular heart rhythm and Denies leg edema Resp Reports as per HPI GI Reports no additional complaints Reports urinary hesitancy (Controlled with med) Musc Reports back pain and Reports myalgias Skin/Breast Reports dry skin Neuro Reports no additional complaints Psych Reports no additional complaints Physical Exam Vital Signs: Last Vital Signs Pulse 84 02/27/25 08:49 BP 130/72 02/27/25 08:49 Pulse Ox 100 02/27/25 08:49 Oxygen Delivery Method Room Air 02/27/25 08:49 BMI result Body Mass Index 45.7 He is grossly obese with a round face Const General: comfortable, no acute distress, alert and awake Orientation/consciousness: patient oriented x3 HEENT Head: Yes normal to inspection General nose exam: No nasal polyps present, No nasal discharge present and Abnormal mucous membranes and turbinates present (Chronic nasal congestion and hypertrophy of the nasal turbinates) Face and sinus: Yes sinuses nontender Mouth: oropharynx normal Throat: Yes posterior oropharynx normal Eyes General: appearance normal, both eyes and all related structures Neck Neck: Yes normal visual inspection, Yes no lymphadenopathy, Yes trachea midline and Yes no JVD Thyroid: Thyroid normal Chest Chest palpation & inspection: normal inspection of the chest, normal palpation of entire chest wall and no tenderness Resp Other: Percussion note not perceptible because of his the thick chest wall. Breath sounds are distant with prolonged expiratory phase. No expiratory wheezes rhonchi or crepitations are heard. Cardio Palpation: normal PMI Rate: regular rate Rhythm: regular rhythm Heart sounds: no gallops and no murmurs GI Palpation (GI): Soft to palpation, Tenderness to palpation present (GI), No hepatosplenomegaly present, Palpable mass present and Other GI palpation findings present (Abdomen is markedly obese and protuberant) Auscultation: normal bowel sounds Back/Spine/Pelvis Thoracic/Lumbar Spine: thoracic and lumbar spine normal to inspection and thoraco-lumbar ROM limited Skin General skin exam: no rashes or lesions noted and dry skin Neuro General: patient oriented x3, No gait normal (Slightly impaired, needs to use cane) and no focal motor deficits Cranial nerves: Yes CN's II-XII intact bilaterally Extrem General: Yes normal to inspection, Yes no clubbing, cyanosis or edema and Yes no calf tenderness Psych Appearance: grossly normal Speech and movement: Normal speech and movement present Office Procedures Spirometry Testing Spirometry Comments: Spirometry done in the office, Dr. Hussein has the results results scanned to his chart. 56222- Spirometry Results Reviewed Results Reviewed: SPIROMETRY FVC= 54 5 FEV1= 59 % FEF 25-75 = 82 % C/W MODERATELY SEVERE RESTRICTIVE PULMONARY DISORDER. VENOUS BGs LDCT 10/05 Impression: No suspicious pulmonary nodules. Category 2: Benign appearance or behavior. Continued annual lung cancer screening chest CT suggested. Assessment & Plan Assessment & Plan (1) COPD (chronic obstructive pulmonary disease): Comment: (moderately severe COPD, related to continued smoking) , stable and well controlled. Clinically he is doing well, complains of increased amount of cough and mucus production. This seems to be due to his ongoing smoking. Code(s): J44.9 - Chronic obstructive pulmonary disease, unspecified Category: Medical Plan: I EXPLAINED TO THE PATIENT THAT HIS COUGH AND MUCUS OR RELATED TO SMOKING AND, THE ONLY WAY TO CUT IT DOWN WOULD BE TO STOP SMOKING OR AT LEAST CUT DOWN THE NUMBER OF CIGARETTES. MEDS: ADVAIR, DOZE DOWNGRADED TO 250-51 INHALATION B.I.D. SCRIPT RENEWED DUONEB UPDRAFTS ( IPRATROPIUM-ALBUTEROL SOLUTION IN THE NEBULIZER ) Q 6 HOURS WHILE AWAKE ALBUTEROL HFA 2 PUFFS Q 6 HOURS P.R.N. (2) Nicotine dependence, cigarettes, uncomplicated: Comment: (current smoker, onset 13yo, x 54yrs, mainly 1ppd, now 1/2ppd, 50pyh) CT scan of the chest in September 2023 benign class 2, unchanged from before Code(s): F17.210 - Nicotine dependence, cigarettes, uncomplicated Category: Medical Plan: COUNSELED TO CUT DOWN THE NUMBER OF CIGARETTES MUCH POSSIBLE AND ALSO CONTINUE TO HAVE ANNUAL LUNG SCREENING PROGRAM (3) GIO on CPAP: Onset Date: ~2008 Comment: (100 % compliant with CPAP, good sleep. [Pressure=16 CMs] also using during daytime) Code(s): G47.33 - Obstructive sleep apnea (adult) (pediatric); Z99.89 - Dependence on other enabling machines and devices Category: Medical Plan: COMMENDED FOR GOOD COMPLIANCE AND ADVISED TO CONTINUE USING THE CPAP EVERY NIGHT. VENOUS BLOOD GASES ORDERED TO CHECK FOR CO2 LEVEL (4) Allergic rhinitis: Comment: Chronic allergic or vasomotor rhinitis. Controlled . Code(s): J30.9 - Allergic rhinitis, unspecified Category: Medical Plan: MONTELUKAST 10 MG DAILY.. FLONASE 1 OR 2 SPRAY EACH NOSTRIL DAILY (5) Restrictive lung disease: Comment: PATIENT HAS MODERATELY SEVERE RESTRICTIVE PULMONARY DISORDER WHICH IS SECONDARY TO OBESITY, AND HIS PAST HISTORY OF HAVING PNEUMOTHORAX Code(s): J98.4 - Other disorders of lung Category: Medical Plan: HE IS ADVISED TO LOSE WEIGHT. HE TELLS ME THAT CURRENTLY HE IS ON INJECTIONS. ADVISED TO DO DEEP BREATHING EXERCISES OF IN HIS POSSIBLE. Orders: Orders AMB Spirometry Testing Today J44.9 - Chronic obstructive pulmonary disease, unspecified Venous Blood Gas Today E66.2 - Morbid (severe) obesity with alveolar hypoventilation, G47.33 - Obstructive sleep apnea (adult) (pediatric), J44.9 - Chronic obstructive pulmonary disease, unspecified, Z99.89 - Dependence on other enabling machines and devices Medications: New fluticasone propion-salmeterol 250-50 mcg/dose (Advair Diskus) 1 inh inhalation BID 60 ea 5RF 30 days Coding Level of Care Code Est Pt Level 4 (31067) Diagnoses COPD (chronic obstructive pulmonary disease) J44.9 Nicotine dependence, cigarettes, uncomplicated F17.210 GIO on CPAP G47.33; Z99.89 Allergic rhinitis J30.9 Restrictive lung disease J98.4 CPT Codes Spirometry - CPT: 46323- Spirometry ([id number])
[2025-02-27 08:49] VITALS: BP 130/72; PULSE 84; O2SAT 100; BMI 45.7
--- OUTSIDE RECORDS SUMMARY | 2025-02-27 08:50 | XMS_ITS | Clinical Summary ---
Author Organization [facility] Address [address] [address] Phone Care Team Providers Care Net Front End Developer Name Role Phone Lake Ramsey MD Primary [...] Wixella And ProAir MDI He follows with Conservation Coordinator Dr Hussein, last note on record 01/25/2022 [...] Visit [facility] [address] [facility] [address] [place] [address] Bossman Starks MD [address] [facility] [address] [place] [address] Health Maintenance Due Date Last [...] 8.9 8.7 - 10.7 mg/dL eGFR Non-Afr [facility] >60 Hemoglobin A1C 5.6 4.0 - 6.0 Triglycerides 124 40 - 160 Cholesterol 157 0 - 200 HDL 28(A) 35 - 70 MG/DL 08/04/2020 Historical Provider LAB BLOOD ORDERABLES Paula l Result from Last 3 Months or Most Recently Relevant to Health Maintenance Insurance [facility] ([id number]) [facility] ([id number]) Care Teams Net Front End Developer Relationship Specialty Start Date End Date Lake Ramsey MD [address] [place] [address] PCP - General 07/21/20
--- OUTSIDE RECORDS SUMMARY | 2025-02-27 08:50 | XMS_ITS | Clinical Summary ---
Author Organization [facility] Address [address] [place] [address] Phone Care Team Providers Care Orthopedic Shoe Fitter Name Role Phone Clarissa Vick MD Primary Care Provider + [phone] Allergies No known active allergies Medications montelukast [...] Gout 09/25/2024 T2DM (type 2 diabetes mellitus) ([facility] V24, CM /[facility] V28) 09/25/2024 Chronic idiopathic constipation 01/19/2018 Assessment & Plan (09/25/2024 11:54 AM EDT): Failing over the counter options. Recommend switch to Linzess 72mcg PO daily. Reviewed dosing option, can increase pending response. Orders: linaCLOtide (Linzess) 72 mcg capsule; Take 1 capsule (72 mcg total) by mouth 1 (one) time each day before breakfast. HTN (hypertension) 05/20/2015 Chronic obstructive pulmonar y disease ([facility] V24, [facility] V28) 12/23/2011 Overview (09/25/2024): Last Assessment & Plan: Patient here for a follow up Unfortunately he is still smoking , not interested in quitting He is currently on a regimen of Wixella And ProAir ELE He follows with De Alcholizer Dr Hussein, last note on record 01/25/2022 Encounters Date Type Department Care Team Description 02/06/2025 8:45 AM EDT Consult Orthopedic Surgery - [place] [address] [facility] [address] [place] [phone] Marky Lezama, DPM Dermatophytosis of nail (Primary Dx); Verruca plantaris; Pain in toe of right foot; Pain in toe of left foot; Difficulty walking; Diabetic mononeuropathy simplex ([facility] V24, [facility] V28) 12/14/2024 Telephone Gastroenterology - [address] [phone] Tika Bustos [place] Results 12/11/2024 10:16 AM EDT Anesthesia Event [facility] [address] [place] [phone] Jimmy Lee DO 12/11/2024 8:49 AM EDT - 12/11/2024 11:59 PM EDT Hospital Encounter [facility] [address] [place] [phone] Toño Hannah MD Decandio, Laura, CRNA Korobkov, Vitaliy, DO History of colon polyps Discharge Disposition: Home or Self Care 11/28/2024 Telephone Gastroenterology - [address] [phone] Toño Hannah MD from Last 3 Months Surgical History Surgery Date Site/Laterality Comments COLONOSCOPY 12/25/2018 adequate prep, TAx1 3-yr recall Medical History Medical History Date Comments HTN (hypertension) 03/15/2012 DX:HTN (hyper tension) Tobacco abuse 03/15/2012 DX:Tobacco abuse Observed sleep apnea 03/15/2012 DX:Observed sleep apnea Diastolic CHF, chronic ([facility] V24, [facility] V28) 03/15/2012 DX:Diastolic CHF, chronic (H CC) Asthma 03/15/2012 DX:Asthma COPD (chronic obstructive pu lmonary disease) ([facility] V24, [facility] V28) 03/15/2012 DX:COPD (chronic o bstructive pulmonary disease) ([facility]) Colon polyp Family History Medical History [...] 9:30 AM EDT Office Visit Orthopedic Surgery - [place] [address] [phone] Marky Lezama, DPM [address] [address] Health Maintenance Due Date Last Done Comments [...] Months Results * COLONOSCOPY Anesthesia - [facility]; [facility] ENDOSCOPY (12/11/2024 10:41 AM EDT) Anatomical Region Laterality Modality Endoscopy 12/11/2024 10:1 3 AM EDT Impressions 12/11/2024 10:43 AM EDT - Mucosal ulceration. Biopsied. - The examined portion of the ileum was normal. - One 10 mm polyp in the transverse colon, removed with a hot snare. Resected and retrieved. Clip (MR conditional) was placed. Clip torpedo specialist: [place]. - The examination was otherwise normal on direct and retroflexion views. Recommendation: - Await pathology results. - Repeat colonoscopy in 2 years for surveillance. Narrative 12/11/2024 10:[address] [facility] GI Patient Name: Imer Parrish Procedure Date: [...] clip was successfully placed (MR conditional). Clip torpedo specialist: [place]. There was no bleeding at the end of the procedure. The exam was otherwise without abnormality on direct and retroflexion views. Procedure Code(s): --- Professional --- 96105, Colonoscopy, flexible; with removal of tumor(s), polyp(s), or other lesion(s) by snare technique 23103, 59, Colonoscopy, flexible; with biopsy, single or multiple Diagnosis Code(s): --- Professional --- Z86.010, Personal history of colonic polyps K63.3, Ulcer of intestine D12.3, Benign neoplasm of transverse colon (hepatic flexure or splenic flexure) CPT copyright 2020 [employer]. All rights reserved. The codes documented in this report are preliminary and upon inventory clerk review may be revised to meet current compliance requirements. Toño Hannah MD 12/11/2024 10:43:08 AM This report has been signed electronically.Toño Hannah MD Number of Addenda: 0 Note Initiated On: 12/11/2024 10:13 AM Scope In: Scope Out: Endoscopy Department at [facility] - [address] [place] [phone] Procedure Note Toño Hannah MD - 12/11/2024 [facility] Patient Name: Imer Parrish Procedure Date: [...] clip was successfully placed (MR conditional). Clip torpedo specialist: [place]. There was nobleeding at the end of the procedure. The exam was otherwise without abnormality ondirect and retroflexion views. Procedure Code(s): --- Professional --- 63514, Colonoscopy, flexible; with removal of tumor(s), polyp(s), or other lesion(s) by snare technique 25538, 59, Colonoscopy, flexible; with biopsy,single or multiple Diagnosis Code(s): --- Professional --- Z86.010, Personal history of colonic polyps K63.3, Ulcer of intestine D12.3, Benign neoplasm of transverse colon (hepatic flexure or splenic flexure) CPT copyright 2020 [employer]. All rights reserved. The codes documented in this report are preliminary and upon inventory clerk reviewmay be revised to meet current compliance requirements. Toño Hannah MD 12/11/2024 10:43:08 AM This report has been signed electronically.Toño Hannah MD Number of Addenda: 0 Note Initiated On: 12/11/2024 10:13 AM Scope In: Scope Out: Endoscopy Department at [facility] - [address] [place] [phone] IMPRESSION: - Mucosal ulceration. Biopsied. - The examined portion of the ileum was normal. - One 10 mm polyp in the transverse colon, removed with a hot snare. Resected and retrieved. Clip (MR conditional) was placed. Clip torpedo specialist: [place]. - The examination was otherwise normal on [...] polyp: Tubular adenoma 12/13/2024 3:54 PM EDT [facility] Gross Description A. Large Intestine, Cecum, [...] survive processing. hs/DG 12/13/2024 3:54 PM EDT [facility] Disclaimer Unless otherwise specified, all tissue is 10% NB formalin fixed and paraffin embedded. 12/13/2024 3:54 PM EDT [facility] Tissue Cecum structure / Unknown 12/11/2024 10:30 AM EDT 12/11/2024 12:41 PM EDT Tissue specimen (specimen) Transverse colon structure / Unknown 12/11/2024 10:34 AM EDT 12/11/2024 12:41 PM EDT us Toño Hannah MD LAB PATHOLOGY ORDERABLES Fi nal Result [facility] [address] [place] [address], [place] [phone] from Last 3 Months Insurance [facility] OPT[employer] Member Subscriber Plan / Payer (Ef fective 2023-Present) Name:Imer Parrish Relation to Subscriber:Self Name:mIer Parrish Payer ID:[id number] Group ID:Not on file Type:Not on file Address: [place] [address] [address] Care Teams Orthopedic Shoe Fitter Relationship Specialty Start Date End Date Clarissa Vick MD [address] [place] [address] PCP - General 06/08/13
--- OUTSIDE RECORDS SUMMARY | 2025-02-27 08:50 | XMS_ITS | Encounter Summary ---
Author Organization [employer] Address [address] [place] [address] [address] [place] [address] Care Team Providers Care Zipper Sewing Machine Operator Name Role Phone Lake Sullivan MD Primary Care Provide r Bossman Starks Unavailable [phone] Reason for Visit * Reason Comments Med Refill Encounter Details Date Type Department Care Team (Late st Contact Info) Description 11/08/2024 Refill [facility] [address] [place], [place] [phone] Lake Sullivan MD [address] [place], [place] [phone] Dermatitis Social History Tobacco Use Types Packs/Day [...] Upcoming Encounters Date Type Department Care Team ([facility] st Contact Info) Description 04/03/2025 9:00 AM EDT Clinical Support [facility] MED & PEDS [address] [place] [address] 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, LUCI [address] [place] [address] 05/07/2025 9:15 AM EDT Office Visit [facility] [address] [place] [address] Lake Sullivan MD [address] [place] [address] documented as of this encounter Visit Diagnoses Diagnosis Dermatitis Contact dermatitis and other eczema, due to unspecified cause documented in this encounter Additional Health Concerns Assessment Noted Time PHQ-9 Depression Total Score: 3 08/18/19 24 10:01 AM EST documented as of this encounter Care Teams Zipper Sewing Machine Operator Relationship Specialty Start Date End Date Lake Sullivan MD [address] [place] [phone] PCP - General Internal Medicine 02/12/14 Bossman Starks [address] [facility] [address] [place] [phone] Nephrology 11/14/24 documented as of this encounter
--- OUTSIDE RECORDS SUMMARY | 2025-02-27 08:50 | XMS_ITS | Clinical Summary ---
Author Organization [facility] Address [address] [place] [address] Care Team Providers Care Student Support Advisor Name Role Phone Unavailable Primary Care Provider Unavailabl e Social History Tobacco Use Types Packs/Day Years Used Date Smoking Tobacco: Never Assessed Sex and Gender Information Value Date Recorded Sex Assigned at Not on file Gender Identity Not on file Sexual Orientation Not on file Plan of Treatment Not on file
== END 2025-02-27 10:13 | disposition home or self-care (01) ==
PROVIDERS: PCP Internal Medicine; Visit Provider Internal Medicine
DX: J44.9 Chronic obstructive pulmonary disease, unspecified (principal); F17.210 Nicotine dependence, cigarettes, uncomplicated; G47.33 Obstructive sleep apnea (adult) (pediatric); Z99.89 Dependence on other enabling machines and devices; J30.9 Allergic rhinitis, unspecified; J98.4 Other disorders of lung
CPT/HCPCS: 94010; 99214

== ENCOUNTER → 2025-02-27 08:17 | Outpatient (BNVA) | payer OTHER, SELFPAY | PROVIDERS: PCP Internal Medicine; Visit Provider Internal Medicine | DX: G47.33 Obstructive sleep apnea (adult) (pediatric) (principal); Z99.89 Dependence on other enabling machines and devices; E66.01 Morbid (severe) obesity due to excess calories; J44.9 Chronic obstructive pulmonary disease, unspecified; F17.210 Nicotine dependence, cigarettes, uncomplicated; J30.9 Allergic rhinitis, unspecified; J98.4 Other disorders of lung | CPT/HCPCS: 94010; 99212 ==

== ENCOUNTER 2025-03-22 07:02 | Emergency (ER) | payer OTHER, SELFPAY ==
--- NOTE | ~2025-03-22 | XR_ITS ---
EXAMINATION: XR CHEST 1 VIEW HISTORY: Cough COMPARISON: Comparison is made with the prior examination dated 06/27/2022. FINDINGS: A single AP portable view of the chest performed at 8:19 AM is submitted. The lungs are expanded and clear. There is no pleural effusion, pneumothorax, or pulmonary vascular congestion. The heart is normal in size. There is calcification of the thoracic aorta. There is degenerative disc disease of the spine. XR/XR chest 1V IMPRESSION: No acute cardiopulmonary abnormality. Electronically signed by: Bernard Walker MD 03/22/2025 08:32 AM EDT
--- NOTE | ~2025-03-22 | CT_ITS ---
EXAMINATION: CT HEAD WITHOUT IV CONTRAST HISTORY: dizziness. TECHNIQUE: Unenhanced helical CT of the head was performed per standard departmental protocol. Coronal and sagittal reformats of the head were also evaluated. One or more of the following techniques was used for dose reduction: Automated exposure control, adjustment of the mA and/or kV according to patient size, use of iterative reconstruction technique. DLP: 681 mGy-cm COMPARISON: Comparison is made with the prior examination dated 03/24/2022. FINDINGS: BRAIN: There is mild prominence of the ventricular system and cortical sulci, consistent with atrophy. Scattered periventricular and subcortical white matter hypodensities are noted which are nonspecific, but often seen in the setting of small vessel ischemic disease. There is no mass effect or midline shift. No intra- or extra-axial fluid collections are identified. SINUSES: The visualized paranasal sinuses are clear. The mastoid air cells and middle ear cavities are well pneumatized. ORBITS: The visualized orbits are unremarkable. BONES/SOFT TISSUES: The extracranial soft tissues are unremarkable. The calvarium is intact. No suspicious lytic or sclerotic lesions. CT/CT head/brain wo IV con IMPRESSION: No acute intracranial abnormality. Electronically signed by: Bernard Walker MD 03/22/2025 08:27 AM EDT
[2025-03-22 07:07] VITALS: BP 159/70; BP 170/104; PULSE 105; PULSE 87; RESP 17; TEMP 36.9; O2SAT 97; BMI 44.9
--- NOTE | 2025-03-22 07:19 | ECG_ITS ---
Test Reason : chest pain Blood Pressure : */* mmHG Vent. Rate : 80 BPM Atrial Rate : 80 BPM P-R Int : 174 ms QRS Dur : 88 ms QT Int : 390 ms P-R-T Axes : 57 25 47 degrees QTcB Int : 449 ms Normal sinus rhythm Normal ECG When compared with ECG of 02-Jun-2024 12:18, No significant change was found Referred By: Hernán Ferrer Electronically Signed By: JAZMYN TAIPA MD
--- NOTE | 2025-03-22 07:21 | ED.GENADULT ---
HPI - General Adult General Chief complaint: Weakness Stated complaint: DIZZINESS Time Seen by Provider: 03/22/25 07:16 Source: patient and EMS Mode of arrival: EMS Limitations: no limitations History of Present Illness HPI narrative: This is 69 years old with history of COPD, CKD, type 2 diabetes presented to the emergency department stating that they woke up at 04:00 in the morning and felt weak felt dizzy he has some nausea. He denies any chest pain. He states the symptoms are now resolving Onset (ago): hour(s) (3) Location: head Radiation: non-radiation Severity: moderate Relieving factors: none Exacerbating factors: none Associated symptoms: denies other symptoms Treatments prior to arrival: none Related Data Home Medications ?Medication ?Instructions ?Recorded ?Confirmed blood sugar diagnostic #10 ea 07/02/20 10/18/24 irbesartan 150 mg tablet 150 mg PO DAILY 08/12/22 10/18/24 tolterodine 4 mg capsule,extended 4 mg PO BEDTIME 08/12/22 10/18/24 release 24 hr ipratropium 0.5 mg-albuterol 3 mg ml inhalation 10/18/24 10/18/24 (2.5 mg base)/3 mL nebulization soln morphine 15 mg tablet,extended 15 mg PO BID 10/18/24 10/18/24 release Previous Rx's ?Medication ?Instructions ?Recorded alprazolam 1 mg tablet 1 mg PO BID #60 tabs 05/12/20 buspirone 10 mg tablet 10 mg PO BID #60 tabs 05/12/20 cholecalciferol (vitamin D3) 50 50 mcg PO DAILY #30 caps 05/12/20 mcg (2,000 unit) capsule docusate sodium 100 mg capsule 100 mg PO DAILY #30 caps 05/12/20 (Colace) hydrochlorothiazide 12.5 mg tablet 12.5 mg PO DAILY #30 tabs 05/12/20 hydrocortisone 2.5 % topical cream 1 applic LA BID-QID PRN 05/12/20 with perineal applicator hemorrhoids #30 grams (Procto-Med HC) loratadine 10 mg tablet (Claritin) 10 mg PO DAILY #30 tabs 05/12/20 lorazepam 1 mg tablet (Ativan) 1 mg PO BID PRN anxiety #60 tabs 05/12/20 metformin 500 mg tablet,extended 500 mg PO DAILY #30 tabs 05/12/20 release 24 hr omeprazole magnesium 20 mg 20 mg PO DAILY #30 tabs 05/12/20 tablet,delayed release (Prilosec OTC) paroxetine HCl 20 mg tablet 20 mg PO DAILY #30 tabs 05/12/20 quetiapine 300 mg tablet (Seroquel) 300 mg PO BEDTIME #30 tabs 05/12/20 quetiapine 400 mg tablet 400 mg PO BID #30 tabs 05/12/20 tamsulosin 0.4 mg capsule 0.4 mg PO BEDTIME #30 caps 05/12/20 verapamil 300 mg capsule 24hr 300 mg PO BEDTIME #30 caps 05/12/[address],ext.release (Verelan PM) fluticasone 500 mcg-salmeterol 50 1 inh inhalation BID copd #60 ea 09/10/21 mcg/dose blistr powdr for inhalation (Advair Diskus) fluticasone propionate 50 2 spray intranasal DAILY Allergic 09/10/21 mcg/actuation nasal Rhinitis 30 days #16 grams spray,suspension (Children's Flonase Allergy Relief) naproxen 500 mg tablet (Naprosyn) 500 mg PO BID #20 tabs 06/27/22 bacitracin 500 unit/gram topical 1 appl topical BID #30 grams 07/10/23 ointment albuterol sulfate 90 mcg/actuation 2 puff inhalation Q4-6H PRN 10/17/23 aerosol inhaler (ProAir HFA) shortness of breath or wheezing 30 days #8.5 grams docusate sodium 100 mg capsule 100 mg PO BID #60 caps 07/27/24 (Colace) ipratropium 0.5 mg-albuterol 3 mg 3 ml inhalation QID copd 30 days 10/18/24 (2.5 mg base)/3 mL nebulization #320 mL soln fluticasone 250 mcg-salmeterol 50 1 inh inhalation BID 30 days #60 ea 02/27/25 mcg/dose blistr powdr for inhalation (Advair Diskus) montelukast 10 mg tablet 10 mg PO BEDTIME #90 tabs 03/08/25 meclizine 25 mg tablet 25 mg PO TID PRN dizziness #15 tabs 03/22/25 ondansetron 4 mg disintegrating 4 mg PO Q8H 5 days #15 tabs 03/22/25 tablet Allergies Allergy/AdvReac Type Severity Reaction Status Date / Time No Known Allergies (No Known Allergy Verified 03/22/25 07:11 Allergies*) Review of Systems Constitutional: Constitutional: Denies fever(s) ENT: Reports system reviewed and no additional complaints, except as documented Cardiovascular: Cardiovascular: Denies chest pain Neurologic: Reports as per [facility] Past Medical History Attestation statement: The following information was validated with the patient. Medical History Restrictive lung disease Thrombosed external hemorrhoid Anemia, normocytic normochromic History of pneumothorax Sickle cell trait Nicotine dependence, cigarettes, uncomplicated Osteoporosis (~2013) Morbid (severe) obesity with alveolar hypoventilation Allergic rhinitis COPD (chronic obstructive pulmonary disease) NAM on CPAP (~2008) Surgical History History of colonoscopy History of surgery on lower extremity History of cardiac cath Social History Social History Alcohol intake: unknown Patient Tobacco Use Status: Current everyday Tobacco user Tobacco use type: Cigarette Cigarettes Per Day: 10 Years Smoked: onset 13yo, x 54yrs, mainly 1ppd, now 1/2ppd, 50pyh Advance Directives: Yes Advance Directives Information Provided: Yes Advance Directives on File: No Do you have a plan to hurt others: No Plan Physical Exam ED Exam Exam: The patient is no in distress Vital Signs: Vital Signs - 24 hr 03/22/25 07:07 03/22/25 08:51 03/22/25 08:53 Temperature 98.4 F Pulse Rate 105 H 70 Respiratory Rate 17 18 Blood Pressure 159/70 H 134/66 Pulse Oximetry 97 97 Oxygen Delivery Method Room Air 03/22/25 10:00 03/22/25 11:01 Temperature 98.5 F 97.6 F Pulse Rate 78 66 Respiratory Rate 21 H 19 Blood Pressure 143/67 H 147/71 H Pulse Oximetry 95 100 Oxygen Delivery Method Room Air Room Air BMI result Body Mass Index 44.9 Const General: cooperative, comfortable and no acute distress Nutritional Appearance: well nourished Orientation/consciousness: patient oriented x3 Limitations: no limitations HENMT Head: Yes normal to inspection General nose exam: Normal external nose present Neck Neck: Yes normal visual inspection and Yes full ROM Chest Chest palpation & inspection: normal inspection of the chest Resp Effort & Inspection: normal respiratory effort Auscultation: clear to auscultation bilaterally Cardio Jugular venous distension: no JVD Rate: regular rate Rhythm: regular rhythm GI Inspection: Yes normal to inspection Palpation (GI): Soft to palpation, not firm and nontender Auscultation: normal bowel sounds Skin General skin exam: no rashes or lesions noted, elasticity normal and turgor normal Lesions: no lesions Rashes: no rashes Neuro General: patient oriented x3 Extrem General: Yes normal to inspection and Yes full ROM Course Reevaluation(s) Reevaluation #1: On re-examination he is feeling better ambulating without any problem dizziness is gone anticipate discharge Time: 11:10 Medications Administered Discontinued Medications Generic Name Dose Route Start Last Admin Trade Name Freq PRN Reason Stop Dose Admin Sodium Chloride 1,000 mls @ 999 mls/hr 03/22/25 07:30 03/22/25 08:52 Ns IVCONT 03/22/25 08:30 Infused .Q1H1M SAMI Infusion Meclizine HCl 25 mg 03/22/25 08:38 03/22/25 08:50 Meclizine Hcl 25 Mg Tablet PO 03/22/25 08:39 25 mg ONCE ONE Administration Ondansetron HCl 4 mg 03/22/25 07:24 03/22/25 07:31 Ondansetron Hcl 4 Mg/2 Ml Vial IVPUSH 03/22/25 07:25 4 mg ONCE ONE Administration Medical Decision Making Medical Decision Making [facility] Narrative: Patient is here complaining of dizziness nausea we will check blood work, electrocardiogram, imaging of the brain Differential Diagnosis Differential Diagnoses: The differential diagnosis associated with the presentation includes Vertigo/anemia/CVA Admission/Observation Consideration of admission/observation: Escalation of care including admission/observation considered Lab Data MDM Lab Attestation statement: I reviewed the patient's lab results. 03/22/25 07:24 03/22/25 07:24 Labs: Lab Results 03/22/25 Range/Units 07:24 WBC 9.4 (4.8-10.8) X10*3/uL RBC 3.93 L (4.60-5.80) X10*6/uL Hgb 11.2 L (14.0-18.0) g/dl Hct 33.0 L (42.0-52.0) % MCV 84.0 (80.0-98.0) fL MCH 28.5 (27.0-33.0) pg MCHC 33.9 (31.0-36.0) g/dl RDW 14.4 (11.0-16.0) % Plt Count 269 (160-400) X10*3/uL MPV 10.6 (9.4-12.4) fL Immature Gran % (Auto) 0.3 (0.0-0.4) % Neut % (Auto) 56.4 (45-73) % Lymph % (Auto) 31.5 (20-40) % [place] % (Auto) 9.2 (2-11) % Eos % (Auto) 2.2 (0-4) % Baso % (Auto) 0.4 (0-2) % Lymph # (Auto) 3.0 (1.2-4.9) X10*3/uL [place] # (Auto) 0.9 (0.1-1.2) X10*3/uL Eos # (Auto) 0.2 (0.0-0.4) X10*3/uL Baso # (Auto) 0.0 (0.0-0.2) X10*3/uL Abs Immat Gran (auto) 0.03 (0.00-0.03) X10*3/uL Absolute Neuts (auto) 5.3 (2.0-8.3) x10*3/uL Absolute Nucleated RBC 0.000 (0.0-0.012) X10*3/uL Nucleated RBC % (auto) 0.0 (0.0-0.2) /100WBC Sodium 141 (135-145) mmol/L Potassium 4.5 (3.3-5.1) mmol/L Chloride 109 H (96-108) mmol/L Carbon Dioxide 26 (22-29) mmol/L Anion Gap 11 L (12-20) BUN 18 H (9-16) mg/dL Creatinine 1.67 H (0.5-1.4) mg/dL Estim Creat Clear Calc 49.2 Estimated GFR 41 Random Glucose 162 H (60-115) mg/dL Calcium 9.0 (8.4-10.2) mg/dL Total Bilirubin 0.2 (0.0-1.0) mg/dL AST 17 (5-37) U/L ALT 7 (0-40) U/L Alkaline Phosphatase 147 H (39-117) U/L Troponin I High Sens 3.0 (<3.5-35.0) ng/L Total Protein 6.7 (6.5-8.0) g/dL Albumin 3.4 L (3.5-5.0) g/dL Independent Interpretation I performed an independent interpretation of an: EKG and CT Scan (No acute distress) Interpretation: Electrocardiogram was reviewed interpreted by me as normal sinus rhythm he no ST-T changes normal electrocardiogram Radiology Impression Discussion of test interpretation with radiology: I have reviewed the radiologist's reading. Independent Historian Clinical information obtained from an independent historian. History obtained from or confirmed by: EMS Chronic Conditions Patient?s care impacted by: Diabetes Discharge Plan Discharge Clinical Impression: Dizziness Patient Disposition: Home, Self-Care Instructions: Dizziness (ED) Additional Instructions: Follow-up with your primary care physician call today and make an appointment return if you worse Prescriptions: New meclizine 25 mg tablet 25 mg PO TID PRN (Reason: dizziness) Qty: 15 0RF ondansetron 4 mg tablet,disintegrating 4 mg PO Q8H 5 Days Qty: 15 0RF No Action lorazepam [Ativan] 1 mg tablet 1 mg PO BID PRN (Reason: anxiety) Qty: 60 0RF loratadine [Claritin] 10 mg tablet 10 mg PO DAILY Qty: 30 0RF buspirone 10 mg tablet 10 mg PO BID Qty: 60 0RF quetiapine 400 mg tablet 400 mg PO BID Qty: 30 0RF paroxetine HCl 20 mg tablet 20 mg PO DAILY Qty: 30 0RF alprazolam 1 mg tablet 1 mg PO BID Qty: 60 0RF tamsulosin 0.4 mg capsule 0.4 mg PO BEDTIME Qty: 30 0RF docusate sodium [Colace] 100 mg capsule 100 mg PO DAILY Qty: 30 0RF omeprazole magnesium [Prilosec OTC] 20 mg tablet,delayed release (DR/EC) 20 mg PO DAILY Qty: 30 0RF hydrocortisone [Procto-Med HC] 2.5 % cream with perineal applicator 1 applic LA BID-QID PRN (Reason: hemorrhoids) Qty: 30 0RF verapamil [Verelan PM] 300 mg capsule, [address] 300 mg PO BEDTIME Qty: 30 0RF hydrochlorothiazide 12.5 mg tablet 12.5 mg PO DAILY Qty: 30 0RF quetiapine [Seroquel] 300 mg tablet 300 mg PO BEDTIME Qty: 30 0RF metformin 500 mg tablet extended release 24 hr 500 mg PO DAILY Qty: 30 0RF cholecalciferol (vitamin D3) 50 mcg (2,000 unit) capsule 50 mcg PO DAILY Qty: 30 0RF docusate sodium [Colace] 100 mg capsule 100 mg PO BID Qty: 60 0RF montelukast 10 mg tablet 10 mg PO BEDTIME Qty: 90 0RF naproxen [Naprosyn] 500 mg tablet 500 mg PO BID Qty: 20 0RF bacitracin 500 unit/gram ointment 1 appl topical BID Qty: 30 0RF (DME) FreeStyle Lite Strips Strip See Rx Instructions Not Applicable DAILY Qty: 10 Rx Instructions: As directed fluticasone propion-salmeterol [Advair Diskus] 500-50 mcg/dose blister with device 1 inh inhalation BID Qty: 60 5RF fluticasone propionate [Children's Flonase Allergy Rlf] 50 mcg/actuation spray,suspension 2 spray intranasal DAILY 30 Days Qty: 16 5RF Rx Instructions: administer into each nostril irbesartan 150 mg tablet 150 mg PO DAILY tolterodine 4 mg capsule,extended release 24hr 4 mg PO BEDTIME fluticasone propion-salmeterol [Advair Diskus] 250-50 mcg/dose blister with device 1 inh inhalation BID 30 Days Qty: 60 5RF albuterol sulfate [ProAir HFA] 90 mcg/actuation HFA aerosol inhaler 2 puff inhalation Q4-6H PRN (Reason: shortness of breath or wheezing) 30 Days Qty: 8.5 1RF ipratropium-albuterol 0.5 mg-3 mg(2.5 mg base)/3 mL solution for nebulization inhalation morphine 15 mg tablet extended release 15 mg PO BID ipratropium-albuterol 0.5 mg-3 mg(2.5 mg base)/3 mL solution for nebulization 3 ml inhalation QID 30 Days Qty: 320 4RF Referrals: Lake Allen MD [Primary Care Provider, Medical] - 03/25/25 Print Language: Malagasy
[2025-03-22 07:28] LABS: MANUAL DIFF FLAG NO
[2025-03-22 07:30] LABS: Hematocrit 33.0 % (42.0-52.0); Hemoglobin 11.2 g/dl (14.0-18.0); Imm Gran Abs Auto 0.03 X10*3/uL (0.00-0.03); Imm Gran Pct Auto 0.3 % (0.0-0.4); Lymphocytes Absolute Auto 3.0 X10*3/uL (1.2-4.9); Mean Corpuscular HGB Conc 33.9 g/dl (31.0-36.0); Mean Corpuscular Hemoglobin 28.5 pg (27.0-33.0); Mean Corpuscular Volume 84.0 fL (80.0-98.0); NRBC Abs Auto 0.000 X10*3/uL (0.0-0.012); NRBC Pct Auto 0.0 /100WBC (0.0-0.2); Platelet Count 269 X10*3/uL (160-400); Red Blood Count 3.93 X10*6/uL (4.60-5.80); White Blood Count 9.4 X10*3/uL (4.8-10.8)
[2025-03-22 07:46] LABS: Alanine Aminotransferase 7 U/L (0-40); Albumin Level 3.4 g/dL (3.5-5.0); Alkaline Phosphatase 147 U/L (39-117); Anion Gap 11 (12-20); Aspartate Amino Transferase 17 U/L (5-37); Blood Urea Nitrogen 18 mg/dL (9-16); Calcium 9.0 mg/dL (8.4-10.2); Carbon Dioxide 26 mmol/L (22-29); Chloride 109 mmol/L (96-108); Creatinine Clr Calc Pharmacy 49.2; Estimated Glomerular Filt Rate 41; Potassium 4.5 mmol/L (3.3-5.1); Sodium 141 mmol/L (135-145); Total Protein 6.7 g/dL (6.5-8.0)
[2025-03-22 07:52] LABS: Troponin-I High Sensitivity 3.0 ng/L (<3.5-35.0)
--- OUTSIDE RECORDS SUMMARY | 2025-03-22 07:55 | XMS_ITS | Encounter Summary ---
Author Organization [employer] Address [address] [facility] 7t [place] [address] Care Team Providers Care Boiler Blower Name Role Phone Lake Sullivan MD Primary Care Provide r Bossman Starks Unavailable [phone] Reason for Visit * Reason Onset Date Comments Med Refill 03/05/2024 Encounter Details Date Type Department Care Team (Late st Contact Info) Description 03/05/2024 Telephone [facility] MEDICINE [address] [place], [place] [phone] Lake Sullivan MD [address] [place], [place] [phone] Med Refill Social History Tobacco Use Types [...] 12 hr tablet To be sent to: [id number] AT [facility] documented in this encounter Plan of Treatment Upcoming Encounters Date Type Department Care Team ([facility] st Contact Info) Description 04/03/2025 9:00 AM EDT Clinical Support [facility] CHC MED & PEDS [address] [place] [address] 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, LUCI [address] [place] [address] 05/07/2025 9:15 AM EDT Office Visit [facility] MEDICINE [address] [place], [place] [phone] Lake Sullivan MD [address] [place], [place] [phone] documented as of this encounter Visit Diagnoses Not on filedocumented in this encounter Additional Health Concerns Assessment Noted Time PHQ-9 Depression Total Score: 3 08/18/19 24 10:01 AM EST documented as of this encounter Care Teams Boiler Blower Relationship Specialty Start Date End Date Lake Sullivan MD [address] [place] [address] PCP - General Internal Medicine 02/12/14 Bossman Starks 100 [facility] [address] [place] [address] Nephrology 11/14/24 documented as of this encounter
--- OUTSIDE RECORDS SUMMARY | 2025-03-22 07:55 | XMS_ITS | Encounter Summary ---
Author Organization [employer] Address [address] [place] [address] 7t [place] [address] Care Team Providers Care Head Teller Name Role Phone Lake Sullivan MD Primary Care Provide r Bossman Starks Unavailable Reason for Visit * Reason Onset Date Comments Med Refill 09/17/2024 Encounter Details Date Type Department Care Team (Late st Contact Info) Description 09/17/2024 Telephone [facility] MEDICINE [address] [place], [place] [phone] Lake Sullivan MD [address] [place], [place] [phone] Med Refill Social History Tobacco Use Types [...] 5-325 MG tablet To be sent to: [facility] #[id number] - [place] - [address] [place] [address] [facility] documented in this encounter Plan of Treatment Upcoming Encounters Date Type Department Care Team ([facility] st Contact Info) Description 04/03/2025 9:00 AM EDT Clinical Support [facility] CHC MED & PEDS [address] [facility] [place] [address] 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, RN [address] [facility] [place] [address] 05/07/2025 9:15 AM EDT Office Visit [facility] MEDICINE [address] [place] [address] Lake Sullivan MD [address] [place] [address] documented as of this encounter Visit Diagnoses Not on filedocumented in this encounter Additional Health Concerns Assessment Noted Time PHQ-9 Depression Total Score: 3 08/18/19 24 10:01 AM EST documented as of this encounter Care Teams Head Teller Relationship Specialty Start Date End Date Lake Sullivan MD [address] [place] [address] PCP - General Internal Medicine 02/12/14 Bossman Starks [facility] 200 [place] [address] Nephrology 11/14/24 documented as of this encounter
--- OUTSIDE RECORDS SUMMARY | 2025-03-22 07:55 | XMS_ITS | Encounter Summary ---
Author Organization [employer] Address [address] [place] [address] 7t [place] [address] Care Team Providers Care Therapist'S Assistant Name Role Phone Lake Sullivan MD Primary Care Provide r Bossman Starks Unavailable [phone] Encounter Details Date Type Department Care Team ([facility] Contact Info) Description 11/17/2022 Abstract [facility] [address] [place], [place] [phone] Lake Sullivan MD [address] [place] [address] Social History Tobacco Use Types Packs/Day Years [...] Upcoming Encounters Date Type Department Care Team ([facility] Contact Info) Description 04/03/2025 9:00 AM EDT Clinical Support [facility] [address] [place] [address] 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 RN [address] [place] [address] 05/07/2025 9:15 AM EDT Office Visit [facility] [address] [place] [address] Lake Sullivan MD [address] [place] [address] documented as of this encounter Procedures Procedure Name Priority Date/Time Associated Diagnosis Comments COLONOSCOPY Routine 12/25/2018 documented in this encounter Results * Colonoscopy (12/25/2018) Colonoscopy Normal Normal 12/25/2018 Narrative Laurie Chacko - 12/25/2018 2:08 PM EDT Recommended 5 year follow up Historical Provider [facility] Edited Result - Final documented in this encounter Visit Diagnoses Not on filedocumented in this encounter Care Teams Therapist'S Assistant Relationship Specialty Start Date End Date Lake Sullivan MD [address] [place] [address] PCP - General Internal Medicine 02/12/14 Bossman Starks [address] [place] [address] [place] [address] Nephrology 11/14/24 documented as of this encounter
--- OUTSIDE RECORDS SUMMARY | 2025-03-22 07:55 | XMS_ITS | Encounter Summary ---
Author Organization [employer] Address [address] [place] [address] 7t [place] [address] Care Team Providers Care Director Foundation Name Role Phone Lake Sullivan MD Primary Care Provide r Bossman Starks Unavailable [phone] Reason for Visit * Reason Onset Date Comments Durable Medical Equipment 06/23/2023 Encounter Details Date Type Department Care Team (Late st Contact Info) Description 06/23/2023 Telephone [facility] MEDICINE [address] [place], [place] [phone] Lake Sullivan MD [address] [place], [place] [phone] Durable Medical Equipment Social History Tobacco Use [...] Thank you * Telephone Encounter - Zehra Potts 06/23/2023 2:32 PM EST Tc from [facility] with [facility] requesting a script for bed pads (8x day) with 12 refills to be faxed to [phone] documented in this encounter Plan of Treatment Upcoming Encounters Date Type Department Care Team (Late st Contact Info) Description 04/03/2025 9:00 AM EDT Clinical Support [facility] CH[facility] MED & PEDS [address] [place] [address] 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, LUCI 505 [place] [address] 05/07/2025 9:15 AM EDT Office Visit [facility] MEDICINE [address] [place] [address] Lake Sullivan MD [address] [place] [address] documented as of this encounter Visit Diagnoses Not on filedocumented in this encounter Care Teams Director Foundation Relationship Specialty Start Date End Date Lake Sullivan MD 230 [place] [address] PCP - General Internal Medicine 02/12/14 Bossman Starks 100 [facility] 200 [place] [address] Nephrology 11/14/24 documented as of this encounter
--- OUTSIDE RECORDS SUMMARY | 2025-03-22 07:55 | XMS_ITS | Encounter Summary ---
Author Organization [employer] Address [address] [place] [address] 7t [place] [address] Care Team Providers Care Waiter/Waitress Dining Car Name Role Phone Lake Sullivan MD Primary Care Provide r Bossman Starks Unavailable [phone] Reason for Visit * Reason Onset Date Comments Appointment Request 07/20/2023 Encounter Details Date Type Department Care Team (Late st Contact Info) Description 07/20/2023 Telephone [facility] MEDICINE [address] [place], [place] [phone] Lake Sullivan MD 230 [place], [place] [phone] Appointment Request Social History Tobacco Use Types [...] Description 04/03/2025 9:00 AM EDT Clinical Support [facility] CH[facility] MED & PEDS [address] [place] [address] 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, RN [address] [place], [place] 05/07/2025 9:15 AM EDT Office Visit [facility] MEDICINE [address] [place] [address] Lake Sullivan MD [address] [place] [address] documented as of this encounter Visit Diagnoses Not on filedocumented in this encounter Care Teams Waiter/Waitress Dining Car Relationship Specialty Start Date End Date Lake Sullivan MD [address] [place] [address] PCP - General Internal Medicine 02/12/14 Bossman Starks 100 [facility] 200 [place] [address] Nephrology 11/14/24 documented as of this encounter
--- OUTSIDE RECORDS SUMMARY | 2025-03-22 07:55 | XMS_ITS | Encounter Summary ---
Author Organization [employer] Address [address] [place] [address] 7t [place] [address] Care Team Providers Care Patrol Sergeant Name Role Phone Lake Sullivan MD Primary Care Provide r Bossman Starks Unavailable [phone] Reason for Visit * Reason Onset Date Comments Med Refill 05/28/2024 Encounter Details Date Type Department Care Team (Late st Contact Info) Description 05/28/2024 Telephone [facility] MEDICINE [address] [place], [place] [phone] Lake Sullivan MD [address] [place], [place] [phone] Med Refill Social History Tobacco Use Types [...] 12 hr tablet To be sent to: [facility] #[id number] - [id number] AT [facility] Pt states has no medications * Telephone Encounter - Conor Ross - 05/28/2024 9:24 AM EST TC from pt requesting medication refill. Medications needing refill : oxyCODONE-acetaminophen (Percocet) 5-325 MG tablet morphine CR (MS Contin) 15 MG 12 hr tablet To be sent to[facility] #[id number] - [id number] AT [facility] documented in this encounter Plan of Treatment Upcoming Encounters Date Type Department Care Team (Late st Contact Info) Description 04/03/2025 9:00 AM EDT Clinical Support [facility] CHC MED & PEDS [address] [place] [address] 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, RN 505 [place] [address] 05/07/2025 9:15 AM EDT Office Visit [facility] MEDICINE [address] [place] [address] Lake Sullivan MD [address] [place] [address] documented as of this encounter Visit Diagnoses Not on filedocumented in this encounter Additional Health Concerns Assessment Noted Time PHQ-9 Depression Total Score: 3 08/18/19 10:01 AM EST documented as of this encounter Care Teams Patrol Sergeant Relationship Specialty Start Date End Date Lake Sullivan MD [address] [place] [address] PCP - General Internal Medicine 02/12/14 Bossman Starks 100 [facility] 200 [place] [address] Nephrology 11/14/24 documented as of this encounter
--- OUTSIDE RECORDS SUMMARY | 2025-03-22 07:55 | XMS_ITS | Continuity of Care Document ---
Author Name Pedro Luong Address [address] [place] [id number] Organization Unknown Address [address] [place] [address] Medications No known medications Problems No known problems
--- OUTSIDE RECORDS SUMMARY | 2025-03-22 07:55 | XMS_ITS | Encounter Summary ---
Author Organization [employer] Address [address] [place] [address] [address] [place] [address] Care Team Providers Care Stitching Department Supervisor Name Role Phone Lake Sullivan MD Primary Care Provide r Bossman Starks Unavailable [phone] Encounter Details Date Type Department Care Team (Late st Contact Info) Description 03/09/2023 Orders Only [facility] MED & PEDS [address] [place] [address] Peggy Carey LPN Social History Tobacco Use [...] Description 04/03/2025 9:00 AM EDT Clinical Support [facility] MED & PEDS [address] [place] [address] 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, LUCI [address] [place] [address] 05/07/2025 9:15 AM EDT Office Visit [facility] MEDICINE [address] [place] [address] Lake Sullivan MD [address] [place] [address] documented as of this encounter Procedures Procedure Name Priority Date/Time Associated Diagnosis Comments MR KNEE WO CONTRAST RIGHT Routine 04/08/2023 8:14 AM EDT documented in this encounter Results * MR Knee w/o Contrast Right (04/08/2023 8:14 AM EDT) Anatomical Region Laterality Modality Magnetic Resonan ce 04/08/2023 8:14 AM EDT Narrative 04/08/2023 2:41 PM EDT [facility] [address] [place] [id number] Scan Report Signed Patient: Imer Parrish MR#: [id number] : 1955 Acct:[id number] Age/Sex: 67 / M ADM Date: 04/08/23 Loc: HO.CT Attending Dr: Cheryl Regalado PA-C Ordering Physician: Cheryl Regalado PA-C Date of Service: 04/08/23 Procedure(s): CT knee RT wo IV con Accession Number(s): [id number] cc: Lake Allen MD; Cheryl Regalado PA-C [...] in OV> 04/08/23 1437 DD/ 0814 TD/TT: 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: Procedure Note Donotuseinterpreter, Image - 04/08/[address] [place] [address] [address] Scan Report Signed Patient: Imer ParrishMR#: [id number] : 1955cct:[id number] Age/Sex: 67 / MADM Date: 04/08/23 Loc: HO.CT Attending Dr: Cheryl Regalado PA-C Ordering Physician: Cheryl Regalado PA-C Date of Service: 04/08/23 Procedure(s): CT knee RT wo IV con Accession Number(s): [id number] cc: Lake Allen MD; Cheryl Regalado PA-C [...] Ureña MD in OV> 04/08/23 1437 DD/ 3 TD/TT: 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: [facility] External Provider IMG MRI PROCEDURES Final Result documented in this encounter Visit Diagnoses Not on filedocumented in this encounter Care Teams Stitching Department Supervisor Relationship Specialty Start Date End Date Lake Sullivan MD [address] [place] [address] PCP - General Internal Medicine 02/12/14 Bossman Starks 100 [facility] [address] [place] [address] Nephrology 11/14/24 documented as of this encounter
--- OUTSIDE RECORDS SUMMARY | 2025-03-22 07:55 | XMS_ITS | Encounter Summary ---
Author Organization [employer] Address [address] [place] [address] [address] [place] [address] Care Team Providers Care Regulatory Services Consultant Name Role Phone Lake Sullivan MD Primary Care Provide r Bossman Starks Unavailable [phone] Reason for Visit * Reason Onset Date Comments Med Refill 11/08/2024 Encounter Details Date Type Department Care Team (Late st Contact Info) Description 11/08/2024 Telephone [facility] MEDICINE [address] [place], [place] [phone] Lake Sullivan MD [address] [place], [place] [phone] Med Refill Social History Tobacco Use Types [...] 12 hr tablet To be sent to: [id number] - [place] - [address] [place] [address] AT [facility] documented in this encounter Plan of Treatment Upcoming Encounters Date Type Department Care Team ([facility] st Contact Info) Description 04/03/2025 9:00 AM EDT Clinical Support [facility] MED & PEDS 505 [place] [address] 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, RN [address] [facility] [place] [address] 05/07/2025 9:15 AM EDT Office Visit [facility] MEDICINE [address] [place] [address] Lake Sullivan MD [address] [place] [address] documented as of this encounter Visit Diagnoses Not on filedocumented in this encounter Additional Health Concerns Assessment Noted Time PHQ-9 Depression Total Score: 3 08/18/19 24 10:01 AM EST documented as of this encounter Care Teams Regulatory Services Consultant Relationship Specialty Start Date End Date Lake Sullivan MD [address] [place] [address] PCP - General Internal Medicine 02/12/14 Bossman Starks 100 [facility] [address] [place] [address] Nephrology 11/14/24 documented as of this encounter
--- OUTSIDE RECORDS SUMMARY | 2025-03-22 07:55 | XMS_ITS | Encounter Summary ---
Author Organization [employer] Address [address] [place] [address] 7[address] [place] [address] Care Team Providers Care Medical Director Name Role Phone Lake Sullivan MD Primary Care Provide r Bossman Starks Unavailable [phone] Encounter Details Date Type Department Care Team (Late Contact Info) Description 11/15/2022 Orders Only [facility] MED & PEDS [address] [place] [address] Peggy Carey LPN Social History Tobacco Use [...] Department Care Team (Late Contact Info) Description 04/03/2025 9:00 AM EDT Clinical Support [facility] MED & PEDS [address] [place] [address] 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, RN [address] [place] [address] 05/07/2025 9:15 AM EDT Office Visit [facility] MEDICINE [address] [place] [address] Lake Sullivan MD [address] [place] [address] documented as of this encounter Visit Diagnoses Not on filedocumented in this encounter Care Teams Medical Director Relationship Specialty Start Date End Date Lake Sullivan MD [address] [place] [address] PCP - General Internal Medicine 02/12/14 Bossman Starks 100 [facility] [address] [place] [address] Nephrology 11/14/24 documented as of this encounter
--- OUTSIDE RECORDS SUMMARY | 2025-03-22 07:55 | XMS_ITS | Clinical Summary ---
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 023 Active bacitracin-poly myxin b (Polysporin) ointment Apply topically 2 times daily. Apply to affected area daily 30 g 024 Active FreeStyle lancetsIndicati ons:Impaired glucose tolerance 1 each by Other route 3 times daily. 100 each 11 024 Active Alcohol Swabs (Alcohol Prep) pads 1 each 2 times daily. 100 each 5 024 Active glucose blood (FREESTYLE LITE) test [...] MOUTH DAILY 90 capsule 3 024 Active docusate sodium (Colace) 100 MG capsule Take 1 tab po bid prn constipation 60 capsule 3 025 Active verapamil SR (Calan SR) 180 MG ER tablet TAKE 1 TABLET(180 MG) BY MOUTH AT BEDTIME. DO NOT CRUSH OR CHEW 30 tablet 11 025 Active irbesartan (Avapro) 150 MG tablet TAKE 1 TABLET BY MOUTH EVERY DAY 90 tablet 1 025 Active senna (Senokot) 8.6 MG tabletIndicatio ns:Chronic constipation TAKE 1 TO 2 TABLETS BY MOUTH EVERY 12 HOURS NEEDED FOR CONSTIPATION 120 tablet 5 025 Active clotrimazole (Lotrimin) 1 % cream Apply 1 Application. topically 2 times daily. 024 Active clotrimazole-be tamethasone (Lotrisone) creamIndication s:Dermatitis APPLY TOPICALLY TO THE AFFECTED AREA EVERY 12 HOURS NEEDED 60 g 6 025 Active ipratropium-alb uterol (Duo-Neb) 0.5-2.5 mg/3 mL nebulizer solutionIndicat ions:Viral URI,Bronchitis Take 3 mL by nebulization every 6 (six) hours if needed for wheezing. 180 mL 2 025 2025 Active albuterol 108 (90 Base) MCG/ACT inhaler Inhale 2 puffs every 6 (six) hours if needed for wheezing. 18 g 025 2025 Active metFORMIN XR (Glucophage-XR) 500 MG 24 hr tablet TAKE 1 TABLET BY MOUTH EVERY DAY WITH THE EVENING MEAL 90 tablet Active verapamil ER (Verelan) 180 MG 24 hr capsule Take 1 capsule (180 mg) by mouth at bedtime. Do not crush or chew. 30 capsule 2 025 2025 Active Diclofenac Sodium 1 % gelIndications: Left hip pain Apply 1 Application topically every 12 (twelve) hours if needed (apply on affected area). 150 g Active oxyCODONE-aceta minophen (Percocet) 5-325 MG tabletIndicatio ns:Severe pain Take 1 tablet by mouth every 8 (eight) hours if needed for severe pain for up to 28 days. Do not start before February 27, 2025. 84 tablet 025 2024 Active morphine CR (MS Contin) 15 MG 12 hr tabletIndicatio ns:Severe pain Take 1 tablet (15 mg) by mouth every 12 (twelve) hours for 28 days. Do not start before February 27, 2025. 56 tablet 025 2024 Active Tirzepatide-Joselito ght Management (Zepbound) 2.5 MG/0.5ML solution auto-injectorIn dications:Body mass index (BMI) 45.0-49.9, adult (CMS/HCC) Inject 0.5 mL (2.5 mg) under the skin 1 (one) time per week. 2 mL 3 Active loratadine (Claritin) 10 MG tablet TAKE 1 TABLET(10 MG) BY MOUTH EVERY DAY FOR ALLERGIES 90 tablet Active loratadine (Claritin) 10 MG tablet TAKE 1 TABLET(10 MG) BY MOUTH EVERY DAY FOR ALLERGIES 90 tablet 1 025 2024 Discontinued Tirzepatide-Joselito ght Management (Zepbound) 2.5 MG/0.5ML solution auto-injectorIn dications:Body mass index (BMI) 45.0-49.9, adult (CMS/HCC) Inject 0.5 mL (2.5 mg) under the skin 1 (one) time per week. 0.5 mL 3 025 2024 Discontinued(R eorder (will not trigger [...] Active Problems Problem Noted Date Diagnosed Date Left hip pain 02/22/2025 Assessment & Plan (02/22/2025 9:41 AM EDT): X-ray ordered today patient will be contacted with results Continue taking his pain medications as prescribed I added today some diclofenac gel to apply every 12 hours just if needed Bronchitis 12/31/2024 Assessment & Plan (12/31/2024 9:11 AM EDT): Rapid viral test are negative, he probably has a viral URI complicated with bronchitis at this time. I will start him on Doxy x 7 days Rest (sleep at least 8 hours a night). Counseled to quit smoking, he will follow-up with PCP. Hydrate with plenty of water (avoid caffeine and alcohol). Use saline nose drops to loosen mucus + albuterol nebs (DuoNebs) every 4 hours as needed shortness of breath for 2 days then as needed shortness of breath for the remaining 5 days Take Acetaminophen (Tylenol )/Ibuprofen as needed to reduce fever, headache, body aches or discomfort Gargle with salt water and use throat sprays/lozenges for throat pain. Use heated, humidified air. If you do not have a humidifier, take hot showers. Cover coughs and sneezes using the crook of your elbow. If you have a fever, stay home and away from others (self isolation) until fever-free for 72 hours (temperature should be less than 100 F without medication). Body mass index (BMI) 45.0-49.9, adult Assessment [...] w sutures removal otherwise to come to [facility] -gave today written prescription for knee brace [...] recent X-rays done st the office of [facility] during his last visit 11/12/2013 of [...] should be considered. Pt was seen at [facility] last note I have on record dates from 11/12/2013 , on this note they mentioned that the pt has a Hx of multiple osteochondromas in his right lower extremity and had been followed by Dr Webb in [place] where he had a resection of a large osteochondroma in the distal femur with subsequent locking plate and screws. At some point he was seen by Dr Diego at [facility] who stated that unless he was to loose some weight he would not recommend to pursue with any kind of surgical intervention, He had also recommended to use a brace given to him by [facility]. Of note pt was also seen by Dr Elda Saini who belongs to an orthopedic oncology group. He was seen on 05/01/[address] Saini recommended he f/u with [facility]. I have been prescribing Narcotics for pt for pain control. Unfortunately pt lacks the motivation to loose weight . Pt has a narcotic contract with us. [facility] recommended he have an AFO fabricated and [...] to go to a Orthopedic Oncologist in [place], We explained to him that the closest was [facility] but they do not take his insurance [...] were wnl. Pt was evaluated by a child specialist. He was seen by child specialist Dr Alan on 11/07/2012 his work was unrevealing so she has recommended observation. Preventative health care 07/01/2022 Assessment & Plan (02/05/2025 9:08 AM EDT): PSA 11/13/2024: Normal 0.44 Colonoscopy: 12/25/2018 Dr loja 1 polyp found 5 yr f/u recommended. Repeat 12/11/2024 showed 1 polyp 2 yr follow up recommended Assessment & Plan (05/08/2024 9:48 AM EDT): [...] f/u recommended Hypertensive nephrosclerosis 01/07/2021 Dyslipidemia 01/07/2021 Assessment & Plan (02/05/2025 9:06 AM EDT): Lab Results Component Value Date TRIG 122 11/13/2024 TRIG 127 05/09/2024 CHOL 160 11/13/2024 CHOL 175 05/09/2024 LDLCHOLCAL 100 (H) 11/13/2024 LDLCHOLCAL 119 (H) 05/09/2024 HDL 36 (L) 11/13/2024 HDL 31 (L) 05/09/2024 Stage 3a chronic kidney disease 01/07/2021 Assessment & Plan (02/05/2025 9:13 AM EDT): Under the care of Nephrology Lab Results Component Value Date NA 141 11/13/2024 NA 141 05/17/2024 K 4.8 11/13/2024 K 4.3 05/17/2024 CL 111 (H) 11/13/2024 CL 110 (H) 05/17/2024 BUN 34 (H) 11/13/2024 BUN 25 (H) 05/17/2024 CREATININE 1.60 (H) 11/13/2024 CREATININE 1.67 (H) 05/17/2024 Has an appointment in May Assessment & Plan (11/13/2024 9:12 AM EDT): [...] Impaired glucose tolerance 01/19/2018 Assessment & Plan (02/05/2025 9:14 AM EDT): FBS 11/13/2024: 80 A1c 11/29/2023 6 For now continue Metformin XR 500 mg po q pm f/u 4 months Assessment & Plan (12/27/2023 9:00 AM EDT): [...] 12/30/2015 Essential hypertension 05/20/2015 Assessment & Plan (02/05/2025 9:06 AM EDT): Here for a follow up BP controlled He is currently on a regimen of: Verelan PM 200 mg po q am and Irbersartan 150 mg po daily. Hydralazine (cardiology )was discontinued due to low blood pressures Most recent electrolytes, Bun and Creatinine done on: Lab Results Component Value Date NA 141 11/13/2024 NA 141 05/17/2024 K 4.8 11/13/2024 K 4.3 05/17/2024 CL 111 (H) 11/13/2024 CL 110 (H) 05/17/2024 BUN 34 (H) 11/13/2024 BUN 25 (H) 05/17/2024 CREATININE 1.60 (H) 11/13/2024 CREATININE 1.67 (H) 05/17/2024 Plan: continue current regimen f/u 4 months patient advised to adhere to a low sodium diet, encouraged about medication compliance, counseled about weight loss Assessment & Plan (11/13/2024 9:14 AM EDT): [...] Diastolic heart failure 09/25/2012 Assessment & Plan (02/05/2025 9:07 AM EDT): Pt here for a f/u Under the care of Dr Dow last note on record from 12/16/2024 Assessment & Plan (11/13/2024 9:12 AM EDT): [...] to go to a Orthopedic Oncologist in [place], We explained to him that the closest was [facility] but they do not take his insurance and he needed to switch, He refused to do that and opted to stay as is. He was last seen by an orthopaedic specialist Dr Stock 07/2016 Onychomycosis 03/20/2012 Obesity 03/20/2012 Assessment & Plan (02/05/2025 9:11 AM EDT): Images from the original note were not included. Patient has been counseled and educated about diet and exercise. Personal goal of weight loss discussedPatient has comorbidity of: HTN,COPD On zepbound Continues to loose weight Assessment & Plan (08/18/2023 10:09 AM EST): [...] Wixella And ProAir MDI He follows with Soyfreeze Operator Dr Hussein, last note on record 01/25/2022 Assessment & Plan (07/01/2022 11:08 AM EST): Unfortunately he is still smoking 1 ppd, not interested in quitting He is currently on a regimen of Advair Diskus 250/50 1 puff BID, [id number] MDI 1 to 2 puffs qid, and Spiriva once daily. He follows with Soyfreeze Operator Dr Hussein, last seen 01/25/2022 Gynecomastia 12/23/2011 Hypogonadism in male 12/23/2011 Assessment & Plan (07/01/2022 4:20 PM EST): Pt with Primary hypogonadism, used to be under the care of retail support specialist (Dr Celeste). Last note from Dr [...] (07/01/2022 11:20 AM EST): Pt seen at [facility] 06/27/2022 s/p fall Work up included plain films that were negative for fracture. Conservative and supportive treatment Encounters Date Type Department Care Team Description 03/22/2025 Orders Only GENERIC EXTERNAL DATA DEPARTMENT Provider, Generic External Data 03/08/2025 Refill [facility] [address] [place] [address] Lake Sullivan MD 03/06/2025 Refill [facility] [address] [place] [address] Lake Sullivan MD Body mass index (BMI) 45.0-49.9, adult ([facility]) 02/26/2025 Refill [facility] [address] [place] [address] 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 RN Severe pain 02/26/2025 Telephone [facility] [address] [place], [place] [phone] Lake Sullivan MD Med Refill 02/25/2025 Orders Only [facility] [address] [facility] [place] [address] Janet Perez ANP Chronic diastolic heart failure (CMS/HCC) (Primary Dx); Dyslipidemia; Essential hypertension; Stage 3a chronic kidney disease (CMS/HCC) 02/23/2025 Results Follow-Up [facility] [address] [facility] [place] [address] Dafne Jefferson MD XR Hip 2 or 3 Views Left 02/22/2025 9:00 AM EDT Office Visit [facility] [address] [place] [address] Dafne Jefferson MD Left hip pain (Primary Dx) 02/22/2025 Travel 02/21/2025 Telephone [facility] [address] [facility] [place] [address] Lake Sullivan MD Nurse Triage 02/21/2025 Telephone [facility] [address] [place] [address] Lake Sullivan MD Referral 02/21/2025 Refill [facility] [address] [place] [address] Lake Sullivan MD 02/05/2025 9:15 AM EDT Office Visit [facility] [address] [place] [address] Lake Sullivan MD Essential hypertension (Primary Dx); Dyslipidemia; Chronic diastolic heart failure ([facility]); Class 3 severe obesity due to excess calories with serious comorbidity and body mass index (BMI) of 40.0 to 44.9 in adult; Preventative health care; Stage 3a chronic kidney disease ([facility]); Impaired glucose tolerance 02/05/2025 Travel 02/04/2025 Telephone [facility] [address] [place] [address] Lake Sullivan MD Chart Prep 01/30/2025 Refill [facility] [address] [place] [address] Lake Sullivan MD Severe pain 01/30/2025 Telephone [facility] [address] [place] [address] Lake Sullivan MD Med Refill 01/18/2025 Refill [facility] [address] [place] [address] Hans PeggyDO 01/14/2025 Telephone [facility] [address] [place] [address] Lake Sullivan MD Nurse Triage 01/02/2025 Refill [facility] [address] [place] [address] 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 RN Severe pain 01/02/2025 Telephone [facility] [address] [place] [address] Lake Sullivan MD Med Refill 12/31/2024 8:40 AM EDT Office Visit [facility] [address] [place] [phone] Tammy Guzmán MD Bronchitis (Primary Dx); Viral URI 12/31/2024 Travel 12/28/2024 Refill [facility] [address] [place], [place] [phone] Lake Sullivan MD Dermatitis from Last 3 Months Immunizations Immunization Administration Dates Next Due Influenza High-dose Quadriva [...] Sign Reading Time Taken Comments Blood Pressure 153/78 02/22/2025 8:58 AM EDT Pulse 100 02/22/2025 8:58 AM EDT Temperature 36.8 C (98.3 F) 02/22/2025 8:58 AM EDT Respiratory Rate 20 02/22/2025 8:58 AM EDT Oxygen Saturation 98% 02/22/2025 8:58 AM EDT Inhaled Oxygen Concentration - - Weight 123 kg (271 lb) 02/22/2025 8:58 AM EDT Height 167.6 cm (5' 6 ) 11/23/2024 9:00 AM EDT Body Mass Index 43.74 11/23/2024 9:00 AM EDT Plan of Treatment Upcoming Encounters Date Type Department Care Team (Late st Contact Info) Description 04/03/2025 9:00 AM EDT Clinical Support [facility] [address] [place] [address] 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, RN [address] [place] [address] 05/07/2025 9:15 AM EDT Office Visit [facility] [address] [place] [address] Lake Sullivan MD [address] [place] [address] Health Maintenance Due Date Last Done Comments CT Colonography 1955 Dental Prophylaxis 1955 Dental X-Ray: Bitewings 1955 FIT DNA/Cologuard 1955 FIT 1955 FOBT 1955 Sigmoidoscopy 1955 Dental Oral Exam 02/01/2023 08/03/2022 COVID-19 Vaccine ( season) 2025 04/02/2024, 04/13/2023, 11/09/2021, Additional history exists Influenza Vaccine (#1) 2025 , 02/26/2022, 04/08/2021, Additional history exists Alcohol/Substance Use Screening 05/08/2025 05/08/2024 Dental X-Ray: Full Mouth 08/04/2025 08/03/2022 Depression Screening 11/13/2025 11/13/2024, 11/14/19 25 SDOH Screening 11/13/2025 11/13/2024 Tobacco Screening 02/22/2026 02/22/2025 Colonoscopy 12/11/2026 12/11/2024, 12/25/2018 Colorectal Cancer Screening 12/11/2026 Lipid Panel 11/13/2029 11/13/2024, 04/12, 05/11/2023, Additional history exists DTaP/Tdap/Td Vaccines (3 - Td or Tdap) 12/11/2032 12/11/2022, 08/10/2013, 03/23/2013, Additional history exists Pneumococcal Vaccine: 50+ Years Completed 04/08/2021, 04/10/2019, 03/28/2014, Additional history exists Zoster Vaccines Completed 04/28/2022, 02/08, 08/10/2013 Hepatitis C Screening Completed 10/11/2022, 022 RSV Patients and Patients Aged 60 years or older Completed 04/13/2023 HIB Vaccines Aged Out No [...] Procedure Name Priority Date/Time Associated Diagnosis Comments HIGH SENSITIVITY TROPONIN I Routine 03/22/2025 7:24 AM EDT COMPREHENSIVE METABOLIC PANEL Routine 03/22/2025 7:24 AM EDT CBC WITH AUTO DIFFERENTIAL Routine 03/22/2025 7:24 AM EDT XR HIP 2 OR 3 VIEWS LEFT Routine 02/22/2025 8:53 AM EDT Left hip pain POCT INFLUENZA B (ID NOW RAPID MOLECULAR) Routine 12/31/2024 8:55 AM EDT Viral URI POCT INFLUENZA A (ID NOW RAPID MOLECULAR) Routine 12/31/2024 8:55 AM EDT Viral URI POCT RAPID COVID ANTIGEN Routine 12/31/2024 8:55 AM EDT Viral URI COLONOSCOPY Routine 12/11/2024 12:15 PM EDT LIPID PANEL, STANDARD Routine 11/13/2024 9:34 AM EDT Essential hypertension HEPATITIS C AB W/REFL TO HCV RNA, QN, PCR Routine 10/11/2022 8:03 AM EDT Essential hypertension PANORAMIC RADIOGRAPHIC IMAGE Routine 08/03/2022 8:00 AM EST COMPREHENSIVE ORAL EVALUATION - NEW OR ESTABLISHED PATIENT Routine 08/03/2022 8:00 AM EST from Last 3 Months or Most Recently Relevant to Health Maintenance Results * High Sensitivity Troponin I (03/22/2025 7:24 AM EDT) TROPONIN I HIGH SENSITIVITY 3.0 <3.5 - 35.0 ng/L [facility] Comment:The [employer] high sens itivity Troponin-I results should beused in conjunction with other diagnostic information suchas ECG, clinical observations and information, and patientsymptoms to aid in the diagnosis of OR. 03/22/2025 7:24 AM EDT 03/22/2025 7:27 AM EDT us Generic External Data Provider LAB BLOOD ORDERAB LES Final Result [facility] [address] [place] [address] [phone] * (ABNORMAL) CBC auto differential (03/22/2025 7:24 AM EDT) White Blood Count 9.4 4.8 - 10.8 X10*3/uL [facility] Red Blood Count 3.93(L) 4.60 - 5.80 X10*6/uL [facility] Hemoglobin 11.2(L) 14.0 - 18.0 g/dl [facility] Hematocrit 33.0(L) 42.0 - 52.0 % [facility] Mean Corpuscular Volume 84.0 80.0 - 98.0 fL [facility] Mean Corpuscular Hemoglobin 28.5 27.0 - 33.0 pg [facility] Mean Corpuscular HGB Conc 33.9 31.0 - 36.0 g/dl [facility] Red Cell Distribution Width 14.4 11.0 - 16.0 % [facility] Platelet Count 269 160 - 400 X10*3/uL [facility] Mean Platelet Volume 10.6 9.4 - 12.4 fL [facility] Neutrophils Percent Auto 56.4 45 - 73 % [facility] Imm Gran Pct Auto 0.3 0.0 - 0.4 % [facility] Lymphocytes Percent Auto 31.5 20 - 40 % [facility] Monocytes Percent Auto 9.2 2 - 11 % [facility] Eosinophils Percent Auto 2.2 0 - 4 % [facility] Basophils Percent Auto 0.4 0 - 2 % [facility] NRBC Pct Auto 0.0 0.0 - 0.2 /100WBC [facility] Neutrophils Absolute Auto 5.3 2.0 - 8.3 x10*3/uL [facility] Imm Gran Abs Auto 0.03 0.00 - 0.03 X10*3/uL [facility] Lymphocytes Absolute Auto 3.0 1.2 - 4.9 X10*3/uL [facility] Monocytes Absolute Auto 0.9 0.1 - 1.2 X10*3/uL [facility] Eosinophils Absolute Auto 0.2 0.0 - 0.4 X10*3/uL [facility] Basophils Absolute Auto 0.0 0.0 - 0.2 X10*3/uL [facility] NRBC Abs Auto 0.000 0.0 - 0.012 X10*3/uL [facility] 03/22/2025 7:24 AM EDT 03/22/2025 7:27 AM EDT us Generic External Data Provider LAB BLOOD ORDERAB LES Final Result [facility] [address] [place] [address] [phone] * (ABNORMAL) Comprehensive Metabolic Panel (03/22/2025 7:24 AM EDT) Sodium 141 135 - 145 mmol/L [facility] Potassium 4.5 3.3 - 5.1 mmol/L [facility] Chloride 109(H) 96 - 108 mmol/L [facility] Carbon Dioxide 26 22 - 29 mmol/L [facility] Anion Gap 11(L) 12 - 20 [facility] Urea Nitrogen (BUN) 18(H) 9 - 16 mg/dL [facility] Creatinine, Serum 1.67(H) 0.5 - 1.4 mg/dL [facility] Creatinine Clr Calc Pharmacy 49.2 [facility] Comment:eGFR (calculated fro m the MDRD study equation) and eCrCl(calculated from the Cockcroft-Gault equation) are based ondifferent parameters and may not yield comparable results.If eCrCl result is absurd, please check patient'sheight/weight. Estimated Glomerular Filt Rate 41 [facility] Comment:Chronic Kidney Disea se: Estimated GFR < 60 mL/min/1.89q4Bforsr Kidney Disease: Estimated GFR < 15 mL/min/1.73m2 Glucose 162(H) 60 - 115 mg/dL [facility] Calcium 9.0 8.4 - 10.2 mg/dL [facility] Bilirubin, Total 0.2 0.0 - 1.0 mg/dL [facility] Aspartate Amino Transferase 17 5 - 37 U/L [facility] Alanine Aminotransferase 7 0 - 40 U/L [facility] Total Protein 6.7 6.5 - 8.0 g/dL [facility] Albumin Level 3.4(L) 3.5 - 5.0 g/dL [facility] Alkaline Phosphatase 147(H) 39 - 117 U/L [facility] 03/22/2025 7:24 AM EDT 03/22/2025 7:27 AM EDT us Generic External Data Provider LAB BLOOD ORDERAB LES Final Result Performing Organization Address City/State/[facility] Co de Phone Number [facility] [address] [place] [phone] * XR Hip 2 or 3 Views Left (02/22/2025 8:53 AM EDT) Anatomical Region Laterality Modality Lower Extremities, Hip Left Radiograp hic Imaging 02/22/2025 8:53 AM EDT Narrative 02/22/2025 12:02 PM EDT [address] [address] XRay Report Signed Patient: Imer Parrish MR#: [id number] : 1955 Acct:[id number] Age/Sex: 69 / M ADM Date: 02/22/25 Loc: HO.HHCX Attending Dr: Dafne Tan MD Ordering Physician: Dafne Jefferson MD Date of Service: 02/22/25 Procedure(s): XR hip LT min 2V Accession Number(s): [id number] cc: Dafne Jefferson MD EXAMINATION: XR HIP 2 OR MORE VIEWS LEFT HISTORY: pain COMPARISON: Comparison is made with the prior examination dated 01/07/2023. FINDINGS: Two views of the left hip are submitted. The examination is limited by patient body habitus. Osseous mineralization is normal. There is no fracture or dislocation. There is moderate joint space narrowing. The soft tissues are unremarkable. XR/XR hip LT min 2V IMPRESSION: Moderate joint space narrowing. Electronically signed by: Bernard Walker MD 02/22/2025 11:59 AM EDT RP Dictated By: Bernard Walker MD Signed By: <Electronically signed by Bernard Walker MD in OV> 02/22/25 1159 DD/ 0853 TD/TT: 02/22/25 09 Deputy Director Of Nursing: Procedure Note Donotuseinterpreter, Image - 02/22/2025 [place] [address] XRay Report Signed Patient: Imer ParrishMR#: [id number] : 1955cct:[id number] Age/Sex: 69 / MADM Date: 02/22/25 Loc: HO.HHCX Attending Dr: Dafne Tan MD Ordering Physician: Dafne Jefferson MD Date of Service: 02/22/25 Procedure(s): XR hip LT min 2V Accession Number(s): [id number] cc: Dafne Jefferson MD EXAMINATION: XR HIP 2 OR MORE VIEWS LEFT HISTORY: pain COMPARISON: Comparison is made with the prior examination dated 01/07/2023. FINDINGS: Two views of the left hip are submitted. The examination is limited by patient body habitus. Osseous mineralization is normal. There is no fracture or dislocation. There is moderate joint space narrowing. The soft tissues are unremarkable. XR/XR hip LT min 2V IMPRESSION: Moderate joint space narrowing. Electronically signed by: Bernard Walker MD 02/22/2025 11:59 AM EDT RP Dictated By: Bernard Walker MD Signed By: <Electronically signed by Bernard Walker MD in OV> 02/22/25 1159 DD/ 0853 TD/TT: 02/22/25 0900 Deputy Director Of Nursing: us Dafne Tan MD IMG XR PROCEDURES Fin al Result * Influenza B (ID NOW Rapid Molecular) (12/31/2024 8:55 AM EDT) Influenza B Negative Negative, Indeterminate [facility] Swab 12/31/2024 8:55 AM EDT us Tammy Guzmán MD POINT OF CARE TEST ENTER /EDIT ORDERABLES Final Result Performing Organization Address [facility] Co de Phone Number [facility] [address] [place] [phone] * Influenza A (ID NOW Rapid Molecular) (12/31/2024 8:55 AM EDT) Influenza A Negative Negative, Indeterminate [facility] Swab 12/31/2024 8:55 AM EDT Tammy Guzmán MD POINT OF CARE TEST ENTER /EDIT ORDERABLES Final Result Performing Organization Address [facility] Co de Phone Number [facility] [address] [place] [phone] * POCT Rapid COVID Ag (12/31/2024 8:55 AM EDT) Rapid COVID Ag Negative [facility] Swab 12/31/2024 8:55 AM EDT Tammy Guzmán MD POINT OF CARE TEST ENTER /EDIT ORDERABLES Final Result Performing Organization Address [facility] Co de Phone Number [facility] [address] [place] [phone] * Colonoscopy (12/11/2024 12:15 PM EDT) Anatomical Region Laterality Modality Endoscopy us Historical Provider ENDOSCOPY PROCEDURE ORDER MORE Final Result * (ABNORMAL) Lipid Panel, Standard (11/13/2024 9:34 AM EDT) Triglycerides 122 <150 mg/dL [facility] Comment:Desirable Triglyceri de: less than 150 mg/dLBorderline High Triglyceride 150-199 mg/dLHigh Triglyceride: 200-499 mg/dLVery High Triglyceride: greater than or equal to 5OO mg/dL Cholesterol 160 <200 mg/dL [facility] Comment:Desirable Cholestero l: less than 200 mg/dLBorderline High Cholesterol: 200-239 mg/dLHigh Cholesterol: greater than 239 mg/dL LDL Cholesterol Calculated 100(H) <100 mg/dL [facility] Comment:Desirable LDL: less than 100 mg/dLNear Optimal/Above Optimal LDL: 110- 129 mg/dLBorderline High LDL: 130-159 mg/dLHigh LDL: 160-189 mg/dLVery High LDL: greater than or equal to 190 mg/dL HDL Cholesterol 36(L) >40 mg/dL [facility] Comment:Desirable HDL: great er than 40 mg/dL Note: This HDL assay may give artificially low results in patients with liver disease. Blood Venous blood specimen / Unknown 11/13/2024 9:34 AM EDT 11/13/2024 11:07 AM EDT Lake Bennett MD LAB BLOOD ORDERABLES Final Result [facility] [address] [place] [phone] * Hepatitis C Antibody with Reflex to HCV, RNA, Quantitative, Real-Time PCR (10/11/2022 8:03 AM EDT) Hepatitis C Antibody NON-REACT PIPPA NON-REACT PIPPA [facility] [place] [facility] Index 0.02 <1.00 [facility] [place] [facility] Comment: HCV antibody was non-reactive. There is no laboratory evidence of HCV infection. In most cases, no further action is required. However, if recent HCV exposure is suspected, a test for HCV RNA (test code 42950) is suggested. For additional information please refer to http://[employer].Flooved/faq/ZYX86z8 (This link is being provided for informational/ educational purposes only.) Blood Venous blood specimen / Unknown 10/11/2022 8:03 AM EDT 10/11/2022 8:04 AM EDT Narrative [facility] - 10/11/2022 9:54 PM EDT FASTING:UNKNOWN FASTING: UNKNOWN Lake Bennett MD LAB BLOOD ORDERABLES Final Result [facility] [address], [place] [address] [facility] 200 [place] [address] from Last 3 Months or Most Recently Relevant to Health Maintenance Insurance [facility] RESIDENTIAL OPTIONS (O D-SNP) [place] [id number] Care Teams Beam Machine Operator Relationship Specialty Start Date End Date Lake Sullivan MD 230 [place] [address] PCP - General Internal Medicine 02/12/14 Bossman Starks 100 [facility] 200 [place] [address] Nephrology 11/14/24
--- OUTSIDE RECORDS SUMMARY | 2025-03-22 07:55 | XMS_ITS | Encounter Summary ---
Author Organization [employer] Address [address] [place] [address] 7t [place] [address] Care Team Providers Care Diversity Specialist Name Role Phone Lake Sullivan MD Primary Care Provide r Bossman Starks Unavailable [phone] Reason for Visit * Reason Onset Date Comments Med Refill 02/25/2023 Encounter Details Date Type Department Care Team (Late st Contact Info) Description 02/25/2023 Telephone [facility] MEDICINE 230 [place], [place] [phone] Lake Sullivan MD 230 [place], [place] [phone] Med Refill Social History Tobacco Use Types [...] Description 04/03/2025 9:00 AM EDT Clinical Support [facility] MED & PEDS 505 [place] [address] 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, RN 505 [place] [address] 05/07/2025 9:15 AM EDT Office Visit [facility] 230 [place] [address] Lake Sullivan MD 230 [place] [address] documented as of this encounter Visit Diagnoses Not on filedocumented in this encounter Care Teams Diversity Specialist Relationship Specialty Start Date End Date Lake Sullivan MD 230 [place] [address] PCP - General Internal Medicine 02/12/14 Bossman Starks 100 [facility] 200 [place] [address] Nephrology 11/14/24 documented as of this encounter
--- OUTSIDE RECORDS SUMMARY | 2025-03-22 07:55 | XMS_ITS | Encounter Summary ---
Author Organization [employer] Address [address] [facility] 7t [place] [address] Care Team Providers Care Filter Washer And Presser Name Role Phone Lake Sullivan MD Primary Care Provide r Bossman Starks Unavailable [phone] Reason for Visit * Reason Onset Date Comments Med Refill 01/13/2024 Encounter Details Date Type Department Care Team (Late st Contact Info) Description 01/13/2024 Telephone [facility] MED[facility]INE 230 [place], [place] [phone] Lake Sullivan MD 230 [place], [place] [phone] Med Refill Social History Tobacco Use Types [...] 5-325 MG tablet To be sent to: [id number] AT [facility] documented in this encounter Plan of Treatment Upcoming Encounters Date Type Department Care Team ([facility] Contact Info) Description 04/03/2025 9:00 AM EDT Clinical Support [facility] MED & PEDS 505 [place] [address] 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, LUCI 505 [place] [address] 05/07/2025 9:15 AM EDT Office Visit [facility] 230 [place], [place] [phone] Lake Sullivan MD 230 [place] [address] documented as of this encounter Visit Diagnoses Not on filedocumented in this encounter Additional Health Concerns Assessment Noted Time PHQ-9 Depression Total Score: 3 08/18/19 24 10:01 AM EST documented as of this encounter Care Teams Filter Washer And Presser Relationship Specialty Start Date End Date Lake Sullivan MD 230 [place] [address] PCP - General Internal Medicine 02/12/14 Bossman Starks 100 [facility] [address] [phone] Nephrology 11/14/24 documented as of this encounter
--- OUTSIDE RECORDS SUMMARY | 2025-03-22 07:55 | XMS_ITS | Encounter Summary ---
Author Organization [employer] Address [address] [place] [address] 7t [place] [address] Care Team Providers Care Dermatopathologist Name Role Phone Lake Sullivan MD Primary Care Provide r Bossman Starks Unavailable [phone] Reason for Visit * Reason Onset Date Comments Med Refill 2024 Encounter Details Date Type Department Care Team (Late st Contact Info) Description 2024 Refill [facility] MEDICINE 230 [place], [place] [phone] Lake Sullivan MD 230 [place], [place] [phone] Severe pain Social History Tobacco Use Types [...] 5-325 MG tablet To be sent to: [facility][id number] documented in this encounter Plan of Treatment Upcoming Encounters Date Type Department Care Team (Late st Contact Info) Description 04/03/2025 9:00 AM EDT Clinical Support [facility] CH[facility] MED & PEDS 505 [place] [address] 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, LUCI 505 [place] [address] 05/07/2025 9:15 AM EDT Office Visit [facility] MEDICINE 230 [place] [address] Lake Sullivan MD 230 [place], [place] [phone] documented as of this encounter Visit Diagnoses Diagnosis Severe pain documented in this encounter Additional Health Concerns Assessment Noted Time PHQ-9 Depression Total Score: 3 08/18/19 24 10:01 AM EST documented as of this encounter Care Teams Dermatopathologist Relationship Specialty Start Date End Date Lake Sullivan MD 230 [place] [address] PCP - General Internal Medicine 02/12/14 Bossman Starks 100 [facility] 200 [place] [address] Nephrology 11/14/24 documented as of this encounter
--- OUTSIDE RECORDS SUMMARY | 2025-03-22 07:55 | XMS_ITS | Encounter Summary ---
Author Organization [employer] Address [address] [facility] 7t [place] [address] Care Team Providers Care C Winforms Developer Name Role Phone Lake Sullivan MD Primary Care Provide r Bossman Starks Unavailable [phone] Reason for Visit * Reason Onset Date Comments Med Refill 02/09/2024 Encounter Details Date Type Department Care Team (Late st Contact Info) Description 02/09/[address] [facility] MEDICINE 230 [place], [place] [phone] Lake Sullivan MD 230 [place], [place] [phone] Med Refill Social History Tobacco Use Types [...] 5-325 MG tablet To be sent to: [id number] [facility] documented in this encounter Plan of Treatment Upcoming Encounters Date Type Department Care Team ([facility] st Contact Info) Description 04/03/2025 9:00 AM EDT Clinical Support [facility] CH[facility] MED & PEDS 505 [place] [address] 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 RN 505 [place] [address] 05/07/2025 9:15 AM EDT Office Visit [facility] MEDICINE 230 [place], [place] [phone] Lake Sullivan MD 230 [place], [place] [phone] documented as of this encounter Visit Diagnoses Not on filedocumented in this encounter Additional Health Concerns Assessment Noted Time PHQ-9 Depression Total Score: 3 08/18/19 24 10:01 AM EST documented as of this encounter Care Teams C Winforms Developer Relationship Specialty Start Date End Date Lake Sullivan MD 230 [place] [address] PCP - General Internal Medicine 02/12/14 Bossman Starks 100 [facility] 200 [place] [address] Nephrology 11/14/24 documented as of this encounter
--- OUTSIDE RECORDS SUMMARY | 2025-03-22 07:55 | XMS_ITS | Clinical Summary ---
Author Organization [facility] Address [address] [place] [address] Phone Care Team Providers Care Grounds Maintenance Manager Name Role Phone Clarissa Vick MD Primary Care Provider [phone] Allergies No known active allergies Medications montelukast [...] 30 g 3 02/07/20 25 025 Active Problems Problem Noted Date Diagnosed Date Colon polyps 09/25/2024 Anxiety 09/25/2024 Depression 09/25/2024 Asthma 09/25/2024 Tobacco dependence 09/25/2024 Gout 09/25/2024 T2DM (type 2 diabetes mellitus) ([facility] V24, [facility] /[facility] V28) 09/25/2024 Chronic idiopathic constipation 01/19/2018 Assessment & Plan (09/25/2024 11:54 AM EDT): Failing over the counter options. Recommend switch to Linzess 72mcg PO daily. Reviewed dosing option, can increase pending response. Orders: linaCLOtide (Linzess) 72 mcg capsule; Take 1 capsule (72 mcg total) by mouth 1 (one) time each day before breakfast. HTN (hypertension) 05/20/2015 Chronic obstructive pulmonar y disease ([facility] V24, [facility] V28) 12/23/2011 Overview (09/25/2024): Last Assessment & Plan: Patient here for a follow up Unfortunately he is still smoking , not interested in quitting He is currently on a regimen of Wixella And ProAir MDI He follows with Clothes Separator Dr Hussein, last note on record 01/25/2022 Encounters Date Type Department Care Team Description 02/06/2025 8:45 AM EDT Consult [facility] - [facility] [address] [place] [phone] Marky Lezama, DPM Dermatophytosis of nail (Primary Dx); Verruca plantaris; Pain in toe of right foot; Pain in toe of left foot; Difficulty walking; Diabetic mononeuropathy simplex ([facility] V24, [facility] V28) from Last 3 Months Surgical History Surgery Date Site/Laterality Comments COLONOSCOPY 12/25/2018 adequate prep, TAx1 3-yr recall Medical History Medical History Date Comments HTN (hypertension) 03/15/2012 DX:HTN (hyper tension) Tobacco abuse 03/15/2012 DX:Tobacco abuse Observed sleep apnea 03/15/2012 DX:Observed sleep apnea Diastolic CHF, chronic ([facility] V24, [facility] V28) 03/15/2012 DX:Diastolic CHF, chronic ([facility]) Asthma 03/15/2012 DX:Asthma COPD (chronic obstructive pu lmonary disease) ([facility] V24, [facility] V28) 03/15/2012 DX:COPD (chronic o bstructive pulmonary disease) ([facility]) Colon polyp Family History Medical History Relation Name Comments Other: hole in heart Mother Colon cancer Neg Hx Colon polyps Neg Hx Relation Name Status Comments Mother Social History Tobacco Use Types Packs/Day Years Used Date Smoking Tobacco: Every Day Cigarettes 0.5 48.7 Started: 1978 Tobacco Cessation:Ready to Q uit: [...] AM EDT Office Visit [facility] [address] [phone] Marky Lzeama, DPM [address] [phone] Health Maintenance Due Date Last Done Comments Diabetes: Annual Foot Exam 1965 Diabetes: Annual Retina Eye Exam 1965 Abdominal Aortic Aneurysm (AAA) Screen 04/25/2024 Falls Risk Assessment 04/25/2024 Medicare Annual Wellness Visit 04/25/2024 Social Influencers of Health Screening 04/25/2024 Depression Screening 07/11/2024 Diabetes: Annual Urine Albumin-Creatinine Ratio (uACR) 09/25/2024 Diabetes: Blood Sugar Control Test (HGBA1C) 09/25/2024 11/29/2023 COVID-19 Vaccine ( season) 2025 04/02/2024, 04/13/2023, [...] 10:41 AM EDT History of colon polyps from Last 3 Months or Most Recently Relevant to Health Maintenance Results * COLONOSCOPY Anesthesia - MAC; [facility] ENDOSCOPY (12/11/2024 10:41 AM EDT) Anatomical Region Laterality Modality Endoscopy 12/11/2024 10:1 3 AM EDT Impressions 12/11/2024 10:43 AM EDT - Mucosal ulceration. Biopsied. - The examined portion of the ileum was normal. - One 10 mm polyp in the transverse colon, removed with a hot snare. Resected and retrieved. Clip (MR conditional) was placed. Clip orchard hand: [employer]. - The examination was otherwise normal on direct and retroflexion views. Recommendation: - Await pathology results. - Repeat colonoscopy in 2 years for surveillance. Narrative 12/11/2024 10:43 AM EDT [facility] Patient Name: Imer Parrish Procedure Date: [...] clip was successfully placed (MR conditional). Clip orchard hand: [employer]. There was no bleeding at the end of the procedure. The exam was otherwise without abnormality on direct and retroflexion views. Procedure Code(s): --- Professional --- 16238, Colonoscopy, flexible; with removal of tumor(s), polyp(s), or other lesion(s) by snare technique 26299, 59, Colonoscopy, flexible; with biopsy, single or multiple Diagnosis Code(s): --- Professional --- Z86.010, Personal history of colonic polyps K63.3, Ulcer of intestine D12.3, Benign neoplasm of transverse colon (hepatic flexure or splenic flexure) CPT copyright 2020 [employer]. All rights reserved. The codes documented in this report are preliminary and upon media specialist review may be revised to meet current compliance requirements. Toño Hannah MD 12/11/2024 10:43:08 AM This report has been signed electronically.Toño Hannah MD Number of Addenda: 0 Note Initiated On: 12/11/2024 10:13 AM Scope In: Scope Out: Endoscopy Department at [facility] - [address] [place] [phone] Procedure Note Toño Hannah MD - 12/11/2024 [facility] Patient Name: Imer Parrish Procedure Date: [...] clip was successfully placed (MR conditional). Clip orchard hand: [employer]. There was nobleeding at the end of the procedure. The exam was otherwise without abnormality ondirect and retroflexion views. Procedure Code(s): --- Professional --- 02835, Colonoscopy, flexible; with removal of tumor(s), polyp(s), or other lesion(s) by snare technique 74483, 59, Colonoscopy, flexible; with biopsy,single or multiple Diagnosis Code(s): --- Professional --- Z86.010, Personal history of colonic polyps K63.3, Ulcer of intestine D12.3, Benign neoplasm of transverse colon (hepatic flexure or splenic flexure) CPT copyright 2020 [employer]. All rights reserved. The codes documented in this report are preliminary and upon media specialist reviewmay be revised to meet current compliance requirements. Toño Hannah MD 12/11/2024 10:43:08 AM This report has been signed electronically.Toño Hannah MD Number of Addenda: 0 Note Initiated On: 12/11/2024 10:13 AM Scope In: Scope Out: Endoscopy Department at [facility] - [address] [place] [phone] IMPRESSION: - Mucosal ulceration. Biopsied. - The examined portion of the ileum was normal. - One 10 mm polyp in the transverse colon, removed with a hot snare. Resected and retrieved. Clip (MR conditional) was placed. Clip orchard hand: [employer]. - The examination was otherwise normal on directand retroflexion views. Recommendation: - Await pathology results. - Repeat colonoscopy in 2 years for surveillance. us Toño Hannah MD GI~PROCEDURE ORDERABLES Fin al Result from Last 3 Months or Most Recently Relevant to Health Maintenance Insurance [facility] RETIREMENT OPTIONS Member Subscriber Plan / Payer (Ef fective 2023-Present) Name:Imer Parrish Relation to Subscriber:Self Name:Imer Parrish Payer ID:[id number] Group ID:Not on file Type:Not on file Address: [place] [address] [place] [id number] Care Teams Grounds Maintenance Manager Relationship Specialty Start Date End Date Clarissa Vick MD 230 [place] [phone] PCP - General 06/08/13
--- OUTSIDE RECORDS SUMMARY | 2025-03-22 07:55 | XMS_ITS | Encounter Summary ---
Author Organization [employer] Address [address] [place] [address] 7t [place] [address] Care Team Providers Care Shampoo Person Name Role Phone Lake Sullivan MD Primary Care Provide r Bossman Starks Unavailable [phone] Reason for Visit * Reason Comments Med Refill Encounter Details Date Type Department Care Team (Late Contact Info) Description 06/28/2023 Refill [facility] MEDICINE 230 [place], [place] [phone] NameCm MD 230 [place] [address] Dermatitis Social History Tobacco Use Types Packs/Day [...] Clinical Support [facility] CHC MED & PEDS 505 [place], [place] [phone] 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, LUCI 505 [place] [address] 05/07/2025 9:15 AM EDT Office Visit [facility] MEDICINE 230 [place] [address] Lake Sullivan MD 230 [place] [address] documented as of this encounter Visit Diagnoses Diagnosis Dermatitis Contact dermatitis and other eczema, due to unspecified cause documented in this encounter Care Teams Shampoo Person Relationship Specialty Start Date End Date Lake Sullivan MD 230 [place] [address] PCP - General Internal Medicine 02/12/14 Bossman Starks 100 [address] [phone] Nephrology 11/14/24 documented as of this encounter
--- OUTSIDE RECORDS SUMMARY | 2025-03-22 07:55 | XMS_ITS | Encounter Summary ---
Author Organization [employer] Address 75 [facility] 7t [place] [address] Care Team Providers Care Wood Science Professor Name Role Phone Lake Sullivan MD Primary Care Provide r Bossman Starks Unavailable [phone] Reason for Visit * Reason Onset Date Comments Durable Medical Equipment 05/02/2024 Encounter Details Date Type Department Care Team (Late st Contact Info) Description 05/02/2024 Telephone [facility] MEDICINE 230 [place], [place] [phone] Lake Sullivan MD 230 [place], [place] [phone] Durable Medical Equipment Social History Tobacco Use [...] * Telephone Encounter - Drew Sexton - 05/02/2024 2:46 PM EDT Tc from pt requesting DME: Bed pads Wipes Cream for foot Pt is requesting a year supply for DME. If any questions you can contact pt at [phone]. (Wolof Speaker) documented in this encounter Plan of Treatment Upcoming Encounters Date Type Department Care Team ([facility] st Contact Info) Description 04/03/2025 9:00 AM EDT Clinical Support [facility] MED & PEDS 505 [place] [address] 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 RN 505 [place] [address] 05/07/2025 9:15 AM EDT Office Visit [facility] MEDICINE 230 [place] [address] Lake Sullivan MD 230 [place] [address] documented as of this encounter Visit Diagnoses Not on filedocumented in this encounter Additional Health Concerns Assessment Noted Time PHQ-9 Depression Total Score: 3 08/18/19 24 10:01 AM EST documented as of this encounter Care Teams Wood Science Professor Relationship Specialty Start Date End Date Lake Sullivan MD 230 [place] [address] PCP - General Internal Medicine 02/12/14 Bossman Starks 100 [facility] 200 [place] [address] Nephrology 11/14/24 documented as of this encounter
--- OUTSIDE RECORDS SUMMARY | 2025-03-22 07:55 | XMS_ITS | Encounter Summary ---
Author Organization [employer] Address [address] [place] [address] 7t [place] [address] Care Team Providers Care Melter Supervisor Name Role Phone Lake Sullivan MD Primary Care Provide r Bossman Starks Unavailable [phone] Encounter Details Date Type Department Care Team (Late st Contact Info) Description 01/13/2023 Orders Only [facility] MED & PEDS 505 [place] [address] Peggy Carey LPN Social History Tobacco Use [...] Description 04/03/2025 9:00 AM EDT Clinical Support [facility] MED & PEDS 505 [place] [address] 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, RN 505 [place] [address] 05/07/2025 9:15 AM EDT Office Visit [facility] MEDICINE 230 [place] [address] Lake Sullivan MD 230 [place] [address] documented as of this encounter Visit Diagnoses Not on filedocumented in this encounter Care Teams Melter Supervisor Relationship Specialty Start Date End Date Lake Sullivan MD 230 [place] [address] PCP - General Internal Medicine 02/12/14 Bossman Starks 100 [facility] 200 [place] [address] Nephrology 11/14/24 documented as of this encounter
--- OUTSIDE RECORDS SUMMARY | 2025-03-22 07:55 | XMS_ITS | Encounter Summary ---
Author Organization [employer] Address 75 [facility] 7t [place] [address] Care Team Providers Care Lumber Grader Name Role Phone Lake Sullivan MD Primary Care Provide r Bossman Starks Unavailable [phone] Encounter Details Date Type Department Care Team ([facility] st Contact Info) Description 12/23/2023 Telephone [facility] MEDICINE 230 [place], [place] [phone] Lake Sullivan MD 230 [place], [place] [phone] Social History Tobacco Use Types Packs/Day Years [...] Description 04/03/2025 9:00 AM EDT Clinical Support [facility] CHC MED & PEDS 505 [place] [address] 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 RN 505 [place] [address] 05/07/2025 9:15 AM EDT Office Visit [facility] MEDICINE 230 [place] [address] Lake Sullivan MD 230 [place] [address] documented as of this encounter Visit Diagnoses Not on filedocumented in this encounter Additional Health Concerns Assessment Noted Time PHQ-9 Depression Total Score: 3 08/18/19 24 10:01 AM EST documented as of this encounter Care Teams Lumber Grader Relationship Specialty Start Date End Date Lake Sullivan MD 230 [place] [address] PCP - General Internal Medicine 02/12/[address] [facility] 200 [place] [address] Nephrology 11/14/24 documented as of this encounter
--- OUTSIDE RECORDS SUMMARY | 2025-03-22 07:55 | XMS_ITS | Encounter Summary ---
Author Organization [employer] Address [address] [facility] 7t [place] [address] Care Team Providers Care Council Member Name Role Phone Lake Sullivan MD Primary Care Provide r Bossman Starks Unavailable [phone] Encounter Details Date Type Department Care Team (Late st Contact Info) Description 03/22/2025 Orders Only GENERIC EXTERNAL DATA DEPARTMENT Provider, Generic External Data Social History Tobacco Use Types Packs/Day Years [...] Description 04/03/2025 9:00 AM EDT Clinical Support [facility] CHC MED & PEDS 505 [place] [address] 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 RN 505 [place] [address] 05/07/2025 9:15 AM EDT Office Visit [facility] MEDICINE 230 [place] [address] Lake Sullivan MD 230 [place] [address] documented as of this encounter Procedures Procedure Name Priority Date/Time Associated Diagnosis Comments HIGH SENSITIVITY TROPONIN I Routine 03/22/2025 7:24 AM EDT CBC WITH AUTO DIFFERENTIAL Routine 03/22/2025 7:24 AM EDT COMPREHENSIVE METABOLIC PANEL Routine 03/22/2025 7:24 AM EDT documented in this encounter Results * High Sensitivity Troponin I (03/22/2025 7:24 AM EDT) Pathologist [facility] TROPONIN I HIGH SENSITIVITY 3.0 <3.5 - 35.0 ng/L [facility] Comment:The [employer] high sens itivity Troponin-I results should beused in conjunction with other diagnostic information suchas ECG, clinical observations and information, and patientsymptoms to aid in the diagnosis of AR. 03/22/2025 7:24 AM EDT 03/22/2025 7:27 AM EDT us Generic External Data Provider LAB BLOOD ORDERAB LES Final Result [facility] [address] [place] [address] [phone] * (ABNORMAL) Comprehensive Metabolic Panel (03/22/2025 7:24 AM EDT) [facility] [address] Sodium 141 135 - 145 mmol/L [facility] Potassium 4.5 3.3 - 5.1 mmol/L [facility] Chloride 109(H) 96 - 108 mmol/L [facility] Carbon Dioxide 26 22 - 29 mmol/L [facility] Anion Gap 11(L) 12 - 20 [facility] Urea Nitrogen (BUN) 18(H) 9 - 16 mg/dL [facility] Creatinine, Serum 1.67(H) 0.5 - 1.4 mg/dL [facility] Creatinine Clr Calc Pharmacy 49.2 [facility] Comment:eGFR (calculated fro m the MDRD study equation) and eCrCl(calculated from the Cockcroft-Gault equation) are based ondifferent parameters and may not yield comparable results.If eCrCl result is absurd, please check patient'sheight/weight. Estimated Glomerular Filt Rate 41 [facility] Comment:Chronic Kidney Disea se: Estimated GFR < 60 mL/min/1.77c4Msslfi Kidney Disease: Estimated GFR < 15 mL/min/1.73m2 Glucose 162(H) 60 - 115 mg/dL [facility] Calcium 9.0 8.4 - 10.2 mg/dL [facility] Bilirubin, Total 0.2 0.0 - 1.0 mg/dL [facility] Aspartate Amino Transferase 17 5 - 37 U/L [facility] Alanine Aminotransferase 7 0 - 40 U/L [facility] Total Protein 6.7 6.5 - 8.0 g/dL [facility] Albumin Level 3.4(L) 3.5 - 5.0 g/dL [facility] Alkaline Phosphatase 147(H) 39 - 117 U/L [facility] 03/22/2025 7:24 AM EDT 03/22/2025 7:27 AM EDT us Generic External Data Provider LAB BLOOD ORDERAB LES Final Result [facility] [address] [place] [address] [phone] * (ABNORMAL) CBC auto differential (03/22/2025 7:24 AM EDT) White Blood Count 9.4 4.8 - 10.8 X10*3/uL [facility] Red Blood Count 3.93(L) 4.60 - 5.80 X10*6/uL [facility] Hemoglobin 11.2(L) 14.0 - 18.0 g/dl [facility] Hematocrit 33.0(L) 42.0 - 52.0 % [facility] Mean Corpuscular Volume 84.0 80.0 - 98.0 fL [facility] Mean Corpuscular Hemoglobin 28.5 27.0 - 33.0 pg [facility] Mean Corpuscular HGB Conc 33.9 31.0 - 36.0 g/dl [facility] Red Cell Distribution Width 14.4 11.0 - 16.0 % [facility] Platelet Count 269 160 - 400 X10*3/uL [facility] Mean Platelet Volume 10.6 9.4 - 12.4 fL [facility] Neutrophils Percent Auto 56.4 45 - 73 % [facility] Imm Gran Pct Auto 0.3 0.0 - 0.4 % [facility] Lymphocytes Percent Auto 31.5 20 - 40 % [facility] Monocytes Percent Auto 9.2 2 - 11 % [facility] Eosinophils Percent Auto 2.2 0 - 4 % [facility] Basophils Percent Auto 0.4 0 - 2 % [facility] NRBC Pct Auto 0.0 0.0 - 0.2 /100WBC [facility] Neutrophils Absolute Auto 5.3 2.0 - 8.3 x10*3/uL [facility] Imm Gran Abs Auto 0.03 0.00 - 0.03 X10*3/uL [facility] Lymphocytes Absolute Auto 3.0 1.2 - 4.9 X10*3/uL [facility] Monocytes Absolute Auto 0.9 0.1 - 1.2 X10*3/uL [facility] Eosinophils Absolute Auto 0.2 0.0 - 0.4 X10*3/uL [facility] Basophils Absolute Auto 0.0 0.0 - 0.2 X10*3/uL [facility] NRBC Abs Auto 0.000 0.0 - 0.012 X10*3/uL [facility] 03/22/2025 7:24 AM EDT 03/22/2025 7:27 AM EDT us Generic External Data Provider LAB BLOOD ORDERAB LES Final Result [facility] [address] [place] [address] [phone] documented in this encounter Visit Diagnoses Not on filedocumented in this encounter Additional Health Concerns Assessment Noted Time PHQ-9 Depression Total Score: 0 11/14/19 25 9:01 AM EDT documented as of this encounter Care Teams Council Member Relationship Specialty Start Date End Date Lake Sullivan MD [address] [place] [address] PCP - General Internal Medicine 02/12/14 Bossman Starks [address] [place] [address] Nephrology 11/14/24 documented as of this encounter
--- OUTSIDE RECORDS SUMMARY | 2025-03-22 07:55 | XMS_ITS | Encounter Summary ---
Author Organization [employer] Address [address] [place] [address] 7t [place] [address] Care Team Providers Care Guest Service Representative Name Role Phone Lake Sullivan MD Primary Care Provide r Bossman Starks Unavailable [phone] Reason for Visit * Reason Onset Date Comments Call Back Request 06/15/2023 Encounter Details Date Type Department Care Team ([facility] st Contact Info) Description 06/15/2023 Telephone [facility] MEDICINE 230 [place], [place] [phone] Lake Sullivan MD 230 [place], [place] [phone] Call Back Request Social History Tobacco Use [...] Description 04/03/2025 9:00 AM EDT Clinical Support [facility] CHC MED & PEDS 505 [place] [address] 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, RN 505 [place] [address] 05/07/2025 9:15 AM EDT Office Visit [facility] MEDICINE 230 [place] [address] Lake Sullivan MD 230 [place] [address] documented as of this encounter Visit Diagnoses Not on filedocumented in this encounter Care Teams Guest Service Representative Relationship Specialty Start Date End Date Lake Sullivan MD [address] [place] [address] PCP - General Internal Medicine 02/12/14 Bossman Starks 100 [facility] 200 [place] [address] Nephrology 11/14/24 documented as of this encounter
--- OUTSIDE RECORDS SUMMARY | 2025-03-22 07:55 | XMS_ITS | Encounter Summary ---
Author Organization [employer] Address [address] [place] [address] 7t [place] [address] Care Team Providers Care Senior Clinical Data Manager Name Role Phone Lake Sullivan MD Primary Care Provide r Bossman Starks Unavailable [phone] Reason for Visit * Reason Comments Med Refill Encounter Details Date Type Department Care Team (Late st Contact Info) Description 11/08/2024 Refill [facility] MEDICINE 230 [place], [place] [phone] Lake Sullivan MD 230 [place], [place] [phone] Dermatitis Social History Tobacco Use Types Packs/Day [...] Upcoming Encounters Date Type Department Care Team ([facility] st Contact Info) Description 04/03/2025 9:00 AM EDT Clinical Support [facility] CHC MED & PEDS 505 [place] [address] 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, LUCI [address] [place] [address] 05/07/2025 9:15 AM EDT Office Visit [facility] MEDICINE [address] [place] [address] Lake Sullvian MD [address] [place] [address] documented as of this encounter Visit Diagnoses Diagnosis Dermatitis Contact dermatitis and other eczema, due to unspecified cause documented in this encounter Additional Health Concerns Assessment Noted Time PHQ-9 Depression Total Score: 3 08/18/19 24 10:01 AM EST documented as of this encounter Care Teams Senior Clinical Data Manager Relationship Specialty Start Date End Date Lake Sullivan MD [address] [place] [address] PCP - General Internal Medicine 02/12/14 Bossman Starks 100 [facility] 200 [place] [phone] Nephrology 11/14/24 documented as of this encounter
--- OUTSIDE RECORDS SUMMARY | 2025-03-22 07:55 | XMS_ITS | Encounter Summary ---
Author Organization [employer] Address [address] [place] [address] 7t [place] [address] Care Team Providers Care Technical Illustrations Map Inker Name Role Phone Lake Sullivan MD Primary Care Provide r Bossman Starks Unavailable [phone] Reason for Visit * Reason Comments Med Refill Encounter Details Date Type Department Care Team (Late Contact Info) Description 07/16/2023 Refill [facility] MEDICINE [address] [place], [place] [phone] Lake Sullivan MD 230 [place] [address] Chronic constipation Social History Tobacco Use Types [...] Description 04/03/2025 9:00 AM EDT Clinical Support [facility] CHC MED & PEDS 505 [place] [address] 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, LUCI 505 [place] [address] 05/07/2025 9:15 AM EDT Office Visit [facility] MEDICINE [address] [place] [address] Lake Sullivan MD [address] [place] [address] documented as of this encounter Visit Diagnoses Diagnosis Chronic constipation Unspecified constipation documented in this encounter Care Teams Technical Illustrations Map Inker Relationship Specialty Start Date End Date Lake Sullivan MD [address] [place] [address] PCP - General Internal Medicine 02/12/14 Bossman Starks 100 LIV[address] HERNA[address] [address] Nephrology 11/14/24 documented as of this encounter
--- OUTSIDE RECORDS SUMMARY | 2025-03-22 07:55 | XMS_ITS | Encounter Summary ---
Author Organization [facility] Address [address] [facility] [address] [place] [address] Encounters * CPT with Pedro Luong at [facility] [employer] [facility] on 2025-01-14 Pmhx: Diastolic Heart Failure Reports having low BP readings x 5 days. Per pt BP today of 94/54 HR 99 left arm. Denies any N/V ordiarrhea. Having dizziness and lightheadedness. Pt has stopped verapamil x 2 days. Pt took irbesartan this morning. Denies an CP, palpitations or CAO. Pt is staying well hydrated. Pt offered our Walk in center today. Pt declines. Pt agrees to [facility] referral for evaluation. Confirmed demographics and allergies. { reasonForRequest : low BP , patientReports : , steph es :[], chiefComplaints : Low Blood Pressure, Dizziness , pmh :"Anemia, Benign Prostatic Hyperplasia (BPH), Chronic Back Pain, Chronic Obstructive Pulmonary Disease (COPD), Gout, Hyperlipidemia, Osteoarthritis, Hypertension, Sleep Apnea , allergies": No Known Drug Allergies , otherAllergies : , painAssessmen t : , visitOutcome : , additionalComments : HPIreviewed } Baseline Creatinine: 1.6 mg/dL, Baseline Hb: 10.8 g/dL, Baseline HCt: 32 % Pt chief complaint today of hypotension. Pt states that signs and symptoms have been occurring for approx 5 days prior to [facility] arrival at scene today. Pt stats that he was instructed by his physician to stop taking his verapamil which he has. Since stopping the medication the pt reports hypotension,dizziness, feeling off balance and a general unwell feeling. This morning however the pt decided touse his irbesartan and notes he is feeling much better. Headache is gone, hypotension and dizzinessare no longer present. Pt does have a follow up with his director private on and would like to have a general assessment performed today as well as possible treatment if needed. Pt currently denies any cp, sob, NVD, dizziness or blurred vision, weakness or unwell feeling. Nonneural focal exam, afebrile, vitals are fully WNL for the baseline of the pt. Pt2 is able to stand and ambulate without assistance of any waking device or person. Lungs of pt present as clear bilaterally on auscultation. Benign abdominal assessment, no ew or worsening lower extremity edema noted. Pt is CAOX4 with a GCS of 15. POC 12 lead ecg shows the pt to be in a sinus rhythm with no diagnostic markers for stemi activity. Unable to place butterfly for POC bloodwork.positive csm in all extremities, [facility] Ladi carrizales consulted Pt is informed to continue use of his irbesartan and withhold his verapamil until instructed by hisphysician tomorrow. Pt is educated on red flag S&S and told to contact emergency services if any present. IV_(FLUIDS_AND/OR_MEDICATION), POC_BLOODWORK, ORTHOSTATIC_VITAL_SIGNS, PO_MEDICATION, IV_MEDICATION Written by Pedro Luong on 2025-01-14
--- OUTSIDE RECORDS SUMMARY | 2025-03-22 07:55 | XMS_ITS | Encounter Summary ---
Author Organization [employer] Address [address] [place] [address] 7t [place] [address] Care Team Providers Care Leathersmith Name Role Phone Lake Sullivan MD Primary Care Provide r Bossman Starks Unavailable [phone] Reason for Visit * Reason Onset Date Comments Med Refill 02/01/2023 Encounter Details Date Type Department Care Team (Late st Contact Info) Description 02/01/2023 Telephone [facility] MEDICINE 230 [place], [place] [phone] Lake Sullivan MD 230 [place], [place] [phone] Med Refill Social History Tobacco Use Types [...] and morphine CR 15 mg. Pleasesend to [id number] [place], [place] - [address] [facility]. documented in this encounter Plan of Treatment Upcoming Encounters Date Type Department Care Team (Late st Contact Info) Description 04/03/2025 9:00 AM EDT Clinical Support [facility] MED & PEDS 505 [place] [address] 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 RN 505 [place] [address] 05/07/2025 9:15 AM EDT Office Visit [facility] MEDICINE 230 [place] [address] Lake Sullivan MD 230 [place] [address] documented as of this encounter Visit Diagnoses Not on filedocumented in this encounter Care Teams Leathersmith Relationship Specialty Start Date End Date Lake Sullivan MD 230 [place] [address] PCP - General Internal Medicine 02/12/14 Bossman Starks 100 [address] [facility] 200 [place] [address] Nephrology 11/14/24 documented as of this encounter
--- OUTSIDE RECORDS SUMMARY | 2025-03-22 07:55 | XMS_ITS | Encounter Summary ---
Author Organization [employer] Address [address] [place] [address] 7t [place] [address] Care Team Providers Care Clinical Trials Systems Administrator Name Role Phone Lake Sullivan MD Primary Care Provide r Bossman Starks Unavailable [phone] Reason for Visit * Reason Onset Date Comments Med Refill 04/20/2023 Encounter Details Date Type Department Care Team (Late st Contact Info) Description 04/20/2023 Telephone [facility] MEDICINE 230 [place], [place] [phone] Lake Sullivan MD 230 [place], [place] [phone] Med Refill Social History Tobacco Use Types [...] MG 12 hr tablet. Please send to [id number] - [place] - [address] [facility] PCP Dr. Ramsey documented in this encounter Plan of Treatment Upcoming Encounters Date Type Department Care Team (Late st Contact Info) Description 04/03/2025 9:00 AM EDT Clinical Support [facility] CHC MED & PEDS 505 [place] [address] 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, LUCI 505 [place] [address] 05/07/2025 9:15 AM EDT Office Visit [facility] MEDICINE [address] [place] [address] Lake Sullivan MD 230 [place] [address] documented as of this encounter Visit Diagnoses Not on filedocumented in this encounter Care Teams Clinical Trials Systems Administrator Relationship Specialty Start Date End Date Lake Sullivan MD 230 [place] [address] PCP - General Internal Medicine 02/12/14 Bossman Starks 100 [facility] 200 [place] [address] Nephrology 11/14/24 documented as of this encounter
--- OUTSIDE RECORDS SUMMARY | 2025-03-22 07:55 | XMS_ITS | Encounter Summary ---
Author Organization [employer] Address [address] [facility] 7t [place] [address] Care Team Providers Care Shochet Name Role Phone Lake Sullivan MD Primary Care Provide r Bossman Starks Unavailable [phone] Reason for Visit * Reason Onset Date Comments Med Refill 12/19/2023 Encounter Details Date Type Department Care Team (Late st Contact Info) Description 12/19/2023 Telephone [facility] MEDICINE 230 [place], [place] [phone] Lake Sullivan MD 230 [place], [place] [phone] Med Refill Social History Tobacco Use Types [...] 5-325 MG tablet To be sent to: [facility] #[id number] AT [facility] documented in this encounter Plan of Treatment Upcoming Encounters Date Type Department Care Team ([facility] st Contact Info) Description 04/03/2025 9:00 AM EDT Clinical Support [facility] CHC MED & PEDS 505 [place] [address] 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 RN 505 [place] [address] 05/07/2025 9:15 AM EDT Office Visit [facility] MEDICINE 230 [place], [place] [phone] Lake Sullivan MD 230 [place], [place] [phone] documented as of this encounter Visit Diagnoses Not on filedocumented in this encounter Additional Health Concerns Assessment Noted Time PHQ-9 Depression Total Score: 3 08/18/19 24 10:01 AM EST documented as of this encounter Care Teams Shochet Relationship Specialty Start Date End Date Lake Sullivan MD 230 [place] [address] PCP - General Internal Medicine 02/12/14 Bossman Starks 100 [facility] 200 [place] [address] Nephrology 11/14/24 documented as of this encounter
--- OUTSIDE RECORDS SUMMARY | 2025-03-22 07:55 | XMS_ITS | Encounter Summary ---
Author Organization [employer] Address [address] [place] [address] 7t [place] [address] Care Team Providers Care Client Integration Manager Name Role Phone Lake Sullivan MD Primary Care Provide r Bossman Starks Unavailable [phone] Encounter Details Date Type Department Care Team (Late st Contact Info) Description 12/14/2022 Orders Only [facility] CHC MED & PEDS [address] [place] [address] Peggy Carey LPN Social History Tobacco Use [...] Description 04/03/2025 9:00 AM EDT Clinical Support [facility] CHC MED & PEDS 505 [place] [address] 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 RN 505 [place] [address] 05/07/2025 9:15 AM EDT Office Visit [facility] MEDICINE 230 [place] [address] Lake Sullivan MD 230 [place], [place] [phone] documented as of this encounter Procedures Procedure [...] AM EDT Narrative 01/21/2023 3:07 PM EDT [facility] 230 [place] [address] XRay Report Signed Patient: Imer Parrish MR#: [id number] : 1955 Acct:[id number] Age/Sex: 67 / M ADM Date: 01/07/23 Loc: HO[facility] Attending Dr: Lake Allen MD Ordering Physician: Lake Allen MD Date of Service: 01/07/23 Procedure(s): XR lumbar spine 4V min Accession Number(s): [id number] cc: Lake Allen MD EXAMINATION: XR lumbar [...] in OV> 01/21/23 1504 DD/ 0905 TD/TT: Spooler Operator: Procedure Note Donotuseinterpreter, Image - 01/21/[address] [address] XRay Report Signed Patient: Imer Parrish#: [id number] : 1955cct:[id number] Age/Sex: 67 / MADM Date: 01/07/23 Loc: HO.[facility] Attending Dr: Lake Allen MD Ordering Physician: Lake Allen MD Date of Service: 01/07/23 Procedure(s): XR lumbar spine 4V min Accession Number(s): [id number] cc: Lake Allen MD EXAMINATION: XR lumbar [...] in OV> 01/21/23 1504 DD/ 0905 TD/TT: Spooler Operator: [facility] External Provider IMG XR PROCEDURES Final Result * XR Hip 2 or 3 Views Left (01/07/2023 9:05 AM EDT) Anatomical Region Laterality Modality Lower Extremities, Hip Left Radiograp hic Imaging 01/07/2023 9:05 AM EDT Narrative 01/21/2023 3:07 PM EDT [address] [address] XRay Report Signed Patient: Imer Parrish MR#: [id number] : 1955 Acct:[id number] Age/Sex: 67 / M ADM Date: 01/07/23 Loc: HO.[facility] Attending Dr: Lake Allen MD Ordering Physician: Lake Allen MD Date of Service: 01/07/23 Procedure(s): XR hip LT min 2V Accession Number(s): [id number] cc: Lake Allen MD EXAMINATION: XR lumbar [...] in OV> 01/21/23 1504 DD/ 0905 TD/TT: Spooler Operator: Procedure Note Donotuseinterpreter, Image - 01/21/[address] [address] XRay Report Signed Patient: Imer ParrishMR#: [id number] : 1955cct:[id number] Age/Sex: 67 / MADM Date: 01/07/23 Loc: HO.[facility] Attending Dr: Lake Allen MD Ordering Physician: Lake Allen MD Date of Service: 01/07/23 Procedure(s): XR hip LT min 2V Accession Number(s): [id number] cc: Lake Allen MD EXAMINATION: XR lumbar [...] in OV> 01/21/23 1504 DD/ 0905 TD/TT: Spooler Operator: [facility] External Provider IMG XR PROCEDURES Final Result documented in this encounter Visit Diagnoses Not on filedocumented in this encounter Care Teams Client Integration Manager Relationship Specialty Start Date End Date Lake Sullivan MD 230 [place] [address] PCP - General Internal Medicine 02/12/14 Bossman Starks 100 [facility] 200 [place] [address] Nephrology 11/14/24 documented as of this encounter
--- OUTSIDE RECORDS SUMMARY | 2025-03-22 07:55 | XMS_ITS | Encounter Summary ---
Author Organization [employer] Address [address] [place] [address] 7t [place] [address] Care Team Providers Care Supervisor Real Estate Office Name Role Phone Lake Sullivan MD Primary Care Provide r Bossman Starks Unavailable [phone] Reason for Visit * Reason Comments Med Refill Encounter Details Date Type Department Care Team (Late Contact Info) Description 04/06/2023 Refill [facility] MEDICINE 230 [place], [place] [phone] Delaney Zavala MD 230 [place] [address] Dermatitis Social History Tobacco Use Types Packs/Day [...] Description 04/03/2025 9:00 AM EDT Clinical Support [facility] CHC MED & PEDS 505 [place], [place] [phone] 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, LUCI 505 [place] [address] 05/07/2025 9:15 AM EDT Office Visit [facility] MEDICINE [address] [place] [address] Lake Sullivan MD 230 [place] [address] documented as of this encounter Visit Diagnoses Diagnosis Dermatitis Contact dermatitis and other eczema, due to unspecified cause documented in this encounter Care Teams Supervisor Real Estate Office Relationship Specialty Start Date End Date Lake Sullivan MD 230 [place] [address] PCP - General Internal Medicine 02/12/14 Bossman Starks 100 [facility] [address] [address] Nephrology 11/14/24 documented as of this encounter
--- OUTSIDE RECORDS SUMMARY | 2025-03-22 07:55 | XMS_ITS | Encounter Summary ---
Author Organization [employer] Address 75 [facility] 7t [place] [address] Care Team Providers Care Plant Control Aide Name Role Phone Lake Sullivan MD Primary Care Provide r Bossman Starks Unavailable [phone] Reason for Visit * Reason Onset Date Comments Med Refill 05/01/2024 Encounter Details Date Type Department Care Team ([facility] st Contact Info) Description 05/01/2024 Telephone [facility] MEDICINE 230 [place], [place] [phone] Lake Sullivan MD 230 [place], [place] [phone] Med Refill Social History Tobacco Use Types [...] Description 04/03/2025 9:00 AM EDT Clinical Support [facility] CHC MED & PEDS 505 [place] [address] 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, LUCI 505 [place] [address] 05/07/2025 9:15 AM EDT Office Visit [facility] MEDICINE 230 [place] [address] Lake Sullivan MD 230 [place] [address] documented as of this encounter Visit Diagnoses Not on filedocumented in this encounter Additional Health Concerns Assessment Noted Time PHQ-9 Depression Total Score: 3 08/18/19 24 10:01 AM EST documented as of this encounter Care Teams Plant Control Aide Relationship Specialty Start Date End Date Lake Sullivan MD 230 [place] [address] PCP - General Internal Medicine 02/12/14 Bossman Starks 100 [facility] 200 [place] [phone] Nephrology 11/14/24 documented as of this encounter
--- OUTSIDE RECORDS SUMMARY | 2025-03-22 07:55 | XMS_ITS | Encounter Summary ---
Author Organization [employer] Address 75 [facility] 7t [place] [address] Care Team Providers Care Machine Welt Butter Name Role Phone Lake Slulivan MD Primary Care Provide r Bossman Starks Unavailable [phone] Reason for Visit * Reason Onset Date Comments Call Back Request 09/30/2023 Encounter Details Date Type Department Care Team ([facility] st Contact Info) Description 09/30/[address] [facility] MEDICINE 230 [place], [place] [phone] Lake Sullivan MD 230 [place], [place] [phone] Call Back Request Social History Tobacco Use [...] Upcoming Encounters Date Type Department Care Team ([facility] st Contact Info) Description 04/03/2025 9:00 AM EDT Clinical Support [facility] CHC MED & PEDS 505 [place] [address] 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, LUCI 505 [place] [address] 05/07/2025 9:15 AM EDT Office Visit [facility] MEDICINE 230 [place] [address] Lake Sullivan MD 230 [place] [address] documented as of this encounter Visit Diagnoses Not on filedocumented in this encounter Additional Health Concerns Assessment Noted Time PHQ-9 Depression Total Score: 3 08/18/19 24 10:01 AM EST documented as of this encounter Care Teams Machine Welt Butter Relationship Specialty Start Date End Date Lake Sullivan MD 230 [place] [address] PCP - General Internal Medicine 02/12/14 Bossman Starks 100 [facility] 200 [place] [address] Nephrology 11/14/24 documented as of this encounter
--- OUTSIDE RECORDS SUMMARY | 2025-03-22 07:55 | XMS_ITS | Encounter Summary ---
Author Organization [employer] Address 75 [facility] 7t [place] [address] Care Team Providers Care Deburrer Strip Name Role Phone Lake Sullivan MD Primary Care Provide r Bossmna Starks Unavailable [phone] Reason for Visit * Reason Onset Date Comments Call Back Request 12/20/2023 Encounter Details Date Type Department Care Team ([facility] st Contact Info) Description 12/20/2023 Telephone [facility] MEDICINE 230 [place], [place] [phone] Lake Sullivan MD 230 [place], [place] [phone] Call Back Request Social History Tobacco Use [...] a call back in order to r/s CORPORATE COMPLIANCE DIRECTOR appt to before 12/26 due to traveling. documented in this encounter Plan of Treatment Upcoming Encounters Date Type Department Care Team (Late st Contact Info) Description 04/03/2025 9:00 AM EDT Clinical Support [facility] CHC MED & PEDS 505 [place] [address] 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, RN 505 [place] [address] 05/07/2025 9:15 AM EDT Office Visit [facility] MEDICINE 230 [place] [address] Lake Sullivan MD 230 [place], [place] [phone] documented as of this encounter Visit Diagnoses Not on filedocumented in this encounter Additional Health Concerns Assessment Noted Time PHQ-9 Depression Total Score: 3 08/18/19 24 10:01 AM EST documented as of this encounter Care Teams Deburrer Strip Relationship Specialty Start Date End Date Lake Sullivan MD 230 [place] [address] PCP - General Internal Medicine 02/12/14 Bossman Starks 100 [facility] 200 [place] [address] Nephrology 11/14/24 documented as of this encounter
--- OUTSIDE RECORDS SUMMARY | 2025-03-22 07:55 | XMS_ITS | Clinical Summary ---
Author Organization [facility] Address [address] [place] [address] Care Team Providers Care Carburetor Mechanic Name Role Phone Unavailable Primary Care Provider Unavailabl e Social History Tobacco Use Types Packs/Day Years Used Date Smoking Tobacco: Never Assessed Sex and Gender Information Value Date Recorded Sex Assigned at Not on file Gender Identity Not on file Sexual Orientation Not on file Plan of Treatment Not on file
--- OUTSIDE RECORDS SUMMARY | 2025-03-22 07:55 | XMS_ITS | Encounter Summary ---
Author Organization [employer] Address [address] [place] [address] 7t [place] [address] Care Team Providers Care Cashier Tube Room Name Role Phone Lake Sullivan MD Primary Care Provide r Bossman Starks Unavailable [phone] Reason for Visit * Reason Comments Med Refill Encounter Details Date Type Department Care Team (Late st Contact Info) Description 09/18/2024 Refill [facility] MEDICINE 230 [place], [place] [phone] Lake Sullivan MD 230 [place] [address] Social History Tobacco Use Types Packs/Day Years [...] the past 12 months, has t he [employer], gas, oil or water company threatened to [...] Description 04/03/2025 9:00 AM EDT Clinical Support [facility] CHC MED & PEDS 505 [place] [address] 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, LUCI 505 [place] [address] 05/07/2025 9:15 AM EDT Office Visit [facility] MEDICINE 230 [place] [address] Lake Slulivan MD 230 [place] [address] documented as of this encounter Visit Diagnoses Not on filedocumented in this encounter Additional Health Concerns Assessment Noted Time PHQ-9 Depression Total Score: 3 08/18/19 24 10:01 AM EST documented as of this encounter Care Teams Cashier Tube Room Relationship Specialty Start Date End Date Lake Sullivan MD [address] [place] [address] PCP - General Internal Medicine 02/12/14 Bossman Starks 100 [facility] 200 [place] [address] Nephrology 11/14/24 documented as of this encounter
--- OUTSIDE RECORDS SUMMARY | 2025-03-22 07:56 | XMS_ITS | Encounter Summary ---
Author Organization [employer] Address [address] [place] [address] 7t [place] [address] Care Team Providers Care Financial Accounting Manager Name Role Phone Lake Sullivan MD Primary Care Provide r Bossman Starks Unavailable [phone] Reason for Visit * Reason Onset Date Comments Med Refill 01/27/2023 Encounter Details Date Type Department Care Team (Late st Contact Info) Description 01/27/2023 Telephone [facility] MEDICINE 230 [place], [place] [phone] Lake Sullivan MD 230 [place], [place] [phone] Med Refill Social History Tobacco Use Types [...] and morphine CR 15 mg. Pleasesend to [id number] [facility] PCP Dr. Ramsey documented in this encounter Plan of Treatment Upcoming Encounters Date Type Department Care Team (Late st Contact Info) Description 04/03/2025 9:00 AM EDT Clinical Support [facility] CHC MED & PEDS 505 [place] [address] 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, LUCI 505 [place] [address] 05/07/2025 9:15 AM EDT Office Visit [facility] MEDICINE 230 [place] [address] Lake Sullivan MD 230 [place] [address] documented as of this encounter Visit Diagnoses Not on filedocumented in this encounter Care Teams Financial Accounting Manager Relationship Specialty Start Date End Date Lake Sullivan MD [address] [place] [address] PCP - General Internal Medicine 02/12/14 Bossman Starks 100 [facility] 200 [place] [phone] Nephrology 11/14/24 documented as of this encounter
--- OUTSIDE RECORDS SUMMARY | 2025-03-22 07:56 | XMS_ITS | Encounter Summary ---
Author Organization [employer] Address [address] [place] [address] 7t [place] [address] Care Team Providers Care Emr Trainer Name Role Phone Lake Sullivan MD Primary Care Provide r Bossman Starks Unavailable [phone] Reason for Visit * Reason Onset Date Comments Referral 02/21/2025 Encounter Details Date Type Department Care Team (Late st Contact Info) Description 02/21/2025 Telephone [facility] MEDICINE 230 [place], [place] [phone] Lake Sullivan MD 230 [place], [place] [phone] Referral Social History Tobacco Use Types Packs/Day Years [...] encounter Miscellaneous Notes * Telephone Encounter - TERENCE Singer - 03/07/2025 1:56 PM EDT Sent at time of msg * Telephone Encounter - Darrick Fitzgerald - 02/21/2025 1:32 PM EDT TC from pt reports his Sweatband Cutting Machine Operator left the practice and is wanting to get a new referral else where. documented in this encounter Plan of Treatment Upcoming Encounters Date Type Department Care Team (Late st Contact Info) Description 04/03/2025 9:00 AM EDT Clinical Support [facility] CHC MED & PEDS 505 [place] [address] 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, LUCI 505 [place] [address] 05/07/2025 9:15 AM EDT Office Visit [facility] MEDICINE 230 [place] [address] Lake Sullivan MD 230 [place] [address] documented as of this encounter Visit Diagnoses Not on filedocumented in this encounter Additional Health Concerns Assessment Noted Time PHQ-9 Depression Total Score: 0 11/14/19 9:01 AM EDT documented as of this encounter Care Teams Emr Trainer Relationship Specialty Start Date End Date Lake Sullivan MD 230 [place], [place] [phone] PCP - General Internal Medicine 02/12/14 Bossman Starks 100 [facility] [address] [address] Nephrology 11/14/24 documented as of this encounter
--- OUTSIDE RECORDS SUMMARY | 2025-03-22 07:56 | XMS_ITS | Encounter Summary ---
Author Organization [employer] Address 75 [facility] 7t [place] [address] Care Team Providers Care Ostomy Nurse Name Role Phone Lake Sullivan MD Primary Care Provide r Bossman Starks Unavailable [phone] Reason for Visit * Reason Comments Med Refill Encounter Details Date Type Department Care Team (Late st Contact Info) Description 12/28/2024 Refill [facility] MEDICINE 230 [place], [place] [phone] Lake Sullivan MD 230 [place], [place] [phone] Dermatitis Social History Tobacco Use Types Packs/Day [...] Upcoming Encounters Date Type Department Care Team ([facility] st Contact Info) Description 04/03/2025 9:00 AM EDT Clinical Support [facility] CHC MED & PEDS 505 [place] [address] 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, RN 505 [place] [address] 05/07/2025 9:15 AM EDT Office Visit [facility] MEDICINE 230 [place] [address] Lake Sullivan MD 230 [place] [address] documented as of this encounter Visit Diagnoses Diagnosis Dermatitis Contact dermatitis and other eczema, due to unspecified cause documented in this encounter Additional Health Concerns Assessment Noted Time PHQ-9 Depression Total Score: 0 11/14/19 25 9:01 AM EDT documented as of this encounter Care Teams Ostomy Nurse Relationship Specialty Start Date End Date Lake Sullivan MD 230 [place] [address] PCP - General Internal Medicine 02/12/14 Bossman Starks 100 [facility] 200 [place] [address] Nephrology 11/14/24 documented as of this encounter
--- OUTSIDE RECORDS SUMMARY | 2025-03-22 07:56 | XMS_ITS | Encounter Summary ---
Author Organization [employer] Address 75 [facility] 7t [place] [address] Care Team Providers Care Inking Machine Tender Name Role Phone Lake Sullivan MD Primary Care Provide r Bossman Starks Unavailable [phone] Reason for Visit * Reason Onset Date Comments Appointment 08/27/2022 Patient left malu t today but did not stop in front because his ride was waiting for him. He states that he is supposed to come back next week and wants an ribber appt with Dr. Fisher. I informed patient that I would not be able to schedule but would relay information to dental and he would get a call for scheduling He did say he wanted an ribber. I informed I would relay that as well but I would not be able to guarantee and office would be in touch for scheduling DR Encounter Details Date Type Department Care Team (Late st Contact Info) Description 08/27/2022 Telephone [facility] 230 [place] [address] Phil Fisher DDS 230 [place] [address] Appointment (Patient left appt today but did not stop in front because his ride was waiting for him. He states that he is supposed to come back next week and wants an ribber appt with Dr. Fisher. I informed patient that I would not be able to schedule but would relay information to dental and he would get a call for scheduling He did say he wanted an ribber. I informed I would relay that as [...] come back next week and wants an ribber appt with Dr. Fisher. I informed patient that I would not be able to schedule but would relay information to dental and he would get a call for scheduling He did say he wanted an ribber. I informed I would relay that as wellbut I would not be able to guarantee and office would be in touch for scheduling DR documented in this encounter Plan of Treatment Upcoming Encounters Date Type Department Care Team (Late st Contact Info) Description 04/03/2025 9:00 AM EDT Clinical Support [facility] CHC MED & PEDS 505 [place] [address] 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, LUCI 505 [place] [address] 05/07/2025 9:15 AM EDT Office Visit [facility] MEDICINE 230 [place] [address] Lake Sullivan MD 230 [place] [address] documented as of this encounter Visit Diagnoses Not on filedocumented in this encounter Care Teams Inking Machine Tender Relationship Specialty Start Date End Date Lake Sullivan MD 230 [place] [address] PCP - General Internal Medicine 02/12/14 Bossman Starks 100 [facility] [address] [address] Nephrology 11/14/24 documented as of this encounter
--- OUTSIDE RECORDS SUMMARY | 2025-03-22 07:56 | XMS_ITS | Encounter Summary ---
Author Organization [employer] Address [address] [place] [address] 7t [place] [address] Care Team Providers Care Production Machine Operator Name Role Phone Lake Sullivan MD Primary Care Provide r Bossman Starks Unavailable [phone] Encounter Details Date Type Department Care Team (Late st Contact Info) Description 12/12/2024 Orders Only [facility] 230 [place], [place] [phone] Provider, MD Mckayla Social History Tobacco Use Types Packs/Day Years [...] 04/03/2025 9:00 AM EDT Clinical Support [facility] CHC MED & PEDS 505 [place] [address] 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, LUCI 505 [place] [address] 05/07/2025 9:15 AM EDT Office Visit [facility] MEDICINE 230 [place] [address] Lake Sullivan MD 230 [place] [address] documented as of this encounter Procedures Procedure Name Priority Date/Time Associated Diagnosis Comments COLONOSCOPY Routine 12/11/2024 12:15 PM EDT documented in this encounter Results * Colonoscopy (12/11/2024 12:15 PM EDT) Anatomical Region Laterality Modality Endoscopy us Historical Provider ENDOSCOPY PROCEDURE ORDER MORE Final Result documented in this encounter Visit Diagnoses Not on filedocumented in this encounter Additional Health Concerns Assessment Noted Time PHQ-9 Depression Total Score: 0 11/14/19 9:01 AM EDT documented as of this encounter Care Teams Production Machine Operator Relationship Specialty Start Date End Date Lake Sullivan MD 230 [place] [address] PCP - General Internal Medicine 02/12/14 Bossman Starks 100 [facility] [address] [address] Nephrology 11/14/24 documented as of this encounter
--- OUTSIDE RECORDS SUMMARY | 2025-03-22 07:56 | XMS_ITS | Encounter Summary ---
Author Organization [employer] Address [address] [place] [address] 7t [place] [address] Care Team Providers Care Application Development Liaison Name Role Phone Lake Sullivan MD Primary Care Provide r Bossman Starks Unavailable [phone] Encounter Details Date Type Department Care Team ([facility] st Contact Info) Description 07/20/[address] [facility] MEDICINE 230 [place], [place] [phone] Lake Sullivan MD 230 [place], [place] [phone] Social History Tobacco Use Types Packs/Day Years [...] AM EDT Clinical Support [facility] CHC MED & PEDS 505 [place] [address] 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, RN 505 [place] [address] 05/07/2025 9:15 AM EDT Office Visit [facility] MEDICINE 230 [place] [address] Lake Sullivan MD 230 [place] [address] documented as of this encounter Visit Diagnoses Not on filedocumented in this encounter Care Teams Application Development Liaison Relationship Specialty Start Date End Date Lake Sullivan MD 230 [place] [address] PCP - General Internal Medicine 02/12/14 Bossman Starks 100 [facility] 200 [place] [address] Nephrology 11/14/24 documented as of this encounter
--- OUTSIDE RECORDS SUMMARY | 2025-03-22 07:56 | XMS_ITS | Encounter Summary ---
Author Organization [employer] Address 75 [facility] 7t [place] [address] Care Team Providers Care News Broadcaster Name Role Phone Lake Sullivan MD Primary Care Provide r Bossman Starks Unavailable [phone] Reason for Visit * Reason Onset Date Comments Med Refill 02/26/2025 Encounter Details Date Type Department Care Team (Late st Contact Info) Description 02/26/2025 Telephone [facility] MEDICINE [address] [place], [place] [phone] Lake Sullivan MD 230 [place], [place] [phone] Med Refill Social History Tobacco Use Types [...] encounter Miscellaneous Notes * Telephone Encounter - Zunilda Hernandez - 02/26/2025 10:17 AM EDT TC from pt requesting medication refill. Medications needing refill : oxyCODONE-acetaminophen (Percocet) 5-325 MG tablet morphine CR (MS Contin) 15 MG 12 hr tablet To be sent to: [id number] [place] - [address] [facility] documented in this encounter Plan of Treatment Upcoming Encounters Date Type Department Care Team ([facility] st Contact Info) Description 04/03/2025 9:00 AM EDT Clinical Support [facility] CHC MED & PEDS 505 [place] [address] 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, RN 505 [facility] [place] [address] 05/07/2025 9:15 AM EDT Office Visit [facility] MEDICINE 230 [place] [address] Lake Sullivan MD 230 [place] [address] documented as of this encounter Visit Diagnoses Not on filedocumented in this encounter Additional Health Concerns Assessment Noted Time PHQ-9 Depression Total Score: 0 11/14/19 9:01 AM EDT documented as of this encounter Care Teams News Broadcaster Relationship Specialty Start Date End Date Lake Sullivan MD 230 [place], [place] [phone] PCP - General Internal Medicine 02/12/14 Bossman Starks 100 [facility] [address] [address] Nephrology 11/14/24 documented as of this encounter
--- OUTSIDE RECORDS SUMMARY | 2025-03-22 07:56 | XMS_ITS | Clinical Summary ---
Author Organization [facility] Address [address] [address] Phone Care Team Providers Care Senior Industrial Engineer Name Role Phone Lake Ramsey MD [...] [employer] MDI He follows with Payloader Operator Dr Hussein, last note on record [...] Visit [facility] [address] [facility] 204 [place] [address] Bossman Starks MD [address] [facility] 204 [place] [address] Health Maintenance Due Date Last [...] 8.9 8.7 - 10.7 mg/dL eGFR Non-Afr Palestinian >60 Hemoglobin A1C 5.6 4.0 - 6.0 Triglycerides 124 40 - 160 Cholesterol 157 0 - 200 HDL 28(A) 35 - 70 MG/DL 08/04/2020 Historical Provider LAB BLOOD ORDERABLES Paula l Result from Last 3 Months or Most Recently Relevant to Health Maintenance Insurance [facility] ([id number]) [facility] ([id number]) Care Teams Senior Industrial Engineer Relationship Specialty Start Date End Date Lake Ramsey MD 230 [place] [address] PCP - General 07/21/20
--- OUTSIDE RECORDS SUMMARY | 2025-03-22 07:56 | XMS_ITS | Encounter Summary ---
Author Organization [employer] Address 75 [facility] 7t [place] [address] Care Team Providers Care Carder Blankets Name Role Phone Lake Sullivan MD Primary Care Provide r Bossman Starks Unavailable [phone] Reason for Visit * Reason Onset Date Comments Med Refill 12/05/2024 Encounter Details Date Type Department Care Team (Late st Contact Info) Description 12/05/2024 Telephone [facility] MEDICINE 230 [place], [place] [phone] Lake Sullivan MD 230 [place], [place] [phone] Med Refill Social History Tobacco Use Types [...] * Telephone Encounter - John Coyne - 12/05/2024 8:33 AM EDT TC from pt requesting medication refill. Medications needing refill : oxyCODONE-acetaminophen (Percocet) 5-325 MG tablet morphine CR (MS Contin) 15 MG 12 hr tablet To be sent to: [facility][id number] [place] - [address] [facility] documented in this encounter Plan of Treatment Upcoming Encounters Date Type Department Care Team ([facility] Contact Info) Description 04/03/2025 9:00 AM EDT Clinical Support [facility] MED & PEDS 505 [place] [address] 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, RN [address] [place] [address] 05/07/2025 9:15 AM EDT Office Visit [facility] MEDICINE 230 [place] [address] Lake Sullivan MD 230 [place] [address] documented as of this encounter Visit Diagnoses Not on filedocumented in this encounter Additional Health Concerns Assessment Noted Time PHQ-9 Depression Total Score: 0 11/14/19 9:01 AM EDT documented as of this encounter Care Teams Carder Blankets Relationship Specialty Start Date End Date Lake Sullivan MD 230 [place] [address] PCP - General Internal Medicine 02/12/14 Bossman Starks 100 [facility] 200 [place] [address] Nephrology 11/14/24 documented as of this encounter
--- OUTSIDE RECORDS SUMMARY | 2025-03-22 07:56 | XMS_ITS | Encounter Summary ---
Author Organization [employer] Address [address] [facility] 7t [place] [address] Care Team Providers Care District Plant Superintendent Name Role Phone Lake Sullivan MD Primary Care Provide r Bossman Starks Unavailable [phone] Reason for Visit * Reason Onset Date Comments Med Refill 01/30/2025 Encounter Details Date Type Department Care Team (Late st Contact Info) Description 01/30/2025 Telephone [facility] MEDICINE [address] [place], [place] [phone] Lake Sullivan MD 230 [place], [place] [phone] Med Refill Social History Tobacco Use Types [...] encounter Miscellaneous Notes * Telephone Encounter - Cm Brown - 01/30/2025 11:14 AM EDT TC from pt requesting medication refill. Medications needing refill : oxyCODONE-acetaminophen (Percocet) 5-325 MG tablet To be sent to: [id number] [place] - [address] [place] [address] AT [facility] documented in this encounter Plan of Treatment Upcoming Encounters Date Type Department Care Team ([facility] st Contact Info) Description 04/03/2025 9:00 AM EDT Clinical Support [facility] CHC MED & PEDS [address] [place] [address] 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, RN 505 [place] [address] 05/07/2025 9:15 AM EDT Office Visit [facility] MEDICINE 230 [place] [address] Lake Sullivan MD 230 [place] [address] documented as of this encounter Visit Diagnoses Not on filedocumented in this encounter Additional Health Concerns Assessment Noted Time PHQ-9 Depression Total Score: 0 11/14/19 9:01 AM EDT documented as of this encounter Care Teams District Plant Superintendent Relationship Specialty Start Date End Date Lake Sullivan MD 230 [place] [address] PCP - General Internal Medicine 02/12/14 Bossman Starks 100 [facility] 200 [place] [address] Nephrology 11/14/24 documented as of this encounter
[2025-03-22 08:51] VITALS: PULSE 70; RESP 18; O2SAT 97
[2025-03-22 08:53] VITALS: BP 134/66
[2025-03-22 10:00] VITALS: BP 143/67; PULSE 78; RESP 21; TEMP 36.9; O2SAT 95
[2025-03-22 11:01] VITALS: BP 147/71; PULSE 66; RESP 19; TEMP 36.4; O2SAT 100
[2025-03-22 11:12] VITALS: BP 119/85; PULSE 75; RESP 16; TEMP 37; O2SAT 98
== END 2025-03-22 11:21 | disposition home or self-care (01) ==
PROVIDERS: Emergency Provider Emergency Medicine; PCP Internal Medicine
DX: R53.1 Weakness (principal); R07.89 Other chest pain; R42 Dizziness and giddiness; R11.0 Nausea; Z79.899 Other long term (current) drug therapy
CPT/HCPCS: 36415; 70450; 71045; 80053; 84484; 85025; 93005; 96361; 96374; 99284; 99285; J2405

== ENCOUNTER → 2025-03-22 07:19 | Outpatient (BNV) | payer OTHER, SELFPAY | PROVIDERS: Emergency Provider Emergency Medicine; PCP Internal Medicine; Visit Provider Radiology Diagnostic Radiology | DX: R42 Dizziness and giddiness (principal); R05.9 Cough, unspecified | CPT/HCPCS: 70450; 71045 ==

== ENCOUNTER → 2025-03-22 07:19 | Outpatient (BNV) | payer OTHER, SELFPAY | PROVIDERS: Emergency Provider Emergency Medicine; PCP Internal Medicine; Visit Provider Internal Medicine Cardiovascular Disease | DX: R07.9 Chest pain, unspecified (principal) | CPT/HCPCS: 93010 ==

== ENCOUNTER 2025-05-07 08:09 | Outpatient (REF) | payer OTHER, SELFPAY ==
--- OUTSIDE RECORDS SUMMARY | 2025-05-07 08:25 | XMS_ITS | Encounter Summary ---
Author Organization [employer] Address [address] [place] [address] 7t [place] [address] Care Team Providers Care Radiotelephone Technical Operator Name Role Phone Lake Sullivan MD Primary Care Provide r Bossman Starks Unavailable [phone] Reason for Visit * Reason Onset Date Comments Med Refill 11/08/2024 Encounter Details Date Type Department Care Team (Late st Contact Info) Description 11/08/2024 Telephone [facility] MEDICINE 230 [place], [place] [phone] Lake Sullivan MD 230 [place], [place] [phone] Med Refill Social History Tobacco Use Types [...] 12 hr tablet To be sent to: [id number] [place] - [address] [place] [address] AT [facility] documented in this encounter Plan of Treatment Upcoming Encounters Date Type Department Care Team ([facility] Contact Info) Description 05/07/2025 9:15 AM EDT Office Visit [facility] MEDICINE [address] [place] [address] [phone] Lake Sullivan MD 230 [place] [address] 06/03/2025 10:30 AM EST Telemedicine [facility] CHC MED & PEDS [address] [place] [address] 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, RN 505 [place] [address] documented as of this encounter Visit Diagnoses Not on filedocumented in this encounter Additional Health Concerns Assessment Noted Time PHQ-9 Depression Total Score: 3 08/18/19 24 10:01 AM EST documented as of this encounter Care Teams Radiotelephone Technical Operator Relationship Specialty Start Date End Date Lake Sullivan MD [address] [place] [address] PCP - General Internal Medicine 02/12/14 Bossman Starks 100 [facility] 200 [place] [address] Nephrology 11/14/24 documented as of this encounter
--- OUTSIDE RECORDS SUMMARY | 2025-05-07 08:25 | XMS_ITS | Encounter Summary ---
Author Organization [employer] Address [address] [place] [address] 7t [place] [address] Care Team Providers Care Lease Operator Name Role Phone Lake Sullivan MD Primary Care Provide r Bossman Starks Unavailable [phone] Reason for Visit * Reason Comments Med Refill Encounter Details Date Type Department Care Team (Late st Contact Info) Description 11/08/2024 Refill [facility] MED[facility] 230 [place], [place] [phone] Lake Sullivan MD 230 [place], [place] [phone] Dermatitis Social History Tobacco Use Types Packs/Day [...] Care Team (Late st Contact Info) Description 05/07/2025 9:15 AM EDT Office Visit [facility] MEDICINE 230 [place] [address] Lake Sullivan MD 230 [place] [address] 06/03/2025 10:30 AM EST Telemedicine [facility] CHC MED & PEDS 505 [place] [address] 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, LUCI 505 [place] [address] documented as of this encounter Visit Diagnoses Diagnosis Dermatitis Contact dermatitis and other eczema, due to unspecified cause documented in this encounter Additional Health Concerns Assessment Noted Time PHQ-9 Depression Total Score: 3 08/18/19 24 10:01 AM EST documented as of this encounter Care Teams Lease Operator Relationship Specialty Start Date End Date Lake Sullivan MD 230 [place] [address] PCP - General Internal Medicine 02/12/14 Bossman Starks 100 [facility] 200 [place] [phone] Nephrology 11/14/24 documented as of this encounter
--- OUTSIDE RECORDS SUMMARY | 2025-05-07 08:26 | XMS_ITS | Encounter Summary ---
Author Organization [employer] Address [address] [place] [address] 7t [place] [address] Care Team Providers Care Sealer Dry Cell Name Role Phone Lake Sullivan MD Primary Care Provide r Bossman Starks Unavailable [phone] Reason for Visit * Reason Onset Date Comments Appointment Request 07/20/2023 Encounter Details Date Type Department Care Team (Late st Contact Info) Description 07/20/2023 Telephone [facility] MEDICINE [address] [place], [place] [phone] Lake Sullivan MD 230 [place], [place] [phone] Appointment Request Social History Tobacco Use Types [...] Description 05/07/2025 9:15 AM EDT Office Visit [facility] MEDICINE [address] [place] [address] Lake Sullivan MD 230 [place] [address] 06/03/2025 10:30 AM EST Telemedicine [facility] CHC MED & PEDS 505 [place] [address] 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, RN 505 [place] [address] documented as of this encounter Visit Diagnoses Not on filedocumented in this encounter Care Teams Sealer Dry Cell Relationship Specialty Start Date End Date Lake Sullivan MD 230 [place] [address] PCP - General Internal Medicine 02/12/14 Bossman Starks 100 LIVIER HERNANDEZ [facility] 200 [place] [phone] Nephrology 11/14/24 documented as of this encounter
--- OUTSIDE RECORDS SUMMARY | 2025-05-07 08:26 | XMS_ITS | Encounter Summary ---
Author Organization [employer] Address [address] [place] [address] 7t [place] [address] Care Team Providers Care Personnel Research Scientist Name Role Phone Lake Sullivan MD Primary Care Provide r Bossman Starks Unavailable [phone] Reason for Visit * Reason Comments Med Refill Encounter Details Date Type Department Care Team (Late Contact Info) Description 07/16/2023 Refill [facility] MEDICINE 230 [place], [place] [phone] Lake Sullivan MD 230 [place], [place] [phone] Chronic constipation Social History Tobacco Use Types [...] Description 05/07/2025 9:15 AM EDT Office Visit [facility] MEDICINE 230 [place], [place] [phone] Lake Sullivan MD 230 [place], [place] [phone] 06/03/2025 10:30 AM EST Telemedicine [facility] CHC MED & PEDS [address] [place] [address] 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, LUCI [address] [place] [address] documented as of this encounter Visit Diagnoses Diagnosis Chronic constipation Unspecified constipation documented in this encounter Care Teams Personnel Research Scientist Relationship Specialty Start Date End Date Lake Sullivan MD [address] [place] [address] PCP - General Internal Medicine 02/12/14 Bossman Starks 100 LIVIER HERNANDEZ [facility] 200 [place] [address] Nephrology 11/14/24 documented as of this encounter
--- OUTSIDE RECORDS SUMMARY | 2025-05-07 08:26 | XMS_ITS | Encounter Summary ---
Author Organization [employer] Address [address] [place] [address] 7t [place] [address] Care Team Providers Care Director Of Occupational Therapy Name Role Phone Lake Sullivan MD Primary Care Provide r Bossman Starks Unavailable [phone] Reason for Visit * Reason Onset Date Comments Call Back Request 06/15/2023 Encounter Details Date Type Department Care Team ([facility] st Contact Info) Description 06/15/2023 Telephone [facility] MEDICINE 230 [place], [place] [phone] Lake Sullivan MD 230 [place], [place] [phone] Call Back Request Social History Tobacco Use [...] Description 05/07/2025 9:15 AM EDT Office Visit [facility] MEDICINE 230 [place] [address] Lake Sullivan MD 230 [place] [address] 06/03/2025 10:30 AM EST Telemedicine [facility] CHC MED & PEDS 505 [place] [address] 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, RN 505 [place] [address] documented as of this encounter Visit Diagnoses Not on filedocumented in this encounter Care Teams Director Of Occupational Therapy Relationship Specialty Start Date End Date Lake Sullivan MD 230 [place] [address] PCP - General Internal Medicine 02/12/14 Bossman Starks 100 [facility] [address] [phone] Nephrology 11/14/24 documented as of this encounter
--- OUTSIDE RECORDS SUMMARY | 2025-05-07 08:26 | XMS_ITS | Encounter Summary ---
Author Organization [employer] Address [address] [place] [address] 7t [place] [address] Care Team Providers Care Dock Manager Name Role Phone Lake Sullivan MD Primary Care Provide r Bossman Starks Unavailable [phone] Reason for Visit * Reason Comments Med Refill Encounter Details Date Type Department Care Team (Late st Contact Info) Description 06/28/2023 Refill [facility] MEDICINE [address] [place] [address] [phone] Cm Ackerman MD 230 [place], [place] [phone] Dermatitis Social History Tobacco Use Types Packs/Day [...] Description 05/07/2025 9:15 AM EDT Office Visit [facility] MEDICINE 230 [place], [place] [phone] Lake Sullivan MD 230 [place] [address] 06/03/2025 10:30 AM EST Telemedicine [facility] CHC MED & PEDS 505 [place] [address] 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, LUCI 505 [place] [address] documented as of this encounter Visit Diagnoses Diagnosis Dermatitis Contact dermatitis and other eczema, due to unspecified cause documented in this encounter Care Teams Dock Manager Relationship Specialty Start Date End Date Lake Sullivan MD [address] [place] [address] PCP - General Internal Medicine 02/12/14 Bossman Starks 100 [facility] [address] [address] Nephrology 11/14/24 documented as of this encounter
--- OUTSIDE RECORDS SUMMARY | 2025-05-07 08:26 | XMS_ITS | Clinical Summary ---
Author Organization [facility] Address [address] [place] [address] Phone Care Team Providers Care Thermospray Operator Name Role Phone Clarissa Vick MD Primary Care Provider [phone] Allergies No known active allergies Medications montelukast [...] time each day before breakfast. 30 each 11/29/19 25 026 Active Zepbound 2.5 mg/0.5 mL injection INJECT 2.5MG SUBCUTANEOUS ONCE WEEKLY Active Active Problems Problem Noted Date Diagnosed Date Colon polyps 09/25/2024 Anxiety 09/25/2024 Depression 09/25/2024 Asthma 09/25/2024 Tobacco dependence 09/25/2024 Gout 09/25/2024 T2DM (type 2 diabetes mellitus) ([facility] V24, [facility] V28) 09/25/2024 Chronic idiopathic constipation 01/19/2018 Assessment & Plan (09/25/2024 11:54 AM EDT): Failing over the counter options. Recommend switch to Linzess 72mcg PO daily. Reviewed dosing option, can increase pending response. Orders: linaCLOtide (Linzess) 72 mcg capsule; Take 1 capsule (72 mcg total) by mouth 1 (one) time each day before breakfast. HTN (hypertension) 05/20/2015 Chronic obstructive pulmonar y disease ([facility] V24, [facility] V28) 12/23/2011 Overview (09/25/2024): Last Assessment & Plan: Patient here for a follow up Unfortunately he is still smoking , not interested in quitting He is currently on a regimen of Wixella And ProAir MDI He follows with [facility] Dr Hussein, last note on record 01/25/2022 Encounters Date Type Department Care Team Description 02/06/2025 8:45 AM EDT Consult Orthopedic Surgery - [place] [address] [facility] [address] [place] [phone] Marky Lezama, DPM Dermatophytosis of nail (Primary Dx); Verruca plantaris; Pain in toe of right foot; Pain in toe of left foot; Difficulty walking; Diabetic mononeuropathy simplex ([facility], [facility] V28) from Last 3 Months Surgical History Surgery Date Site/Laterality Comments COLONOSCOPY 12/25/2018 adequate prep, TAx1 3-yr recall Medical History Medical History Date Comments HTN (hypertension) 03/15/2012 DX:HTN (hyper tension) Tobacco abuse 03/15/2012 DX:Tobacco abuse Observed sleep apnea 03/15/2012 DX:Observed sleep apnea Diastolic CHF, chronic ([facility] V24, [facility] V28) 03/15/2012 DX:Diastolic CHF, chronic ([facility]) Asthma 03/15/2012 DX:Asthma COPD (chronic obstructive pu lmonary disease) ([facility] V24, [facility] V28) 03/15/2012 DX:COPD (chronic o bstructive pulmonary disease) ([facility]) Colon polyp Family History Medical History Relation Name Comments Other: hole in heart Mother Colon cancer Neg Hx Colon polyps Neg Hx Relation Name Status Comments Mother Social History Tobacco Use Types Packs/Day Years Used Date Smoking Tobacco: Every Day Cigarettes 0.5 48.8 Started: 1978 Tobacco Cessation:Ready to Q uit: Not Asked; Counseling Given: Not Answered Alcohol Use Standard Drinks/Week Comments Never 0 (1 standard drink = 0.6 oz pur e alcohol) Interpersonal Safety Answer Date Record ed Physical Abuse Unrecognized value 12/11/2024 Verbal Abuse Unrecognized value 12/11/2024 Sex and Gender Information Value Date [...] Care Team (Late st Contact Info) Description 05/29/2025 8:15 AM EST Office Visit Orthopedic Surgery - [address] [address] Marky Lezama, DPM [address] [place] [phone] Health Maintenance Due Date Last Done Comments [...] Maintenance Results * COLONOSCOPY Anesthesia - MAC; [facility] ENDOSCOPY (12/11/2024 10:41 AM EDT) Anatomical Region Laterality Modality Endoscopy 12/11/2024 10:1 3 AM EDT Impressions 12/11/2024 10:43 AM EDT - Mucosal ulceration. Biopsied. - The examined portion of the ileum was normal. - One 10 mm polyp in the transverse colon, removed with a hot snare. Resected and retrieved. Clip (MR conditional) was placed. Clip conference planner: [employer]. - The examination was otherwise normal on direct and retroflexion views. Recommendation: - Await pathology results. - Repeat colonoscopy in 2 years for surveillance. Narrative 12/11/2024 10:43 AM EDT [facility] GI Patient Name: Imer Parrish Procedure [...] clip was successfully placed (MR conditional). Clip conference planner: [employer]. There was no bleeding at the end of the procedure. The exam was otherwise without abnormality on direct and retroflexion views. Procedure Code(s): --- Professional --- 33842, Colonoscopy, flexible; with removal of tumor(s), polyp(s), or other lesion(s) by snare technique [id number], 59, Colonoscopy, flexible; with biopsy, single or multiple Diagnosis Code(s): --- Professional --- Z86.010, Personal history of colonic polyps K63.3, Ulcer of intestine D12.3, Benign neoplasm of transverse colon (hepatic flexure or splenic flexure) CPT copyright 2020 [employer]. All rights reserved. The codes documented in this report are preliminary and upon cook chef review may be revised to meet current compliance requirements. Toño Hannah MD 12/11/2024 10:43:08 AM This report has been signed electronically.Toño Hannha MD Number of Addenda: 0 Note Initiated On: 12/11/2024 10:13 AM Scope In: Scope Out: Endoscopy Department at [facility] - [address] [place] [phone] Procedure Note Toño Hannah MD - 12/11/2024 [facility] GI Patient Name: Imer Parrish Procedure [...] clip was successfully placed (MR conditional). Clip conference planner: [employer]. There was nobleeding at the end of the procedure. The exam was otherwise without abnormality ondirect and retroflexion views. Procedure Code(s): --- Professional --- 70392, Colonoscopy, flexible; with removal of tumor(s), polyp(s), or other lesion(s) by snare technique [id number], 59, Colonoscopy, flexible; with biopsy,single or multiple Diagnosis Code(s): --- Professional --- Z86.010, Personal history of colonic polyps K63.3, Ulcer of intestine D12.3, Benign neoplasm of transverse colon (hepatic flexure or splenic flexure) CPT copyright 2020 [employer]. All rights reserved. The codes documented in this report are preliminary and upon cook chef reviewmay be revised to meet current compliance requirements. Toño Hannah MD 12/11/2024 10:43:08 AM This report has been signed electronically.Toño Hannah MD Number of Addenda: 0 Note Initiated On: 12/11/2024 10:13 AM Scope In: Scope Out: Endoscopy Department at [facility] - [address] [place] [phone] IMPRESSION: - Mucosal ulceration. Biopsied. - The examined portion of the ileum was normal. - One 10 mm polyp in the transverse colon, removed with a hot snare. Resected and retrieved. Clip (MR conditional) was placed. Clip conference planner: [employer]. - The examination was otherwise normal on directand retroflexion views. Recommendation: - Await pathology results. - Repeat colonoscopy in 2 years for surveillance. us Toño Hannah MD GI~PROCEDURE ORDERABLES Fin al Result from Last 3 Months or Most Recently Relevant to Health Maintenance Insurance [facility] [employer] Member Subscriber Plan / Payer (Ef fective 2023-Present) Name:Imer Parrish Relation to Subscriber:Self Name:Imer Parrish Payer ID:[id number] Group ID:Not on file Type:Not on file Address: [place] [address] [place] [address] Care Teams Thermospray Operator Relationship Specialty Start Date End Date Clarissa Vick MD [address] [place] [phone] PCP - General 06/08/13
--- OUTSIDE RECORDS SUMMARY | 2025-05-07 08:26 | XMS_ITS | Clinical Summary ---
Author Organization [employer] Address [address] [place] [address] 7[address] [place] [address] Care Team Providers Care Compensation Business Partner Name Role Phone Lake Sullivan MD Primary Care Provide r Bossman Starks Unavailable [phone] Allergies No known active allergies Medications [...] cholecalciferol VITAMIN D (Vitamin D-3) 50 MCG (1999 UT) capsuleIndicati ons:Stage 3a chronic kidney disease (CMS/HCC) (HCC) TAKE 1 CAPSULE BY MOUTH DAILY 90 [...] EVERY DAY 90 tablet 1 025 Active clotrimazole (Lotrimin) 1 % cream [...] for wheezing. 18 g 025 2025 Active verapamil ER (Verelan) 180 MG 24 hr capsule Take 1 capsule (180 mg) by mouth at bedtime. Do not crush or chew. 30 capsule 2 025 2025 Active Diclofenac Sodium 1 % gelIndications: Left hip pain Apply 1 Application topically every 12 (twelve) hours if needed (apply on affected area). 150 g Active Tirzepatide-Joselito ght Management (Zepbound) 2.5 MG/0.5ML solution auto-injectorIn dications:Body mass index (BMI) 45.0-49.9, adult (HCC) Inject 0.5 mL (2.5 mg) under the skin 1 (one) time per week. 2 mL 3 Active loratadine (Claritin) 10 MG tablet TAKE 1 TABLET(10 MG) BY MOUTH EVERY DAY FOR ALLERGIES 90 tablet Active metFORMIN XR (Glucophage-XR) 500 MG 24 hr tablet TAKE 1 TABLET BY MOUTH EVERY DAY WITH THE EVENING MEAL 90 tablet 1 Active senna (Senokot) 8.6 MG tabletIndicatio ns:Chronic constipation TAKE 1 TO 2 TABLETS BY MOUTH EVERY 12 HOURS NEEDED FOR CONSTIPATION 360 tablet 1 Active morphine CR (MS Contin) 15 MG 12 hr tabletIndicatio ns:Severe pain Take 1 tablet (15 mg) by mouth every 12 (twelve) hours for 28 days. 56 tablet 025 2024 Active oxyCODONE-aceta minophen (Percocet) 5-325 MG tabletIndicatio ns:Severe pain Take 1 tablet by mouth every 8 (eight) hours if needed for severe pain for up to 28 days. 84 tablet 025 2024 Active senna (Senokot) 8.6 MG tabletIndicatio ns:Chronic constipation TAKE 1 TO 2 TABLETS BY MOUTH EVERY 12 HOURS NEEDED FOR CONSTIPATION 120 tablet 5 025 2024 Discontinued(R eorder (will not trigger notification to Pharmacy)) metFORMIN XR (Glucophage-XR) 500 MG 24 hr tablet TAKE 1 TABLET BY MOUTH EVERY DAY WITH THE EVENING MEAL 90 tablet 2024 Discontinued oxyCODONE-aceta minophen (Percocet) 5-325 MG [...] w sutures removal otherwise to come to [facility] -gave today written prescription for knee brace [...] recent X-rays done st the office of [facility] during his last visit 11/12/2013 of [...] should be considered. Pt was seen at [facility] last note I have on record dates from 11/12/2013 , on this note they mentioned that the pt has a Hx of multiple osteochondromas in his right lower extremity and had been followed by Dr Webb in [place] where he had a resection of a large osteochondroma in the distal femur with subsequent locking plate and screws. At some point he was seen by Dr Diego at [facility] who stated that unless he was to loose some weight he would not recommend to pursue with any kind of surgical intervention, He had also recommended to use a brace given to him by [facility]. Of note pt was also seen by Dr Elda Saini who belongs to an orthopedic oncology group. He was seen on 05/01/[address] Saini recommended he f/u with [facility]. I have been prescribing Narcotics for [...] to go to a Orthopedic Oncologist in [place], We explained to him that the closest was [facility] but they do not take his insurance [...] were wnl. Pt was evaluated by a clin application specialist. He was seen by clin application specialist Dr Alan on 11/07/2012 his work was unrevealing so she has recommended observation. [facility] health care 07/01/2022 Assessment & Plan (02/05/2025 [...] (L) 05/09/2024 Stage 3a chronic kidney disease (CMS/HCC) 2020 Assessment & Plan (02/05/2025 9:13 AM EDT): [...] to go to a Orthopedic Oncologist in [place], We explained to him that the closest was [facility] but they do not take his insurance [...] Wixella And ProAir MDI He follows with Appointment Specialist Dr Hussein, last note on record 01/25/2022 Assessment & Plan (07/01/2022 11:08 AM EST): Unfortunately he is still smoking 1 ppd, not interested in quitting He is currently on a regimen of Advair Diskus 250/50 1 puff BID, [id number] MDI 1 to 2 puffs qid, and Spiriva once daily. He follows with Appointment Specialist Dr Hussein, last seen 01/25/2022 Gynecomastia 12/23/2011 Hypogonadism in male 12/23/2011 Assessment & Plan (07/01/2022 4:20 PM EST): Pt with Primary hypogonadism, used to be under the care of call center specialist (Dr Celeste). Last note from Dr [...] (07/01/2022 11:20 AM EST): Pt seen at [facility] 06/27/2022 s/p fall Work up included plain films that were negative for fracture. Conservative and supportive treatment Encounters Date Type Department Care Team Description 05/06/2025 Telephone [facility] [address] [place] [address] Lake Sullivan MD Durable Medical Equipment 04/19/2025 Refill [facility] MED & PEDS [address] [place] [address] 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 RN Severe pain 04/19/2025 Telephone [facility] [address] [place] [address] Lake Sullivan MD Med Refill 04/14/2025 Refill [facility] [address] [place] [address] Janet Perez ANP Chronic constipation 04/14/2025 Refill [facility] [address] [place] [address] Fiona Smith MD Chronic constipation 04/03/2025 9:00 AM EDT Clinical Support [facility] [address] [place] [address] 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, 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-sided 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 (Primary Dx) 04/03/2025 Travel 03/26/2025 Refill [facility]EDS [address] [facility] [place] [address] 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, LUCI Severe pain 03/25/2025 Telephone [facility] [address] [facility] [place] [address] Lake Sullivan MD ER Follow-up 03/25/2025 Refill [facility] [address] [place] [address] Lake Sullivan MD Severe pain 03/22/2025 Orders Only GENERIC EXTERNAL DATA DEPARTMENT Provider, Generic External Data 03/08/2025 Refill [facility] [address] [facility] [place] [address] Lake Sullivan MD 03/06/2025 Refill [facility] [address] [facility] [place] [address] Lake Sullivan MD Body mass index (BMI) 45.0-49.9, adult ([facility]) 02/26/2025 Refill [facility] [address] [facility] [place] [address] 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 RN Severe pain 02/26/2025 Telephone [facility] [address] [facility] [place] [address] Lake Sullvian MD Med Refill 02/25/2025 Orders Only [facility] [address] [facility] [place] [address] Janet Perez ANP Chronic diastolic heart failure ([facility]/HCC) (Primary Dx); Dyslipidemia; Essential hypertension; Stage 3a chronic kidney disease ([facility]) 02/23/2025 Results Follow-Up [facility] [address] [facility] [place] [address] Dafne Jefferson MD XR Hip 2 or 3 Views Left 02/22/2025 9:00 AM EDT Office Visit [facility] [address] [facility] [place] [address] Dafne Jefferson MD Left hip pain (Primary Dx) 02/22/2025 Travel 02/21/2025 Telephone [facility] [address] [place] [address] Lake Sullivan MD Nurse Triage 02/21/2025 Telephone [facility] [address] [place] [address] Lake Sullivan MD Referral 02/21/2025 Refill [facility] [address] [place] [address] Lake Sullivan MD 02/05/2025 9:15 AM EDT Office Visit [facility] [address] [place] [address] Lake Sullivan MD Essential hypertension (Primary Dx); Dyslipidemia; Chronic diastolic heart failure (CMS/HCC); Class 3 severe obesity due to excess calories with serious comorbidity and body mass index (BMI) of 40.0 to 44.9 in adult; Preventative health care; Stage 3a chronic kidney disease (CMS/HCC); Impaired glucose tolerance 02/05/2025 Travel 02/04/2025 Telephone [facility] [address] [place] [address] Lake Sullivan MD Chart Prep from Last 3 Months Immunizations Immunization Administration [...] Description 05/07/2025 9:15 AM EDT Office Visit [facility] [address] [place] [address] Lake Sullivan MD [address] [place] [address] 06/03/2025 10:30 AM EST Telemedicine [facility] [address] [place] [address] 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, RN [address] [place] [address] Health Maintenance Due Date Last Done Comments CT Colonography 1955 Dental Prophylaxis 1955 Dental X-Ray: Bitewings 1955 FIT DNA/Cologuard 1955 FIT 1955 FOBT 1955 Sigmoidoscopy 1955 Dental Oral Exam 02/01/2023 08/03/2022 Alcohol/Substance Use Screening 05/08/2025 05/08/2024 Dental X-Ray: [...] Aged 60 years or older Completed 04/13/2023 Influenza Vaccine Completed 02/27/2025, , 02/26/2022, Additional history exists COVID-19 Vaccine Completed 03/20/2025, , 04/13/2023, Additional history exists HIB Vaccines Aged Out [...] Procedure Name Priority Date/Time Associated Diagnosis Comments POCT KALPESH-14 URINE DRUG SCREEN Routine 04/03/2025 10:11 AM EDT Chronic midline low back pain with left-sided sciatica XR CHEST 1 VIEW Routine 03/22/2025 8:[address] HEAD WO CONTRAST Routine 03/22/2025 7 :55 AM EDT HIGH SENSITIVITY TROPONIN I Routine 03/22/2025 7:24 AM EDT COMPREHENSIVE METABOLIC PANEL Routine 03/22/2025 7:24 AM EDT CBC WITH AUTO DIFFERENTIAL Routine 03/22/2025 7:24 AM EDT XR HIP 2 OR 3 VIEWS LEFT Routine 02/22/2025 8:53 AM EDT Left hip pain COLONOSCOPY Routine 12/11/2024 12:15 PM EDT LIPID [...] Relevant to Health Maintenance Results * (ABNORMAL) POCT KALPESH-14 Urine Drug Screen (04/03/2025 10:11 AM EDT) THC Negative Negative Cocaine Screen, Urine Negative Negative Opiate Screen, Urine Positive(A) Negative Methamphetamine Screen Urine Negative Negative Amphetamine Screen, Urine Negative Negative Benzodiazepines Screen, Urine Negative Negative Barbiturate Screen, Urine Negative Negative Methadone Screen, Urine Negative Negative Buprenophine Screen, Urine Negative Negative TCA, Urine Negative Negative MDMA Urine Negative Negative ng/mL Oxycodone Screen, Urine Positive(A) Negative Phencyclidine (PCP), Urine Negative Negative Propoxyphene, Urine Negative Negative Fentanyl, Urine Negative Negative Urine Urine specimen obtained by clean catch procedure / Unknown 04/03/2025 10:11 AM EDT Narrative 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, RN - 04/03/2025 10:11 AM EDT . Internal Pass Control Lot# [id number] Exp: 05-10-26 Lake Bennett MD POINT OF CARE TEST EN TER/EDIT ORDERABLES Final Result * XR Chest 1 View (03/22/2025 8:19 AM EDT) Anatomical Region Laterality Modality Chest Radiographic Mahnaz ging 03/22/2025 8:19 AM EDT Narrative 03/22/2025 8:34 AM EDT [place] [address] XRay Report Signed Patient: Imer Parrish MR#: [id number] : 1955 Acct:[id number] Age/Sex: 69 / M ADM Date: 03/22/25 Loc: .ED Attending Dr: Ordering Physician: Hernán Ferrer MD Date of Service: 03/22/25 Procedure(s): XR chest 1V Accession Number(s): [id number] cc: Hernán Ferrer MD; Lake Allen MD Reason for Exam: Cough EXAMINATION: XR CHEST 1 VIEW HISTORY: Cough COMPARISON: Comparison is made with the prior examination dated 06/27/2022. FINDINGS: A single AP portable view of the chest performed at 8:19 AM is submitted. The lungs are expanded and clear. There is no pleural effusion, pneumothorax, or pulmonary vascular congestion. The heart is normal in size. There is calcification of the thoracic aorta. There is degenerative disc disease of the spine. XR/XR chest 1V IMPRESSION: No acute cardiopulmonary abnormality. Electronically signed by: Bernard Walker MD 03/22/2025 08:32 AM EDT Dictated By: Bernard Walker MD Signed By: <Electronically signed by Bernard Walker MD in OV> 03/22/25 0832 DD/ 8 TD/TT: 03/22/25826 [employer] Design Layout Drafter: Procedure Note Donotuseinterpreter, Image - 03/22/[address] [address] XRay Report Signed Patient: Imer ParrishMR#: [id number] : 1955cct:[id number] Age/Sex: 69 / MADM Date: 03/22/25 Loc: HO.ED Attending Dr: Ordering Physician: Hernán Ferrer MD Date of Service: 03/22/25 Procedure(s): XR chest 1V Accession Number(s): [id number] cc: Hernán Ferrer MD; Lake Allen MD Reason for Exam: Cough EXAMINATION: XR CHEST 1 VIEW HISTORY: Cough COMPARISON: Comparison is made with the prior examination dated 06/27/2022. FINDINGS: A single AP portable view of the chest performed at 8:19 AM is submitted. The lungs are expanded and clear. There is no pleural effusion, pneumothorax, or pulmonary vascular congestion. The heart is normal in size. There is calcification of the thoracic aorta. There is degenerative disc disease of the spine. XR/XR chest 1V IMPRESSION: No acute cardiopulmonary abnormality. Electronically signed by: Bernard Walker MD 03/22/2025 08:32 AM EDT Dictated By: Bernard Walker MD Signed By: <Electronically signed by Bernard Walker MD in OV> 03/22/25 0832 DD/ 8 TD/TT: 03/22/25826 [employer] Layout Drafter: [facility] External Provider IMG XR PROCEDURES Edited Result - Final * CT Head w/o Contrast (03/22/2025 7:55 AM EDT) Anatomical Region Laterality Modality Head, Neck Computed Tomogra phy 03/22/2025 7:55 AM EDT Narrative 03/22/2025 8:30 AM EDT [address] [address] [address] Scan Report Signed Patient: Imer Parrish MR#: [id number] : 1955 Acct:[id number] Age/Sex: 69 / M ADM Date: 03/22/25 Loc: HO.ED Attending Dr: Ordering Physician: Hernán Ferrer MD Date of Service: 03/22/25 Procedure(s): CT head/brain wo IV con Accession Number(s): [id number] cc: Hernán Ferrer MD; Lake Allen MD Report Number: [id number]: Total DLP = 681.00 mGy-cm Reason for Exam: dizness EXAMINATION: CT HEAD WITHOUT IV CONTRAST HISTORY: dizziness. TECHNIQUE: Unenhanced helical CT of the head was performed per standard departmental protocol. Coronal and sagittal reformats of the head were also evaluated. One or more of the following techniques was used for dose reduction: Automated exposure control, adjustment of the mA and/or kV according to patient size, use of iterative reconstruction technique. DLP: 681 mGy-cm COMPARISON: Comparison is made with the prior examination dated 03/24/2022. FINDINGS: BRAIN: There is mild prominence of the ventricular system and cortical sulci, consistent with atrophy. Scattered periventricular and subcortical white matter hypodensities are noted which are nonspecific, but often seen in the setting of small vessel ischemic disease. There is no mass effect or midline shift. No intra- or extra-axial fluid collections are identified. SINUSES: The visualized paranasal sinuses are clear. The mastoid air cells and middle ear cavities are well pneumatized. ORBITS: The visualized orbits are unremarkable. BONES/SOFT TISSUES: The extracranial soft tissues are unremarkable. The calvarium is intact. No suspicious lytic or sclerotic lesions. CT/CT head/brain wo IV con IMPRESSION: No acute intracranial abnormality. Electronically signed by: Bernard Walker MD 03/22/2025 08:27 AM EDT Dictated By: Bernard Walker MD Signed By: <Electronically signed by Bernard Walker MD in OV> 03/22/25826 DD/ 075 TD/TT: 03/22/25 0816 [employer] Design Layout Drafter: Procedure Note Donotuseinterpreter, Image - 03/22/[address] [address] [address] Scan Report Signed Patient: Rayshawn Parrish#: [id number] : 1955cct:[id number] Age/Sex: 69 / MADM Date: 03/22/25 Loc: HO.ED Attending Dr: Ordering Physician: Hernán Ferrer MD Date of Service: 03/22/25 Procedure(s): CT head/brain wo IV con Accession Number(s): [id number] cc: Hernán Ferrer MD; Lake Allen MD Report Number: [id number]: Total DLP = 681.00 mGy-cm Reason for Exam: dizness EXAMINATION: CT HEAD WITHOUT IV CONTRAST HISTORY: dizziness. TECHNIQUE: Unenhanced helical CT of the head was performed per standard departmental protocol. Coronal and sagittal reformats of the head were also evaluated. One or more of the following techniques was used for dose reduction: Automated exposure control, adjustment of the mA and/or kV according to patient size, use of iterative reconstruction technique. DLP: 681 mGy-cm COMPARISON: Comparison is made with the prior examination dated 03/24/2022. FINDINGS: BRAIN: There is mild prominence of the ventricular system and cortical sulci, consistent with atrophy. Scattered periventricular and subcortical white matter hypodensities are noted which are nonspecific, but often seen in the setting of small vessel ischemic disease. There is no mass effect or midline shift. No intra- or extra-axial fluid collections are identified. SINUSES: The visualized paranasal sinuses are clear. The mastoid air cells and middle ear cavities are well pneumatized. ORBITS: The visualized orbits are unremarkable. BONES/SOFT TISSUES: The extracranial soft tissues are unremarkable. The calvarium is intact. No suspicious lytic or sclerotic lesions. CT/CT head/brain wo IV con IMPRESSION: No acute intracranial abnormality. Electronically signed by: Bernard Walker MD 03/22/2025 08:27 AM EDT RP Dictated By: Bernard Walker MD Signed By: <Electronically signed by Bernard Walker MD in OV> 03/22/25 0827 DD/ 0755 TD/TT: 03/22/25 0816 Automotive Design Layout Drafter: [facility] External Provider IMG CT PROCEDURES Edited Result - Final * High Sensitivity Troponin I (03/22/2025 7:24 AM EDT) Pathologist [facility] TROPONIN I HIGH SENSITIVITY 3.0 <3.5 - 35.0 ng/L [facility] Comment:The [employer] high sens itivity Troponin-I results should beused in conjunction with other diagnostic information suchas ECG, clinical observations and information, and patientsymptoms to aid in the diagnosis of [place]. 03/22/2025 7:24 AM EDT 03/22/2025 7:27 AM EDT Generic External Data Provider LAB BLOOD ORDERAB LES Final Result [facility] [address] [place] [phone] * (ABNORMAL) CBC auto differential (03/22/2025 7:24 AM EDT) Pathologist [facility] White Blood Count 9.4 4.8 - 10.8 X10*3/uL [facility] Red Blood Count 3.93(L) 4.60 - 5.80 X10*6/uL [facility] Hemoglobin 11.2(L) 14.0 - 18.0 g/dl [facility] Hematocrit 33.0(L) 42.0 - 52.0 % [facility] Mean Corpuscular Volume 84.0 80.0 - 98.0 fL [facility] Mean Corpuscular Hemoglobin 28.5 27.0 - 33.0 pg [facility] Mean Corpuscular HGB Conc 33.9 31.0 - 36.0 g/dl [facility] Red Cell Distribution Width 14.4 11.0 - 16.0 % [facility] Platelet Count 269 160 - 400 X10*3/uL [facility] Mean Platelet Volume 10.6 9.4 - 12.4 fL [facility] Neutrophils Percent Auto 56.4 45 - 73 % [facility] Imm Gran Pct Auto 0.3 0.0 - 0.4 % [facility] Lymphocytes Percent Auto 31.5 20 - 40 % [facility] Monocytes Percent Auto 9.2 2 - 11 % [facility] Eosinophils Percent Auto 2.2 0 - 4 % [facility] Basophils Percent Auto 0.4 0 - 2 % [facility] NRBC Pct Auto 0.0 0.0 - 0.2 /100WBC [facility] Neutrophils Absolute Auto 5.3 2.0 - 8.3 x10*3/uL [facility] Imm Gran Abs Auto 0.03 0.00 - 0.03 X10*3/uL [facility] Lymphocytes Absolute Auto 3.0 1.2 - 4.9 X10*3/uL [facility] Monocytes Absolute Auto 0.9 0.1 - 1.2 X10*3/uL [facility] Eosinophils Absolute Auto 0.2 0.0 - 0.4 X10*3/uL [facility] Basophils Absolute Auto 0.0 0.0 - 0.2 X10*3/uL [facility] NRBC Abs Auto 0.000 0.0 - 0.012 X10*3/uL [facility] 03/22/2025 7:24 AM EDT 03/22/2025 7:27 AM EDT us Generic External Data Provider LAB BLOOD ORDERAB LES Final Result [facility] [address] [place] [phone] * (ABNORMAL) Comprehensive Metabolic Panel (03/22/2025 7:24 AM EDT) Sodium 141 135 - 145 mmol/L [facility] Potassium 4.5 3.3 - 5.1 mmol/L [facility] Chloride 109(H) 96 - 108 mmol/L [facility] Carbon Dioxide 26 22 - 29 mmol/L [facility] Anion Gap 11(L) 12 - 20 [facility] Urea Nitrogen (BUN) 18(H) 9 - 16 mg/dL [facility] Creatinine, Serum 1.67(H) 0.5 - 1.4 mg/dL [facility] Creatinine Clr Calc Pharmacy 49.2 [facility] Comment:eGFR (calculated fro m the MDRD study equation) and eCrCl(calculated from the Cockcroft-Gault equation) are based ondifferent parameters and may not yield comparable results.If eCrCl result is absurd, please check patient'sheight/weight. Estimated Glomerular Filt Rate 41 [facility] Comment:Chronic Kidney Disea se: Estimated GFR < 60 mL/min/1.80x5Fcltsp Kidney Disease: Estimated GFR < 15 mL/min/1.73m2 Glucose 162(H) 60 - 115 mg/dL [facility] Calcium 9.0 8.4 - 10.2 mg/dL [facility] Bilirubin, Total 0.2 0.0 - 1.0 mg/dL [facility] Aspartate Amino Transferase 17 5 - 37 U/L [facility] Alanine Aminotransferase 7 0 - 40 U/L [facility] Total Protein 6.7 6.5 - 8.0 g/dL [facility] Albumin Level 3.4(L) 3.5 - 5.0 g/dL [facility] Alkaline Phosphatase 147(H) 39 - 117 U/L [facility] 03/22/2025 7:24 AM EDT 03/22/2025 7:27 AM EDT us Generic External Data Provider LAB BLOOD ORDERAB LES Final Result [facility] [address] [place] [phone] * XR Hip 2 or 3 Views Left (02/22/2025 8:53 AM EDT) Anatomical Region Laterality Modality Lower Extremities, Hip Left Radiograp hic Imaging 02/22/2025 8:53 AM EDT Narrative 02/22/2025 12:02 PM EDT [address] [address] XRay Report Signed Patient: Imer Parrish MR#: [id number] : 1955 Acct:[id number] Age/Sex: 69 / M ADM Date: 02/22/25 Loc: HO.HHCX Attending Dr: Dafne Tan MD Ordering Physician: Dafne Jefferson MD Date of Service: 02/22/25 Procedure(s): XR hip LT min 2V Accession Number(s): [id number] cc: Dafne Jefferson MD EXAMINATION: XR HIP [...] Bernard Walker MD 02/22/2025 11:59 AM EDT Dictated By: Bernard Walker MD Signed By: <Electronically signed by Bernard Walker MD in OV> 02/22/25 1159 DD/ 0853 TD/TT: 02/22/25 0900 Automotive Design Layout Drafter: Procedure Note Librado, Image - 02/22/[address] [address] XRay Report Signed Patient: Imer ParrishMR#: [id number] : [id number] Age/Sex: 69 / MADM Date: 02/22/25 Loc: HO.HHCX Attending Dr: Dafne Tan MD Ordering Physician: Dafne Jefferson MD Date of Service: 02/22/25 Procedure(s): XR hip LT min 2V Accession Number(s): [id number] cc: Dafne Jefferson MD EXAMINATION: XR HIP [...] 02/22/25 1159 DD/ 0853 TD/TT: 02/22/25 0900 Automotive Design Layout Drafter: Dafne Tan MD IMG XR PROCEDURES Fin al Result * Colonoscopy (12/11/2024 12:15 PM EDT) Anatomical Region Laterality Modality Endoscopy Historical Provider ENDOSCOPY PROCEDURE ORDER MORE Final Result * (ABNORMAL) Lipid Panel, Standard (11/13/2024 9:34 AM EDT) Triglycerides 122 <150 mg/dL [facility] Comment:Desirable Triglyceri de: less than 150 mg/dLBorderline High Triglyceride 150-199 mg/dLHigh Triglyceride: 200-499 mg/dLVery High Triglyceride: greater than or equal to 5OO mg/dL Cholesterol 160 <200 mg/dL [facility] Comment:Desirable Cholestero l: less than 200 mg/dLBorderline High Cholesterol: 200-239 mg/dLHigh Cholesterol: greater than 239 mg/dL LDL Cholesterol Calculated 100(H) <100 mg/dL [facility] Comment:Desirable LDL: less than 100 mg/dLNear Optimal/Above Optimal LDL: 110- 129 mg/dLBorderline High LDL: 130-159 mg/dLHigh LDL: 160-189 mg/dLVery High LDL: greater than or equal to 190 mg/dL HDL Cholesterol 36(L) >40 mg/dL [facility] Comment:Desirable HDL: great er than 40 mg/dL Note: This HDL assay may give artificially low results in patients with liver disease. Blood Venous blood specimen / Unknown 11/13/2024 9:34 AM EDT 11/13/2024 11:07 AM EDT Lake Bennett MD LAB BLOOD ORDERABLES Final Result Performing Organization Address City/[facility] Co de Phone Number [facility] [address] [place] [phone] * Hepatitis C Antibody with Reflex to HCV, RNA, Quantitative, Real-Time PCR (10/11/2022 8:03 AM EDT) Hepatitis C Antibody NON-REACT PIPPA NON-REACT PIPPA [facility] Index 0.02 <1.00 [facility] Comment: HCV antibody was non-reactive. There is no laboratory evidence of HCV infection. In most cases, no further action is required. However, if recent HCV exposure is suspected, a test for HCV RNA (test code 96571) is suggested. For additional information please refer to http://education.Blushr/faq/WRU20k8 (This link is being provided for informational/ educational purposes only.) Blood Venous blood specimen / Unknown 10/11/2022 8:03 AM EDT 10/11/2022 8:04 AM EDT Narrative [facility] - 10/11/2022 9:54 PM EDT FASTING:UNKNOWN FASTING: UNKNOWN Lake Bennett MD LAB BLOOD ORDERABLES Final Result Performing Organization Address City/[facility]/ZIP Co de Phone Number [facility] [address], [place] [address] [facility] [place] [facility] 200 [place] [address] from Last 3 Months or Most Recently Relevant to Health Maintenance Insurance [facility] SKILLED NURSING OPTIONS (O D-SNP) Care Teams Compensation Business Partner Relationship Specialty Start Date End Date Lake Sullivan MD 230 [place] [address] PCP - General Internal Medicine 02/12/14 Bossman Starks [address] [facility] 200 [place] [address] Nephrology 11/14/24
--- OUTSIDE RECORDS SUMMARY | 2025-05-07 08:27 | XMS_ITS | Encounter Summary ---
Author Organization [employer] Address [address] [place] [address] 7t [place] [address] Care Team Providers Care Financial Accounting Analyst Name Role Phone Lake Sullivan MD Primary Care Provide r Bossman Starks Unavailable [phone] Reason for Visit * Reason Onset Date Comments Durable Medical Equipment 06/23/2023 Encounter Details Date Type Department Care Team (Late st Contact Info) Description 06/23/2023 Telephone [facility] MEDICINE 230 [place], [place] [phone] Lake Sulliavn MD 230 [place], [place] [phone] Durable Medical Equipment Social History Tobacco Use [...] Potts 06/23/2023 2:32 PM EST Tc from [facility] with [facility] requesting a script for bed pads (8x day) with 12 refills to be faxed to [phone] documented in this encounter Plan of Treatment Upcoming Encounters Date Type Department Care Team (Late st Contact Info) Description 05/07/2025 9:15 AM EDT Office Visit [facility] MEDICINE 230 [place] [address] Lake Sullivan MD 230 [place] [address] 06/03/2025 10:30 AM EST Telemedicine [facility] CHC MED & PEDS [address] [place], [place] [phone] 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, RN 505 [place] [address] documented as of this encounter Visit Diagnoses Not on filedocumented in this encounter Care Teams Financial Accounting Analyst Relationship Specialty Start Date End Date Lake Sullivan MD 230 [place] [address] PCP - General Internal Medicine 02/12/14 Bossman Starks 100 [facility] 200 [place] [address] Nephrology 11/14/24 documented as of this encounter
--- OUTSIDE RECORDS SUMMARY | 2025-05-07 08:27 | XMS_ITS | Encounter Summary ---
Author Organization [employer] Address [address] [place] [address] 7t [place] [address] Care Team Providers Care Insurance Claim Approver Name Role Phone Lake Sullivan MD Primary Care Provide r Bossman Starks Unavailable [phone] Reason for Visit * Reason Onset Date Comments Med Refill 12/05/2024 Encounter Details Date Type Department Care Team (Late st Contact Info) Description 12/05/2024 Telephone [facility] MEDICINE [address] [place], [place] [phone] Lake Sullivan MD 230 [place], [place] [phone] Med Refill Social History Tobacco Use Types [...] 12 hr tablet To be sent to: [facility] #[id number] [place] - [address] [facility] documented in this encounter Plan of Treatment Upcoming Encounters Date Type Department Care Team ([facility] Contact Info) Description 05/07/2025 9:15 AM EDT Office Visit [facility] MEDICINE [address] [place] [address] Lake Sullivan MD 230 [place] [address] 06/03/2025 10:30 AM EST Telemedicine [facility] CHC MED & PEDS [address] [place] [address] 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, RN [address] [place] [address] documented as of this encounter Visit Diagnoses Not on filedocumented in this encounter Additional Health Concerns Assessment Noted Time PHQ-9 Depression Total Score: 0 11/14/19 9:01 AM EDT documented as of this encounter Care Teams Insurance Claim Approver Relationship Specialty Start Date End Date Lake Sullivan MD 230 [place] [address] PCP - General Internal Medicine 02/12/14 Bossman Starks 100 [facility] 200 [place] [address] Nephrology 11/14/24 documented as of this encounter
--- OUTSIDE RECORDS SUMMARY | 2025-05-07 08:27 | XMS_ITS | Encounter Summary ---
Author Organization [employer] Address [address] [place] [address] 7t [place] [address] Care Team Providers Care Senior Editor Name Role Phone Lake Sullivan MD Primary Care Provide r Bossman Starks Unavailable [phone] Reason for Visit * Reason Onset Date Comments Referral 02/21/2025 Encounter Details Date Type Department Care Team (Late st Contact Info) Description 02/21/2025 Telephone [facility] MEDICINE 230 [place], [place] [phone] Lake Sullivan MD 230 [place], [place] [phone] Referral Social History Tobacco Use Types Packs/Day [...] PM EDT TC from pt reports his Cardiovascular Tech left the practice and is wanting to get a new referral else where. documented in this encounter Plan of Treatment Upcoming Encounters Date Type Department Care Team (Late st Contact Info) Description 05/07/2025 9:15 AM EDT Office Visit [facility] MEDICINE [address] [place] [address] Lake Sullivan MD 230 [place] [address] 06/03/2025 10:30 AM EST Telemedicine [facility] CH[facility] MED & PEDS [address] [place] [address] 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, RN [address] [place], [place] documented as of this encounter Visit Diagnoses Not on filedocumented in this encounter Additional Health Concerns Assessment Noted Time PHQ-9 Depression Total Score: 0 11/14/19 9:01 AM EDT documented as of this encounter Care Teams Senior Editor Relationship Specialty Start Date End Date Lake Sullivan MD 230 [place] [address] PCP - General Internal Medicine 02/12/14 Bossman Starks 100 [facility] 200 [place] [address] Nephrology 11/14/24 documented as of this encounter
--- OUTSIDE RECORDS SUMMARY | 2025-05-07 08:27 | XMS_ITS | Encounter Summary ---
Author Organization [facility] [employer] Address [address] [place] [address] 7t [place] [address] Care Team Providers Care Glass Blower Name Role Phone Lake Sullivan MD Primary Care Provide r Bossman Starks Unavailable [phone] Encounter Details Date Type Department Care Team (Late st Contact Info) Description 12/12/2024 Orders Only [facility] 230 [place], [place] [phone] Provider, MD Mckayla Social History Tobacco Use [...] Description 05/07/2025 9:15 AM EDT Office Visit [facility] MEDICINE 230 [place] [address] Lake Sullivan MD 230 [place] [address] 06/03/2025 10:30 AM EST Telemedicine [facility] CHC MED & PEDS 505 [place] [address] 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, LUCI 505 [place] [address] documented as of this encounter Procedures Procedure [...] documented as of this encounter Care Teams Glass Blower Relationship Specialty Start Date End Date Lake Sullivan MD 230 [place] [address] PCP - General Internal Medicine 02/12/[address] [facility] [address] [address] Nephrology 11/14/24 documented as of this encounter
--- OUTSIDE RECORDS SUMMARY | 2025-05-07 08:28 | XMS_ITS | Encounter Summary ---
Author Organization [employer] Address 75 [facility] 7t [place] [address] Care Team Providers Care Linotype Machinist Name Role Phone Lake Sullivan MD Primary Care Provide r Bossman Starks Unavailable [phone] Reason for Visit * Reason Onset Date Comments Med Refill 01/13/2024 Encounter Details Date Type Department Care Team (Late st Contact Info) Description 01/13/2024 Telephone [facility] MEDICINE 230 [place], [place] [phone] Lake Sullivan MD 230 [place], [place] [phone] Med Refill Social History Tobacco Use Types [...] 5-325 MG tablet To be sent to: [facility] #[id number] AT [facility] documented in this encounter Plan of Treatment Upcoming Encounters Date Type Department Care Team ([facility] Contact Info) Description 05/07/2025 9:15 AM EDT Office Visit [facility] MEDICINE 230 [place] [address] Lake Sullivan MD 230 [place] [address] 06/03/2025 10:30 AM EST Telemedicine [facility] CHC MED & PEDS 505 [place], [place] [phone] 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, RN 505 [place] [address] documented as of this encounter Visit Diagnoses Not on filedocumented in this encounter Additional Health Concerns Assessment Noted Time PHQ-9 Depression Total Score: 3 08/18/19 24 10:01 AM EST documented as of this encounter Care Teams Linotype Machinist Relationship Specialty Start Date End Date Lake Sullivan MD 230 [place] [address] PCP - General Internal Medicine 02/12/14 Bossman Starks 100 [facility] [address] [address] Nephrology 11/14/24 documented as of this encounter
--- OUTSIDE RECORDS SUMMARY | 2025-05-07 08:28 | XMS_ITS | Encounter Summary ---
Author Organization [employer] Address [address] [facility] 7t [place] [address] Care Team Providers Care Mailing Machine Operator Name Role Phone Lake Sullivan MD Primary Care Provide r Bossman Starks Unavailable [phone] Encounter Details Date Type Department Care Team ([facility] st Contact Info) Description 12/23/[address] [facility] MEDICINE [address] [place], [place] [phone] Lake Sullivan MD 230 [place], [place] [phone] Social History Tobacco Use Types Packs/Day Years [...] Description 05/07/2025 9:15 AM EDT Office [address] [facility] MEDICINE 230 [place] [address] Lake Sullivan MD 230 [place] [address] 06/03/2025 10:[address] [facility] CHC MED & PEDS 505 [place] [address] 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, RN 505 [place] [address] documented as of this encounter Visit Diagnoses Not on filedocumented in this encounter Additional Health Concerns Assessment Noted Time PHQ-9 Depression Total Score: 3 08/18/19 24 10:01 AM EST documented as of this encounter Care Teams Mailing Machine Operator Relationship Specialty Start Date End Date Lake Sullivan MD 230 [place] [address] PCP - General Internal Medicine 02/12/14 Bossman Starks 100 [facility] 200 [place] [address] Nephrology 11/14/24 documented as of this encounter
--- OUTSIDE RECORDS SUMMARY | 2025-05-07 08:28 | XMS_ITS | Encounter Summary ---
Author Organization [employer] Address [address] [place] [address] 7t [place] [address] Care Team Providers Care Lay Out Inspector Name Role Phone Lake Sullivan MD Primary Care Provide r Bossman Starks Unavailable [phone] Encounter Details Date Type Department Care Team (Late Contact Info) Description 11/17/2022 Abstract [facility] MEDICINE 230 [place] [address] Lake Sullivan MD 230 [place] [address] Social History Tobacco Use Types Packs/Day Years [...] Department Care Team (Late Contact Info) Description 05/07/2025 9:15 AM EDT Office Visit [facility] MEDICINE 230 [place] [address] Lake Sullivan MD 230 [facility] [employer] [place] [address] 06/03/2025 10:30 AM EST Telemedicine [facility] CHC MED & PEDS [address] [place] [address] 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, RN [address] [place] [address] documented as of this encounter Procedures Procedure Name Priority Date/Time Associated Diagnosis Comments COLONOSCOPY Routine 12/25/2018 documented in this encounter Results * Colonoscopy (12/25/2018) Colonoscopy Normal Normal 12/25/2018 Narrative Laurie Chacko - 12/25/2018 2:08 PM EDT Recommended 5 year follow up Historical Provider [employer] [facility] Edited Result - Final documented in this encounter Visit Diagnoses Not on filedocumented in this encounter Care Teams Lay Out Inspector Relationship Specialty Start Date End Date Lake Sullivan MD 230 [employer] [place] [address] PCP - General Internal Medicine 02/12/14 Bossman Starks 100 [facility] 200 [place] [address] Nephrology 11/14/24 documented as of this encounter
--- OUTSIDE RECORDS SUMMARY | 2025-05-07 08:28 | XMS_ITS | Encounter Summary ---
Author Organization [employer] Address [address] [place] [address] 7t [place] [address] Care Team Providers Care Cash Management Specialist Name Role Phone Lake Sullivan MD Primary Care Provide r Bossman Starks Unavailable [phone] Reason for Visit * Reason Onset Date Comments Med Refill 01/30/2025 Encounter Details Date Type Department Care Team (Late st Contact Info) Description 01/30/2025 Telephone [facility] 230 [place], [place] [phone] Lake Sullivan MD 230 [place], [place] [phone] Med Refill Social History Tobacco Use Types [...] 5-325 MG tablet To be sent to: [facility] #[id number] - [place], [place] - [address] [place] [address] AT [facility] documented in this encounter Plan of Treatment Upcoming Encounters Date Type Department Care Team ([facility] st Contact Info) Description 05/07/2025 9:15 AM EDT Office Visit [facility] 230 [place], [place] [phone] Lake Sullivan MD 230 [place], [place] [phone] 06/03/2025 10:30 AM EST Telemedicine [facility] MED [facility] PEDS [address] [place] [address] 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, RN 505 [place] [address] documented as of this encounter Visit Diagnoses Not on filedocumented in this encounter Additional Health Concerns Assessment Noted Time PHQ-9 Depression Total Score: 0 11/14/19 25 9:01 AM EDT documented as of this encounter Care Teams Cash Management Specialist Relationship Specialty Start Date End Date Lake Sullivan MD 230 [place] [address] PCP - General Internal Medicine 02/12/14 Bossman Starks 100 [facility] 200 [place] [address] Nephrology 11/14/24 documented as of this encounter
--- OUTSIDE RECORDS SUMMARY | 2025-05-07 08:28 | XMS_ITS | Encounter Summary ---
Author Organization [employer] Address 75 [facility] 7t [place] [address] Care Team Providers Care Urologist Physician Name Role Phone Lake Sullivan MD Primary Care Provide r Bossman Starks Unavailable [phone] Encounter Details Date Type Department Care Team (Late Contact Info) Description 11/15/2022 Orders Only [facility] CHC MED & PEDS [address] [place] [address] Peggy Carey LPN Social History Tobacco Use [...] Description 05/07/2025 9:15 AM EDT Office Visit [facility] MEDICINE 230 [place] [address] Lake Sullivan MD 230 [place] [address] 06/03/2025 10:30 AM EST Telemedicine [facility] CHC MED & PEDS 505 [place] [address] 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, RN [address] [place] [address] documented as of this encounter Visit Diagnoses Not on filedocumented in this encounter Care Teams Urologist Physician Relationship Specialty Start Date End Date Lake Sullivan MD 230 [place] [address] PCP - General Internal Medicine 02/12/14 Bossman Starks 100 [facility] 200 [place] [address] Nephrology 11/14/24 documented as of this encounter
--- OUTSIDE RECORDS SUMMARY | 2025-05-07 08:28 | XMS_ITS | Encounter Summary ---
Author Organization [employer] Address [address] [place] [address] 7t [place] [address] Care Team Providers Care Sustainment Logistics Analyst Name Role Phone Lake Sullivan MD Primary Care Provide r Bossman Starks Unavailable [phone] Reason for Visit * Reason Comments Med Refill Encounter Details Date Type Department Care Team (Late st Contact Info) Description 12/28/2024 Refill [facility] MEDICINE 230 [place], [place] [phone] Lake Sullivan MD 230 [place], [place] [phone] Dermatitis Social History Tobacco Use Types Packs/Day [...] Upcoming Encounters Date Type Department Care Team ([facility] st Contact Info) Description 05/07/2025 9:15 AM EDT Office Visit [facility] MEDICINE 230 [place] [address] Lake Sullivan MD 230 [place] [address] 06/03/2025 10:30 AM EST Telemedicine [facility] CHC MED & PEDS 505 [place] [address] 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, LUCI 505 [place] [address] documented as of this encounter Visit Diagnoses Diagnosis Dermatitis Contact dermatitis and other eczema, due to unspecified cause documented in this encounter Additional Health Concerns Assessment Noted Time PHQ-9 Depression Total Score: 0 11/14/19 25 9:01 AM EDT documented as of this encounter Care Teams Sustainment Logistics Analyst Relationship Specialty Start Date End Date Lake Sullivan MD 230 [place] [address] PCP - General Internal Medicine 02/12/14 Bossman Starks 100 [facility] 200 [place] [address] Nephrology 11/14/24 documented as of this encounter
--- OUTSIDE RECORDS SUMMARY | 2025-05-07 08:28 | XMS_ITS | Encounter Summary ---
Author Organization [employer] Address 75 [facility] 7t [place] [address] Care Team Providers Care Director Of Mechanical Engineering Name Role Phone Lake Sullivan MD Primary Care Provide r Bossman Starks Unavailable [phone] Reason for Visit * Reason Onset Date Comments Med Refill 02/09/2024 Encounter Details Date Type Department Care Team (Late st Contact Info) Description 02/09/2024 Telephone [facility] MEDICINE 230 [place], [place] [phone] Lake Sullivan MD 230 [place], [place] [phone] Med Refill Social History Tobacco Use Types [...] 5-325 MG tablet To be sent to: [facility] #[id number] AT [facility] documented in this encounter Plan of Treatment Upcoming Encounters Date Type Department Care Team ([facility] Contact Info) Description 05/07/2025 9:15 AM EDT Office Visit [facility] MEDICINE 230 [place] [address] Lake Sullivan MD 230 [place] [address] 06/03/2025 10:30 AM EST Telemedicine [facility] MED & PEDS 505 [place] [address] 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, RN 505 [place] [address] documented as of this encounter Visit Diagnoses Not on filedocumented in this encounter Additional Health Concerns Assessment Noted Time PHQ-9 Depression Total Score: 3 08/18/19 24 10:01 AM EST documented as of this encounter Care Teams Director Of Mechanical Engineering Relationship Specialty Start Date End Date Lake Sullivan MD 230 [place] [address] PCP - General Internal Medicine 02/12/14 Bossman Starks 100 [facility] 200 [place] [address] Nephrology 11/14/24 documented as of this encounter
--- OUTSIDE RECORDS SUMMARY | 2025-05-07 08:28 | XMS_ITS | Encounter Summary ---
Author Organization [employer] Address [address] [place] [address] 7t [place] [address] Care Team Providers Care Plumbing Inspector Name Role Phone Lake Sullivan MD Primary Care Provide r Bossman Starks Unavailable Encounter Details Date Type Department Care Team (Late st Contact Info) Description 12/14/2022 Orders Only [facility] CHC MED & PEDS [address] [place] [address] Peggy Carey LPN Social History Tobacco Use [...] Description 05/07/2025 9:15 AM EDT Office Visit [facility] MEDICINE 230 [place] [address] Lake Sullivan MD 230 [place] [address] 06/03/2025 10:30 AM EST Telemedicine [facility] CHC MED & PEDS 505 [place], [place] [phone] 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 RN 505 [place], [place] [phone] documented as of this encounter Procedures Procedure [...] AM EDT Narrative 01/21/2023 3:07 PM EDT [facility] 230 [place] [address] XRay Report Signed Patient: Imer Parrish MR#: [id number] : 1955 Acct:[id number] Age/Sex: 67 / M ADM Date: 01/07/23 Loc: [facility] Attending Dr: Lake Allen MD Ordering Physician: Lake Allen MD Date of Service: 01/07/23 Procedure(s): XR lumbar spine 4V min Accession Number(s): [id number] cc: Lake Allen MD EXAMINATION: XR lumbar [...] in OV> 01/21/23 1504 DD/ 0905 TD/TT: Breakdown Mill Operator: Procedure Note Donotuseinterpreter, Image - 01/21/[address] [address] XRay Report Signed Patient: Imer ParrishMR#: [id number] : 1955cct:[id number] Age/Sex: 67 / MADM Date: 01/07/23 Loc: HO.[facility]X Attending Dr: Lake Allen MD Ordering Physician: Lake Allen MD Date of Service: 01/07/23 Procedure(s): XR lumbar spine 4V min Accession Number(s): [id number] cc: Lake Allen MD EXAMINATION: XR lumbar [...] in OV> 01/21/23 1504 DD/ 0905 TD/TT: Breakdown Mill Operator: [facility] External Provider IMG XR PROCEDURES Final Result * XR Hip 2 or 3 Views Left (01/07/2023 9:05 AM EDT) Anatomical Region Laterality Modality Lower Extremities, Hip Left Radiograp hic Imaging 01/07/2023 9:05 AM EDT Narrative 01/21/2023 3:07 PM EDT [address] [address] XRay Report Signed Patient: Imer Parrish MR#: [id number] : 1955 Acct:[id number] Age/Sex: 67 / M ADM Date: 01/07/23 Loc: HO.[facility]HCX Attending Dr: Lake Allen MD Ordering Physician: Lake Allen MD Date of Service: 01/07/23 Procedure(s): XR hip LT min 2V Accession Number(s): [id number] cc: Lake Allen MD EXAMINATION: XR lumbar [...] in OV> 01/21/23 1504 DD/ 0905 TD/TT: Breakdown Mill Operator: Procedure Note Donotuseinterpreter, Image - 01/21/[address] [address] XRay Report Signed Patient: Imer ParrishMR#: [id number] : 1955cct:[id number] Age/Sex: 67 / MADM Date: 01/07/23 Loc: HO.[facility]HCX Attending Dr: Lake Allen MD Ordering Physician: Lake Allen MD Date of Service: 01/07/23 Procedure(s): XR hip LT min 2V Accession Number(s): [id number] cc: Lake Allen MD EXAMINATION: XR lumbar [...] in OV> 01/21/23 1504 DD/ 0905 TD/TT: Breakdown Mill Operator: [facility] External Provider IMG XR PROCEDURES Final Result documented in this encounter Visit Diagnoses Not on filedocumented in this encounter Care Teams Plumbing Inspector Relationship Specialty Start Date End Date Lake Sullivan MD 230 [place] [address] PCP - General Internal Medicine 02/12/14 Bossman Starks 100 [facility] 200 [place] [address] Nephrology 11/14/24 documented as of this encounter
--- OUTSIDE RECORDS SUMMARY | 2025-05-07 08:29 | XMS_ITS | Encounter Summary ---
Author Organization [employer] Address [address] [place] [address] 7t [place] [address] Care Team Providers Care Clinical Application Specialist Name Role Phone Lake Sullivan MD Primary Care Provide r Bossman Starks Unavailable [phone] Reason for Visit * Reason Onset Date Comments Call Back Request 09/30/2023 Encounter Details Date Type Department Care Team ([facility] st Contact Info) Description 09/30/2023 Telephone [facility] MEDICINE 230 [place], [place] [phone] Lake Sullivan MD 230 [place], [place] [phone] Call Back Request Social History Tobacco Use [...] Upcoming Encounters Date Type Department Care Team ([facility] st Contact Info) Description 05/07/2025 9:15 AM EDT Office Visit [facility] MEDICINE 230 [place] [address] Lake Sullivan MD 230 [place] [address] 06/03/2025 10:30 AM EST Telemedicine [facility] CHC MED & PEDS 505 [place] [address] 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, LUCI 505 [place] [address] documented as of this encounter Visit Diagnoses Not on filedocumented in this encounter Additional Health Concerns Assessment Noted Time PHQ-9 Depression Total Score: 3 08/18/19 24 10:01 AM EST documented as of this encounter Care Teams Clinical Application Specialist Relationship Specialty Start Date End Date Lake Sullivan MD 230 [place] [address] PCP - General Internal Medicine 02/12/14 Bossman Starks 100 [facility] 200 [place] [address] Nephrology 11/14/24 documented as of this encounter
--- OUTSIDE RECORDS SUMMARY | 2025-05-07 08:29 | XMS_ITS | Encounter Summary ---
Author Organization [employer] Address [address] [place] [address] 7t [place] [address] Care Team Providers Care Slope Hoist Operator Name Role Phone Lake Sullivan MD Primary Care Provide r Bossman Starks Unavailable [phone] Reason for Visit * Reason Onset Date Comments Call Back Request 12/20/2023 Encounter Details Date Type Department Care Team ([facility] st Contact Info) Description 12/20/2023 Telephone [facility] MEDICINE 230 [place], [place] [phone] Lake Sullivan MD 230 [place], [place] [phone] Call Back Request Social History Tobacco Use [...] a call back in order to r/s BI DATA MODELER appt to before 12/26 due to traveling. documented in this encounter Plan of Treatment Upcoming Encounters Date Type Department Care Team (Late st Contact Info) Description 05/07/2025 9:15 AM EDT Office Visit [facility] MEDICINE 230 [place] [address] Lake Sullivan MD 230 [place] [address] 06/03/2025 10:30 AM EST Telemedicine [facility] CHC MED & PEDS 505 [place] [address] 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, RN 505 [place] [address] documented as of this encounter Visit Diagnoses Not on filedocumented in this encounter Additional Health Concerns Assessment Noted Time PHQ-9 Depression Total Score: 3 08/18/19 10:01 AM EST documented as of this encounter Care Teams Slope Hoist Operator Relationship Specialty Start Date End Date Lake Sullivan MD 230 [place] [address] PCP - General Internal Medicine 02/12/14 Bossman Starks 100 [facility] 200 [place] [address] Nephrology 11/14/24 documented as of this encounter
--- OUTSIDE RECORDS SUMMARY | 2025-05-07 08:29 | XMS_ITS | Encounter Summary ---
Author Organization [employer] Address [address] [facility] 7t [place] [address] Care Team Providers Care Web Sizer Name Role Phone Lake Sullivan MD Primary Care Provide r Bossman Starks Unavailable [phone] Reason for Visit * Reason Onset Date Comments Med Refill 12/19/2023 Encounter Details Date Type Department Care Team (Late st Contact Info) Description 12/19/2023 Telephone [facility] MEDICINE 230 [place], [place] [phone] Lake Sullivan MD 230 [place], [place] [phone] Med Refill Social History Tobacco Use Types [...] 5-325 MG tablet To be sent to: [id number] [facility] documented in this encounter Plan of Treatment Upcoming Encounters Date Type Department Care Team ([facility] Contact Info) Description 05/07/2025 9:15 AM EDT Office Visit [facility] MEDICINE 230 [place] [address] Lake Sullivan MD 230 [place] [address] 06/03/2025 10:30 AM EST Telemedicine [facility] CHC MED & PEDS 505 [place] [address] 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, RN 505 [place] [address] documented as of this encounter Visit Diagnoses Not on filedocumented in this encounter Additional Health Concerns Assessment Noted Time PHQ-9 Depression Total Score: 3 08/18/19 24 10:01 AM EST documented as of this encounter Care Teams Web Sizer Relationship Specialty Start Date End Date Lake Sullivan MD 230 [place] [address] PCP - General Internal Medicine 02/12/14 Bossman Starks 100 [facility] 200 [place] [address] Nephrology 11/14/24 documented as of this encounter
--- OUTSIDE RECORDS SUMMARY | 2025-05-07 08:29 | XMS_ITS | Encounter Summary ---
Author Organization [employer] Address [address] [place] [address] 7t [place] [address] Care Team Providers Care Glassware Finisher Name Role Phone Lake Sullivan MD Primary Care Provide r Bossman Starks Unavailable [phone] Reason for Visit * Reason Onset Date Comments Med Refill 2024 Encounter Details Date Type Department Care Team (Late st Contact Info) Description 2024 Refill [facility] MEDICINE 230 [place], [place] [phone] Lake Sullivan MD 230 [place], [place] [phone] Severe pain Social History Tobacco Use Types [...] 5-325 MG tablet To be sent to: [facility][id number] documented in this encounter Plan of Treatment Upcoming Encounters Date Type Department Care Team (Late st Contact Info) Description 05/07/2025 9:15 AM EDT Office Visit [facility] MEDICINE 230 [place] [address] Lake Sullivan MD 230 [place] [address] 06/03/2025 10:30 AM EST Telemedicine [facility] CHC MED & PEDS 505 [place] [address] 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, LUCI 505 [place] [address] documented as of this encounter Visit Diagnoses Diagnosis Severe pain documented in this encounter Additional Health Concerns Assessment Noted Time PHQ-9 Depression Total Score: 3 08/18/19 24 10:01 AM EST documented as of this encounter Care Teams Glassware Finisher Relationship Specialty Start Date End Date Lake Sullivan MD 230 [place] [address] PCP - General Internal Medicine 02/12/14 Bossman Starks 100 [facility] 200 [place] [address] Nephrology 11/14/24 documented as of this encounter
--- OUTSIDE RECORDS SUMMARY | 2025-05-07 08:29 | XMS_ITS | Encounter Summary ---
Author Organization [employer] Address 75 [facility] 7t [place] [address] Care Team Providers Care Analytical Data Scientist Name Role Phone Lake Sullivan MD Primary Care Provide r Bossman Starks Unavailable [phone] Reason for Visit * Reason Onset Date Comments Med Refill 03/05/2024 Encounter Details Date Type Department Care Team (Late st Contact Info) Description 03/05/2024 Telephone [facility] MEDICINE 230 [place], [place] [phone] Lake Sullivan MD 230 [place], [place] [phone] Med Refill Social History Tobacco Use Types [...] 12 hr tablet To be sent to: [facility] #[id number] AT [facility] documented in this encounter Plan of Treatment Upcoming Encounters Date Type Department Care Team ([facility] Contact Info) Description 05/07/2025 9:15 AM EDT Office Visit [facility] MEDICINE 230 [place] [address] Lake Sullivan MD 230 [place] [address] 06/03/2025 10:30 AM EST Telemedicine [facility] CHC MED & PEDS 505 [place] [address] 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, RN 505 [place] [address] documented as of this encounter Visit Diagnoses Not on filedocumented in this encounter Additional Health Concerns Assessment Noted Time PHQ-9 Depression Total Score: 3 08/18/19 24 10:01 AM EST documented as of this encounter Care Teams Analytical Data Scientist Relationship Specialty Start Date End Date Lake Sullivan MD 230 [place] [address] PCP - General Internal Medicine 02/12/14 Bossman Starks 100 [facility] 200 [place] [address] Nephrology 11/14/24 documented as of this encounter
--- OUTSIDE RECORDS SUMMARY | 2025-05-07 08:30 | XMS_ITS | Encounter Summary ---
Author Organization [employer] Address [address] [place] [address] 7t [place] [address] Care Team Providers Care Direct Support Professional Name Role Phone Lake Sullivan MD Primary Care Provide r Bossman Starks Unavailable [phone] Reason for Visit * Reason Onset Date Comments Med Refill 04/20/2023 Encounter Details Date Type Department Care Team (Late st Contact Info) Description 04/20/2023 Telephone [facility] MEDICINE 230 [place], [place] [phone] Lake Sullivan MD 230 [place], [place] [phone] Med Refill Social History Tobacco Use Types [...] MG 12 hr tablet. Please send to [facility] #[id number] - [place] - [address] [facility] PCP Dr. Ramsey documented in this encounter Plan of Treatment Upcoming Encounters Date Type Department Care Team (Late st Contact Info) Description 05/07/2025 9:15 AM EDT Office Visit [facility] MEDICINE 230 [place] [address] Lake Sullivan MD 230 [place] [address] 06/03/2025 10:30 AM EST Telemedicine [facility] CHC MED & PEDS 505 [place], [place] [phone] 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, LUCI 505 [place], [place] [phone] documented as of this encounter Visit Diagnoses Not on filedocumented in this encounter Care Teams Direct Support Professional Relationship Specialty Start Date End Date Lake Sullivan MD 230 [place] [address] PCP - General Internal Medicine 02/12/14 Bossman Starks 100 [facility] 200 [place] [address] Nephrology 11/14/24 documented as of this encounter
--- OUTSIDE RECORDS SUMMARY | 2025-05-07 08:30 | XMS_ITS | Encounter Summary ---
Author Organization [employer] Address [address] [place] [address] 7t [place] [address] Care Team Providers Care Photoengraving Proofer Apprentice Name Role Phone Lake Sullivan MD Primary Care Provide r Bossman Starks Unavailable [phone] Reason for Visit * Reason Comments Med Refill Encounter Details Date Type Department Care Team (Late st Contact Info) Description 09/18/2024 Refill [facility] MEDICINE 230 [place], [place] [phone] Lake Sullivan MD 230 [place] [address] Social History Tobacco Use Types Packs/Day Years [...] the past 12 months, has t he [employer] gas, oil or water company threatened to [...] Description 05/07/2025 9:15 AM EDT Office Visit [facility] MEDICINE 230 [place] [address] Lake Sullivan MD 230 [place] [address] 06/03/2025 10:30 AM EST Telemedicine [facility] CHC MED & PEDS 505 [place] [address] 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, LUCI 505 [place] [address] documented as of this encounter Visit Diagnoses Not on filedocumented in this encounter Additional Health Concerns Assessment Noted Time PHQ-9 Depression Total Score: 3 08/18/19 24 10:01 AM EST documented as of this encounter Care Teams Photoengraving Proofer Apprentice Relationship Specialty Start Date End Date Lake Sullivan MD 230 [place] [address] PCP - General Internal Medicine 02/12/[address] [facility] 200 [place] [address] Nephrology 11/14/24 documented as of this encounter
--- OUTSIDE RECORDS SUMMARY | 2025-05-07 08:30 | XMS_ITS | Encounter Summary ---
Author Organization [employer] Address [address] [facility] 7t [place] [address] Care Team Providers Care Legal Cashier Name Role Phone Lake Sullivan MD Primary Care Provide r Bossman Starks Unavailable Reason for Visit * Reason Onset Date Comments Med Refill 05/01/2024 Encounter Details Date Type Department Care Team ([facility] st Contact Info) Description 05/01/2024 Telephone [facility] MEDICINE 230 [place], [place] [phone] Lake Sullivan MD 230 [place], [place] [phone] Med Refill Social History Tobacco Use Types [...] Description 05/07/2025 9:15 AM EDT Office Visit [facility] MEDICINE 230 [place] [address] Lake Sullivan MD 230 [place] [address] 06/03/2025 10:30 AM EST Telemedicine [facility] CHC MED & PEDS 505 [place] [address] 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, RN 505 [place] [address] documented as of this encounter Visit Diagnoses Not on filedocumented in this encounter Additional Health Concerns Assessment Noted Time PHQ-9 Depression Total Score: 3 08/18/19 24 10:01 AM EST documented as of this encounter Care Teams Legal Cashier Relationship Specialty Start Date End Date Lake Sullivan MD 230 [place] [address] PCP - General Internal Medicine 02/12/14 Bossman Starks 100 [facility] 200 [place] [address] Nephrology 11/14/24 documented as of this encounter
--- OUTSIDE RECORDS SUMMARY | 2025-05-07 08:30 | XMS_ITS | Encounter Summary ---
Author Organization [employer] Address [address] [place] [address] 7t [place] [address] Care Team Providers Care Moving Picture Operator Name Role Phone Lake Sullivan MD Primary Care Provide r Bossman Starks Unavailable [phone] Reason for Visit * Reason Onset Date Comments Med Refill 09/17/2024 Encounter Details Date Type Department Care Team (Late st Contact Info) Description 09/17/2024 Telephone [facility] MEDICINE 230 [place], [place] [phone] Lake Sullivan MD 230 [place], [place] [phone] Med Refill Social History Tobacco Use Types [...] 5-325 MG tablet [facility]: [id number] [place] - [address] [place] [address] AT [facility] documented in this encounter Plan of Treatment Upcoming Encounters Date Type Department Care Team ([facility] Contact Info) Description 05/07/2025 9:15 AM EDT Office Visit [facility] MEDICINE [address] [place] [phone] Lake Sullivan MD 230 [place] [address] 06/03/2025 10:30 AM EST Telemedicine [facility] CHC MED & PEDS [address] [place] [address] 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, RN 505 [place] [address] documented as of this encounter Visit Diagnoses Not on filedocumented in this encounter Additional Health Concerns Assessment Noted Time PHQ-9 Depression Total Score: 3 08/18/19 24 10:01 AM EST documented as of this encounter Care Teams Moving Picture Operator Relationship Specialty Start Date End Date Lake Sullivan MD [address] [place] [address] PCP - General Internal Medicine 02/12/14 Bossman Starks 100 [facility] 200 [place] [address] Nephrology 11/14/24 documented as of this encounter
--- OUTSIDE RECORDS SUMMARY | 2025-05-07 08:30 | XMS_ITS | Encounter Summary ---
Author Organization [employer] Address [address] [place] [address] 7t [place] [address] Care Team Providers Care Airborne Mission Systems Superintendent Name Role Phone Lake Sullivan MD Primary Care Provide r Bossman Starks Unavailable [phone] Encounter Details Date Type Department Care Team (Late st Contact Info) Description 03/09/2023 Orders Only [facility] CHC MED & PEDS 505 [place] [address] Peggy Carey LPN Social History Tobacco Use [...] Description 05/07/2025 9:15 AM EDT Office Visit [facility] MEDICINE 230 [place] [address] Lake Sullivan MD 230 [place] [address] 06/03/2025 10:30 AM EST Telemedicine [facility] CHC MED & PEDS 505 [place] [address] 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 RN 505 [place] [address] documented as of this encounter Procedures Procedure Name Priority Date/Time Associated Diagnosis Comments MR KNEE WO CONTRAST RIGHT Routine 04/08/2023 8:14 AM EDT documented in this encounter Results * MR Knee w/o Contrast Right (04/08/2023 8:14 AM EDT) Anatomical Region Laterality Modality Magnetic Resonan ce 04/08/2023 8:14 AM EDT Narrative 04/08/2023 2:41 PM EDT [address] [address] [address] Scan Report Signed Patient: Imer Parrish MR#: [id number] : 1955 Acct:[id number] Age/Sex: 67 / M ADM Date: 04/08/23 Loc: HO.CT Attending Dr: Cheryl Regalado PA-C Ordering Physician: Cheryl Regalado PA-C Date of Service: 04/08/23 Procedure(s): CT knee RT wo IV con Accession Number(s): [id number] cc: Lake Allen MD; Cheryl Regalado PA-C [...] in OV> 04/08/23 1437 DD/ 0814 TD/TT: Security System Sales Consultant: Procedure Note Donotuseinterpreter, Image - 04/08/[address] [place] [address] [address] Scan Report Signed Patient: Imer ParrishMR#: [id number] : 1955cct:[id number] Age/Sex: 67 / MADM Date: 04/08/23 Loc: HO.CT Attending Dr: Cheryl Regalado PA-C Ordering Physician: Cheryl Regalado PA-C Date of Service: 04/08/23 Procedure(s): CT knee RT wo IV con Accession Number(s): [id number] cc: Lake Allen MD; Cheryl Regalado PA-C [...] in OV> 04/08/23 1437 DD/ 3 TD/TT: Security System Sales Consultant: [facility] External Provider IMG MRI PROCEDURES Final Result documented in this encounter Visit Diagnoses Not on filedocumented in this encounter Care Teams Airborne Mission Systems Superintendent Relationship Specialty Start Date End Date Ramsey Donald, Lake, MD 230 [place] [address] PCP - General Internal Medicine 02/12/14 Bossman Starks 100 [facility] 200 [place] [address] Nephrology 11/14/24 documented as of this encounter
--- OUTSIDE RECORDS SUMMARY | 2025-05-07 08:30 | XMS_ITS | Encounter Summary ---
Author Organization [employer] Address [address] [place] [address] 7t [place] [address] Care Team Providers Care Welder And Fitter Name Role Phone Lake Sullivan MD Primary Care Provide r Bossman Starks Unavailable Reason for Visit * Reason Onset Date Comments Durable Medical Equipment 05/06/2025 Encounter Details Date Type Department Care Team (Late st Contact Info) Description 05/06/2025 Telephone [facility] MEDICINE 230 [place], [place] [phone] Lake Sullivan MD 230 [place], [place] [phone] Durable Medical Equipment Social History Tobacco Use [...] * Telephone Encounter - Glendy Hinojosa - 05/06/2025 9:38 AM EDT DME form for wipes, gloves,underpads refaxed to [employer] documented in this encounter Plan of Treatment Upcoming Encounters Date Type Department Care Team (Late st Contact Info) Description 05/07/2025 9:15 AM EDT Office Visit [facility] MEDICINE 230 [place] [address] Lake Sullivan MD 230 [place] [address] 06/03/2025 10:30 AM EST Telemedicine [facility] CHC MED & PEDS 505 [place] [address] 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 RN 505 [place] [address] documented as of this encounter Visit Diagnoses Not on filedocumented in this encounter Additional Health Concerns Assessment Noted Time PHQ-9 Depression Total Score: 0 11/14/19 25 9:01 AM EDT documented as of this encounter Care Teams Welder And Fitter Relationship Specialty Start Date End Date Lake Sullivan MD 230 [place] [address] PCP - General Internal Medicine 02/12/14 Bossman Starks 100 [facility] 200 [place] [address] Nephrology 11/14/24 documented as of this encounter
--- OUTSIDE RECORDS SUMMARY | 2025-05-07 08:30 | XMS_ITS | Encounter Summary ---
Author Organization [employer] Address [address] [place] [address] 7t [place] [address] Care Team Providers Care Machine Shop Repair Technician Name Role Phone Lake Sullivan MD Primary Care Provide r Bossman Starks Unavailable [phone] Reason for Visit * Reason Comments Med Refill Encounter Details Date Type Department Care Team (Late st Contact Info) Description 04/06/2023 Refill [facility] MED[facility]INE 230 [place], [place] [phone] Delaney Zavala MD 230 [place], [place] [phone] Dermatitis Social History Tobacco Use Types Packs/Day [...] 9:15 AM EDT Office Visit [facility] MEDICINE 230 [place], [place] [phone] Lake Sullivan MD [address] [place], [place] [phone] 06/03/2025 10:30 AM EST Telemedicine [facility] PEDS 505 [place] [address] 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, LUCI 505 [place] [address] documented as of this encounter Visit Diagnoses Diagnosis Dermatitis Contact dermatitis and other eczema, due to unspecified cause documented in this encounter Care Teams Machine Shop Repair Technician Relationship Specialty Start Date End Date Lake Sullivan MD [address] [place] [address] PCP - General Internal Medicine 02/12/14 Bossman Starks 100 [facility] MARY [address] [address] Nephrology 11/14/24 documented as of this encounter
--- OUTSIDE RECORDS SUMMARY | 2025-05-07 08:30 | XMS_ITS | Encounter Summary ---
Author Organization [employer] Address 75 [facility] 7t [place] [address] Care Team Providers Care Real Estate Assessor Name Role Phone Lake Sullivan MD Primary Care Provide r Bossman Starks Unavailable [phone] Reason for Visit * Reason Onset Date Comments Durable Medical Equipment 05/02/2024 Encounter Details Date Type Department Care Team (Late st Contact Info) Description 05/02/2024 Telephone [facility] MEDICINE 230 [place], [place] [phone] Lake Sullivan MD 230 [place], [place] [phone] Durable Medical Equipment Social History Tobacco Use [...] any questions you can contact pt at [phone]. (Ethiopian Speaker) documented in this encounter Plan of Treatment Upcoming Encounters Date Type Department Care Team ([facility] st Contact Info) Description 05/07/2025 9:15 AM EDT Office Visit [facility] MED[facility]INE 230 [place] [address] Lake Sullivan MD 230 [place] [address] 06/03/2025 10:30 AM EST Telemedicine [facility] MED & PEDS 505 [place] [address] 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, LUCI 505 [place] [address] documented as of this encounter Visit Diagnoses Not on filedocumented in this encounter Additional Health Concerns Assessment Noted Time PHQ-9 Depression Total Score: 3 08/18/19 24 10:01 AM EST documented as of this encounter Care Teams Real Estate Assessor Relationship Specialty Start Date End Date Lake Sullivan MD 230 [place] [address] PCP - General Internal Medicine 02/12/14 Bossman Starks 100 [facility] 200 [place] [address] Nephrology 11/14/24 documented as of this encounter
--- OUTSIDE RECORDS SUMMARY | 2025-05-07 08:30 | XMS_ITS | Encounter Summary ---
Author Organization [employer] Address [address] [place] [address] 7t [place] [address] Care Team Providers Care Electrical Equipment Tester Name Role Phone Lake Sullivan MD Primary Care Provide r Bossman Starks Unavailable Reason for Visit * Reason Onset Date Comments Med Refill 04/19/2025 Encounter Details Date Type Department Care Team (Late st Contact Info) Description 04/19/2025 Telephone [facility] MEDICINE 230 [place], [place] [phone] Lake Sullivan MD 230 [place], [place] [phone] Med Refill Social History Tobacco Use Types [...] encounter Miscellaneous Notes * Telephone Encounter - Perla Story - 04/19/2025 8:37 AM EDT TC from pt requesting medication refill. Medications needing refill : - oxyCODONE-acetaminophen (Percocet) 5-325 MG tablet - morphine CR (MS Contin) 15 MG 12 hr tablet To be sent to: - [id number] - [place] - [address] [facility] documented in this encounter Plan of Treatment Upcoming Encounters Date Type Department Care Team ([facility] st Contact Info) Description 05/07/2025 9:15 AM EDT Office Visit [facility] 230 [place] [address] Lake Slulivan MD 230 [place] [address] 06/03/2025 10:30 AM EST Telemedicine [facility] MED [facility]EDS 505 [place] [address] 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, RN [address] [place] [address] documented as of this encounter Visit Diagnoses Not on filedocumented in this encounter Additional Health Concerns Assessment Noted Time PHQ-9 Depression Total Score: 0 11/14/19 9:01 AM EDT documented as of this encounter Care Teams Electrical Equipment Tester Relationship Specialty Start Date End Date Lake Sullivan MD [address] [place] [address] PCP - General Internal Medicine 02/12/14 Bossman Starks 100 [facility] HERNA[facility]Z [facility] 200 [place] [address] Nephrology 11/14/24 documented as of this encounter
--- OUTSIDE RECORDS SUMMARY | 2025-05-07 08:31 | XMS_ITS | Encounter Summary ---
Author Organization [employer] Address [address] [place] [address] 7t [place] [address] Care Team Providers Care Independent Living Specialist Name Role Phone Lake Sullivan MD Primary Care Provide r Bossman Starks Unavailable [phone] Reason for Visit * Reason Onset Date Comments Med Refill 02/01/2023 Encounter Details Date Type Department Care Team (Late st Contact Info) Description 02/01/2023 Telephone [facility] MEDICINE 230 [place], [place] [phone] Lake Sullivan MD 230 [place], [place] [phone] Med Refill Social History Tobacco Use Types [...] and morphine CR 15 mg. [facility] to [id number] [place], [place] - [address] [facility]. documented in this encounter Plan of Treatment Upcoming Encounters Date Type Department Care Team (Late st Contact Info) Description 05/07/2025 9:15 AM EDT Office Visit [facility] MEDICINE 230 [place] [address] Lake Sullivan MD 230 [place] [address] Arrived 06/03/2025 10:30 AM EST Telemedicine [facility] MED & PEDS 505 [place] [address] 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, RN 505 [place] [address] documented as of this encounter Visit Diagnoses Not on filedocumented in this encounter Care Teams Independent Living Specialist Relationship Specialty Start Date End Date Lake Sullivan MD 230 [place] [address] PCP - General Internal Medicine 02/12/14 Bossman Starks 100 [facility] 200 [place] [address] Nephrology 11/14/24 documented as of this encounter
--- OUTSIDE RECORDS SUMMARY | 2025-05-07 08:31 | XMS_ITS | Encounter Summary ---
Author Organization [email or web address] Address 75 [facility] 7t [place] [address] Care Team Providers Care Automobile Club Membership Sales Agent Name Role Phone Lake Sullivan MD Primary Care Provide r Bossman Starks Unavailable [phone] Encounter Details Date Type Department Care Team (Late Contact Info) Description 01/13/2023 Orders Only [facility] MED & PEDS [address] [place] [address] Peggy Carey LPN Social History Tobacco Use [...] Description 05/07/2025 9:15 AM EDT Office Visit [facility] MEDICINE 230 [place] [address] Lake Sullivan MD 230 [place], [place] [phone] Arrived 06/03/2025 10:30 AM EST Telemedicine [facility] MED [facility] PEDS 505 [place] [address] 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, RN 505 [place] [address] documented as of this encounter Visit Diagnoses Not on filedocumented in this encounter Care Teams Automobile Club Membership Sales Agent Relationship Specialty Start Date End Date Lake Sullivan MD 230 [place] [address] PCP - General Internal Medicine 02/12/14 Bossman Starks 100 [facility] 200 [place] [address] Nephrology 11/14/24 documented as of this encounter
--- OUTSIDE RECORDS SUMMARY | 2025-05-07 08:31 | XMS_ITS | Encounter Summary ---
Author Organization [employer] Address [address] [place] [address] 7t [place] [address] Care Team Providers Care Compensation Intern Name Role Phone Lake Sullivan MD Primary Care Provide r Bossman Starks Unavailable [phone] Reason for Visit * Reason Onset Date Comments Med Refill 01/27/2023 Encounter Details Date Type Department Care Team (Late st Contact Info) Description 01/27/2023 Telephone [facility] MEDICINE 230 [place], [place] [phone] Lake Sullivan MD 230 [place], [place] [phone] Med Refill Social History Tobacco Use Types [...] and morphine CR 15 mg. [facility] to [email or web address][id number] - [place], [place] - [address] [place] [address] AT [facility]. PCP Dr. Ramsey documented in this encounter Plan of Treatment Upcoming Encounters Date Type Department Care Team (Late st Contact Info) Description 05/07/2025 9:15 AM EDT Office Visit [facility] MEDICINE 230 [place] [address] Lake Sullivan MD 230 [place] [address] Arrived 06/03/2025 10:30 AM EST Telemedicine [facility] CH[facility] MED & PEDS 505 [place] [address] 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, RN 505 [place] [address] documented as of this encounter Visit Diagnoses Not on filedocumented in this encounter Care Teams Compensation Intern Relationship Specialty Start Date End Date Lake Sullivan MD 230 [place] [address] PCP - General Internal Medicine 02/12/14 Bossman Starks 100 [facility] 200 [place] [address] Nephrology 11/14/24 documented as of this encounter
--- OUTSIDE RECORDS SUMMARY | 2025-05-07 08:31 | XMS_ITS | Encounter Summary ---
Author Organization [employer] Address [address] [place] [address] 7t [place] [address] Care Team Providers Care Product Tester Fiberglass Name Role Phone Lake Sullivan MD Primary Care Provide r Bossman Starks Unavailable [phone] Reason for Visit * Reason Onset Date Comments Med Refill 05/28/2024 Encounter Details Date Type Department Care Team (Late st Contact Info) Description 05/28/2024 Telephone [facility] MEDICINE 230 [place], [place] [phone] Lake Sullivan MD 230 [place], [place] [phone] Med Refill Social History Tobacco Use Types [...] 12 hr tablet To be sent to: [facility][id number] - [id number] AT [facility] Pt states has no medications * Telephone Encounter - Conor Ross - 05/28/2024 9:24 AM EST TC from pt requesting medication refill. Medications needing refill : oxyCODONE-acetaminophen (Percocet) 5-325 MG tablet morphine CR (MS Contin) 15 MG 12 hr tablet To be sent to: [facility] #[id number] - [employer] AT [facility] documented in this encounter Plan of Treatment Upcoming Encounters Date Type Department Care Team (Late st Contact Info) Description 05/07/2025 9:15 AM EDT Office Visit [facility] MEDICINE 230 [place] [address] Lake Sullivan MD 230 [place] [address] Arrived 06/03/2025 10:30 AM EST Telemedicine [facility] CH[facility] MED & PEDS 505 [place] [address] 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, LUCI 505 [place] [address] documented as of this encounter Visit Diagnoses Not on filedocumented in this encounter Additional Health Concerns Assessment Noted Time PHQ-9 Depression Total Score: 3 08/18/19 10:01 AM EST documented as of this encounter Care Teams Product Tester Fiberglass Relationship Specialty Start Date End Date Lake Sullivan MD 230 [place] [address] PCP - General Internal Medicine 02/12/14 Bossman Starks 100 LIVIER HERNANDEZ [facility] 200 [place] [address] Nephrology 11/14/24 documented as of this encounter
--- OUTSIDE RECORDS SUMMARY | 2025-05-07 08:31 | XMS_ITS | Encounter Summary ---
Author Organization [employer] Address [address] [place] [address] 7t [place] [address] Care Team Providers Care City Bus Driver Name Role Phone Lake Sullivan MD Primary Care Provide r Bossman Starks Unavailable [phone] Reason for Visit * Reason Onset Date Comments Med Refill 02/26/2025 Encounter Details Date Type Department Care Team (Late st Contact Info) Description 02/26/2025 Telephone [facility] 230 [place], [place] [phone] Lake Sullivan MD 230 [place], [place] [phone] Med Refill Social History Tobacco Use Types [...] 12 hr tablet To be sent to: [facility] #[id number] [place] - [address] [facility] AT [facility] documented in this encounter Plan of Treatment Upcoming Encounters Date Type Department Care Team ([facility] st Contact Info) Description 05/07/2025 9:15 AM EDT Office Visit [facility] 230 [place] [address] Lake Sullivan MD 230 [place] [address] Arrived 06/03/2025 10:30 AM EST Telemedicine [facility] MED [facility] PEDS [address] [place] [address] 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, RN [address] [place], [place] documented as of this encounter Visit Diagnoses Not on filedocumented in this encounter Additional Health Concerns Assessment Noted Time PHQ-9 Depression Total Score: 0 11/14/19 9:01 AM EDT documented as of this encounter Care Teams City Bus Driver Relationship Specialty Start Date End Date Lake Sullivan MD 230 [place] [address] PCP - General Internal Medicine 02/12/14 Bossman Starks 100 [facility] 200 [place] [address] Nephrology 11/14/24 documented as of this encounter
--- OUTSIDE RECORDS SUMMARY | 2025-05-07 08:31 | XMS_ITS | Clinical Summary ---
Author Organization [facility] Address [address] [place] [address] Care Team Providers Care Inspector Automatic Typewriter Name Role Phone Unavailable Primary Care Provider Unavailabl e Social History Tobacco Use Types Packs/Day Years Used Date Smoking Tobacco: Never Assessed Sex and Gender Information Value Date Recorded Sex Assigned at Not on file Gender Identity Not on file Sexual Orientation Not on file Plan of Treatment Not on file
--- OUTSIDE RECORDS SUMMARY | 2025-05-07 08:31 | XMS_ITS | Encounter Summary ---
Author Organization [employer] Address [address] [place] [address] 7t [place] [address] Care Team Providers Care Community Action Worker Name Role Phone Lake Sullivan MD Primary Care Provide r Bossman Starks Unavailable [phone] Reason for Visit * Reason Onset Date Comments Med Refill 02/25/2023 Encounter Details Date Type Department Care Team (Late st Contact Info) Description 02/25/2023 Telephone [facility] MEDICINE 230 [place], [place] 2018140 Lake Sullivan MD 230 [place], [place] [phone] Med Refill Social History Tobacco Use Types [...] Office Visit [facility] MEDICINE 230 [place] [address] Lake Sullivan MD 230 [place] [address] Arrived 06/03/2025 10:30 AM EST Telemedicine [facility] MED & PEDS 505 [place], [place] [phone] 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, LUCI 505 [place], [place] [phone] documented as of this encounter Visit Diagnoses Not on filedocumented in this encounter Care Teams Community Action Worker Relationship Specialty Start Date End Date Lake Sullivan MD 230 [place] [address] PCP - General Internal Medicine 02/12/14 Boss[address] [facility] 200 [place] [address] Nephrology 11/14/24 documented as of this encounter
--- OUTSIDE RECORDS SUMMARY | 2025-05-07 08:31 | XMS_ITS | Encounter Summary ---
Author Organization [employer] Address [address] [place] [address] 7t [place] [address] Care Team Providers Care Preparatory Technician Name Role Phone Lake Sullivan MD Primary Care Provide r Bossman Starks Unavailable [phone] Encounter Details Date Type Department Care Team ([facility] st Contact Info) Description 07/20/2022 Telephone [facility] MEDICINE 230 [place], [place] [phone] Lake Sullivan MD 230 [place], [place] [phone] Social History Tobacco Use Types Packs/Day Years [...] Description 05/07/2025 9:15 AM EDT Office Visit [facility] MEDICINE 230 [place] [address] Lake Sullivan MD 230 [place] [address] 06/03/2025 10:30 AM EST Telemedicine [facility] MED & PEDS 505 [place], [place] [phone] 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, RN 505 [place], [place] [phone] documented as of this encounter Visit Diagnoses Not on filedocumented in this encounter Care Teams Preparatory Technician Relationship Specialty Start Date End Date Lake Sullivan MD 230 [place] [address] PCP - General Internal Medicine 02/12/14 Bossman Starks 100 [facility] 200 [place] [address] Nephrology 11/14/24 documented as of this encounter
--- OUTSIDE RECORDS SUMMARY | 2025-05-07 08:31 | XMS_ITS | Encounter Summary ---
Author Organization [employer] Address [address] [facility] 7t [place] [address] Care Team Providers Care Stone Finisher Name Role Phone Lake Sullivan MD Primary Care Provide r Bossman Starks Unavailable [phone] Reason for Visit * Reason Onset Date Comments Appointment 08/27/2022 Patient left malu t today but did not stop in front because his ride was waiting for him. He states that he is supposed to come back next week and wants an health and safety specialist appt with Dr. Fisher. I informed patient that I would not be able to schedule but would relay information to dental and he would get a call for scheduling He did say he wanted an health and safety specialist. I informed I would relay that as well but I would not be able to guarantee and office would be in touch for scheduling DR Encounter Details Date Type Department Care Team (Late st Contact Info) Description 08/27/2022 Telephone [facility] 230 [place] [address] Phil Fisher DDS 230 [place] [address] Appointment (Patient left appt today but did not stop in front because his ride was waiting for him. He states that he is supposed to come back next week and wants an health and safety specialist appt with Dr. Fisher. I informed patient that I would not be able to schedule but would relay information to dental and he would get a call for scheduling He did say he wanted an health and safety specialist. I informed I would relay that as [...] come back next week and wants an health and safety specialist appt with Dr. Fisher. I informed patient that I would not be able to schedule but would relay information to dental and he would get a call for scheduling He did say he wanted an health and safety specialist. I informed I would relay that as wellbut I would not be able to guarantee and office would be in touch for scheduling DR documented in this encounter Plan of Treatment Upcoming Encounters Date Type Department Care Team (Late st Contact Info) Description 05/07/2025 9:15 AM EDT Office Visit [facility] MEDICINE 230 [place] [address] Lake Sullivan MD 230 [place] [address] Arrived 06/03/2025 10:30 AM EST Telemedicine [facility] PEDS 505 [place] [address] 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, LUCI 505 [place] [address] documented as of this encounter Visit Diagnoses Not on filedocumented in this encounter Care Teams Stone Finisher Relationship Specialty Start Date End Date Lake Sullivan MD 230 [place] [address] PCP - General Internal Medicine 02/12/14 Bossman Starks 100 [facility] [address] [address] Nephrology 11/14/24 documented as of this encounter
== END 2025-05-07 08:10 | disposition home or self-care (01) ==
LOC: HO.HHCL 08:09
PROVIDERS: PCP Internal Medicine; Visit Provider Internal Medicine Nephrology
DX: Z13.89 Encounter for screening for other disorder (principal)